=== PATIENT | male | born 1970 | race Caucasian/White ===

== ENCOUNTER 2016-11-30 12:38 | Emergency (ER) | payer OTHER ==
[~2016-11-30] VITALS: Ht 175.3 cm; Wt 69.0 kg
[~2016-11-30 12:38] MED LIST: CLIN1CAP6 PO; HYDR-3580 PO; OMPR20CCR PO
[2016-11-30 12:51] VITALS: BP 124/75; PULSE 65; RESP 16; TEMP 98; O2SAT 97
[2016-11-30] MEDS ORDERED: PRIL20CA9 PO (13:18)
[2016-11-30] MEDS ORDERED: ADDE20 PO (13:18)
--- NOTE | 2016-11-30 13:24 | PD ---
HPI Chief Complaint: Cold / Flu Symptoms Time Seen by Provider: 13:20 Travel History International Travel<30 days: No Contact w/Intl Traveler<30days: No Traveled to known affect area: No History of Present Illness HPI Patient comes in complaining of intermittent substernal chest pain ongoing for approximately a month. Patient describes pain as a pressure-like pain that radiates to his right flank. Patient reports associated tightness across his shoulders. Patient denies anything making it better or worse. Patient states approximately a week ago he had an upper respiratory infection that resolved about 3 days ago. Denies any weight loss, fevers, nausea, vomiting, diarrhea, abdominal pain, shortness of breath, or trauma. PFSH Past Medical History Cardiovascular Problems: No Diabetes: No Diminished Hearing: No GERD: Yes Musculoskeletal: Yes (LT SHOULDER) Past Surgical History Other Surgery: Yes (SHOULDER) Social History Alcohol Use: Yes (SOCIAL) Tobacco Use: Yes (SOCIAL) Substance Use: No Allergies-Medications (Allergen,Severity, Reaction): Coded Allergies: Codeine (Verified Allergy, Severe, HIVES, 11/30/16) Reported Meds & Prescriptions Reported Meds & Active Scripts Active Proair Hfa 8.5 GM Inh (Albuterol Sulfate) 90 Mcg/Act Aer 2 Puff INH Q4-6H PRN 108 mcg/actuation Zithromax Z-Cedrick (Azithromycin) 250 Mg Dspk 250 Mg PO DIRECTED 500 MG (2 tabs) day 1, then 1 tab days 2-5. Reported Adderall (Amphetamine-Dextroamphetamine) 20 Mg Tab 20 Mg PO DAILY Avoid late evening doses. Space doses at least 4 to 6 hours if more than once/day dosing. Prilosec (Omeprazole) 20 Mg Cap 20 Mg PO DAILY Prilosec 20 Mg Cap (Omeprazole) 20 Mg Capcr 20 Mg PO DAILY Review of Systems Except as stated in HPI: all other systems reviewed are Neg Physical Exam Narrative GENERAL: Well-developed, well nourished, in no acute distress, and non-ill appearing. SKIN: Focused skin assessment warm and dry. HEAD: Atraumatic. Normocephalic. EYES: Pupils equal and round. EOMI. No scleral icterus. No injection or drainage. ENT: No nasal bleeding or discharge. Mucous membranes pink and moist. NECK: Trachea midline. Supple. No nuclear rigidity. CARDIOVASCULAR: Regular rate and rhythm. No murmur appreciated. RESPIRATORY: No accessory muscle use. No respiratory distress. Decreased breath sounds right lower lobe. GASTROINTESTINAL: Abdomen soft, non-tender, nondistended. Hepatic and splenic margins not palpable. Normal bowel sounds 4. No pulsatile mass. MUSCULOSKELETAL: No obvious deformities. No clubbing. No cyanosis. No edema. Full range of motion. NEUROLOGICAL: Awake and alert. No obvious cranial nerve deficits. Motor grossly within normal limits. Normal speech. PSYCHIATRIC: Appropriate mood and affect; insight and judgment normal. Data Data Last Documented VS Vital Signs Date Time Temp Pulse Resp B/P Pulse Ox O2 Delivery O2 Flow Rate FiO2 11/30/16 14:13 68 20 129/74 96 Room Air 11/30/16 12:51 98.0 Orders Electrocardiogram (11/30/16 13:17) Ckmb (Isoenzyme) Profile (11/30/16 13:17) Complete Blood Count With Diff (11/30/16 13:17) Comprehensive Metabolic Panel (11/30/16 13:17) Magnesium (Mg) (11/30/16 13:17) Prothrombin Time / Inr (Pt) (11/30/16 13:17) Act Partial Throm Time (Ptt) (11/30/16 13:17) Troponin I (11/30/16 13:17) Lipase (11/30/16 13:17) Chest, Single Ap (11/30/16 13:17) Ecg Monitoring (11/30/16 13:17) Bilateral Bp Monitoring (11/30/16 13:17) Iv Access Insert/Monitor (11/30/16 13:17) Oximetry (11/30/16 13:17) Oxygen Administration (11/30/16 13:17) Aspirin Chew (Aspirin Chew) (11/30/16 13:30) Sodium Chloride 0.9% Flush (Ns Flush) (11/30/16 13:30) CKMB (11/30/16 13:20) CKMB% (11/30/16 13:20) Labs Laboratory Tests Test 11/30/16 13:20 White Blood Count 13.0 TH/MM3 Red Blood Count 4.59 MIL/MM3 Hemoglobin 13.8 GM/DL Hematocrit 41.3 % Mean Corpuscular Volume 90.1 FL Mean Corpuscular Hemoglobin 30.0 PG Mean Corpuscular Hemoglobin 33.3 % Concent Red Cell Distribution Width 12.9 % Platelet Count 386 TH/MM3 Mean Platelet Volume 7.7 FL Neutrophils (%) (Auto) 72.9 % Lymphocytes (%) (Auto) 17.9 % Monocytes (%) (Auto) 6.5 % Eosinophils (%) (Auto) 2.2 % Basophils (%) (Auto) 0.5 % Neutrophils # (Auto) 9.5 TH/MM3 Lymphocytes # (Auto) 2.3 TH/MM3 Monocytes # (Auto) 0.8 TH/MM3 Eosinophils # (Auto) 0.3 TH/MM3 Basophils # (Auto) 0.1 TH/MM3 CBC Comment DIFF FINAL Differential Comment Prothrombin Time 10.3 SEC Prothromb Time International 0.9 RATIO Ratio Activated Partial 29.2 SEC Thromboplast Time Sodium Level 140 MEQ/L Potassium Level 4.2 MEQ/L Chloride Level 106 MEQ/L Carbon Dioxide Level 27.3 MEQ/L Anion Gap 7 MEQ/L Blood Urea Nitrogen 13 MG/DL Creatinine 0.89 MG/DL Estimat Glomerular Filtration 91 ML/MIN Rate Random Glucose 93 MG/DL Calcium Level 8.6 MG/DL Magnesium Level 2.1 MG/DL Total Bilirubin 0.3 MG/DL Aspartate Amino Transf 33 U/L (AST/SGOT) Alanine Aminotransferase 30 U/L (ALT/SGPT) Alkaline Phosphatase 73 U/L Total Creatine Kinase 136 U/L Creatine Kinase MB 0.8 NG/ML Troponin I LESS THAN 0.02 NG/ML Total Protein 6.7 GM/DL Albumin 3.0 GM/DL Lipase 104 U/L MDM Medical Decision Making Medical Screen Exam Complete: Yes Emergency Medical Condition: Yes Interpretation(s) EKG reviewed by Dr. Estrella, shows normal sinus rhythm with ventricular rate of 60. No STEMI. Chest x-ray reviewed with radiologist shows : Suspected moderate right pleural effusion with some accompanying atelectasis or consolidation at the right base. Differential Diagnosis Acute coronary syndrome, angina, pneumonia, pneumothorax, pancreatitis, electrolyte abnormality, other Narrative Course Discussed patient with Dr. Estrella who recommends antibiotics and outpatient follow -up. The patient is non-ill appearing and is in no respiratory distress and comfortable. The patient moves air well and oxygen saturations are normal. Chest x-ray revealed evidence of pneumonia and pleural effusion. The patient looks great and has no significant co morbidities and may be discharged home on outpatient therapy. Plan of care and management were discussed with the patient who agreed with plan. The patient was instructed to follow up with their physician and instructed to return if worsens, progressively worsening shortness of breath or difficulty breathing, persistent fever, chest pains or discomfort, inability to keep medication or fluids down with or without vomiting , or as needed or unable to establish follow up within a timely manner. Patient in no obvious distress upon re-evaluation. All pertinent laboratory/ Radiology result(s) discussed with patient. Patient was asked if they wanted to speak to my attending, which the patient did not wish to do at this time. Any questions/concerns in reference to patient diagnosis/condition discussed and clarified prior to patient's discharge. Reinforced sheer importance of close follow up with patient's primary physician or primary care clinic and/or escrow representative. Instructed patient to return to ED immediately, if symptoms return/worsen. Pt showed understanding of above instructions. Further instructions and recommendations were detailed in discharge paperwork. Pt ambulated without difficulty out of ED at discharge. Diagnosis Primary Impression: Right lower lobe pneumonia Qualified Code: J18.1 - Pneumonia of right lower lobe due to infectious organism Additional Impression: Pleural effusion, right Referrals: Colin Telles MD Patient Instructions: Community Acquired Pneumonia (ED), General Instructions, Pleural Effusion (ED) Additional Instructions: Follow-up with your primary care physician and/or escrow representative in 3-5 days for reevaluation. Take all medication as prescribed. Return to the emergency department if symptoms get worse. Med/Other Pt SpecificInfo: Prescription(s) given Scripts Albuterol 8.5 GM Inh (Proair Hfa 8.5 GM Inh)90 Mcg/Act Aer2 Puff INH Q4-6H PRN ( COUGH) #1 INHALER Ref 0 108 mcg/actuation Prov:Jesse Estrella MD 11/30/16 Azithromycin (Zithromax Z-Cedrick)250 Mg Qdgi415 Mg PO DIRECTED #1 DSPK Ref 0 500 MG (2 tabs) day 1, then 1 tab days 2-5. Prov:Jesse Estrella MD 11/30/16 Disposition: 01 DISCHARGE HOME Condition: Stable Miguel Artis Nov 30, 2016 13:23
[2016-11-30] MEDS ORDERED: SODIUM CHLORIDE 0.9% FLUSH 10 ML FLUSH IVF PRN (13:30)
[2016-11-30] MEDS ORDERED: ASPIRIN 81 MG CHEW TAB PO ONE (13:30)
[2016-11-30 13:31] VITALS: O2SAT 97
[2016-11-30 13:36] LABS: AUTOMATED NEUTROPHIL # 9.5 TH/MM3 (1.8-7.7); BASOPHIL # 0.1 TH/MM3 (0-0.2); BASOPHIL % 0.5 % (0.0-2.0); EOSINOPHIL # 0.3 TH/MM3 (0-0.4); EOSINOPHIL % 2.2 % (0.0-4.0); HEMATOCRIT 41.3 % (39.0-51.0); HEMO FLAGS DIFF FINAL; LYMPH % 17.9 % (9.0-44.0); LYMPHOCYTE # 2.3 TH/MM3 (1.0-4.8); MEAN CELL VOLUME 90.1 FL (80.0-100.0); MEAN CORPUSCULAR HGB CONC 33.3 % (32.0-36.0); MONO % 6.5 % (0.0-8.0); NEUT % 72.9 % (16.0-70.0); PLATELET COUNT 386 TH/MM3 (150-450); RED BLOOD COUNT 4.59 MIL/MM3 (4.50-5.90); RED CELL DISTRIBUTION WIDTH 12.9 % (11.6-17.2)
[2016-11-30 13:43] LABS: CHLORIDE 106 MEQ/L (98-107); POTASSIUM 4.2 MEQ/L (3.5-5.1); SODIUM (NA) 140 MEQ/L (136-145)
[2016-11-30 13:47] LABS: ANION GAP 7 MEQ/L (5-15); BICARBONATE 27.3 MEQ/L (21.0-32.0)
[2016-11-30 13:48] LABS: BLOOD UREA NITROGEN 13 MG/DL (7-18); MAGNESIUM 2.1 MG/DL (1.5-2.5)
[2016-11-30 13:49] LABS: APTT (PATIENT) 29.2 SEC (24.3-30.1); INTERNATIONAL NORMALIZED RATIO 0.9 RATIO; PROTHROMBIN TIME - PATIENT 10.3 SEC (9.8-11.6)
[2016-11-30 13:50] LABS: ALT (GPT) 30 U/L (12-78); AST (GOT) 33 U/L (15-37)
[2016-11-30 13:51] LABS: GLOMERULAR FILTRATION RATE 91 ML/MIN (>89)
[2016-11-30 13:52] LABS: TOTAL BILIRUBIN ADULT 0.3 MG/DL (0.2-1.0)
[2016-11-30 13:53] LABS: ALKALINE PHOSPHATASE 73 U/L (45-117); CREATINE KINASE 136 U/L (39-308)
[2016-11-30 14:05] LABS: CKMB 0.8 NG/ML (0.5-3.6)
[2016-11-30 14:13] VITALS: BP 129/74; PULSE 68; RESP 20; O2SAT 96
--- NOTE | 2016-11-30 14:20 | RADHPO ---
EXAM DATE/TIME: 11/30/2016 13:32 [facility] COMPARISON: No previous studies available for comparison. INDICATIONS : Chest pains MEDICAL HISTORY : None. SURGICAL HISTORY : None. ENCOUNTER: Initial ACUITY: 4 - 6 days PAIN SCORE: 3/10 LOCATION: Bilateral chest FINDINGS: There is increased density seen in the mid and lower right chest. The heart is normal. The left lung is clear CONCLUSION: Suspected moderate right pleural effusion with some accompanying atelectasis or consolidation at the right base. Abe Dillard MD on November 30, 2016 at 14:15 Board Certified Radiologist. This report was verified electronically.
[2016-11-30] MEDS ORDERED: ALBUAER3 INH (14:36)
[2016-11-30] MEDS ORDERED: ZITHTAB PO (14:36)
--- NOTE | 2016-12-01 14:30 | EKG ---
Date Performed: 11/30/2016 Time Performed: 13:24:02 PTAGE: 46 years EKG: Sinus rhythm . Normal ECG PREVIOUS TRACING : 03/28/2009 19.47 Compared to prior tracing no significant change DOCTOR: Emery Bustos Interpretating Date/Time 12/01/2016 14:26:18
== END 2016-11-30 14:45 | disposition home or self-care (01) ==
LOC: PHEFT 12:38
DX: J18.1 Lobar pneumonia, unspecified organism (principal); J90 Pleural effusion, not elsewhere classified; K21.9 Gastro-esophageal reflux disease without esophagitis; Z72.0 Tobacco use
CPT/HCPCS: 71010; 80053; 82550; 82552; 83690; 83735; 84484; 85025; 85610; 85730; 93005

== ENCOUNTER 2016-12-03 22:39 | Inpatient (IN) | payer OTHER ==
[~2016-12-03] VITALS: Ht 175.3 cm; Wt 68.0 kg
[~2016-12-03 22:39] MED LIST changes: +ADDE20 PO; +ALBUAER3 INH; -CLIN1CAP6 PO; -HYDR-3580 PO; +PRIL20CA9 PO; +ZITHTAB PO
[2016-12-03 22:40] VITALS: BP 124/77; PULSE 117; RESP 20; TEMP 99; O2SAT 95
[2016-12-04] VITALS (15 sets, daily range): BP systolic 105–121; BP diastolic 58–73; PULSE 89–115; RESP 14–24; TEMP 98.1–99.5; O2SAT 90–99
[2016-12-04] MEDS ORDERED: SODIUM CHLORIDE 0.9% FLUSH 10 ML FLUSH IVF PRN (00:15)
--- NOTE | 2016-12-04 00:36 | RADRPT ---
EXAM DATE/TIME: 12/04/2016 00:18 [facility] COMPARISON: CHEST SINGLE AP, November 30, 2016, 13:32. INDICATIONS : Shortness of breath. MEDICAL HISTORY : Right lung pneumonia. SURGICAL HISTORY : None. ENCOUNTER: Initial ACUITY: 4 - 6 days PAIN SCORE: 0/10 LOCATION: Bilateral chest FINDINGS: PA and lateral views of the chest demonstrates an increasing area of parenchymal consolidation and ef fusion the right lung. This is mildly increased compared to the prior exam. The left lung remains tisha ar and well-aerated. No new infiltrates are seen the left lung. The heart size is stable. The bony st ructures are stable.. CONCLUSION: Increasing pulmonary infiltrate and effusion in the right lung. Ck Spencer MD on December 04, 2016 at 0:33 Board Certified Radiologist. This report was verified electronically.
[2016-12-04 00:37] LABS: BLOOD GAS BASE EXCESS 1.2 mmol/L (-2-2); BLOOD GAS CARBOXYHEMOGLOBIN 1.2 % (0-4); BLOOD GAS HCO3 25 mmol/L (22-26); BLOOD GAS METHEMOGLOBIN 0.5 % (0-2); BLOOD GAS O2 HGB SATURATION 94 % (90-100); BLOOD GAS OXYGEN CONTENT 19.2 Vol % (12.0-20.0); BLOOD GAS PCO2 38 mmHg (38-42); BLOOD GAS PO2 76 mmHG (61-120); BLOOD GAS TOTAL HGB 14.5 G/DL (12.0-16.0); CRITICAL VALUE NO; DRAW SITE RT RADIAL; NUMBER OF ARTERIAL PUNCTURES 1; TEMP CORR TO 98.6; ULNAR PULSE PRESENT
[2016-12-04 00:38] LABS: STAT YES
[2016-12-04 00:47] LABS: AUTOMATED NEUTROPHIL # 11.9 TH/MM3 (1.8-7.7); BASOPHIL # 0.2 TH/MM3 (0-0.2); BASOPHIL % 1.2 % (0.0-2.0); EOSINOPHIL # 0.3 TH/MM3 (0-0.4); EOSINOPHIL % 1.7 % (0.0-4.0); HEMATOCRIT 42.3 % (39.0-51.0); LYMPH % 13.3 % (9.0-44.0); LYMPHOCYTE # 2.1 TH/MM3 (1.0-4.8); MEAN CELL VOLUME 87.6 FL (80.0-100.0); MEAN CORPUSCULAR HEMOGLOBIN 30.6 PG (27.0-34.0); MONO % 7.3 % (0.0-8.0); NEUT % 76.5 % (16.0-70.0); PLATELET COUNT 382 TH/MM3 (150-450); RED BLOOD COUNT 4.83 MIL/MM3 (4.50-5.90); WHITE BLOOD COUNT 15.6 TH/MM3 (4.0-11.0)
[2016-12-04] MEDS ORDERED: RESP: ALBUTEROL 2.5 MG/IPRATROPIUM 0.5 MG NEB (PRN) NEB (01:00)
[2016-12-04] MEDS ORDERED: NALOXONE HCL 0.4 MG/ML AMP IV PRN (01:00)
[2016-12-04 01:02] LABS: HEMO FLAGS AUTO DIFF
[2016-12-04] MEDS: LEVOFLOXACIN 750 MG PREMIX INJ 150 ML IV SCH (01:12)
[2016-12-04 01:14] LABS: BICARBONATE 30.3 MEQ/L (21.0-32.0); POTASSIUM 4.1 MEQ/L (3.5-5.1)
[2016-12-04 01:37] LABS: BANDS 14 % (0-6); EOSINOPHILS 3 % (0-4); NEUTROPHIL # MANUAL DIFF 11.9 TH/MM3 (1.8-7.7); PLATELET ESTIMATE SMEAR NORMAL (NORMAL); PLATELET MORPHOLOGY NORMAL (NORMAL); POLYS (SEG NEUTROPHILS) 62 % (16-70); SCAN/DIFF FINAL DIFF MANUAL; WBC DIFF SAMPLE 100
--- NOTE | 2016-12-04 02:31 | HHI.HP ---
HPI Service [facility] Primary Care Physician Omar Harry MD Admission Diagnosis pneumonia, failure of adequate outpatient treatment Diagnoses: Travel History International Travel<30 Days: No Contact w/Intl Traveler <30 Da: No Traveled to Known Affected Are: No History of Present Illness This is a 46 year old male patient with a past medical history which includes GERD and ADD. Patient reports trouble breathing x 1 week, associated with cough productive of yellow phlegm and right sided chest pain with radiation to the back pain described as sharp stabbing in nature. Patient was seen at [facility] Thursday[facility]Thursday give abx and has been feeling worse with more difficult in breath and increasing muscle aches. Denies fevers, chills, N/V/D, changes in weight or difficulty in GERD, ADD on Adderall patient also taking probiotic daily and Aleve PM lately Shoulder surgery quit 2 weeks ago prior to that was smoking 3-4 cigarettes per day for the past 5 year social ETOH occasional marijuana use Sister has lupus fibromyalgia Mother has arthritis and, "autoimmune problems" Pna- failed outpatient therapy Pulmonary effusion CXR reviewed by myself and Dr. Houston CT chest ordered and pending- may need IR consult to drain pulmonary effusion both diagnostic and therapeutic if CT abnormal may need Pulmonology consult Duonebs scheduled and as needed supplemental oxygen to maintain saturation above 92% TAcycardiac- ST likely reactive to Pna DVT prophylaxis with Discussed with ER provider, nursing, patient and at bedside Written by Margaret Valle, acting as scribe for Dr. Houston on 12/04/16 at 02: 28. Past Family Social History Allergies: Coded Allergies: Codeine (Verified Allergy, Severe, HIVES, 12/03/16) Physical Exam Vital Signs Vital Signs Date Time Temp Pulse Resp B/P Pulse Ox O2 Delivery O2 Flow Rate FiO2 12/04/16 01:12 102 22 114/73 98 Nasal Cannula 2 12/04/16 00:51 99 24 97 Nasal Cannula 2 12/03/16 22:40 99.0 117 20 124/77 95 Room Air Physical Exam GENERAL: This is a well-nourished, well-developed patient, in no apparent distress. SKIN: No rashes, ecchymoses or lesions. Cool and dry. HEAD: Atraumatic. Normocephalic. No temporal or scalp tenderness. EYES: Pupils equal round and reactive. Extraocular motions intact. No scleral icterus. No injection or drainage. ENT: Nose without bleeding, purulent drainage or septal hematoma. Throat without erythema, tonsillar hypertrophy or exudate. Uvula midline. Airway patent. NECK: Trachea midline. No JVD or lymphadenopathy. Supple, nontender, no meningeal signs. CARDIOVASCULAR: Regular rate and rhythm without murmurs, gallops, or rubs. RESPIRATORY: decrease air movement on R GASTROINTESTINAL: Abdomen soft, non-tender, nondistended. No hepato-splenomegaly , or palpable masses. No guarding. MUSCULOSKELETAL: Extremities without clubbing, cyanosis, or edema. No joint tenderness, effusion, or edema noted. No calf tenderness. Negative Homans sign bilaterally. NEUROLOGICAL: Awake and alert. Cranial nerves II through XII intact. Motor and sensory grossly within normal limits. Five out of 5 muscle strength in all muscle groups. Normal speech. Laboratory Laboratory Tests Test 12/04/16 12/04/16 00:22 00:37 Blood Gas Puncture Site RT RADIAL Blood Gas Patient Temperature 98.6 Blood Gas HCO3 25 Blood Gas Base Excess 1.2 Blood Gas Oxygen Saturation 94 Arterial Blood pH 7.44 Arterial Blood Partial 38 Pressure CO2 Arterial Blood Partial 76 Pressure O2 Arterial Blood Oxygen Content 19.2 Arterial Blood 1.2 Carboxyhemoglobin Arterial Blood Methemoglobin 0.5 Blood Gas Hemoglobin 14.5 Oxygen Delivery Device Blood Gas Liter Flow White Blood Count 15.6 Red Blood Count 4.83 Hemoglobin 14.8 Hematocrit 42.3 Mean Corpuscular Volume 87.6 Mean Corpuscular Hemoglobin 30.6 Mean Corpuscular Hemoglobin 35.0 Concent Red Cell Distribution Width 13.0 Platelet Count 382 Mean Platelet Volume 7.8 Neutrophils (%) (Auto) 76.5 Lymphocytes (%) (Auto) 13.3 Monocytes (%) (Auto) 7.3 Eosinophils (%) (Auto) 1.7 Basophils (%) (Auto) 1.2 Neutrophils # (Auto) 11.9 Lymphocytes # (Auto) 2.1 Monocytes # (Auto) 1.1 Eosinophils # (Auto) 0.3 Basophils # (Auto) 0.2 CBC Comment AUTO DIFF Differential Total Cells 100 Counted Neutrophils % (Manual) 62 Band Neutrophils % 14 Lymphocytes % 15 Monocytes % 6 Eosinophils % 3 Neutrophils # (Manual) 11.9 Differential Comment FINAL DIFF MANUAL Platelet Estimate NORMAL Platelet Morphology Comment NORMAL Sodium Level 139 Potassium Level 4.1 Chloride Level 103 Carbon Dioxide Level 30.3 Anion Gap 6 Blood Urea Nitrogen 17 Creatinine 0.98 Estimat Glomerular Filtration 82 Rate Random Glucose 89 Calcium Level 9.0 B-Type Natriuretic Peptide 38 Date/Time Procedure Status Source Growth 12/04/16 00:37 Aerobic Blood Culture Received Blood Peripheral Pending 12/04/16 00:37 Anaerobic Blood Culture Received Blood Peripheral Pending Result Diagram: 12/04/16 0037 12/04/16 0037 Margaret Valle Dec 04, 2016 02:31
--- NOTE | 2016-12-04 02:56 | RADRPT ---
EXAM DATE/TIME: 12/04/2016 02:41 [facility] COMPARISON: No previous studies available for comparison. INDICATIONS : Evaluate for pneumonia. RADIATION DOSE: 3.48 CTDIvol (mGy) MEDICAL HISTORY : Gastroesophageal reflux disease. SURGICAL HISTORY : None. ENCOUNTER: Initial ACUITY: 3 days PAIN SCALE: 0/10 LOCATION: chest TECHNIQUE: Volumetric scanning of the chest was performed. Using automated exposure control and adjustment of t he mA and/or kV according to patient size, radiation dose was kept as low as reasonably achievable to obtain optimal diagnostic quality images. FINDINGS: LUNGS: There is a large right-sided pleural effusion with compressive atelectasis involving the right middle and right lower lung. There is some partial aeration of the right upper lung. The left lung is well- aerated. There is a mild infiltrate in the left lung base. PLEURAE: Large right pleural effusion. MEDIASTINUM: A few nonspecific lymph nodes are seen. The vascular structures are unremarkable. The heart size is w ithin normal limits. AXILLAE: Within normal limits. No lymphadenopathy. MUSCULOSKELETAL: Within normal limits for patient age. MISCELLANEOUS: The visualized upper abdominal organs demonstrate no acute abnormality. CONCLUSION: 1. Large right pleural effusion with compressive atelectasis involving the right middle and right low er lung. 2. Mild left lower lung infiltrate. Ck Spencer MD on December 04, 2016 at 2:51 Board Certified Radiologist. This report was verified electronically.
--- NOTE | 2016-12-04 03:10 | HHI.HP ---
[facility] Omar Harry MD Admission Diagnosis pneumonia, failure of adequate outpatient treatment Diagnoses: Chief Complaint: worsening SOB Travel History International Travel<30 Days: No Contact w/Intl Traveler <30 Da: No Traveled to Known Affected Are: No History of Present Illness This is a 46 year old male patient with a past medical history which includes GERD and ADD. Patient reports he has had trouble breathing x 1 week. This shortness of breath has been associated with cough productive of yellow phlegm and right sided chest pain. Chest pain is worsen by his shortness of breath. The right-sided chest pain radiates to the back pain and patient describes the chest pain as sharp stabbing in nature. Patient was seen at [facility] given azithromycin by mouth and discharged home. Patient report that since that time he has been feeling worse with increasing shortness of breath and increasing generalized muscle aches. Patient feels warm at time of evaluation. Patient denies fevers, chills, N/V/D, changes in weight. Upon arrival to the emergency department patient's temperature 99.0 heart rate of 117 respiratory rate of 20 blood pressure 124/77 with pulse oximetry 95% on room air. Chest x-ray reviewed by myself as well as Dr. Houston and reveals increasing pulmonary infiltrate and effusion in the right lung. Review of Systems Except as stated in HPI: all other systems reviewed are Neg Past Family Social History Past Medical History GERD, ADD on Adderall Past Surgical History Left ankle tendon repair, left Shoulder surgery Reported Medications Zithromax Z-Cedrick (Azithromycin) 250 Mg Dspk 250 Mg PO DIRECTED 500 MG (2 tabs) day 1, then 1 tab days 2-5. Adderall (Amphetamine-Dextroamphetamine) 20 Mg Tab 20 Mg PO DAILY Avoid late evening doses. Space doses at least 4 to 6 hours if more than once/day dosing. Prilosec (Omeprazole) 20 Mg Cap 20 Mg PO DAILY patient also taking OTC probiotic daily and Aleve PM lately Allergies: Coded Allergies: Codeine (Verified Allergy, Severe, HIVES, 12/03/16) Active Ordered Medications Current Medications Medications (Trade) Dose Ordered Sig/Thiago Route Start Time Stop Time Status Last Admin (NS Flush) 2 ml UNSCH PRN IV FLUSH 12/04/16 01:00 (NS Flush) 2 ml BID IV FLUSH 12/04/16 09:00 Naloxone HCl 0.4 mg 0.4 mg UNSCH PRN IV 12/04/16 01:00 (Levaquin 750 Mg Premix Inj) 150 ml @ 100 mls/hr Q24H IV 12/04/16 01:00 12/04/16 01:12 Family History Sister has lupus fibromyalgia Mother has arthritis and, "autoimmune problems" Social History quit 2 weeks ago prior to that was smoking 3-4 cigarettes per day for the past 5 year social ETOH occasional marijuana use Physical Exam Vital Signs Vital Signs Date Time Temp Pulse Resp B/P Pulse Ox O2 Delivery O2 Flow Rate FiO2 12/04/16 01:12 102 22 114/73 98 Nasal Cannula 2 12/04/16 00:51 99 24 97 Nasal Cannula 2 12/03/16 22:40 99.0 117 20 124/77 95 Room Air Physical Exam GENERAL: This is a well-nourished, well-developed patient, in no apparent distress. SKIN: No rashes, ecchymoses or lesions. Cool and dry. HEAD: Atraumatic. Normocephalic. No temporal or scalp tenderness. EYES: Extraocular motions intact. No scleral icterus. No injection or drainage. CARDIOVASCULAR: Tachycardic without murmurs, gallops, or rubs. RESPIRATORY: Diminished right GASTROINTESTINAL: Abdomen soft, non-tender, nondistended. MUSCULOSKELETAL: Extremities without clubbing, cyanosis, or edema. No joint tenderness, effusion, or edema noted. No calf tenderness. Negative Homans sign bilaterally. NEUROLOGICAL: Awake and alert. Motor and sensory grossly within normal limits. Five out of 5 muscle strength in all muscle groups. Normal speech. Laboratory Laboratory Tests Test 12/04/16 12/04/16 00:22 00:37 Blood Gas Puncture Site RT RADIAL Blood Gas Patient Temperature 98.6 Blood Gas HCO3 25 Blood Gas Base Excess 1.2 Blood Gas Oxygen Saturation 94 Arterial Blood pH 7.44 Arterial Blood Partial 38 Pressure CO2 Arterial Blood Partial 76 Pressure O2 Arterial Blood Oxygen Content 19.2 Arterial Blood 1.2 Carboxyhemoglobin Arterial Blood Methemoglobin 0.5 Blood Gas Hemoglobin 14.5 Oxygen Delivery Device Blood Gas Liter Flow White Blood Count 15.6 Red Blood Count 4.83 Hemoglobin 14.8 Hematocrit 42.3 Mean Corpuscular Volume 87.6 Mean Corpuscular Hemoglobin 30.6 Mean Corpuscular Hemoglobin 35.0 Concent Red Cell Distribution Width 13.0 Platelet Count 382 Mean Platelet Volume 7.8 Neutrophils (%) (Auto) 76.5 Lymphocytes (%) (Auto) 13.3 Monocytes (%) (Auto) 7.3 Eosinophils (%) (Auto) 1.7 Basophils (%) (Auto) 1.2 Neutrophils # (Auto) 11.9 Lymphocytes # (Auto) 2.1 Monocytes # (Auto) 1.1 Eosinophils # (Auto) 0.3 Basophils # (Auto) 0.2 CBC Comment AUTO DIFF Differential Total Cells 100 Counted Neutrophils % (Manual) 62 Band Neutrophils % 14 Lymphocytes % 15 Monocytes % 6 Eosinophils % 3 Neutrophils # (Manual) 11.9 Differential Comment FINAL DIFF MANUAL Platelet Estimate NORMAL Platelet Morphology Comment NORMAL Sodium Level 139 Potassium Level 4.1 Chloride Level 103 Carbon Dioxide Level 30.3 Anion Gap 6 Blood Urea Nitrogen 17 Creatinine 0.98 Estimat Glomerular Filtration 82 Rate Random Glucose 89 Calcium Level 9.0 B-Type Natriuretic Peptide 38 Date/Time Procedure Status Source Growth 12/04/16 00:37 Aerobic Blood Culture Received Blood Peripheral Pending 12/04/16 00:37 Anaerobic Blood Culture Received Blood Peripheral Pending Result Diagram: 12/04/167 12/04/16 0037 Imaging Last Impressions Chest X-Ray 12/04/16 0008 Signed Impressions: Service Date/Time: November 00:18 - CONCLUSION: Increasing pulmonary infiltrate and effusion in the right lung. Ck Spencer MD Assessment and Plan Problem List: (1) Pleural effusion, right ICD Code: J90 Status: Acute (2) Right lower lobe pneumonia ICD Code: J18.1 Status: Acute (3) Failure of outpatient treatment ICD Code: Z78.9 Status: Acute Assessment and Plan This is a 46 year old male patient with a past medical history which includes GERD and ADD. Patient reports he has had trouble breathing x 1 week. This shortness of breath has been associated with cough productive of yellow phlegm and right sided chest pain. Chest pain is worsen by his shortness of breath. The right-sided chest pain radiates to the back pain and patient describes the chest pain as sharp stabbing in nature. Patient was seen at [facility] given azithromycin by mouth and discharged home. Patient report that since that time he has been feeling worse with increasing shortness of breath and increasing generalized muscle aches. Patient feels warm at time of evaluation. Patient denies fevers, chills, N/V/D, changes in weight. Upon arrival to the emergency department patient's temperature 99.0 heart rate of 117 respiratory rate of 20 blood pressure 124/77 with pulse oximetry 95% on room air. Chest x-ray reviewed by myself as well as Dr. Houston and reveals increasing pulmonary infiltrate and effusion in the right lung. Community acquired pneumonia which has failed outpatient therapy Pulmonary effusion Leukocytosis 15.6 CXR reviewed by myself and Dr. Houston and reveals increasing pulmonary infiltrate and effusion in the right lung. CT chest ordered and pending- may need IR consult to drain pulmonary effusion both diagnostic and therapeutic if CT abnormal may need Pulmonology consult Jason scheduled and as needed supplemental oxygen to maintain saturation above 92% Tachycardiac- ST likely reactive to Pna Patient has received 1 L fluid bolus and also also been started on IV Levaquin Continuous cardiac telemetry and continue to monitor HR Other stable medical conditions include ADD and GERD- continue home medications DVT prophylaxis with SCDs Discussed with ER provider, nursing, patient and at bedside Written by Margaret Valle, acting as scribe for Dr. Houston on 12/04/16 at 02: 28. This note was transcribed by scribe [Margaret Valle]. I, Dr. Matt Houston personally performed the history, physical exam, and medical decision making; and confirmed the accuracy of the information in the transcribed note. Authenticated by Dr. Matt Houston on 12/04/16 at 02:28. Physician Certification 2 Midnight Certification Type: Admission for Inpatient Services Order for Inpatient Services The services are ordered in accordance with Medicare regulations or non- Medicare payer requirements, as applicable. In the case of services not specified as inpatient-only, they are appropriately provided as inpatient services in accordance with the 2-midnight benchmark. Estimated LOS (days): 3 days is the estimated time the patient will need to remain in the hospital, assuming treatment plan goals are met and no additional complications. Post-Hospital Plan: Home Problem Qualifiers (1) Right lower lobe pneumonia: Qualified Code: J18.1 - Pneumonia of right lower lobe due to infectious organism Margaret Valle Dec 04, 2016 03:10 Matt Houston MD December 08, 2016 07:15
[2016-12-04 04:49] LABS: PROTHROMBIN TIME - PATIENT 10.9 SEC (9.8-11.6)
[2016-12-04] MEDS: RESP: ALBUTEROL 2.5 MG/IPRATROPIUM 0.5 MG NEB (SCH) NEB ×3 (07:55→20:05)
[2016-12-04] MEDS: DEXTROAMPHETAMINE/AMPHETAMINE 20 MG TAB PO SCH (09:00)
[2016-12-04] MEDS ORDERED: IBUPROFEN 400 MG TAB PO ONE (11:45)
--- NOTE | 2016-12-04 14:18 | RADRPT ---
EXAM DATE/TIME: 12/04/2016 13:37 [facility] COMPARISON: CHEST PA & LAT, December 04, 2016, 0:18. CT THORAX W/O CONTRAST, December 04, 2016, 2:41. CHEST SINGLE AP , November 30, 2016, 13:32. INDICATIONS : Post right thoracentesis. MEDICAL HISTORY : Gastroesophageal reflux disease. SURGICAL HISTORY : None. ENCOUNTER: Subsequent ACUITY: 2 days PAIN SCORE: 0/10 LOCATION: Right chest FINDINGS: Portable upright AP expiratory view of the chest demonstrates no pneumothorax following recent right thoracentesis. There is persistent pleural-parenchymal opacity at the right base but decreased from t he prior study. CONCLUSION: 1. No pneumothorax is visualized following recent right thoracentesis. 2. Right pleural effusion has significantly decreased in size but a small amount of pleural fluid rem ains present. There is residual atelectasis and/or consolidation in the right lung base. Abe Teixeira MD on December 04, 2016 at 14:15 Board Certified Radiologist. This report was verified electronically.
[2016-12-04 14:37] LABS: TOTAL PROTEIN,PLEURAL FLUID 4.5 GM/DL
[2016-12-04] MEDS: SODIUM CHLORIDE 0.9% FLUSH 10 ML FLUSH IV FLUSH SCH ×2 (14:42→21:24)
[2016-12-04] MEDS: PANTOPRAZOLE SOD 20 MG DELAYED RELEASE TAB PO SCH (14:42)
[2016-12-04 14:50] LABS: PLEURAL FLUID LYMPHS 45 %
--- NOTE | 2016-12-04 16:21 | RADRPT ---
EXAM DATE/TIME: 12/04/2016 12:37 [facility] COMPARISON: CT THORAX W/O CONTRAST, December 04, 2016, 2:41. INDICATIONS : Right pleural effusion. MEDICAL HISTORY : Gastroesophageal reflux disease. SURGICAL HISTORY : Left ankle tendon repair. ENCOUNTER: Initial ACUITY: 1 week PAIN SCORE: 0/10 LOCATION: Right chest FLUID: Total volume of 2,100 cc of bloody fluid was removed. Fluid was sent to lab for ordered studies. TECHNIQUE: 1. Ultrasound guidance for thoracentesis. 2. Thoracentesis. The risks, benefits, and alternatives to ultrasound guided thoracentesis were explained to the patien t in lay simple terms, including the risk of bleeding and infection. Written and verbal informed con sent was obtained. Appropriate area for thoracentesis was marked under ultrasound guidance with the patient in the uprig ht position. Overlying skin was prepped and draped in the usual sterile fashion and with local anest hetic, a dermatotomy was made with an 11 blade scalpel. A 6 Tunisian thoracentesis catheter was placed in the pleural space and fluid was removed. Catheter was then removed and a sterile dressing applie d. There were no immediate complications. The patient tolerated the procedure well and the left the ultrasound suite in stable condition. Chest radiograph is to be obtained. CONCLUSION: Uncomplicated ultrasound guided thoracentesis with removal of 2.1 L of bloody fluid. Abe Teixeira MD on December 04, 2016 at 16:19 Board Certified Radiologist. This report was verified electronically.
--- NOTE | 2016-12-04 20:20 | HHI.PR ---
Addendum to Inpatient Note Addendum Reason: Additional Documentation Additional Information Deferred entry, patient seen earlier today at around 2:30 PM. Patient earlier had increasing heart rate, oxygen saturation the 90s which improved after thoracentesis. The patient was coming back from thoracentesis. Patient states shortness of breath is much improved, denies chest pain. Patient is awake alert oriented 3, nonacute distress. Lungs showed diminished air entry in the right lung base, other lung rosario clear to auscultation. Abdomen soft, nontender. Bilateral lower extremities without edema. Patient has sepsis secondary to pneumonia. Patient with leukocytosis of 15 K and tachycardia with heart rate of more than 110. Large left pleural effusion has been evacuated. Continue IV Levaquin. Cytology pending. FU pleural fluid analysis. Amari Mccain MD Dec 04, 2016 20:20
[2016-12-05] VITALS (10 sets, daily range): BP systolic 108–119; BP diastolic 57–72; PULSE 91–117; RESP 16–20; TEMP 97.4–98.6; O2SAT 93–96
[2016-12-05] MEDS: LEVOFLOXACIN 750 MG PREMIX INJ 150 ML IV SCH (01:39)
[2016-12-05] MEDS: IBUPROFEN 400 MG TAB PO PRN ×4 (01:53→23:47)
[2016-12-05 07:10] LABS: AUTOMATED NEUTROPHIL # 9.7 TH/MM3 (1.8-7.7); BASOPHIL # 0.1 TH/MM3 (0-0.2); BASOPHIL % 0.4 % (0.0-2.0); EOSINOPHIL # 0.4 TH/MM3 (0-0.4); EOSINOPHIL % 3.1 % (0.0-4.0); HEMATOCRIT 42.9 % (39.0-51.0); HEMO FLAGS DIFF FINAL; LYMPH % 15.9 % (9.0-44.0); LYMPHOCYTE # 2.2 TH/MM3 (1.0-4.8); MEAN CELL VOLUME 88.8 FL (80.0-100.0); MEAN CORPUSCULAR HEMOGLOBIN 29.6 PG (27.0-34.0); MEAN CORPUSCULAR HGB CONC 33.3 % (32.0-36.0); NEUT % 69.6 % (16.0-70.0); PLATELET COUNT 337 TH/MM3 (150-450); RED BLOOD COUNT 4.83 MIL/MM3 (4.50-5.90); RED CELL DISTRIBUTION WIDTH 12.9 % (11.6-17.2); WHITE BLOOD COUNT 13.9 TH/MM3 (4.0-11.0)
[2016-12-05 07:52] LABS: ALT (GPT) 17 U/L (12-78); ANION GAP 9 MEQ/L (5-15); AST (GOT) 28 U/L (15-37); BICARBONATE 25.8 MEQ/L (21.0-32.0); BLOOD UREA NITROGEN 18 MG/DL (7-18); CHLORIDE 101 MEQ/L (98-107); GLOMERULAR FILTRATION RATE 81 ML/MIN (>89); MAGNESIUM 2.1 MG/DL (1.5-2.5); POTASSIUM 4.4 MEQ/L (3.5-5.1); SODIUM (NA) 136 MEQ/L (136-145)
[2016-12-05 07:53] LABS: ALKALINE PHOSPHATASE 77 U/L (45-117); TOTAL BILIRUBIN ADULT 0.4 MG/DL (0.2-1.0)
[2016-12-05] MEDS: RESP: ALBUTEROL 2.5 MG/IPRATROPIUM 0.5 MG NEB (SCH) NEB ×3 (08:21→22:04)
[2016-12-05] MEDS: SODIUM CHLORIDE 0.9% FLUSH 10 ML FLUSH IV FLUSH SCH ×2 (09:00→21:29)
[2016-12-05] MEDS: PANTOPRAZOLE SOD 20 MG DELAYED RELEASE TAB PO SCH (09:08)
[2016-12-05] MEDS: DEXTROAMPHETAMINE/AMPHETAMINE 20 MG TAB PO SCH (09:08)
[2016-12-05] MEDS ORDERED: INFLUENZA VIRUS VACCINE (QUADRIVALENT) 0.5 ML SYR IM ONE (10:00)
[2016-12-05] MEDS ORDERED: PNEUMOCOCCAL POLYVALENT INJ 25 MCG/0.5 ML SYR IM ONE (10:00)
--- NOTE | 2016-12-05 14:04 | HHI.PR ---
Subjective Remarks Deferred entry - patient seen at 12:50 Patient states breathing is much improved states has been out of bed and ambulating in the room Patient is sating 94 to 96% on room air. Objective Vitals Vital Signs Date Time Temp Pulse Resp B/P Pulse Ox O2 Delivery O2 Flow Rate FiO2 12/05/16 08:58 97.4 96 16 112/66 94 12/05/16 08:21 96 21 12/05/16 08:00 101 12/05/16 04:00 97.4 91 17 109/69 94 12/05/16 02:53 18 12/05/16 00:00 98.6 107 18 110/64 93 12/04/16 20:07 96 Nasal Cannula 21 12/04/16 20:00 99.5 106 20 114/62 94 12/04/16 20:00 89 12/04/16 16:00 98.4 96 16 110/59 95 12/04/16 14:05 89 16 116/72 99 Result Diagram: 12/05/16 0645 12/05/16 0645 Imaging Last Impressions Chest X-Ray 12/04/16 0008 Signed Impressions: Service Date/Time: November 00:18 - CONCLUSION: Increasing pulmonary infiltrate and effusion in the right lung. Ck Spencer MD Thoracentesis Ultrasound 12/04/16 0000 Signed Impressions: Service Date/Time: November 12:37 - CONCLUSION: Uncomplicated ultrasound guided thoracentesis with removal of 2.1 L of bloody fluid. Abe Teixeira MD Chest CT 12/04/16 0000 Signed Impressions: Service Date/Time: November 02:41 - CONCLUSION: 1. Large right pleural effusion with compressive atelectasis involving the right middle and right lower lung. 2. Mild left lower lung infiltrate. Ck Spencer MD Objective Remarks GENERAL: This is a well-nourished, well-developed patient, in no apparent distress. SKIN: No rashes, ecchymoses or lesions. Cool and dry. HEAD: Atraumatic. Normocephalic. No temporal or scalp tenderness. EYES: Extraocular motions intact. No scleral icterus. No injection or drainage. CARDIOVASCULAR: Tachycardic without murmurs, gallops, or rubs. RESPIRATORY: CTA bilateral with slightly diminished breath sounds on right base. No wheezing, ronchi or rales auscultated. GASTROINTESTINAL: Abdomen soft, non-tender, nondistended. MUSCULOSKELETAL: Extremities without clubbing, cyanosis, or edema. No joint tenderness, effusion, or edema noted. No calf tenderness. Negative Homans sign bilaterally. NEUROLOGICAL: Awake and alert. Motor and sensory grossly within normal limits. Five out of 5 muscle strength in all muscle groups. Normal speech. Procedures sp US guided thoracentesis Medications and IVs Current Medications Medications (Trade) Dose Ordered Sig/Thiago Route Start Time Stop Time Status Last Admin (NS Flush) 2 ml UNSCH PRN IV FLUSH 12/04/16 01:00 (NS Flush) 2 ml BID IV FLUSH 12/04/16 09:00 12/04/16 21:24 Naloxone HCl 0.4 mg 0.4 mg UNSCH PRN IV 12/04/16 01:00 (Levaquin 750 Mg Premix Inj) 150 ml @ 100 mls/hr Q24H IV 12/04/16 01:00 12/05/16 01:39 (Adderall) 20 mg DAILY PO 12/04/16 09:00 12/05/16 09:08 (Protonix) 20 mg DAILY PO 12/04/16 09:00 12/05/16 09:08 (Motrin) 400 mg Q8H PRN PO 12/05/16 02:00 12/08/16 01:59 12/05/16 09:06 A/P Problem List: (1) Sepsis ICD Code: A41.9 Status: Acute Plan: Sepsis secondary to pneumonia. Patient with leukocytosis and tachycardia. The pleural effusion and infiltrate on x-ray. Cenestin to be improving. Leukocytosis trending down. Continue IV Levaquin. Blood cultures negative 1. (2) Pleural effusion, right ICD Code: J90 Status: Acute Plan: sp thoracentesis. pleural fluid seems to be exudative fluid cultures pending cytology pending pulmonary consult (3) Right lower lobe pneumonia ICD Code: J18.1 Status: Acute Plan: failed outpatient therapy check urine pneumococcal antigen and urine Legionella antigen if not previously checked. Will order incentive spirometry. (4) Failure of outpatient treatment ICD Code: Z78.9 Status: Acute Plan: as above Assessment and Plan GI prophylaxis: PPI. DVT prophylaxis: SCDs, add Lovenox subcutaneously. Discharge Planning Possible Dc in am. Pending pulmonary consultation Problem Qualifiers (1) Right lower lobe pneumonia: Qualified Code: J18.1 - Pneumonia of right lower lobe due to infectious organism Amari Mccain MD Dec 05, 2016 14:04
--- NOTE | 2016-12-05 23:27 | MB ---
cc: MIRIAM REARDON MD DATE OF CONSULTATION 12/05/[address] Choi. REASON FOR CONSULTATION Evaluate for pleural effusion. HISTORY OF PRESENT ILLNESS Mr. Martinez is a pleasant 46-year-old man with history of gastroesophageal reflux disease and ADD. He came to the hospital with chest discomfort, shortness of breath, cough, small amount of sputum production going on for the last few days. He was seen in the emergency room at [facility] and then discharged on antibiotic thinking that he feels that his symptoms have been coming on for the last 4-5 weeks when he was having feeling fatigued and tired and has some mild discomfort in the chest but he was able to carry on his activity. Because of worsening of his symptoms, he came to the hospital. His chest x-ray shows large pleural effusion. He had a CT scan of the chest done which shows large right pleural effusion, compressive atelectasis of the right middle lobe and lower lobe and mild left lung infiltrate. He had a thoracentesis done; 2100 mL of bloody fluid was removed. He feels his breathing is much better after that. PAST MEDICAL HISTORY 1. History of ADD 2. Gastroesophageal reflux disease MEDICATIONS 1. ibuprofen 400 mg 2. Adderall 20 mg a day. 3. Protonix 20 mg a da 4. Albuterol/Atrovent nebulizer treatment. 5. Levaquin 750 mg a day. ALLERGIES CODEINE SOCIAL HISTORY He is . 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 History of smoking for about twenty some years, half pack to one packet which he has cut down to a few cigarettes a day. No alcohol use. FAMILY HISTORY He is . He has two children. REVIEW OF SYSTEMS Denies any weight loss, no hemoptysis. No DVT or pulmonary embolism. No seizure, stroke or epilepsy. PHYSICAL EXAMINATION GENERAL: Well-built, well-nourished male not in acute distress. VITAL SIGNS: Blood pressure 116/72, heart rate 78, respirations 16, temperature 98 HEENT: Pupils are equal and reactive to light. Oral mucosa and nasal mucosa normal. NECK: Supple. JVP not raised. CHEST: he has slight decreased breath sounds on the right. CARDIOVASCULAR: S1, S2 normal. ABDOMEN: Benign. EXTREMITIES: No edema. IMPRESSION 1. Large right pleural effusion status post thoracentesis. 2. Atelectasis 3. ADD 4. Gastroesophageal reflux disease. PLAN We will check the pleural fluid results to determine the etiology of the fluid. Currently he is stable on room air. Continue his antibiotic. Further treatment will depend on the course in the hospital. Thank you, Dr. Choi, for this consult. MD DANNY Echavarria/ /8:21 PM /11:11 PM MTDMoon
[2016-12-06] VITALS (11 sets, daily range): BP systolic 102–121; BP diastolic 56–64; PULSE 86–134; RESP 15–20; TEMP 97.2–98.7; O2SAT 94–98
[2016-12-06] MEDS: LEVOFLOXACIN 750 MG PREMIX INJ 150 ML IV SCH (00:34)
[2016-12-06] MEDS ORDERED: SODIUM CHLORID 0.9% 500 ML INJ 500 ML IV ONE (01:30)
[2016-12-06] MEDS: MORPHINE SULFATE 4 MG/ML INJ IV PUSH PRN ×2 (02:02→06:08)
--- NOTE | 2016-12-06 02:50 | RADRPT ---
EXAM DATE/TIME: 12/06/2016 01:21 [facility] COMPARISON: CHEST SINGLE AP, December 04, 2016, 13:37. INDICATIONS : Shortness of breath. MEDICAL HISTORY : Gastroesophageal reflux disease. SURGICAL HISTORY : None. ENCOUNTER: Subsequent ACUITY: 4 - 6 days PAIN SCORE: 0/10 LOCATION: Bilateral chest FINDINGS: Increased right pleural effusion, now large and with worsening mid and lower lung consolidation. No m ediastinal shift. Left lung remains clear. There is no pneumothorax. CONCLUSION: Increased effusion and consolidation on the right. Abe Winkler MD on December 06, 2016 at 2:48 Board Certified Radiologist. This report was verified electronically.
[2016-12-06] MEDS: IBUPROFEN 400 MG TAB PO PRN ×2 (05:48→18:40)
[2016-12-06 08:08] LABS: PROTHROMBIN TIME - PATIENT 10.7 SEC (9.8-11.6)
[2016-12-06 08:15] LABS: BICARBONATE 27.1 MEQ/L (21.0-32.0); POTASSIUM 4.3 MEQ/L (3.5-5.1)
[2016-12-06] MEDS: PANTOPRAZOLE SOD 20 MG DELAYED RELEASE TAB PO SCH (08:58)
[2016-12-06] MEDS: SODIUM CHLORIDE 0.9% FLUSH 10 ML FLUSH IV FLUSH SCH ×2 (09:00→20:04)
[2016-12-06] MEDS: DEXTROAMPHETAMINE/AMPHETAMINE 20 MG TAB PO SCH (09:00)
[2016-12-06] MEDS: RESP: ALBUTEROL 2.5 MG/IPRATROPIUM 0.5 MG NEB (SCH) NEB ×3 (09:12→19:13)
[2016-12-06 12:02] LABS: AUTOMATED NEUTROPHIL # 9.9 TH/MM3 (1.8-7.7); BASOPHIL # 0.1 TH/MM3 (0-0.2); BASOPHIL % 0.4 % (0.0-2.0); EOSINOPHIL # 0.8 TH/MM3 (0-0.4); EOSINOPHIL % 5.4 % (0.0-4.0); HEMATOCRIT 41.6 % (39.0-51.0); HEMO FLAGS DIFF FINAL; LYMPH % 15.1 % (9.0-44.0); LYMPHOCYTE # 2.2 TH/MM3 (1.0-4.8); MEAN CELL VOLUME 88.9 FL (80.0-100.0); MEAN CORPUSCULAR HEMOGLOBIN 29.8 PG (27.0-34.0); MEAN CORPUSCULAR HGB CONC 33.5 % (32.0-36.0); MONO % 11.1 % (0.0-8.0); PLATELET COUNT 367 TH/MM3 (150-450); RED BLOOD COUNT 4.68 MIL/MM3 (4.50-5.90); RED CELL DISTRIBUTION WIDTH 12.6 % (11.6-17.2); WHITE BLOOD COUNT 14.6 TH/MM3 (4.0-11.0)
[2016-12-06 12:14] LABS: ANION GAP 9 MEQ/L (5-15); AST (GOT) 24 U/L (15-37); BICARBONATE 25.7 MEQ/L (21.0-32.0); BLOOD UREA NITROGEN 16 MG/DL (7-18); CHLORIDE 100 MEQ/L (98-107); GLOMERULAR FILTRATION RATE 84 ML/MIN (>89); POTASSIUM 4.2 MEQ/L (3.5-5.1); SODIUM (NA) 135 MEQ/L (136-145)
[2016-12-06 12:17] LABS: ALKALINE PHOSPHATASE 69 U/L (45-117); ALT (GPT) 15 U/L (12-78); TOTAL BILIRUBIN ADULT 0.6 MG/DL (0.2-1.0)
[2016-12-06] MEDS ORDERED: MAGNESIUM HYDROXIDE SUSP 30 ML CUP PO PRN (15:00)
[2016-12-06] MEDS ORDERED: cefTRIAXone INJ 1,000 MG in SODIUM CHLORIDE 0.9% INJ 100 ML IV SCH (16:00)
--- NOTE | 2016-12-06 16:46 | HHI.PR ---
Subjective Remarks Patient's is at bedside Patient and patient's very upset because they were told thoracentesis was going to be done today at 4 pm, however nurse was called by radiology department that it was going to be done the next day, he also was made npo overnight by the PA. patient c/o of right sided chest pain denies fevers, had felt chills after injection of Levaquin and requests it to be changed. denies nausea and vomiting Patient states he cannot sleep well at night Objective Vitals Vital Signs Date Time Temp Pulse Resp B/P Pulse Ox O2 Delivery O2 Flow Rate FiO2 12/06/16 12:00 98.0 95 15 113/64 98 12/06/16 09:12 96 21 12/06/16 08:00 97.2 88 20 109/61 96 12/06/16 06:22 18 12/06/16 06:22 18 12/06/16 05:35 91 102/57 98 12/06/16 04:00 97.2 86 16 109/59 94 12/06/16 02:26 95 12/06/16 01:40 98.2 134 20 103/62 95 12/06/16 01:09 123 12/06/16 00:00 98.5 120 20 106/60 94 12/05/16 22:07 96 21 12/05/16 20:13 117 12/05/16 20:00 97.9 117 20 119/69 95 I/O 12/05/16 12/05/16 12/05/16 12/06/16 12/06/16 12/06/16 07:00 15:00 23:00 07:00 15:00 23:00 Intake Total 240 ml 240 ml Balance 240 ml 240 ml Intake Oral 240 ml 240 ml # Voids 1 3 1 1 # Bowel Movements 0 Result Diagram: 12/06/16 1100 12/06/16 1100 Imaging Last Impressions Chest X-Ray 12/06/16 0000 Signed Impressions: Service Date/Time: Tuesday, December 06, 2016 01:21 - CONCLUSION: Increased effusion and consolidation on the right. Abe Winkler MD Thoracentesis Ultrasound 12/04/16 0000 Signed Impressions: Service Date/Time: November 12:37 - CONCLUSION: Uncomplicated ultrasound guided thoracentesis with removal of 2.1 L of bloody fluid. Abe Teixeira MD Chest CT 12/04/16 0000 Signed Impressions: Service Date/Time: November 02:41 - CONCLUSION: 1. Large right pleural effusion with compressive atelectasis involving the right middle and right lower lung. 2. Mild left lower lung infiltrate. Ck Spencer MD Objective Remarks GENERAL: This is a well-nourished, well-developed patient, in no apparent distress. SKIN: No rashes, ecchymoses or lesions. Cool and dry. HEAD: Atraumatic. Normocephalic. No temporal or scalp tenderness. EYES: Extraocular motions intact. No scleral icterus. No injection or drainage. CARDIOVASCULAR: Tachycardic without murmurs, gallops, or rubs. RESPIRATORY: Decreased breath sounds on right hemithorax. Left is clear to auscultation. GASTROINTESTINAL: Abdomen soft, non-tender, nondistended. MUSCULOSKELETAL: Extremities without clubbing, cyanosis, or edema. No joint tenderness, effusion, or edema noted. No calf tenderness. Negative Homans sign bilaterally. NEUROLOGICAL: Awake and alert. Motor and sensory grossly within normal limits. Five out of 5 muscle strength in all muscle groups. Normal speech. Procedures sp US guided thoracentesis Medications and IVs Current Medications Medications (Trade) Dose Ordered Sig/Thiago Route Start Time Stop Time Status Last Admin (NS Flush) 2 ml UNSCH PRN IV FLUSH 12/04/16 01:00 (NS Flush) 2 ml BID IV FLUSH 12/04/16 09:00 12/05/16 21:29 (Narcan Inj) 0.4 mg UNSCH PRN IV 12/04/16 01:00 (Adderall) 20 mg DAILY PO 12/04/16 09:00 12/05/16 09:08 (Protonix) 20 mg DAILY PO 12/04/16 09:00 12/06/16 08:58 (Motrin) 400 mg Q8H PRN PO 12/05/16 02:00 12/08/16 01:59 12/06/16 05:48 (Morphine Inj) 2 mg Q4HR PRN IV PUSH 12/06/16 01:30 12/06/16 06:08 Magnesium Hydroxide 30 ml 30 ml DAILY PRN PO 12/06/16 15:00 Ceftriaxone Sodium 1000 mg/ Sodium Chloride 100 ml @ 200 mls/hr Q24H IV 12/06/16 16:00 (Zithromax Inj/ NS 250 ml Inj) 250 ml @ 250 mls/hr Q24H IV 12/06/16 17:00 Urinary Catheter: No Vascular Central Line Catheter: No A/P Problem List: (1) Sepsis ICD Code: A41.9 Status: Acute Plan: Sepsis secondary to pneumonia. Patient with leukocytosis and tachycardia. The pleural effusion and infiltrate on x-ray. sepsis still present - WBC worsening, will consult infectious disease as per patient's request. Dc levaquin - start Rocephin and Iv Azithromycin. Blood cultures negative 2. (2) Pleural effusion, right ICD Code: J90 Status: Acute Plan: sp thoracentesis. pleural fluid seems to be exudative fluid cultures negative cytology pending pulmonary consulted - appreciate recommendations. repeat cxr shows fluid reaccumulation - IR guided thoracentesis ordered. discussed the case with Dr Morgan who will perform thoracentesis today. (3) Right lower lobe pneumonia ICD Code: J18.1 Status: Acute Plan: Strep pneumonia failed outpatient therapy Strep pneumonia antigen positive check urine pneumococcal antigen Legionella antigen negative Continue incentive spirometry. Will DC Levaquin Iv and start IV Rocephin and IV Azithromycin. (4) Failure of outpatient treatment ICD Code: Z78.9 Status: Acute Plan: as above (5) Insomnia ICD Code: G47.00 Status: Acute Plan: Will Rx Ambien Assessment and Plan GI prophylaxis: PPI. DVT prophylaxis: SCDs, add Lovenox subcutaneously. Discharge Planning Possible Dc in am. Pending pulmonary consultation Problem Qualifiers (1) Right lower lobe pneumonia: Qualified Code: J18.1 - Pneumonia of right lower lobe due to infectious organism Amari Mccain MD Dec 06, 2016 16:46
--- NOTE | 2016-12-06 17:44 | RADRPT ---
EXAM DATE/TIME: 12/06/2016 17:28 [facility] COMPARISON: CHEST SINGLE AP, December 06, 2016, 1:21. INDICATIONS : Post right sided thoracentesis. MEDICAL HISTORY : Gastroesophageal reflux disease. SURGICAL HISTORY : None. ENCOUNTER: Subsequent ACUITY: 4 - 6 days PAIN SCORE: 0/10 LOCATION: Bilateral chest FINDINGS: Right basilar opacity is present may be due to a combination of consolidation and or pleural effusion . No definite pneumothorax is seen for technique. Heart and mediastinum are unremarkable for techniqu e. CONCLUSION: Reduction in size of the right pleural effusion with slight residual effusion and right lung base con solidation remaining without pneumothorax. Kayden Haile MD on December 06, 2016 at 17:41 Board Certified Radiologist. This report was verified electronically.
--- NOTE | 2016-12-06 18:27 | HHI.PR ---
Subjective Remarks 46 YOWM [address] Recurrent [address] eff had TC again today,1.1 lit Collins:gic fluid removed Feels better Urine Legionella Ag positive Objective Vital Signs Vital Signs Date Time Temp Pulse Resp B/P Pulse Ox O2 Delivery O2 Flow Rate FiO2 12/06/16 12:00 98.0 95 15 113/64 98 12/06/16 09:12 96 21 12/06/16 08:00 97.2 88 20 109/61 96 12/06/16 06:22 18 12/06/16 06:22 18 12/06/16 05:35 91 102/57 98 12/06/16 04:00 97.2 86 16 109/59 94 12/06/16 02:26 95 12/06/16 01:40 98.2 134 20 103/62 95 12/06/16 01:09 123 12/06/16 00:00 98.5 120 20 106/60 94 12/05/16 22:07 96 21 12/05/16 20:13 117 12/05/16 20:00 97.9 117 20 119/69 95 I/O 12/05/16 12/05/16 12/05/16 12/06/16 12/06/16 12/06/16 07:00 15:00 23:00 07:00 15:00 23:00 Intake Total 240 ml 240 ml 0 ml Balance 240 ml 240 ml 0 ml Intake Oral 240 ml 240 ml 0 ml # Voids 1 3 1 1 4 # Bowel Movements 0 Result Diagram: 12/06/16 1100 12/06/16 1100 Objective Remarks GENERAL: WBWN Wm,NWAD SKIN: Warm and dry. HEAD: Normocephalic. EYES: No scleral icterus. No injection or drainage. NECK: Supple, trachea midline. No JVD or lymphadenopathy. CARDIOVASCULAR: Regular rate and rhythm without murmurs, gallops, or rubs. RESPIRATORY: Breath sounds equal bilaterally. No accessory muscle use. GASTROINTESTINAL: Abdomen soft, non-tender, nondistended. MUSCULOSKELETAL: No cyanosis, or edema. BACK: Nontender without obvious deformity. No CVA tenderness. A/P Assessment and Plan Recurrent Hagic rapidly filling pl eff R/O malig Eff Pneumonia ADD GERD PLAN: DW Pt and If further effusion, will need chest tube Cont Rocephin and Zithro Check cytology Konrad Jiang MD Dec 06, 2016 18:27
[2016-12-06] MEDS ORDERED: Vancomycin Consult Pharmacy 1 EA OTHER SCH (19:00)
[2016-12-06] MEDS ORDERED: VANCOMYCIN INJ 1,000 MG in SODIUM CHLOR 0.9% 250 ML INJ 250 ML IV SCH (19:00)
--- NOTE | 2016-12-06 19:06 | EKG ---
Date Performed: 12/06/2016 Time Performed: 01:51:54 PTAGE: 46 years EKG: SINUS TACHYCARDIA POSSIBLE LEFT ATRIAL ENLARGEMENT ABNORMAL RHYTHM ECG PREVIOUS TRACING : 11/30/2016 13.24 Compared to the previous tracing rate faster DOCTOR: Scooter Mendez Interpretating Date/Time 12/06/2016 19:05:52
[2016-12-06] MEDS ORDERED: cefTRIAXone INJ 2,000 MG in SODIUM CHLORIDE 0.9% INJ 100 ML IV SCH (20:00)
[2016-12-06] MEDS: AZITHROMYCIN INJ 500 MG in SODIUM CHLOR 0.9% 250 ML INJ 250 ML IV SCH (20:02)
--- NOTE | 2016-12-06 20:04 | PD.ID.CON ---
History of Present Illness Service ID Consult Requested By Dr Choi Reason for Consult Pneumococcal PNA Primary Care Physician Omar Harry MD Diagnoses: History of Present Illness 46 yo male tobacco + untill last few weeks got sick along with other family members 2 wks ago with URI/flu likel smx Did not improve and presented with cough fever, sweats last Thursday to ER was diagnosed with PNA and prescribed azithromycin that he was taking wo clinical improvemnt He came back with productive couhg and pleuritic tight side CP last Thursday He was started on Lecvaquin wo improvement and today was switched to azithro + Rocephine His pleurral fluid clx neg @ 48 hrs Pneumococacal antigene positive Review of Systems Except as stated in HPI: all other systems reviewed are Neg Past Family Social History Allergies: Coded Allergies: Codeine (Verified Allergy, Severe, HIVES, 12/03/16) Past Medical History GERD ADD Past Surgical History shoulder repair R Active Ordered Medications Medications where reviewed in EMR Antibiotics Include: azithro CFTX Family History autoimmune disaese Social History quit tobacco 3 wks ago few sig/day prior no ETOH no drugs Physical Exam Vital Signs Vital Signs Date Time Temp Pulse Resp B/P Pulse Ox O2 Delivery O2 Flow Rate FiO2 12/06/16 19:13 98 21 12/06/16 12:00 98.0 95 15 113/64 98 12/06/16 09:12 96 21 12/06/16 08:00 97.2 88 20 109/61 96 12/06/16 08:00 92 12/06/16 06:22 18 12/06/16 06:22 18 12/06/16 05:35 91 102/57 98 12/06/16 04:00 97.2 86 16 109/59 94 12/06/16 02:26 95 12/06/16 01:40 98.2 134 20 103/62 95 12/06/16 01:09 123 12/06/16 00:00 98.5 120 20 106/60 94 12/05/16 22:07 96 21 12/05/16 20:13 117 12/05/16 20:00 97.9 117 20 119/69 95 Physical Exam CONSTITUTIONAL/GENERAL: This is an adequately nourished patient, in no apparent distress. TUBES/LINES/DRAINS: SKIN: No jaundice, rashes, or lesions. Ecchymoses on upper extremities. No wounds seen anteriorly. Skin temperature appropriate. Not diaphoretic. HEAD: Atraumatic. Normocephalic. EYES: Pupils equal and round and reactive. Extraocular motions intact. No scleral icterus. No injection or drainage. Fundi not examined. ENT: Hearing grossly normal. Nose without bleeding or purulent drainage. Throat without visible erythema, exudates, masses, or lesions. NECK: Trachea midline. Supple, nontender. No palpable thyroid enlargement or nodularity. CARDIOVASCULAR: Regular rate and rhythm without murmurs, gallops, or rubs. No JVD. Peripheral pulses symmetric. RESPIRATORY/CHEST: Symmetric, unlabored respirations. Clear to auscultation. Breath sounds equal bilaterally. No wheezes, rales, or rhonchi. Decerased BS on R base GASTROINTESTINAL: Abdomen soft, non-tender, nondistended. No hepato-splenomegaly , or palpable masses. No guarding. Bowel sounds present. GENITOURINARY: Without palpable bladder distension. MUSCULOSKELETAL: Extremities without cyanosis, or edema. No joint tenderness or effusion noted. No calf tenderness. No mottling + mild to moderate clubbing. LYMPHATICS: No palpable cervical axillae or supraclavicular adenopathy. NEUROLOGICAL: Awake and alert. Motor and sensory grossly within normal limits. Follows commands. Cognitively sharp. Moves all extremities. PSYCHIATRIC: No obvious anxiety/depression. no apparent hallucinations or other psychotic thought process. Laboratory Laboratory Tests Test 12/06/16 12/06/16 06:45 11:00 Prothrombin Time 10.7 Prothromb Time International 1.0 Ratio Sodium Level 134 135 Potassium Level 4.3 4.2 Chloride Level 99 100 Carbon Dioxide Level 27.1 25.7 Anion Gap 8 9 Blood Urea Nitrogen 16 16 Creatinine 1.00 0.96 Estimat Glomerular Filtration 80 84 Rate Random Glucose 104 98 Calcium Level 8.1 8.4 Magnesium Level 2.0 White Blood Count 14.6 Red Blood Count 4.68 Hemoglobin 13.9 Hematocrit 41.6 Mean Corpuscular Volume 88.9 Mean Corpuscular Hemoglobin 29.8 Mean Corpuscular Hemoglobin 33.5 Concent Red Cell Distribution Width 12.6 Platelet Count 367 Mean Platelet Volume 8.1 Neutrophils (%) (Auto) 68.0 Lymphocytes (%) (Auto) 15.1 Monocytes (%) (Auto) 11.1 Eosinophils (%) (Auto) 5.4 Basophils (%) (Auto) 0.4 Neutrophils # (Auto) 9.9 Lymphocytes # (Auto) 2.2 Monocytes # (Auto) 1.6 Eosinophils # (Auto) 0.8 Basophils # (Auto) 0.1 CBC Comment DIFF FINAL Differential Comment Total Bilirubin 0.6 Aspartate Amino Transf 24 (AST/SGOT) Alanine Aminotransferase 15 (ALT/SGPT) Alkaline Phosphatase 69 Total Protein 6.5 Albumin 2.6 Date/Time Procedure Status Source Growth 12/05/16 20:18 Legionella Antigen - Final Complete Urine Random Urine PRESUMPTIVE NEGATIVE FOR LEGIONELLA P... 12/05/16 20:18 Streptococcus pneumoniae Antigen (M - Final Complete Pos S.pneumoniae Antigen 12/04/16 13:35 Gram Stain - Final Resulted Fluid Pleural Fluid 12/04/16 13:35 Body Fluid Culture - Preliminary Resulted Fluid Pleural Fluid NO GROWTH IN 48 HOURS. 12/04/16 00:37 Aerobic Blood Culture - Preliminary Resulted Blood Peripheral NO GROWTH IN 2 DAYS 12/04/16 00:37 Anaerobic Blood Culture - Preliminary Resulted Blood Peripheral NO GROWTH IN 2 DAYS Result Diagram: 12/06/16 1100 12/06/16 1100 Imaging Last Impressions Chest X-Ray 12/06/16 0000 Signed Impressions: Service Date/Time: Tuesday, December 06, 2016 17:28 - CONCLUSION: Reduction in size of the right pleural effusion with slight residual effusion and right lung base consolidation remaining without pneumothorax. Kayden Haile MD Thoracentesis Ultrasound 12/04/16 0000 Signed Impressions: Service Date/Time: November 12:37 - CONCLUSION: Uncomplicated ultrasound guided thoracentesis with removal of 2.1 L of bloody fluid. Abe Teixeira MD Chest CT 12/04/16 0000 Signed Impressions: Service Date/Time: November 02:41 - CONCLUSION: 1. Large right pleural effusion with compressive atelectasis involving the right middle and right lower lung. 2. Mild left lower lung infiltrate. Ck Spencer MD Assessment and Plan Assessment and Plan Pneumococcal PNA with parapneumonic effusion, hemorrhagic Leukocytosis Tobacco + cont azitho cont CFTX 2 gm daily - obtain sputum clx - fu cyto - cont vanco Discussed Condition With pt, @ b/s Jess Jara RN, MD Dec 06, 2016 20:04
[2016-12-06] MEDS: VANCOMYCIN INJ 1,200 MG in SODIUM CHLOR 0.9% 250 ML INJ 250 ML IV SCH (21:59)
[2016-12-06] MEDS: ZOLPIDEM TARTRATE 10 MG TAB PO PRN (22:03)
[2016-12-07] VITALS (10 sets, daily range): BP systolic 97–118; BP diastolic 53–67; PULSE 68–110; RESP 16–18; TEMP 97.4–99.4; O2SAT 93–98
[2016-12-07] MEDS ORDERED: cefTRIAXone INJ 1,000 MG in SODIUM CHLORIDE 0.9% INJ 100 ML IV SCH (06:00)
[2016-12-07] MEDS ORDERED: SODIUM CHLORID 0.9% 500 ML INJ 500 ML IV ONE (06:15)
[2016-12-07] MEDS: cefTRIAXone INJ 2,000 MG in SODIUM CHLORIDE 0.9% INJ 100 ML IV SCH (06:16)
[2016-12-07] MEDS: PANTOPRAZOLE SOD 20 MG DELAYED RELEASE TAB PO SCH (07:57)
[2016-12-07] MEDS: DEXTROAMPHETAMINE/AMPHETAMINE 20 MG TAB PO SCH ×2 (07:57→08:02)
[2016-12-07] MEDS: SODIUM CHLORIDE 0.9% FLUSH 10 ML FLUSH IV FLUSH SCH ×2 (07:59→21:21)
[2016-12-07] MEDS: VANCOMYCIN INJ 1,200 MG in SODIUM CHLOR 0.9% 250 ML INJ 250 ML IV SCH ×2 (08:01→21:21)
[2016-12-07] MEDS: RESP: ALBUTEROL 2.5 MG/IPRATROPIUM 0.5 MG NEB (SCH) NEB ×3 (08:03→19:24)
--- NOTE | 2016-12-07 09:25 | HHI.PR ---
Subjective Remarks Status post thoracentesis yesterday with 1.2 L of sanguinous fluid removal. Patient complains of cough with productive sputum Patient complains of abdominal discomfort and inability to have a bowel movement for several days. denies sob c/o of some right scapular pain Objective Vitals Vital Signs Date Time Temp Pulse Resp B/P Pulse Ox O2 Delivery O2 Flow Rate FiO2 12/07/16 08:06 96 21 12/07/16 07:51 98.0 68 16 110/60 96 12/07/16 04:00 97.6 98 16 97/53 93 12/07/16 00:00 98.0 99 16 97/53 94 12/06/16 20:00 98.7 97 18 121/56 96 12/06/16 20:00 93 12/06/16 20:00 98.7 97 18 121/56 96 12/06/16 19:13 98 21 12/06/16 12:00 98.0 95 15 113/64 98 I/O 12/06/16 12/06/16 12/06/16 12/07/16 12/07/16 12/07/16 07:00 15:00 23:00 07:00 15:00 23:00 Intake Total 240 ml 0 ml 120 ml 480 ml Balance 240 ml 0 ml 120 ml 480 ml Intake Oral 240 ml 0 ml 120 ml 480 ml # Voids 1 4 1 Result Diagram: 12/06/16 1100 12/06/16 1100 Imaging Last Impressions Chest X-Ray 12/06/16 0000 Signed Impressions: Service Date/Time: Tuesday, December 06, 2016 17:28 - CONCLUSION: Reduction in size of the right pleural effusion with slight residual effusion and right lung base consolidation remaining without pneumothorax. Kayden Haile MD Thoracentesis Ultrasound 12/04/16 0000 Signed Impressions: Service Date/Time: November 12:37 - CONCLUSION: Uncomplicated ultrasound guided thoracentesis with removal of 2.1 L of bloody fluid. Abe Teixeira MD Chest CT 12/04/16 0000 Signed Impressions: Service Date/Time: November 02:41 - CONCLUSION: 1. Large right pleural effusion with compressive atelectasis involving the right middle and right lower lung. 2. Mild left lower lung infiltrate. Ck Spencer MD Objective Remarks GENERAL: This is a well-nourished, well-developed patient, in no apparent distress. SKIN: No rashes, ecchymoses or lesions. Cool and dry. HEAD: Atraumatic. Normocephalic. No temporal or scalp tenderness. EYES: Extraocular motions intact. No scleral icterus. No injection or drainage. CARDIOVASCULAR: Tachycardic without murmurs, gallops, or rubs. RESPIRATORY: Decreased breath sounds on right lower lobe along with dullness to percussion. Left is clear to auscultation. No wheezing, rales or rhonchi auscultated. GASTROINTESTINAL: Abdomen soft, non-tender, nondistended. MUSCULOSKELETAL: Extremities without clubbing, cyanosis, or edema. No joint tenderness, effusion, or edema noted. No calf tenderness. Negative Homans sign bilaterally. NEUROLOGICAL: Awake and alert. Motor and sensory grossly within normal limits. Five out of 5 muscle strength in all muscle groups. Normal speech. Procedures sp US guided thoracentesis Medications and IVs Current Medications Medications (Trade) Dose Ordered Sig/Thiago Route Start Time Stop Time Status Last Admin (NS Flush) 2 ml UNSCH PRN IV FLUSH 12/04/16 01:00 (NS Flush) 2 ml BID IV FLUSH 12/04/16 09:00 12/07/16 07:59 (Narcan Inj) 0.4 mg UNSCH PRN IV 12/04/16 01:00 (Adderall) 20 mg DAILY PO 12/04/16 09:00 12/05/16 09:08 (Protonix) 20 mg DAILY PO 12/04/16 09:00 12/07/16 07:57 (Motrin) 400 mg Q8H PRN PO 12/05/16 02:00 12/08/16 01:59 12/06/16 18:40 (Morphine Inj) 2 mg Q4HR PRN IV PUSH 12/06/16 01:30 12/06/16 06:08 Magnesium Hydroxide 30 ml 30 ml DAILY PRN PO 12/06/16 15:00 12/07/16 07:09 (Zithromax Inj/ NS 250 ml Inj) 250 ml @ 250 mls/hr Q24H IV 12/06/16 17:00 12/06/16 20:02 Zolpidem Tartrate 10 mg 10 mg HS PRN PO 12/06/16 17:00 12/06/16 22:03 Pharmacy Profile Note 0 ml @ 0 mls/hr UNSCH OTHER 12/06/16 19:00 Ceftriaxone Sodium 2000 mg/ Sodium Chloride 100 ml @ 200 mls/hr Q24H IV 12/07/16 06:00 12/07/16 06:16 (Vancomycin Inj/ NS 250 ml Inj) 262 ml @ 250 mls/hr Q12H IV 12/06/16 21:00 12/07/16 08:01 Miscellaneous Information SPECIFIC LAB TO BE DRAWN:VANCO TROUGH DATE TO... ONCE ONCE .XX 12/07/16 20:45 12/07/16 20:46 Urinary Catheter: No Vascular Central Line Catheter: No A/P Problem List: (1) Sepsis ICD Code: A41.9 Status: Acute Plan: Sepsis secondary to pneumonia. Patient with leukocytosis and tachycardia. The pleural effusion and infiltrate on x-ray. sepsis still present - WBC worsening, will consult infectious disease as per patient's request. Continue vancomycin, Rocephin and azithromycin IV Blood cultures negative to date (2) Pleural effusion, right ICD Code: J90 Status: Acute Plan: sp thoracentesis. pleural fluid seems to be exudative and numerous red blood cells fluid cultures negative cytology pending pulmonary consulted - appreciate recommendations. Patient with recurrent pleural effusions status post thoracentesis 2 If patient continues to have recurrent pleural effusions then will need chest tube - management as per pulmonary. will repeat a CXR today. (3) Right lower lobe pneumonia ICD Code: J18.1 Status: Acute Plan: Strep pneumonia failed outpatient therapy Strep pneumonia antigen positive Legionella urine antigen negative Continue incentive spirometry. Treated initially with IV Levaquin which was continued since patient feeling a strange reaction to it. Continue IV Rocephin, IV azithromycin, and IV vancomycin. ID consulted - appreciate recommendations. Follow-up sputum cultures. (4) Failure of outpatient treatment ICD Code: Z78.9 Status: Acute Plan: as above (5) Insomnia ICD Code: G47.00 Status: Acute Plan: Continue Ambien as needed. Assessment and Plan GI prophylaxis: PPI. DVT prophylaxis: SCDs, add Lovenox subcutaneously. Discharge Planning Continue to monitor in the medical floor. Discharge pending clinical improvement. Problem Qualifiers (1) Right lower lobe pneumonia: Qualified Code: J18.1 - Pneumonia of right lower lobe due to infectious organism Amari Mccain MD Dec 07, 2016 09:24
[2016-12-07] MEDS: IBUPROFEN 400 MG TAB PO PRN ×2 (11:36→20:45)
[2016-12-07 12:21] LABS: AUTOMATED NEUTROPHIL # 11.6 TH/MM3 (1.8-7.7); BASOPHIL % 0.2 % (0.0-2.0); EOSINOPHIL # 0.4 TH/MM3 (0-0.4); EOSINOPHIL % 2.8 % (0.0-4.0); HEMATOCRIT 40.3 % (39.0-51.0); HEMO FLAGS DIFF FINAL; LYMPH % 9.6 % (9.0-44.0); LYMPHOCYTE # 1.4 TH/MM3 (1.0-4.8); MEAN CELL VOLUME 88.8 FL (80.0-100.0); MEAN CORPUSCULAR HEMOGLOBIN 29.7 PG (27.0-34.0); MEAN CORPUSCULAR HGB CONC 33.4 % (32.0-36.0); MONO % 8.6 % (0.0-8.0); NEUT % 78.8 % (16.0-70.0); PLATELET COUNT 387 TH/MM3 (150-450); RED BLOOD COUNT 4.53 MIL/MM3 (4.50-5.90); RED CELL DISTRIBUTION WIDTH 12.7 % (11.6-17.2); WHITE BLOOD COUNT 14.7 TH/MM3 (4.0-11.0)
[2016-12-07 12:47] LABS: BICARBONATE 26.4 MEQ/L (21.0-32.0); POTASSIUM 4.1 MEQ/L (3.5-5.1)
--- NOTE | 2016-12-07 15:59 | RADRPT ---
EXAM DATE/TIME: 12/07/2016 15:23 [facility] COMPARISON: CHEST EXPIRATION ONLY, December 06, 2016, 17:28. INDICATIONS : Pleural effusion. MEDICAL HISTORY : Venous insufficiency. Gastroesophageal reflux disease. SURGICAL HISTORY : None. ENCOUNTER: Subsequent ACUITY: 4 - 6 days PAIN SCORE: 0/10 LOCATION: Bilateral chest FINDINGS: Right basilar opacity is present may be due to a combination of consolidation and or pleural effusion . The rest of the examination has not significantly changed. CONCLUSION: No appreciable change. Kayden Haile MD on December 07, 2016 at 15:55 Board Certified Radiologist. This report was verified electronically.
[2016-12-07] MEDS: AZITHROMYCIN INJ 500 MG in SODIUM CHLOR 0.9% 250 ML INJ 250 ML IV SCH (16:34)
--- NOTE | 2016-12-07 17:06 | RADRPT ---
EXAM DATE/TIME: 12/06/2016 13:53 [facility] COMPARISON: CHEST SINGLE AP, December 07, 2016, 15:23. US GUIDED THORACENTESIS RIGHT, December 04, 2016, 12:37. INDICATIONS : Right pleural effusion. MEDICAL HISTORY : Gastroesophageal reflux disease. SURGICAL HISTORY : Rotator cuff, left. Left ankle tendon repair. ENCOUNTER: Subsequent ACUITY: 2 days PAIN SCORE: 4/10 LOCATION: Right chest FLUID: Total volume of 1,300 cc of cloudy, red fluid was removed. Fluid was discarded. Thoracentesis was therapeutic only. TECHNIQUE: 1. Ultrasound guidance for thoracentesis. 2. Thoracentesis. The risks, benefits, and alternatives to ultrasound guided thoracentesis were explained to the patien t in lay simple terms, including the risk of bleeding and infection. Written and verbal informed con sent was obtained. Appropriate area for thoracentesis was marked under ultrasound guidance with the patient in the uprig ht position. Overlying skin was prepped and draped in the usual sterile fashion and with local anest hetic, a dermatotomy was made with an 11 blade scalpel. A 6 Maltese thoracentesis catheter was placed in the pleural space and fluid was removed. Catheter was then removed and a sterile dressing applie d. There were no immediate complications. The patient tolerated the procedure well and the left the ultrasound suite in stable condition. Chest radiograph is to be obtained. CONCLUSION: Uncomplicated ultrasound guided thoracentesis. Glen Ahn MD on December 07, 2016 at 17:04 Board Certified Radiologist. This report was verified electronically.
--- NOTE | 2016-12-07 17:17 | HHI.PR ---
Subjective Remarks 46 YOWM with Recurrent [address] eff had TC again today,1.1 lit Collins:gic fluid removed Feels better Urine Legionella Ag positive Ambulates, feels better Rpt cxr unchanged Objective Vital Signs Vital Signs Date Time Temp Pulse Resp B/P Pulse Ox O2 Delivery O2 Flow Rate FiO2 12/07/16 16:38 97.5 107 16 118/67 95 12/07/16 12:00 97.8 104 18 112/64 95 12/07/16 08:06 96 21 12/07/16 07:51 98.0 68 16 110/60 96 12/07/16 04:00 97.6 98 16 97/53 93 12/07/16 00:00 98.0 99 16 97/53 94 12/06/16 20:00 98.7 97 18 121/56 96 12/06/16 20:00 93 12/06/16 20:00 98.7 97 18 121/56 96 12/06/16 19:13 98 21 I/O 12/06/16 12/06/16 12/06/16 12/07/16 12/07/16 12/07/16 07:00 15:00 23:00 07:00 15:00 23:00 Intake Total 240 ml 0 ml 120 ml 480 ml 775 ml Balance 240 ml 0 ml 120 ml 480 ml 775 ml Intake Oral 240 ml 0 ml 120 ml 480 ml IV Total 775 ml # Voids 1 4 1 # Bowel Movements 1 Result Diagram: 12/07/16 1050 12/07/16 1050 Objective Remarks GENERAL: WBWN Wm,NWAD SKIN: Warm and dry. HEAD: Normocephalic. EYES: No scleral icterus. No injection or drainage. NECK: Supple, trachea midline. No JVD or lymphadenopathy. CARDIOVASCULAR: Regular rate and rhythm without murmurs, gallops, or rubs. RESPIRATORY: Breath sounds equal bilaterally. No accessory muscle use. GASTROINTESTINAL: Abdomen soft, non-tender, nondistended. MUSCULOSKELETAL: No cyanosis, or edema. BACK: Nontender without obvious deformity. No CVA tenderness. A/P Assessment and Plan Recurrent Hagic rapidly filling pl eff R/O malig Eff Pneumonia ADD GERD PLAN: DW Pt and If further effusion, will need chest tube Cont Abx Check cytology Konrad Jiang MD Dec 07, 2016 17:17
[2016-12-07] MEDS ORDERED: PHARMACY ORDERED LAB ONE (20:45)
[2016-12-07] MEDS: ZOLPIDEM TARTRATE 10 MG TAB PO PRN (22:51)
[2016-12-08] VITALS (12 sets, daily range): BP systolic 97–121; BP diastolic 55–68; PULSE 85–113; RESP 16–20; TEMP 97.2–98.2; O2SAT 93–96
[2016-12-08] MEDS: cefTRIAXone INJ 2,000 MG in SODIUM CHLORIDE 0.9% INJ 100 ML IV SCH (06:32)
--- NOTE | 2016-12-08 06:41 | RADRPT ---
EXAM DATE/TIME: 12/08/2016 05:40 [facility] COMPARISON: CHEST SINGLE AP, December 07, 2016, 15:23. INDICATIONS : Coughing, evaluate pneumonia, pleural effusion MEDICAL HISTORY : Gastroesophageal reflux disease. SURGICAL HISTORY : None. ENCOUNTER: Subsequent ACUITY: 4 - 6 days PAIN SCORE: 0/10 LOCATION: Bilateral chest FINDINGS: The cardiac silhouette is enlarged in transverse diameter. The left lung is free of acute parenchymal opacity. A large right sided effusion is present. This is slightly increased when compared with the prior study. CONCLUSION: 1. Enlarging right effusion. 1. Glen Ahn MD on December 08, 2016 at 6:39 Board Certified Radiologist. This report was verified electronically.
[2016-12-08] MEDS: IBUPROFEN 400 MG TAB PO PRN ×2 (06:47→17:26)
[2016-12-08] MEDS: VANCOMYCIN INJ 1,300 MG in SODIUM CHLORID 0.9% 500 ML INJ 500 ML IV SCH ×2 (07:44→20:35)
[2016-12-08] MEDS: PANTOPRAZOLE SOD 20 MG DELAYED RELEASE TAB PO SCH (07:44)
[2016-12-08] MEDS: DEXTROAMPHETAMINE/AMPHETAMINE 20 MG TAB PO SCH (07:45)
[2016-12-08] MEDS: SODIUM CHLORIDE 0.9% FLUSH 10 ML FLUSH IV FLUSH SCH ×2 (07:45→20:40)
[2016-12-08 07:59] LABS: HEMATOCRIT 36.5 % (39.0-51.0); MEAN CELL VOLUME 88.9 FL (80.0-100.0); MEAN CORPUSCULAR HEMOGLOBIN 30.5 PG (27.0-34.0); MEAN CORPUSCULAR HGB CONC 34.2 % (32.0-36.0); PLATELET COUNT 375 TH/MM3 (150-450); RED CELL DISTRIBUTION WIDTH 12.7 % (11.6-17.2); REVIEW FLAG FINAL; WHITE BLOOD COUNT 13.6 TH/MM3 (4.0-11.0)
[2016-12-08 08:26] LABS: BICARBONATE 30.3 MEQ/L (21.0-32.0); POTASSIUM 4.2 MEQ/L (3.5-5.1)
[2016-12-08] MEDS ORDERED: LIDOCAINE 1%/EPINEPHrine 1:100,000 SOLN 20 ML VIAL ONE (13:40)
[2016-12-08] MEDS ORDERED: MIDAZOLAM HCL 5 MG/5 ML VIAL ONE (14:31)
[2016-12-08] MEDS ORDERED: fentaNYL CITRATE 250 MCG/5 ML AMP ONE (14:31)
--- NOTE | 2016-12-08 16:21 | RADRPT ---
EXAM DATE/TIME: 12/08/2016 14:46 INDICATIONS : Right pleural effusion. SEDATION TIME: 30 MEDICATION(S): 1.) 2.5 mg midazolam (Versed) IV 2.) 125 mcg fentanyl (Sublimaze) IV DEVICE(S): 1.) 10 Fr Davis 2.) 18 gauge Vences blunt needle MEDICAL HISTORY : None. SURGICAL HISTORY : None. ENCOUNTER: Initial ACUITY: 2 weeks PAIN SCORE: 0/10 LOCATION: Right chest PROCEDURE: PROCEDURE : 1. CT guided chest tube placement. 2. Conscious sedation with continuous EKG and oximetry monitoring. The risks, benefits and alternatives to the procedure were explained and verbal and written consent w as obtained. The site was prepped in sterile fashion. Full sterile technique was used, including ca p, mask, sterile gloves and gown and a large sterile sheet. Hand hygiene and 2% chlorhexidine and/or betadine/alcohol prep was utilized per protocol for cutaneous antisepsis. The skin and subcutaneous tissues were infiltrated with local anesthetic solution. Using automated exposure control and adjus tment of the mA and/or kV according to patient size, radiation dose was kept as low as reasonably ach ievable to obtain optimal diagnostic quality images. With CT guidance the chest was punctured and the prescribed catheter was placed in the lung apex. Wal l suction was applied. Post procedure images demonstrate satisfactory position of the tube. The cat heter was sutured in place and a Percu-Stay was applied. Conscious sedation was performed with the prescribed dosages and duration as above. The patient mario ated the procedure well and there were no complications. EKG and oximetry remained stable throughout the procedure. The patient was sent to post anesthesia recovery in stable condition. CONCLUSION: Uncomplicated chest tube placement as above. Rick Agrawal MD on December 08, 2016 at 16:18 Board Certified Radiologist. This report was verified electronically.
--- NOTE | 2016-12-08 16:38 | RADRPT ---
EXAM DATE/TIME: 12/08/2016 16:16 [facility] COMPARISON: CHEST SINGLE AP, December 08, 2016, 5:40. INDICATIONS : Post right sided chest tube placement. MEDICAL HISTORY : Gastroesophageal reflux disease. SURGICAL HISTORY : None. ENCOUNTER: Subsequent ACUITY: 4 - 6 days PAIN SCORE: 10/10 LOCATION: Bilateral chest FINDINGS: There has been interval insertion of right thoracostomy tube. The pigtail tube is in position at the right lung base. There is been interval evacuation of some pleural fluid. There is persistent consoli dative change in the right lower lobe. Mild basilar parenchymal opacity in the left. Visualized cardi ac contours are grossly stable. CONCLUSION: Right thoracostomy tube in place. Abe Le MD on December 08, 2016 at 16:35 Board Certified Radiologist. This report was verified electronically.
[2016-12-08] MEDS: AZITHROMYCIN INJ 500 MG in SODIUM CHLOR 0.9% 250 ML INJ 250 ML IV SCH (17:27)
--- NOTE | 2016-12-08 17:51 | HHI.PR ---
Subjective Remarks 46 YOWM with Recurrent [address] eff had TC again today,1.1 lit Collins:gic fluid removed Feels better Urine Legionella Ag positive Had right chest tube placed No fever Objective Vital Signs Vital Signs Date Time Temp Pulse Resp B/P Pulse Ox O2 Delivery O2 Flow Rate FiO2 12/08/16 15:40 98.0 94 20 113/61 96 12/08/16 12:00 98.1 108 16 104/56 96 12/08/16 10:57 98 12/08/16 08:55 98.1 113 16 107/59 93 12/08/16 04:00 97.5 97 18 97/58 94 12/07/16 23:54 99.4 97 17 103/53 94 12/07/16 20:00 110 12/07/16 20:00 97.4 107 17 112/63 96 12/07/16 19:24 98 21 I/O 12/07/16 12/07/16 12/07/16 12/08/16 12/08/16 12/08/16 07:00 15:00 23:00 07:00 15:00 23:00 Intake Total 480 ml 1495 ml 480 ml 375 ml Balance 480 ml 1495 ml 480 ml 375 ml Intake Oral 480 ml 720 ml 480 ml IV Total 775 ml 375 ml # Voids 1 5 3 # Bowel Movements 1 Result Diagram: 12/08/1671612/08/16716 Objective Remarks GENERAL: WBWN Wm,NWAD SKIN: Warm and dry. HEAD: Normocephalic. EYES: No scleral icterus. No injection or drainage. NECK: Supple, trachea midline. No JVD or lymphadenopathy. CARDIOVASCULAR: Regular rate and rhythm without murmurs, gallops, or rubs. RESPIRATORY: Breath sounds equal bilaterally. No accessory muscle use. GASTROINTESTINAL: Abdomen soft, non-tender, nondistended. MUSCULOSKELETAL: No cyanosis, or edema. BACK: Nontender without obvious deformity. No CVA tenderness. A/P Assessment and Plan Recurrent Hagic rapidly filling pl eff R/O malig Eff Pneumonia ADD GERD PLAN: DW Cont AbxPt and chest tube to suction Check cytology Morphine for pain Konrad Jiang MD December 08, 2016 17:51
[2016-12-08] MEDS: MORPHINE SULFATE 4 MG/ML INJ IV PUSH PRN ×2 (18:02→22:20)
--- NOTE | 2016-12-08 21:18 | PD ---
HPI Chief Complaint: Respiratory Symptoms Time Seen by Provider: 00:00 Travel History International Travel<30 days: No Contact w/Intl Traveler<30days: No Traveled to known affect area: No History of Present Illness HPI The patient is a 46-year-old male who has complained of shortness of breath, cough productive of a small amount of white sputum going on for 4 weeks. On 30 November he was seen at [facility] and given azithromycin orally and discharged home. The patient comes in on 04 December stating he feels worse with increasing shortness of breath and increasing chest pain and generalized muscle aches. The patient has a past medical history of GERD and ADD. The patient states he definitely has decrease exercise intolerance and a definite increase in pain. PFSH Past Medical History Anxiety: Yes Cardiovascular Problems: No Diabetes: No Diminished Hearing: No GERD: Yes (GERD) Musculoskeletal: Yes (LT SHOULDER) Psychiatric: Yes (Hx ADD) Respiratory: Yes (PNA) Tetanus Vaccination: > 5 Years Influenza Vaccination: No Past Surgical History Other Surgery: Yes (SHOULDER) Social History Alcohol Use: Yes (SOCIAL) Tobacco Use: No (quit 3 weeks ago) Substance Use: No Allergies-Medications (Allergen,Severity, Reaction): Coded Allergies: Codeine (Verified Allergy, Severe, HIVES, 12/03/16) Reported Meds & Prescriptions Reported Meds & Active Scripts Active Proair Hfa 8.5 GM Inh (Albuterol Sulfate) 90 Mcg/Act Aer 2 Puff INH Q4-6H PRN 108 mcg/actuation Zithromax Z-Cedrick (Azithromycin) 250 Mg Dspk 250 Mg PO DIRECTED 500 MG (2 tabs) day 1, then 1 tab days 2-5. Reported Adderall (Amphetamine-Dextroamphetamine) 20 Mg Tab 20 Mg PO DAILY Avoid late evening doses. Space doses at least 4 to 6 hours if more than once/day dosing. Prilosec (Omeprazole) 20 Mg Cap 20 Mg PO DAILY Review of Systems Except as stated in HPI: all other systems reviewed are Neg Physical Exam Narrative GENERAL: The patient is alert, oriented 3 in moderate amount of distress with his pleuritic right sided chest pain. His temperature is 99.0 and heart rate is 117 but the rest of vital signs are normal. The respiratory rate is 20 and oximetry is 95% on room air. Blood pressure 124/77. SKIN: Focused skin assessment warm/dry. HEAD: Atraumatic. Normocephalic. EYES: Pupils equal and round. No scleral icterus. No injection or drainage. ENT: No nasal bleeding or discharge. Mucous membranes pink and moist. NECK: Trachea midline. No JVD. CARDIOVASCULAR: Regular rate and rhythm. No murmur appreciated. RESPIRATORY: No accessory muscle use. Completely decreased breath sounds are heard on the right anteriorly and posteriorly. They are heard superiorly. A few rhonchi are heard on the left.. Breath sounds equal bilaterally. GASTROINTESTINAL: Abdomen soft, non-tender, nondistended. Hepatic and splenic margins not palpable. MUSCULOSKELETAL: No obvious deformities. No clubbing. No cyanosis. No edema. NEUROLOGICAL: Awake and alert. No obvious cranial nerve deficits. Motor grossly within normal limits. Normal speech. PSYCHIATRIC: Appropriate mood and affect; insight and judgment normal. Data Data Orders Basic Metabolic Panel (Bmp) (12/04/16 00:08) Complete Blood Count With Diff (12/04/16 00:08) Blood Culture (12/04/16 00:08) Chest, Pa & Lat (12/04/16 00:08) Arterial Blood Gas (Abg) (12/04/16 00:08) Sodium Chloride 0.9% Flush (Ns Flush) (12/04/16 00:15) Place In Observation (12/04/16 ) Vital Signs (Adult) Q4H (12/04/16 00:54) Activity Oob With Assistance (12/04/16 00:54) Drink Waiter / Telemetry .CONTINUOUS (12/04/16 00:54) Sodium Chloride 0.9% Flush (Ns Flush) (12/04/16 01:00) Sodium Chloride 0.9% Flush (Ns Flush) (12/04/16 09:00) Complete Blood Count With Diff (12/05/16 06:00) Naloxone Inj (Narcan Inj) (12/04/16 01:00) Albuterol-Ipratropium Neb (Duoneb Neb) (12/04/16 01:00) Levofloxacin 750 Mg Premix Inj (Levaquin (12/04/16 01:00) B-Type Natriuretic Peptide (12/04/16 00:55) Admit Order (Ed Use Only) (12/04/16 01:06) Labs Laboratory Tests Test 12/04/16 12/04/16 00:22 00:37 Blood Gas Puncture Site RT RADIAL Blood Gas Patient Temperature 98.6 Blood Gas HCO3 25 mmol/L Blood Gas Base Excess 1.2 mmol/L Blood Gas Oxygen Saturation 94 % Arterial Blood pH 7.44 Arterial Blood Partial 38 mmHg Pressure CO2 Arterial Blood Partial 76 mmHG Pressure O2 Arterial Blood Oxygen Content 19.2 Vol % Arterial Blood 1.2 % Carboxyhemoglobin Arterial Blood Methemoglobin 0.5 % Blood Gas Hemoglobin 14.5 G/DL Oxygen Delivery Device Blood Gas Liter Flow L/M White Blood Count 15.6 TH/MM3 Red Blood Count 4.83 MIL/MM3 Hemoglobin 14.8 GM/DL Hematocrit 42.3 % Mean Corpuscular Volume 87.6 FL Mean Corpuscular Hemoglobin 30.6 PG Mean Corpuscular Hemoglobin 35.0 % Concent Red Cell Distribution Width 13.0 % Platelet Count 382 TH/MM3 Mean Platelet Volume 7.8 FL Neutrophils (%) (Auto) 76.5 % Lymphocytes (%) (Auto) 13.3 % Monocytes (%) (Auto) 7.3 % Eosinophils (%) (Auto) 1.7 % Basophils (%) (Auto) 1.2 % Neutrophils # (Auto) 11.9 TH/MM3 Lymphocytes # (Auto) 2.1 TH/MM3 Monocytes # (Auto) 1.1 TH/MM3 Eosinophils # (Auto) 0.3 TH/MM3 Basophils # (Auto) 0.2 TH/MM3 CBC Comment AUTO DIFF Differential Total Cells 100 Counted Neutrophils % (Manual) 62 % Band Neutrophils % 14 % Lymphocytes % 15 % Monocytes % 6 % Eosinophils % 3 % Neutrophils # (Manual) 11.9 TH/MM3 Differential Comment FINAL DIFF MANUAL Platelet Estimate NORMAL Platelet Morphology Comment NORMAL Sodium Level 139 MEQ/L Potassium Level 4.1 MEQ/L Chloride Level 103 MEQ/L Carbon Dioxide Level 30.3 MEQ/L Anion Gap 6 MEQ/L Blood Urea Nitrogen 17 MG/DL Creatinine 0.98 MG/DL Estimat Glomerular Filtration 82 ML/MIN Rate Random Glucose 89 MG/DL Calcium Level 9.0 MG/DL Lactate Dehydrogenase 573 U/L B-Type Natriuretic Peptide 38 PG/ML MDM Medical Decision Making Medical Screen Exam Complete: Yes Emergency Medical Condition: Yes Medical Record Reviewed: Yes Interpretation(s) The chest x-ray taken on this admission on 04 December shows definite increase the right lower lobe effusion and pneumonia as compared with the chest x-ray taken on 30 November. Differential Diagnosis Right lower lobe pneumoniaworsening, right lower lobe pneumonia with failure of adequate outpatient therapy, lung tumor, atelectasis, increased pleural effusion Narrative Course The patient is getting worse both clinically and radiographically. He likely has a large effusion in the right it is getting worse. At this time we cannot rule out a tumor or worsening pneumonia. The patient is complaining of increasing shortness of breath despite being on adequate outpatient therapy. Physician Communication Physician Communication Discussed the patient with Dr. Houston, the patient will be admitted to her Diagnosis Primary Impression: Right lower lobe pneumonia Qualified Code: J18.1 - Pneumonia of right lower lobe due to infectious organism Additional Impressions: Pleural effusion, right Failure of outpatient treatment Admitting Information Admitting Physician Requests: Admit Erik Sarah MD December 08, 2016 21:18
--- NOTE | 2016-12-08 21:22 | HHI.PR ---
Subjective Remarks Delayed entry. Patient seen around 11 AM. Chest x-ray findings reviewed with the patient and his at bedside. Right sided pleural effusion increasing again. Due to recurrence, agree with Pulmonology recs to order chest tube. Patient reports that his breathing is unchanged compared to yesterday. Not requiring oxygen. He understand that the effusion will potentially get worse and wish to proceed with CT placement. Objective Vitals Vital Signs Date Time Temp Pulse Resp B/P Pulse Ox O2 Delivery O2 Flow Rate FiO2 12/08/16 20:00 98.2 86 17 104/55 95 12/08/16 18:11 97.2 90 16 103/57 93 12/08/16 16:30 90 16 113/63 96 12/08/16 16:00 90 16 121/58 96 12/08/16 15:45 85 16 109/68 96 12/08/16 15:40 98.0 94 20 113/61 96 12/08/16 15:30 98.0 95 16 113/61 96 12/08/16 12:00 98.1 108 16 104/56 96 12/08/16 10:57 98 12/08/16 08:55 98.1 113 16 107/59 93 12/08/16 04:00 97.5 97 18 97/58 94 12/07/16 23:54 99.4 97 17 103/53 94 I/O 12/07/16 12/07/16 12/07/16 12/08/16 12/08/16 12/08/16 07:00 15:00 23:00 07:00 15:00 23:00 Intake Total 480 ml 1495 ml 480 ml 375 ml Balance 480 ml 1495 ml 480 ml 375 ml Intake Oral 480 ml 720 ml 480 ml IV Total 775 ml 375 ml # Voids 1 5 3 # Bowel Movements 1 Result Diagram: 12/08/16 0717 12/08/16 0717 Imaging Last Impressions Chest X-Ray 12/08/16 1630 Signed Impressions: Service Date/Time: Thursday, December 08, 2016 16:16 - CONCLUSION: Right thoracostomy tube in place. Abe Le MD Chest Tube Insertion 12/08/16 0000 Signed Impressions: Service Date/Time: Thursday, December 08, 2016 14:46 - CONCLUSION: Uncomplicated chest tube placement as above. Rick Agrawal MD Thoracentesis Ultrasound 12/06/16 0000 Signed Impressions: Service Date/Time: Tuesday, December 06, 2016 13:53 - CONCLUSION: Uncomplicated ultrasound guided thoracentesis. Glen Ahn MD Chest CT 12/04/16 0000 Signed Impressions: Service Date/Time: November 02:41 - CONCLUSION: 1. Large right pleural effusion with compressive atelectasis involving the right middle and right lower lung. 2. Mild left lower lung infiltrate. Ck Spencer MD Objective Remarks GENERAL: This is a well-nourished, well-developed patient, in no apparent distress. CARDIOVASCULAR: Regular rate and rhythm without murmurs, gallops, or rubs. RESPIRATORY: Right mid to lower lung rosario with no audible breath sounds. Rest of the lung rosario clear to auscultation. GASTROINTESTINAL: Abdomen soft, non-tender, nondistended. Normal active bowel sounds MUSCULOSKELETAL: Extremities without clubbing, cyanosis, or edema. NEURO: Alert & Oriented x4 to person, place, time, situation. Moves all ext x4 Procedures sp US guided thoracentesis A/P Problem List: (1) Sepsis ICD Code: A41.9 Status: Acute Plan: Sepsis secondary to pneumonia. Patient with leukocytosis and tachycardia. The pleural effusion and infiltrate on x-ray. ID following Continue vancomycin, Rocephin and azithromycin IV Blood cultures negative to date Parapneumonic effusion. Hemorrhagic. Cytology pending. (2) Pleural effusion, right ICD Code: J90 Status: Acute Plan: Patient with recurrent pleural effusions status post thoracentesis 2. Quickly reaccumulating. Parapneumonic effusion. Hemorrhagic. Cytology pending. fluid cultures negative so far Appreciate Pulmonology Dr. Jiang following. Worsening and recurring effusion. IR consult for chest tube placement. DW Pulmonology Dr. Jiang. (3) Right lower lobe pneumonia ICD Code: J18.1 Status: Acute Plan: Strep pneumonia failed outpatient therapy Strep pneumonia antigen positive Legionella urine antigen negative Continue incentive spirometry. Treated initially with IV Levaquin which was continued since patient feeling a strange reaction to it. Continue IV Rocephin, IV azithromycin, and IV vancomycin. ID following. Follow-up sputum cultures. (4) Insomnia ICD Code: G47.00 Status: Acute Plan: Continue Ambien as needed. Discharge Planning Pending clinical improvement. Problem Qualifiers (1) Right lower lobe pneumonia: Qualified Code: J18.1 - Pneumonia of right lower lobe due to infectious organism Reg Blevins MD December 08, 2016 21:22
[2016-12-08] MEDS: ZOLPIDEM TARTRATE 10 MG TAB PO PRN (23:04)
[2016-12-09] VITALS (8 sets, daily range): BP systolic 97–115; BP diastolic 54–67; PULSE 81–104; RESP 16–18; TEMP 97.5–99.5; O2SAT 93–96
[2016-12-09] MEDS: MORPHINE SULFATE 4 MG/ML INJ IV PUSH PRN ×2 (03:57→09:00)
[2016-12-09] MEDS: cefTRIAXone INJ 2,000 MG in SODIUM CHLORIDE 0.9% INJ 100 ML IV SCH (06:41)
[2016-12-09] MEDS: IBUPROFEN 400 MG TAB PO PRN ×2 (06:46→16:55)
--- NOTE | 2016-12-09 06:51 | RADRPT ---
EXAM DATE/TIME: 12/09/2016 05:19 [facility] COMPARISON: CHEST EXPIRATION ONLY, December 08, 2016, 16:16. INDICATIONS : Short of breath, cough, evaluate right side pneumothorax and chest tube MEDICAL HISTORY : Gastroesophageal reflux disease. pneumothorax SURGICAL HISTORY : chest tube ENCOUNTER: Subsequent ACUITY: 4 - 6 days PAIN SCORE: 5/10 LOCATION: Right chest FINDINGS: The cardiac silhouette is enlarged in transverse diameter. There is right lower lobe atelectasis vers us pneumonia. There has been no significant change when compared to the prior exam. The left lung is free of acute parenchymal opacity. A right chest tube is in place. There is no evidence of pneumothor ax. CONCLUSION: 1. Diffuse right-sided edema versus pneumonia and right-sided effusion unchanged. There is no eviden ce of pneumothorax. Glen Ahn MD on December 09, 2016 at 6:48 Board Certified Radiologist. This report was verified electronically.
[2016-12-09 08:20] LABS: HEMATOCRIT 33.9 % (39.0-51.0); MEAN CELL VOLUME 88.5 FL (80.0-100.0); MEAN CORPUSCULAR HGB CONC 33.9 % (32.0-36.0); PLATELET COUNT 389 TH/MM3 (150-450); RED BLOOD COUNT 3.83 MIL/MM3 (4.50-5.90); RED CELL DISTRIBUTION WIDTH 12.6 % (11.6-17.2); REVIEW FLAG FINAL; WHITE BLOOD COUNT 14.2 TH/MM3 (4.0-11.0)
[2016-12-09] MEDS: VANCOMYCIN INJ 1,300 MG in SODIUM CHLORID 0.9% 500 ML INJ 500 ML IV SCH ×2 (08:28→20:04)
[2016-12-09] MEDS: SODIUM CHLORIDE 0.9% FLUSH 10 ML FLUSH IV FLUSH SCH ×2 (08:28→20:06)
[2016-12-09] MEDS: PANTOPRAZOLE SOD 20 MG DELAYED RELEASE TAB PO SCH (08:28)
[2016-12-09 08:51] LABS: POTASSIUM 4.1 MEQ/L (3.5-5.1)
--- NOTE | 2016-12-09 12:08 | HHI.PR ---
Subjective Remarks Patient is very frustrated because we are still waiting for the pathology report. Denies increase in shortness of breath. CXR with persistent right sided pleural effusion. Objective Vitals Vital Signs Date Time Temp Pulse Resp B/P Pulse Ox O2 Delivery O2 Flow Rate FiO2 12/09/16 08:00 99.5 84 18 97/54 94 12/09/16 04:06 18 12/09/16 04:00 97.6 88 16 101/55 93 12/09/16 00:00 97.5 85 16 106/62 94 12/08/16 20:06 93 12/08/16 20:00 98.2 86 17 104/55 95 12/08/16 18:11 97.2 90 16 103/57 93 12/08/16 16:30 90 16 113/63 96 12/08/16 16:00 90 16 121/58 96 12/08/16 15:45 85 16 109/68 96 12/08/16 15:40 98.0 94 20 113/61 96 12/08/16 15:30 98.0 95 16 113/61 96 I/O 12/08/16 12/08/16 12/08/16 12/09/16 12/09/16 12/09/16 07:00 15:00 23:00 07:00 15:00 23:00 Intake Total 375 ml 480 ml 480 ml Output Total 200 ml 1360 ml Balance 375 ml 280 ml -880 ml Intake Oral 480 ml 480 ml IV Total 375 ml Output Urine Total 200 ml 900 ml Chest Tube Drainage Total 460 ml Result Diagram: 12/09/16 0725 12/09/16 0725 Objective Remarks GENERAL: This is a well-nourished, well-developed patient, in no apparent distress. CARDIOVASCULAR: Regular rate and rhythm without murmurs, gallops, or rubs. RESPIRATORY: Right mid to lower lung rosario with no audible breath sounds. Rest of the lung rosario clear to auscultation. GASTROINTESTINAL: Abdomen soft, non-tender, nondistended. Normal active bowel sounds MUSCULOSKELETAL: Extremities without clubbing, cyanosis, or edema. NEURO: Alert & Oriented x4 to person, place, time, situation. Moves all ext x4 Procedures sp US guided thoracentesis A/P Problem List: (1) Sepsis ICD Code: A41.9 Status: Acute Plan: Sepsis secondary to pneumococcal pneumonia. Patient with leukocytosis and tachycardia. Persistent pleural effusion and infiltrate on x-ray. ID following Continue vancomycin, Rocephin and azithromycin IV Blood cultures negative to date (2) Pleural effusion, right ICD Code: J90 Status: Acute Plan: Patient with recurrent pleural effusions status post thoracentesis 2. Quickly reaccumulating. Parapneumonic effusion. Hemorrhagic. R/O malignancy. ?Parapneumonic effusion. Hemorrhagic. Cytology negative. Patient s/p chest tube placement yesterday. CXR with persistent effusion. DW Dr. Jiang. Repeat Cytology, chest CT. Consult CT surgery fluid cultures negative so far (3) Right lower lobe pneumonia ICD Code: J18.1 Status: Acute Plan: Strep pneumonia failed outpatient therapy Strep pneumonia antigen positive Legionella urine antigen negative Continue incentive spirometry. Treated initially with IV Levaquin which was continued since patient feeling a strange reaction to it. Continue IV Rocephin, IV azithromycin, and IV vancomycin. ID following. Follow-up sputum cultures. (4) Insomnia ICD Code: G47.00 Status: Acute Plan: Continue Ambien as needed. Discharge Planning Pending clinical improvement. Problem Qualifiers (1) Right lower lobe pneumonia: Qualified Code: J18.1 - Pneumonia of right lower lobe due to infectious organism Reg Blevins MD December 09, 2016 12:08
--- NOTE | 2016-12-09 15:19 | EC ---
Study Study Date:12/09/2016 STUDY CONCLUSIONS SUMMARY LEFT VENTRICLE: The cavity size was normal. Systolic function was normal. The estimated ejection fraction was in the range of 60% to 65%. Although no diagnostic regional wall motion abnormality was identified, this possibility cannot be completely excluded on the basis of this study. If LV function is below 40, please consider prescribing an ACEI or ARB or document rationale for non-use. PROCEDURE DATA STUDY STATUS: Elective. Procedure: Transthoracic echocardiography. Image quality was good. Scanning was performed from the parasternal, apical, and subcostal acoustic windows. Study completion: The patient tolerated the procedure well. Transthoracic echocardiography. M-mode, complete 2D, complete spectral Doppler, and color Doppler. Height: Height: 69in. Weight: Weight: 152.7lb. Body mass index: BMI: 22.6kg/m^2. Body surface area: BSA: 1.84m^2. Patient status: Inpatient. CARDIAC ANATOMY LEFT VENTRICLE: The cavity size was normal. Systolic function was normal. The estimated ejection fraction was in the range of 60% to 65%. Although no diagnostic regional wall motion abnormality was identified, this possibility cannot be completely excluded on the basis of this study. AORTIC VALVE: Trileaflet. Doppler: There was no stenosis. No significant regurgitation. Valve area: 2.79cm^2 (Vmax). Indexed valve area: 1.52cm^2/m^2 (Vmax). MITRAL VALVE: The valve appears to be grossly normal. Doppler: There was no evidence for stenosis. No significant regurgitation. Valve area by pressure half-time: 4.89cm^2. Indexed valve area by pressure half-time: 2.66cm^2/m^2. LEFT ATRIUM: The atrium was normal in size. RIGHT VENTRICLE: The cavity size was normal. PULMONIC VALVE: Poorly visualized. Doppler: There was no evidence for stenosis. No significant regurgitation. TRICUSPID VALVE: The valve appears to be grossly normal. Doppler: There was no evidence for stenosis. Trace regurgitation. Peak gradient: 18mm Hg (D). PERICARDIUM: There was no pericardial effusion. Patient weight: 152.7lb _Ejection fraction:_ 65-75% _Fractional shortening:_ 32% up to 5Kg 5-11.5Kg 11.6-22.9Kg 23-45Kg 45-57Kg Aortic Root 7-13 <17 13-22 17-27 17-27 LA diam 6-13 <23 24-38 33-47 37-40 RVID 10-17 7-15 7-15 7-18 8-17 LVIDd 12-22 <32 24-38 33-47 37-40 LVPW 2-4 3-6 5-7 6-8 7-8 IVS 2-4 3-6 5-7 6-8 7-8 BASIC MEASUREMENTS ADULT NORMAL Left ventricle LV internal dimension, ED, chordal *41.2 mm 43-52 level, PLAX LV internal dimension, ES, chordal 26.4 mm 23-38 level, PLAX Fractional shortening, chordal level, 36 % >29 PLAX LV posterior wall thickness, ED 7.07 mm IVS/LVPW ratio, ED 0.97 <1.3 Volume, ED, MOD, 1-plane 63 ml Volume, ES, MOD, 1-plane 23 ml Ejection fraction, MOD, 1-plane 63 % Stroke volume, MOD, 1-plane 40 ml Volume index, ED, MOD, 1-plane 34 ml/m^2 Volume index, ES, MOD, 1-plane 13 ml/m^2 Stroke index, MOD, 1-plane 21.7 ml/m^2 Ventricular septum Septal thickness, ED 6.89 mm Aortic valve Leaflet separation 22 mm 15-26 Left atrium Anterior-posterior dimension 28 mm Anterior-posterior dimension index 1.52 cm/m^2 <2.2 Right ventricle RV internal dimension, ED, PLAX 21.3 mm 19-38 BASIC MEASUREMENTS ADULT NORMAL Aortic valve Leaflet separation 22 mm 15-26 Aorta Root diameter, ED 28 mm 20-37 DOPPLER MEASUREMENTS ADULT NORMAL Aortic valve Peak velocity, S 134 cm/s Valve area, Vmax 2.79 cm^2 Valve area index, Vmax 1.52 cm^2/m^2 Mitral valve Peak E-wave velocity 62.7 cm/s Peak A-wave velocity 60.7 cm/s Pressure half-time 45 ms Peak E/A ratio 1 Valve area, pressure half-time 4.89 cm^2 Valve area index, pressure half-time 2.66 cm^2/m^2 Tricuspid valve Peak gradient, D 18 mm Hg Maximal inflow velocity 211 cm/s Systemic veins Estimated CVP 10 mm Hg Pulmonic valve Peak velocity, S 133 cm/s LEGEND: Mean values are shown as u=mean value. Asterisk (*) hill values outside specified normal range. Prepared and signed by Shekhar Etienne [id number]
[2016-12-09] MEDS: AZITHROMYCIN INJ 500 MG in SODIUM CHLOR 0.9% 250 ML INJ 250 ML IV SCH (16:55)
--- NOTE | 2016-12-09 17:51 | RADRPT ---
EXAM DATE/TIME: 12/09/2016 16:20 [place] COMPARISON: CT THORAX W/O CONTRAST, December 04, 2016, 2:41. INDICATIONS : Reccurent pleural effusion . RADIATION DOSE: 5.29 CTDIvol (mGy) MEDICAL HISTORY : None SURGICAL HISTORY : None. Chest tube insertion ENCOUNTER: Initial ACUITY: 1 day PAIN SCALE: 3/10 LOCATION: chest TECHNIQUE: Volumetric scanning of the chest was performed. Using automated exposure control and adjustment of t he mA and/or kV according to patient size, radiation dose was kept as low as reasonably achievable to obtain optimal diagnostic quality images. FINDINGS: There is a large dense consolidation involving the right lower lobe. There are associated air broncho grams. A small right pleural effusion. This is smaller than the prior study secondary to placement of a small caliber right thoracostomy tube. This is in good position.. A tiny pneumothorax noted. Mild atelectasis involving the basilar segments of the left lower lobe. The heart is normal in size. CONCLUSION: 1. Reduction in size of a right pleural effusion following right chest tube placement. 2. Large area consolidation involving the right lower lobe. 3. Tiny pneumothorax on the right. Hayes Lu Jr., MD on December 09, 2016 at 17:45 Board Certified Radiologist. This report was verified electronically.
--- NOTE | 2016-12-09 19:20 | HHI.PR ---
Subjective Remarks 46 YOWM with Recurrent [address] eff had TC again today,1.1 lit Collins:gic fluid removed Feels better Urine Legionella Ag positive No fever chest tube drained 1 lit Cytology negative for malig CT residual pl effusion, lung infilt Objective Vital Signs Vital Signs Date Time Temp Pulse Resp B/P Pulse Ox O2 Delivery O2 Flow Rate FiO2 12/09/16 16:00 98.9 102 18 112/59 95 12/09/16 12:00 97.6 81 18 105/59 93 12/09/16 08:00 99.5 84 18 97/54 94 12/09/16 04:06 18 12/09/16 04:00 97.6 88 16 101/55 93 12/09/16 00:00 97.5 85 16 106/62 94 12/08/16 20:06 93 12/08/16 20:00 98.2 86 17 104/55 95 I/O 12/08/16 12/08/16 12/08/16 12/09/16 12/09/16 12/09/16 07:00 15:00 23:00 07:00 15:00 23:00 Intake Total 375 ml 480 ml 480 ml Output Total 200 ml 1360 ml Balance 375 ml 280 ml -880 ml Intake Oral 480 ml 480 ml IV Total 375 ml Output Urine Total 200 ml 900 ml Chest Tube Drainage Total 460 ml # Voids 2 Result Diagram: 12/09/16 0725 12/09/16 0725 Objective Remarks GENERAL: WBWN Wm,NWAD SKIN: Warm and dry. HEAD: Normocephalic. EYES: No scleral icterus. No injection or drainage. NECK: Supple, trachea midline. No JVD or lymphadenopathy. CARDIOVASCULAR: Regular rate and rhythm without murmurs, gallops, or rubs. RESPIRATORY: Breath sounds equal bilaterally. No accessory muscle use. GASTROINTESTINAL: Abdomen soft, non-tender, nondistended. MUSCULOSKELETAL: No cyanosis, or edema. BACK: Nontender without obvious deformity. No CVA tenderness. A/P Assessment and Plan Recurrent Hagic rapidly filling pl eff R/O malig Eff, ? Parapneumonic Pneumonia ADD GERD PLAN: DW Cont AbxPt and chest tube to suction Check rpt cytology Morphine for pain CTS consult Konrad Jiang MD December 09, 2016 19:20
[2016-12-09] MEDS: ZOLPIDEM TARTRATE 10 MG TAB PO PRN (23:16)
[2016-12-10] VITALS (8 sets, daily range): BP systolic 101–117; BP diastolic 54–71; PULSE 89–119; RESP 16–20; TEMP 97.6–100.6; O2SAT 92–95
[2016-12-10] MEDS: IBUPROFEN 400 MG TAB PO PRN ×3 (03:03→20:09)
[2016-12-10] MEDS: cefTRIAXone INJ 2,000 MG in SODIUM CHLORIDE 0.9% INJ 100 ML IV SCH (05:29)
[2016-12-10 06:55] LABS: HEMATOCRIT 32.5 % (39.0-51.0); MEAN CELL VOLUME 88.5 FL (80.0-100.0); MEAN CORPUSCULAR HEMOGLOBIN 30.4 PG (27.0-34.0); MEAN CORPUSCULAR HGB CONC 34.4 % (32.0-36.0); PLATELET COUNT 382 TH/MM3 (150-450); RED BLOOD COUNT 3.68 MIL/MM3 (4.50-5.90); RED CELL DISTRIBUTION WIDTH 12.3 % (11.6-17.2); REVIEW FLAG FINAL; WHITE BLOOD COUNT 13.4 TH/MM3 (4.0-11.0)
[2016-12-10 07:36] LABS: BICARBONATE 28.4 MEQ/L (21.0-32.0); POTASSIUM 4.2 MEQ/L (3.5-5.1)
[2016-12-10] MEDS ORDERED: PHARMACY ORDERED LAB ONE (08:45)
[2016-12-10] MEDS: SODIUM CHLORIDE 0.9% FLUSH 10 ML FLUSH IV FLUSH SCH ×2 (09:00→20:09)
[2016-12-10] MEDS: PANTOPRAZOLE SOD 20 MG DELAYED RELEASE TAB PO SCH (09:59)
[2016-12-10] MEDS: VANCOMYCIN INJ 1,300 MG in SODIUM CHLORID 0.9% 500 ML INJ 500 ML IV SCH (09:59)
[2016-12-10 10:47] LABS: VANCOMYCIN TROUGH 18.3 MCG/ML (5.0-10.0)
--- NOTE | 2016-12-10 11:49 | HHI.PR ---
Subjective Remarks cough improved- minimal whitish sputum T max 100.2 having loose stools- non bloody, brown Objective Vitals Vital Signs Date Time Temp Pulse Resp B/P Pulse Ox O2 Delivery O2 Flow Rate FiO2 12/10/16 08:00 97.6 89 18 101/55 94 12/10/16 05:41 99.1 12/10/16 04:21 100.2 111 16 105/54 94 12/10/16 00:05 99.1 106 16 112/62 95 12/09/16 20:51 98.0 97 16 115/67 96 12/09/16 20:00 104 12/09/16 19:26 88 12/09/16 16:00 98.9 102 18 112/59 95 12/09/16 12:00 97.6 81 18 105/59 93 I/O 12/09/16 12/09/16 12/09/16 12/10/16 12/10/16 12/10/16 07:00 15:00 23:00 07:00 15:00 23:00 Intake Total 480 ml 450 ml 350 ml Output Total 1360 ml 0 ml 20 ml Balance -880 ml 0 ml 450 ml 330 ml Intake Oral 480 ml 450 ml 350 ml Output Urine Total 900 ml Chest Tube Drainage Total 460 ml 0 ml 20 ml # Voids 2 1 1 # Bowel Movements 0 0 Result Diagram: 12/10/16 0623 12/10/16 0623 Imaging Last Impressions Chest X-Ray 12/09/16 0000 Signed Impressions: Service Date/Time: Friday, December 09, 2016 05:19 - CONCLUSION: 1. Diffuse right-sided edema versus pneumonia and right-sided effusion unchanged. There is no evidence of pneumothorax. Glen Ahn MD Chest CT 12/09/16 0000 Signed Impressions: Service Date/Time: Friday, December 09, 2016 16:20 - CONCLUSION: 1. Reduction in size of a right pleural effusion following right chest tube placement. 2. Large area consolidation involving the right lower lobe. 3. Tiny pneumothorax on the right. Hayes Lu Jr., MD Chest Tube Insertion 12/08/16 0000 Signed Impressions: Service Date/Time: Thursday, December 08, 2016 14:46 - CONCLUSION: Uncomplicated chest tube placement as above. Rick Agrawal MD Thoracentesis Ultrasound 12/06/16 0000 Signed Impressions: Service Date/Time: Tuesday, December 06, 2016 13:53 - CONCLUSION: Uncomplicated ultrasound guided thoracentesis. Glen Ahn MD Objective Remarks awake and alert, NAD anicteric lungs- decrease breath sounds and decreased vocal fremiti right base to mid regular rhythm abdomen soft, nontender extremities no edemaneuro exam- non focal Procedures sp US guided thoracentesis CT placement A/P Problem List: (1) Sepsis ICD Code: A41.9 Status: Acute (2) Pleural effusion, right ICD Code: J90 Status: Acute (3) Right lower lobe pneumonia ICD Code: J18.1 Status: Acute (4) Insomnia ICD Code: G47.00 Status: Acute Assessment and Plan (1) Sepsis ICD Code: A41.9 Status: Acute Plan: Sepsis secondary to pneumococcal pneumonia. Patient with leukocytosis and tachycardia. Persistent pleural effusion and infiltrate on x-ray. ID following Continue vancomycin, Rocephin and azithromycin IV Blood cultures negative to date (2) Recurrent Pleural effusion, CT in place ICD Code: J90 Status: Acute Plan: Patient with recurrent pleural effusions status post thoracentesis 2. Quickly reaccumulating. Parapneumonic effusion. Hemorrhagic. R/O malignancy. ?Parapneumonic effusion. Hemorrhagic. Cytology negative. FF drainage CT management per Dr. Jiang Consulted CT surgery fluid cultures negative so far (3) Right lower lobe pneumonia ICD Code: J18.1 Status: Acute Plan: Strep pneumonia failed outpatient therapy Strep pneumonia antigen positive Legionella urine antigen negative Continue incentive spirometry. Treated initially with IV Levaquin which was continued since patient feeling a strange reaction to it. Continue IV Rocephin, IV azithromycin, and IV vancomycin. ID following. Follow-up sputum cultures.- negative so far (4) Insomnia ICD Code: G47.00 Status: Acute Plan: Continue Ambien as needed. Antibiotic associated Diarrhea -Start Lactinex -check C diff Patient up and ambulating around Discharge Planning Pending clinical improvement. Problem Qualifiers (1) Right lower lobe pneumonia: Qualified Code: J18.1 - Pneumonia of right lower lobe due to infectious organism Osmani Duggan MD December 10, 2016 11:49
[2016-12-10] MEDS: LACTOBACILLUS ACIDOPHILUS TAB PO SCH ×2 (13:43→17:36)
--- NOTE | 2016-12-10 15:11 | PD.CONS ---
History of Present Illness Service CT Surgery Consult Requested By Dr. Duggan Reason for Consult Right pleural effusion Primary Care Physician Omar Harry MD Diagnoses: History of Present Illness 46 yo male presented with ~2 week h/o cough, fever, and malaise. He presented to the ED and was prescribed azithromycin. He did not improve and presented again. He was found to have a right lower lobe pneumonia with parapneumonic effusion. This was drained and a catheter was left in place. Subsequently, his CXR was not improving and he remains symptomatic. Review of Systems Constitutional: COMPLAINS OF: Fatigue, Fever, Night Sweats Endocrine: DENIES: Heat/cold intolerance, Polydipsia, Polyuria, Polyphagia Eyes: DENIES: Blurred vision, Diplopia, Eye inflammation, Eye pain, Vision loss , Photosensitivity, Double Vision Ears, nose, mouth, throat: DENIES: Tinnitus, Hearing loss, Vertigo, Nasal discharge, Oral lesions, Throat pain, Hoarseness, Ear Pain, Running Nose, Epistaxis, Sinus Pain, Toothache, Odynophagia Respiratory: COMPLAINS OF: Cough, Shortness of breath Cardiovascular: COMPLAINS OF: Chest pain, DENIES: Palpitations, Syncope, Dyspnea on Exertion, PND, Lower Extremity Edema, Orthopnea, Claudication Gastrointestinal: DENIES: Abdominal pain, Black stools, Bloody stools, Constipation, Diarrhea, Nausea, Vomiting, Difficulty Swallowing, Anorexia Musculoskeletal: COMPLAINS OF: Muscle aches, DENIES: Joint pain, Stiffness, Joint Swelling, Back pain, Neck pain Integumentary: DENIES: Abnormal pigmentation, Nail changes, Pruritus, Rash Hematologic/lymphatic: DENIES: Bruising, Lymphadenopathy Immunologic/allergic: DENIES: Eczema, Urticaria Neurologic: DENIES: Abnormal gait, Headache, Localized weakness, Paresthesias, Seizures, Speech Problems, Tremor, Poor Balance Psychiatric: DENIES: Anxiety, Confusion, Mood changes, Depression, Hallucinations, Agitation, Suicidal Ideation, Homicidal Ideation, Delusions Past Family Social History Allergies: Coded Allergies: Codeine (Verified Allergy, Severe, HIVES, 12/03/16) Past Medical History ADD GERD Past Surgical History Orthopedic procedures Active Ordered Medications Current Medications Medications (Trade) Dose Ordered Sig/Thiago Route Start Time Stop Time Status Last Admin (NS Flush) 2 ml UNSCH PRN IV FLUSH 12/04/16 01:00 (NS Flush) 2 ml BID IV FLUSH 4/27/17 09:00 12/09/16 20:06 (Narcan Inj) 0.4 mg UNSCH PRN IV 12/04/16 01:00 (Adderall) 20 mg DAILY PO 12/04/16 09:00 Hold 12/05/16 09:08 (Protonix) 20 mg DAILY PO 12/04/16 09:00 12/10/16 09:59 (Morphine Inj) 2 mg Q4HR PRN IV PUSH 12/06/16 01:30 12/09/16 09:00 Magnesium Hydroxide 30 ml 30 ml DAILY PRN PO 12/06/16 15:00 12/07/16 07:09 (Zithromax Inj/ NS 250 ml Inj) 250 ml @ 250 mls/hr Q24H IV 12/06/16 17:00 12/09/16 16:55 Zolpidem Tartrate 10 mg 10 mg HS PRN PO 12/06/16 17:00 12/09/16 23:16 Pharmacy Profile Note 0 ml @ 0 mls/hr UNSCH OTHER 12/06/16 19:00 Ceftriaxone Sodium 2000 mg/ Sodium Chloride 100 ml @ 200 mls/hr Q24H IV 12/07/16 06:00 12/10/16 05:29 (Vancomycin Inj/ NS 500 ml Inj) 513 ml @ 250 mls/hr Q12H IV 12/08/16 09:00 12/10/16 09:59 (Lactinex) 1 tab TID PO 12/10/16 13:00 12/10/16 13:43 Family History unremarkable Social History Smokes cigarettes - at least 1ppd for many years until recently Social ETOH Marijuana use Physical Exam Vital Signs Vital Signs Date Time Temp Pulse Resp B/P Pulse Ox O2 Delivery O2 Flow Rate FiO2 12/10/16 12:00 99.5 105 20 112/59 94 12/10/16 08:00 97.6 89 18 101/55 94 12/10/16 05:41 99.1 12/10/16 04:21 100.2 111 16 105/54 94 12/10/16 00:05 99.1 106 16 112/62 95 12/09/16 20:51 98.0 97 16 115/67 96 12/09/16 20:00 104 12/09/16 19:26 88 12/09/16 16:00 98.9 102 18 112/59 95 Physical Exam GENERAL: This is a well-nourished, well-developed patient, in no apparent distress. SKIN: No rashes, ecchymoses or lesions. Cool and dry. HEAD: Atraumatic. Normocephalic. No temporal or scalp tenderness. EYES: Pupils equal round and reactive. Extraocular motions intact. No scleral icterus. No injection or drainage. ENT: Nose without bleeding, purulent drainage or septal hematoma. Throat without erythema, tonsillar hypertrophy or exudate. Uvula midline. Airway patent. NECK: Trachea midline. No JVD or lymphadenopathy. Supple, nontender, no meningeal signs. CARDIOVASCULAR: Regular rate and rhythm without murmurs, gallops, or rubs. RESPIRATORY: Decreased BS on right with crackles GASTROINTESTINAL: Abdomen soft, non-tender, nondistended. No hepato-splenomegaly , or palpable masses. No guarding. MUSCULOSKELETAL: Extremities without clubbing, cyanosis, or edema. No joint tenderness, effusion, or edema noted. No calf tenderness. Negative Homans sign bilaterally. NEUROLOGICAL: Awake and alert. Cranial nerves II through XII intact. Motor and sensory grossly within normal limits. Five out of 5 muscle strength in all muscle groups. Normal speech. Laboratory Laboratory Tests Test 12/10/16 06:23 White Blood Count 13.4 Red Blood Count 3.68 Hemoglobin 11.2 Hematocrit 32.5 Mean Corpuscular Volume 88.5 Mean Corpuscular Hemoglobin 30.4 Mean Corpuscular Hemoglobin 34.4 Concent Red Cell Distribution Width 12.3 Platelet Count 382 Mean Platelet Volume 7.7 Sodium Level 140 Potassium Level 4.2 Chloride Level 105 Carbon Dioxide Level 28.4 Anion Gap 7 Blood Urea Nitrogen 9 Creatinine 0.92 Estimat Glomerular Filtration 88 Rate Random Glucose 96 Calcium Level 7.7 Vancomycin Level Trough 18.3 Date/Time Procedure Status Source Growth 12/07/16 04:16 Gram Stain - Final Complete Sputum Expectorated Sputum 12/07/16 04:16 Sputum Culture - Final Complete Sputum Expectorated Sputum HEAVY GROWTH NORMAL RESPIRATORY DEON 12/05/16 20:18 Legionella Antigen - Final Complete Urine Random Urine PRESUMPTIVE NEGATIVE FOR LEGIONELLA P... 12/05/16 20:18 Streptococcus pneumoniae Antigen (M - Final Complete Pos S.pneumoniae Antigen Result Diagram: 12/10/16 0623 12/10/16 0623 Imaging Last Impressions Chest X-Ray 12/09/16 0000 Signed Impressions: Service Date/Time: Friday, December 09, 2016 05:19 - CONCLUSION: 1. Diffuse right-sided edema versus pneumonia and right-sided effusion unchanged. There is no evidence of pneumothorax. Glen Ahn MD Chest CT 12/09/16 0000 Signed Impressions: Service Date/Time: Friday, December 09, 2016 16:20 - CONCLUSION: 1. Reduction in size of a right pleural effusion following right chest tube placement. 2. Large area consolidation involving the right lower lobe. 3. Tiny pneumothorax on the right. Hayes Lu Jr., MD Chest Tube Insertion 12/08/16 0000 Signed Impressions: Service Date/Time: Thursday, December 08, 2016 14:46 - CONCLUSION: Uncomplicated chest tube placement as above. Rick Agrawal MD Thoracentesis Ultrasound 12/06/16 0000 Signed Impressions: Service Date/Time: Tuesday, December 06, 2016 13:53 - CONCLUSION: Uncomplicated ultrasound guided thoracentesis. Glen Ahn MD Course Stable to slightly improved after right thoracentesis and IV Abx. Assessment and Plan Problem List: (1) Pleural effusion, right Status: Acute (2) Right lower lobe pneumonia Status: Acute Assessment and Plan I reviewed the patients chart and imaging studies. The most recent CT scan shows RLL consolidation and a rather small residual right pleural effusion. He would likely benefit from brochoscopy with efforts to re-expand the right lower lobe. The right pleural effusion is small based on the last CT, so its reasonable to continue with the current drain. If the effusion increases, would consider right VATS exploration. Problem Qualifiers (1) Right lower lobe pneumonia: Qualified Code: J18.1 - Pneumonia of right lower lobe due to infectious organism Lubna Horta MD December 10, 2016 15:11
[2016-12-10] MEDS: AZITHROMYCIN INJ 500 MG in SODIUM CHLOR 0.9% 250 ML INJ 250 ML IV SCH (17:36)
--- NOTE | 2016-12-10 19:33 | HHI.IDPN ---
Subjective Subjective Remarks pt is sp CT placement on Thursday Markedly reduced amount of output documented 70 cc /day pt is having low grade fever Antibiotics azithro CFTX vancomycin Allergies: Coded Allergies: Codeine (Verified Allergy, Severe, HIVES, 12/03/16) Objective . Vital Signs Date Time Temp Pulse Resp B/P Pulse Ox O2 Delivery O2 Flow Rate FiO2 12/10/16 16:00 99.2 110 20 105/55 92 12/10/16 12:00 99.5 105 20 112/59 94 12/10/16 08:00 97.6 89 18 101/55 94 12/10/16 05:41 99.1 12/10/16 04:21 100.2 111 16 105/54 94 12/10/16 00:05 99.1 106 16 112/62 95 12/09/16 20:51 98.0 97 16 115/67 96 12/09/16 20:00 104 12/09/16 19:26 88 12/09/16 12/09/16 12/10/16 15:00 23:00 07:00 Intake Total 450 ml 350 ml Output Total 0 ml 20 ml Balance 0 ml 450 ml 330 ml Intake Oral 450 ml 350 ml Chest Tube Drainage Total 0 ml 20 ml # Voids 2 1 1 # Bowel Movements 0 0 . Laboratory Tests Test 12/09/16 12/10/16 07:25 06:23 White Blood Count 14.2 TH/MM3 13.4 TH/MM3 Red Blood Count 3.83 MIL/MM3 3.68 MIL/MM3 Hemoglobin 11.5 GM/DL 11.2 GM/DL Hematocrit 33.9 % 32.5 % Mean Corpuscular Volume 88.5 FL 88.5 FL Mean Corpuscular Hemoglobin 30.0 PG 30.4 PG Mean Corpuscular Hemoglobin 33.9 % 34.4 % Concent Red Cell Distribution Width 12.6 % 12.3 % Platelet Count 389 TH/MM3 382 TH/MM3 Mean Platelet Volume 7.9 FL 7.7 FL Laboratory Tests Test 12/09/16 12/10/16 07:25 06:23 Sodium Level 139 MEQ/L 140 MEQ/L Potassium Level 4.1 MEQ/L 4.2 MEQ/L Chloride Level 103 MEQ/L 105 MEQ/L Carbon Dioxide Level 29.0 MEQ/L 28.4 MEQ/L Anion Gap 7 MEQ/L 7 MEQ/L Blood Urea Nitrogen 10 MG/DL 9 MG/DL Creatinine 0.86 MG/DL 0.92 MG/DL Estimat Glomerular Filtration 95 ML/MIN 88 ML/MIN Rate Random Glucose 106 MG/DL 96 MG/DL Calcium Level 7.9 MG/DL 7.7 MG/DL Imaging Last Impressions Chest X-Ray 12/09/16 0000 Signed Impressions: Service Date/Time: Friday, December 09, 2016 05:19 - CONCLUSION: 1. Diffuse right-sided edema versus pneumonia and right-sided effusion unchanged. There is no evidence of pneumothorax. Glen Ahn MD Chest CT 12/09/16 0000 Signed Impressions: Service Date/Time: Friday, December 09, 2016 16:20 - CONCLUSION: 1. Reduction in size of a right pleural effusion following right chest tube placement. 2. Large area consolidation involving the right lower lobe. 3. Tiny pneumothorax on the right. Hayes Lu Jr., MD Chest Tube Insertion 12/08/16 0000 Signed Impressions: Service Date/Time: Thursday, December 08, 2016 14:46 - CONCLUSION: Uncomplicated chest tube placement as above. Rick Agrawal MD Thoracentesis Ultrasound 12/06/16 0000 Signed Impressions: Service Date/Time: Tuesday, December 06, 2016 13:53 - CONCLUSION: Uncomplicated ultrasound guided thoracentesis. Glen Ahn MD Physical Exam CONSTITUTIONAL/GENERAL: This is an adequately nourished patient, in no apparent distress. TUBES/LINES/DRAINS: SKIN: No jaundice, rashes, or lesions.Skin temperature appropriate. Not diaphoretic. ENT: Hearing grossly normal. CARDIOVASCULAR: Regular rate and rhythm without murmurs, gallops, or rubs. No JVD. Peripheral pulses symmetric. RESPIRATORY/CHEST: Symmetric, unlabored respirations. Clear to auscultation. Breath sounds equal bilaterally. No wheezes, rales, or rhonchi. Decerased BS on R base CT in place with [facility] GASTROINTESTINAL: Abdomen soft, non-tender, nondistended. No hepato-splenomegaly , or palpable masses. No guarding. Bowel sounds present. MUSCULOSKELETAL: Extremities without cyanosis, or edema. No joint tenderness or effusion noted. No calf tenderness. No mottling + mild to moderate clubbing. LYMPHATICS: No palpable cervical axillae or supraclavicular adenopathy. NEUROLOGICAL: Awake and alert. Motor and sensory grossly within normal limits. Follows commands. Cognitively sharp. Moves all extremities. PSYCHIATRIC: No obvious anxiety/depression. Assessment & Plan Remarks Pneumococcal PNA - Pneumococcal AG + - sputum and fluid clx neg parapneumonic effusion, hemorrhagic - no malignant cells but the hemorrhagic nature of the fluid is concerning especially in Tobacco + settings - CTS ff; plan for bronch/VATS if no no re-expansion - CT showed reduction in size of a right pleural effusion following right chest tube placement and . Large area consolidation involving the right lower lob Leukocytosis - persistent cont azitho cont CFTX 2 gm daily - stop vanco Discussed Condition With pt, @ b/s Jess Sanderson RN, MD December 10, 2016 19:33
--- NOTE | 2016-12-10 19:54 | HHI.PR ---
Subjective Remarks 46 YOWM [address] Recurrent [address] eff had TC again today,1.1 lit Collins:gic fluid removed Feels better Urine Legionella Ag positive No fever chest tube drained 1 lit Cytology negative for malig CT residual pl effusion, lung infilt Evaluated by CTS Objective Vital Signs Vital Signs Date Time Temp Pulse Resp B/P Pulse Ox O2 Delivery O2 Flow Rate FiO2 12/10/16 16:00 99.2 110 20 105/55 92 12/10/16 12:00 99.5 105 20 112/59 94 12/10/16 08:00 97.6 89 18 101/55 94 12/10/16 05:41 99.1 12/10/16 04:21 100.2 111 16 105/54 94 12/10/16 00:05 99.1 106 16 112/62 95 12/09/16 20:51 98.0 97 16 115/67 96 12/09/16 20:00 104 I/O 12/09/16 12/09/16 12/09/16 12/10/16 12/10/16 12/10/16 07:00 15:00 23:00 07:00 15:00 23:00 Intake Total 480 ml 450 ml 350 ml 480 ml 677 ml Output Total 1360 ml 0 ml 20 ml 70 ml Balance -880 ml 0 ml 450 ml 330 ml 480 ml 607 ml Intake Oral 480 ml 450 ml 350 ml 480 ml IV Total 677 ml Output Urine Total 900 ml Chest Tube Drainage Total 460 ml 0 ml 20 ml 70 ml # Voids 2 1 1 4 # Bowel Movements 0 0 1 Result Diagram: 12/10/1623 12/10/1623 Objective Remarks GENERAL: WBWN Wm,NWAD SKIN: Warm and dry. HEAD: Normocephalic. EYES: No scleral icterus. No injection or drainage. NECK: Supple, trachea midline. No JVD or lymphadenopathy. CARDIOVASCULAR: Regular rate and rhythm without murmurs, gallops, or rubs. RESPIRATORY: Breath sounds equal bilaterally. No accessory muscle use. GASTROINTESTINAL: Abdomen soft, non-tender, nondistended. MUSCULOSKELETAL: No cyanosis, or edema. BACK: Nontender without obvious deformity. No CVA tenderness. A/P Assessment and Plan Recurrent Hagic rapidly filling pl eff R/O malig Eff, ? Parapneumonic Pneumonia ADD GERD PLAN: DW Cont Abx Pt and chest tube to suction Check rpt cytology Motrin for pain DW pt and Family Will need bronch Explained procedure and complication They agree to proceed Will gissell for tommorrow. Konrad Jiang MD December 10, 2016 19:53
--- NOTE | 2016-12-10 22:39 | RADRPT ---
EXAM DATE/TIME: 12/10/2016 22:17 [facility] COMPARISON: CHEST EXPIRATION ONLY, December 09, 2016, 5:19. CHEST SINGLE AP, December 08, 2016, 5:40. CT THORAX W/O CONTR AST, December 09, 2016, 16:20. INDICATIONS : Chest tube leakage, hole in tube. MEDICAL HISTORY : Pneumothorax. SURGICAL HISTORY : Chest tube insertion ENCOUNTER: Subsequent ACUITY: 4 - 6 days PAIN SCORE: 5/10 LOCATION: Bilateral chest FINDINGS: A single AP erect expiratory view of the chest was obtained and again demonstrates a small bore right -sided chest tube projected over the lung base. There is no pneumothorax. Consolidation remains in th e right perihilar region right lung base with blunting of the costophrenic angle. There is mild hazy opacity in the left lung. The heart size appears at the upper limits of normal. The bony thorax is in tact. CONCLUSION: 1. Small bore right-sided chest tube with no pneumothorax. 2. Right lung infiltrate and effusion. Ryan Parry MD on December 10, 2016 at 22:36 Board Certified Radiologist. This report was verified electronically.
[2016-12-10] MEDS: ZOLPIDEM TARTRATE 10 MG TAB PO PRN (22:58)
[2016-12-11] VITALS (7 sets, daily range): BP systolic 98–110; BP diastolic 52–63; PULSE 88–119; RESP 16–18; TEMP 97.2–100.4; O2SAT 92–94
[2016-12-11] MEDS: IBUPROFEN 400 MG TAB PO PRN ×3 (04:32→20:31)
[2016-12-11] MEDS: cefTRIAXone INJ 2,000 MG in SODIUM CHLORIDE 0.9% INJ 100 ML IV SCH (04:32)
[2016-12-11] MEDS: LACTOBACILLUS ACIDOPHILUS TAB PO SCH ×3 (08:31→17:58)
[2016-12-11] MEDS ORDERED: PROPOFOL 200 MG/20 ML AMP IV ONE (12:00)
[2016-12-11] MEDS ORDERED: ONDANSETRON HCL 4 MG/2 ML VIAL IV PUSH ONE (12:00)
[2016-12-11 12:28] LABS: C. DIFF EPI 027 PRESUMPTIVE NEGATIVE (NEGATIVE); C. DIFF TOXIN PCR NEGATIVE (NEGATIVE)
[2016-12-11] MEDS ORDERED: LIDOCAINE HCL 2% 50 ML VIAL ONE (13:27)
[2016-12-11] MEDS ORDERED: SODIUM CHLORIDE 0.9% 20 ML VIAL ONE (13:27)
[2016-12-11] MEDS ORDERED: EPINEPHrine HCL (1:1000) 1 MG/ML VIAL ONE (13:28)
--- NOTE | 2016-12-11 13:47 | HHI.PR ---
Subjective Remarks low grade fever minimal cough ambulating to the bathroom no further episodes of diarrhea Objective Vitals Vital Signs Date Time Temp Pulse Resp B/P Pulse Ox O2 Delivery O2 Flow Rate FiO2 12/11/16 12:00 99.9 103 16 103/52 92 12/11/16 08:00 98.1 114 16 109/63 94 12/11/16 04:46 100.4 103 16 104/57 94 12/11/16 00:05 98.6 108 16 101/57 93 12/10/16 20:37 100.6 119 16 117/71 93 12/10/16 20:00 116 12/10/16 16:00 99.2 110 20 105/55 92 I/O 12/10/16 12/10/16 12/10/16 12/11/16 12/11/16 12/11/16 07:00 15:00 23:00 07:00 15:00 23:00 Intake Total 350 ml 480 ml 1127 ml 260 ml Output Total 20 ml 70 ml Balance 330 ml 480 ml 1057 ml 260 ml Intake Oral 350 ml 480 ml 450 ml 260 ml IV Total 677 ml Chest Tube Drainage Total 20 ml 70 ml # Voids 1 4 2 2 # Bowel Movements 0 1 0 0 Result Diagram: 12/10/16 0623 12/10/16 0623 Imaging Last Impressions Chest X-Ray 12/10/16 0000 Signed Impressions: Service Date/Time: Saturday, December 10, 2016 22:17 - CONCLUSION: 1. Small bore right-sided chest tube with no pneumothorax. 2. Right lung infiltrate and effusion. Ryan Parry MD Chest CT 12/09/16 0000 Signed Impressions: Service Date/Time: Friday, December 09, 2016 16:20 - CONCLUSION: 1. Reduction in size of a right pleural effusion following right chest tube placement. 2. Large area consolidation involving the right lower lobe. 3. Tiny pneumothorax on the right. Hayes Lu Jr., MD Chest Tube Insertion 12/08/16 0000 Signed Impressions: Service Date/Time: Thursday, December 08, 2016 14:46 - CONCLUSION: Uncomplicated chest tube placement as above. Rick Agrawal MD Thoracentesis Ultrasound 12/06/16 0000 Signed Impressions: Service Date/Time: Tuesday, December 06, 2016 13:53 - CONCLUSION: Uncomplicated ultrasound guided thoracentesis. Glen Ahn MD Objective Remarks awake and alert, NAD anicteric lungs- decrease breath sounds and decreased vocal fremitus right base to mid regular rhythm abdomen soft, nontender extremities no edema up and ambulating Procedures sp US guided thoracentesis CT placement A/P Problem List: (1) Sepsis ICD Code: A41.9 Status: Acute (2) Pleural effusion, right ICD Code: J90 Status: Acute (3) Right lower lobe pneumonia ICD Code: J18.1 Status: Acute (4) Insomnia ICD Code: G47.00 Status: Acute Assessment and Plan (1) Sepsis ICD Code: A41.9 Status: Acute Plan: Sepsis secondary to pneumococcal pneumonia with effusion. Patient with leukocytosis and tachycardia. Persistent pleural effusion and infiltrate on x- ray. ID following Continue vancomycin, Rocephin and azithromycin IV Blood cultures negative to date (2) Recurrent Pleural effusion, CT in place ICD Code: J90 Status: Acute Plan: Patient with recurrent pleural effusions status post thoracentesis 2. Quickly reaccumulating. Parapneumonic effusion. Hemorrhagic. Hemorrhagic. Cytology negative. FF drainage CT management per Dr. Jiang CT surgery ff Pulmonary consulted- for Bronchoscopy today fluid cultures negative so far (3) Right lower lobe pneumonia ICD Code: J18.1 Status: Acute Plan: Strep pneumonia failed outpatient therapy Strep pneumonia antigen positive Legionella urine antigen negative Continue incentive spirometry. Treated initially with IV Levaquin which was continued since patient feeling a strange reaction to it. Continue IV Rocephin, IV azithromycin, and IV vancomycin. ID following. Follow-up sputum cultures.- negative so far (4) Insomnia ICD Code: G47.00 Status: Acute Plan: Continue Ambien as needed. Antibiotic associated Diarrhea -Started Lactinex 5/3 -check C diff Patient up and ambulating around Discharge Planning Pending clinical improvement. Problem Qualifiers (1) Right lower lobe pneumonia: Qualified Code: J18.1 - Pneumonia of right lower lobe due to infectious organism Osmani Duggan MD December 11, 2016 13:47
[2016-12-11] MEDS ORDERED: MIDAZOLAM HCL 2 MG/2 ML VIAL ONE (13:50)
[2016-12-11] MEDS ORDERED: DO NOT ADM ANY ANTICOAGULANT DRUGS PRN (15:45)
--- NOTE | 2016-12-11 16:03 | RADRPT ---
EXAM DATE/TIME: 12/11/2016 15:28 [facility] COMPARISON: CHEST SINGLE AP, December 10, 2016, 22:17. INDICATIONS : Pneumothorax, post procedure. MEDICAL HISTORY : None. SURGICAL HISTORY : None. ENCOUNTER: Subsequent ACUITY: 4 - 6 days PAIN SCORE: Non-responsive. LOCATION: Right chest. FINDINGS: Increased pleural fluid on the right, now large and with associated consolidation of most of the righ t lung, basically just sparing the midlung.. Small pneumothorax component possible but I don't see a large pneumothorax. There is a small caliber chest tube again seen at the right lung base. Improved aeration on the left. No significant left infiltrate, effusion or pneumothorax demonstrated. Cardiomediastinal silhouette is stable, within normal limits. CONCLUSION: Worsening effusion and consolidation on the right. Please see above. Abe Winkler MD on December 11, 2016 at 15:59 Board Certified Radiologist. This report was verified electronically.
--- NOTE | 2016-12-11 16:30 | HHI.PR ---
Subjective Remarks 46 YOWM with Recurrent pl eff had TC again today,1.1 lit Collins:gic fluid removed Feels better Urine Pneumococcal Ag positive No fever Cytology negative for malig Had bronch, mild erythema RLL DW , Objective Vital Signs Vital Signs Date Time Temp Pulse Resp B/P Pulse Ox O2 Delivery O2 Flow Rate FiO2 12/11/16 15:45 105 23 101/57 97 Nasal Cannula 2 12/11/16 15:30 109 20 106/60 98 Nasal Cannula 2 12/11/16 15:15 108 25 105/59 97 Nasal Cannula 2 12/11/16 15:13 98.0 111 30 103/57 95 Nasal Cannula 2 12/11/16 12:00 99.9 103 16 103/52 92 12/11/16 08:00 98.1 114 16 109/63 94 12/11/16 04:46 100.4 103 16 104/57 94 12/11/16 00:05 98.6 108 16 101/57 93 12/10/16 20:37 100.6 119 16 117/71 93 12/10/16 20:00 116 I/O 12/10/16 12/10/16 12/10/16 12/11/16 12/11/16 12/11/16 06:59 14:59 22:59 06:59 14:59 22:59 Intake Total 350 ml 480 ml 1127 ml 260 ml 400 ml Output Total 20 ml 70 ml 0 ml 0 ml Balance 330 ml 480 ml 1057 ml 260 ml 0 ml 400 ml Intake Oral 350 ml 480 ml 450 ml 260 ml IV Total 677 ml Other 400 ml Output Urine Total 0 ml Chest Tube Drainage Total 20 ml 70 ml 0 ml # Voids 1 4 2 2 # Bowel Movements 0 1 0 0 Result Diagram: 12/10/1662212/10/16622 Objective Remarks GENERAL: WBWN Wm,NWAD SKIN: Warm and dry. HEAD: Normocephalic. EYES: No scleral icterus. No injection or drainage. NECK: Supple, trachea midline. No JVD or lymphadenopathy. CARDIOVASCULAR: Regular rate and rhythm without murmurs, gallops, or rubs. RESPIRATORY: Breath sounds equal bilaterally. No accessory muscle use. GASTROINTESTINAL: Abdomen soft, non-tender, nondistended. MUSCULOSKELETAL: No cyanosis, or edema. BACK: Nontender without obvious deformity. No CVA tenderness. A/P Assessment and Plan Recurrent Hagic rapidly filling pl eff R/O malig Eff, ? Parapneumonic Pneumonia ADD GERD PLAN: DW Cont Abx Pt and chest tube to suction Check rpt cytology Motrin for pain DW pt and Family evaluated pt and discussed with family If not better, plans for VATS on Thursday Konrad Jiang MD December 11, 2016 16:29
--- NOTE | 2016-12-11 16:31 | PD.CAR.PN ---
CVT Progress Note Subjective/Hospital Course: Pt still in recovery room following bronchoscopy Had lengthy discussion with . Related the CT and clinical findings. In the setting of minimal drainage from the CT, will hold off with proceeding to the OR for now. Will re-evaluate in 24-48 hours. If drainage increases or turns purulent, may need VATS/Thoracotomy with drainage /Decortication/Pleurodesis. May need repeat chest CT to evaluate residual/loculated effusion Will continue to follow Objective: Vital Signs Date Time Temp Pulse Resp B/P Pulse Ox O2 Delivery O2 Flow Rate FiO2 12/11/16 15:45 105 23 101/57 97 Nasal Cannula 2 12/11/16 15:30 109 20 106/60 98 Nasal Cannula 2 12/11/16 15:15 108 25 105/59 97 Nasal Cannula 2 12/11/16 15:13 98.0 111 30 103/57 95 Nasal Cannula 2 12/11/16 12:00 99.9 103 16 103/52 92 12/11/16 08:00 98.1 114 16 109/63 94 12/11/16 04:46 100.4 103 16 104/57 94 12/11/16 00:05 98.6 108 16 101/57 93 12/10/16 20:37 100.6 119 16 117/71 93 12/10/16 20:00 116 Labs: Laboratory Tests Test 12/11/16 08:45 Stool C. difficile Toxin (PCR) NEGATIVE (NEGATIVE) Stl C. difficile Toxin PRESUMPTIVE Epiderm 027 NEGATIVE (NEGATIVE) Result Diagram: 12/10/16 0623 12/10/16 0623 Edmundo Weinberg MD December 11, 2016 16:31
--- NOTE | 2016-12-11 16:54 | MR ---
cc: MIRIAM REARDON DATE: 12/11/2016 PROCEDURE Bronchoscopy PREOPERATIVE DIAGNOSIS Right lung pneumonia. POSTOPERATIVE DIAGNOSIS Erythema of the right lower lobe. No obstructing lesion was seen. PROCEDURE Informed consent was obtained, the patients procedure and complications including, complication including pneumothorax requiring chest tube, bleeding complication due to blood vessels, lungs, nerves, arrhythmia, explained he consented for the procedure. Next the patient was brought to the operating room under general anesthesia an LMA tube was placed by anesthesiologist. Bronchoscopy was done through LMA tube. Vocal cords are normal. Trachea is normal, main jeny was a sharp. Bronchoscope was left lung, a small amount of mucous was suctioned from the left upper lingula, lower lobe were visualized. No endobronchial mucosal lesion was seen. Then bronchoscope pulled back advanced to the right lung, the right upper, middle and lower lobe visualized. There was erythema of the right lower lobe. All sub segments were patent. No obstructing lesion or mass was seen. Right lower lobe washings were done. Washings sent for routine culture, AFB fungal culture and cytology. He tolerated the procedure well. Postprocedure chest x-ray ordered. MD DANNY Echavarria/foster /2:56 PM /3:31 PM MTDD
[2016-12-11] MEDS: AZITHROMYCIN INJ 500 MG in SODIUM CHLOR 0.9% 250 ML INJ 250 ML IV SCH (17:58)
[2016-12-11] MEDS: PANTOPRAZOLE SOD 20 MG DELAYED RELEASE TAB PO SCH (17:58)
[2016-12-11] MEDS: SODIUM CHLORIDE 0.9% FLUSH 10 ML FLUSH IV FLUSH SCH ×2 (17:59→21:00)
[2016-12-12] VITALS (9 sets, daily range): BP systolic 105–134; BP diastolic 55–81; PULSE 70–112; RESP 16–20; TEMP 96.3–98.7; O2SAT 91–98
[2016-12-12] MEDS: ZOLPIDEM TARTRATE 10 MG TAB PO PRN
[2016-12-12] MEDS: IBUPROFEN 400 MG TAB PO PRN ×2 (06:18→16:20)
[2016-12-12] MEDS: cefTRIAXone INJ 2,000 MG in SODIUM CHLORIDE 0.9% INJ 100 ML IV SCH (06:18)
[2016-12-12] MEDS: LACTOBACILLUS ACIDOPHILUS TAB PO SCH ×3 (08:37→17:19)
[2016-12-12] MEDS: PANTOPRAZOLE SOD 20 MG DELAYED RELEASE TAB PO SCH (08:37)
[2016-12-12] MEDS: SODIUM CHLORIDE 0.9% FLUSH 10 ML FLUSH IV FLUSH SCH ×2 (08:37→21:41)
--- NOTE | 2016-12-12 11:57 | HHI.PR ---
Subjective Remarks T down loose stools persistent leaking around the chest tube area- dressing had to be changed 3x overnight, dressings/ sheet was soaked and saturated d/w patient - he insists that Vancomycin was the one that cured his daughter- told him I cannot comment on his daughter's clinical condition Objective Vitals Vital Signs Date Time Temp Pulse Resp B/P Pulse Ox O2 Delivery O2 Flow Rate FiO2 12/12/16 08:44 Nasal Cannula 2.00 12/12/16 07:30 96.3 87 20 124/57 97 12/12/16 07:22 16 12/12/16 05:47 96.8 81 16 105/55 96 12/12/16 01:59 Nasal Cannula 2.00 12/12/16 01:00 70 12/12/16 00:16 98.7 98 16 115/62 98 12/11/16 22:44 119 12/11/16 20:48 98.4 109 16 110/63 94 12/11/16 17:00 Nasal Cannula 2.00 12/11/16 16:30 97.2 88 18 98/56 94 12/11/16 16:30 98.3 95 21 104/55 95 Nasal Cannula 2 12/11/16 16:15 98 27 96/51 98 Nasal Cannula 2 12/11/16 16:00 92 24 106/57 99 Nasal Cannula 2 12/11/16 15:45 105 23 101/57 97 Nasal Cannula 2 12/11/16 15:30 109 20 106/60 98 Nasal Cannula 2 12/11/16 15:15 108 25 105/59 97 Nasal Cannula 2 12/11/16 15:13 98.0 111 30 103/57 95 Nasal Cannula 2 12/11/16 12:00 99.9 103 16 103/52 92 I/O 12/11/16 12/11/16 12/11/16 12/12/16 12/12/16 12/12/16 07:00 15:00 23:00 07:00 15:00 23:00 Intake Total 260 ml 700 ml 500 ml Output Total 0 ml 500 ml Balance 260 ml 0 ml 200 ml 500 ml Intake Oral 260 ml 300 ml 500 ml IV Total 0 ml Other 400 ml Output Urine Total 500 ml Chest Tube Drainage Total 0 ml # Voids 2 0 2 # Bowel Movements 0 0 0 Result Diagram: 12/10/1662212/10/16622 Imaging Last Impressions Chest X-Ray 12/11/16 0000 Signed Impressions: Service Date/Time: December 15:28 - CONCLUSION: Worsening effusion and consolidation on the right. Please see above. Abe Winkler MD Chest CT 12/09/16 0000 Signed Impressions: Service Date/Time: Friday, December 09, 2016 16:20 - CONCLUSION: 1. Reduction in size of a right pleural effusion following right chest tube placement. 2. Large area consolidation involving the right lower lobe. 3. Tiny pneumothorax on the right. Hayes Lu Jr., MD Chest Tube Insertion 12/08/16 Signed Impressions: Service Date/Time: Thursday, December 08, 2016 14:46 - CONCLUSION: Uncomplicated chest tube placement as above. Rick Agrawal MD Thoracentesis Ultrasound 12/06/16 0000 Signed Impressions: Service Date/Time: Tuesday, December 06, 2016 13:53 - CONCLUSION: Uncomplicated ultrasound guided thoracentesis. Glen Ahn MD Objective Remarks awake and alert, NAD anicteric lungs- decrease breath sounds and decreased vocal fremitus right base to mid, chest tube in place regular rhythm abdomen soft, nontender extremities no edema up and ambulating Procedures sp US guided thoracentesis CT placement A/P Problem List: (1) Sepsis ICD Code: A41.9 Status: Acute (2) Pleural effusion, right ICD Code: J90 Status: Acute (3) Right lower lobe pneumonia ICD Code: J18.1 Status: Acute (4) Insomnia ICD Code: G47.00 Status: Acute Assessment and Plan (1) Sepsis secondary to Pneumococcal pneumonia ICD Code: A41.9 Status: Acute Plan: Sepsis secondary to pneumococcal pneumonia with effusion. Patient with leukocytosis and tachycardia. - T down. HR improved Persistent pleural effusion and infiltrate on x-ray. ID following. Rocephin and azithromycin IV Blood cultures negative to date (2) Recurrent Pleural effusion, CT in place- 12/09 ICD Code: J90 Status: Acute Plan: Patient with recurrent pleural effusions status post thoracentesis 2. Quickly reaccumulating. Parapneumonic effusion. Hemorrhagic. Hemorrhagic. Cytology negative. FF drainage- not accurate output - dressing soaked- serous - and had to be changed at least twice overnight CT management per Dr. Jiang fluid cultures negative so far CTS consulted - if drainage increase or becomes purulent -will observe for next 24-48 hours- may need surgery - may need repeat chest CT- will d/w Dr. Apolinar Garcia spoke with CT /radiology nurse - regarding chest tube- will check for repeat CXR today (3) Right lower lobe pneumonia S/P Bronchoscopy 12/11 ICD Code: J18.1 Status: Acute Plan: Strep pneumonia failed outpatient therapy Strep pneumonia antigen positive Legionella urine antigen negative Continue incentive spirometry. On IV Rocephin, IV azithromycin. ID following. Follow-up sputum cultures.- negative so far (4) Insomnia ICD Code: G47.00 Status: Acute Plan: Continue Ambien as needed. Antibiotic associated Diarrhea -Started Lactinex 12/10 -C diff negative Patient up and ambulating around Problem Qualifiers (1) Right lower lobe pneumonia: Qualified Code: J18.1 - Pneumonia of right lower lobe due to infectious organism Osmani Duggan MD December 12, 2016 11:57 Osmani Duggan MD December 12, 2016 11:57
--- NOTE | 2016-12-12 13:08 | RADRPT ---
EXAM DATE/TIME: 12/12/2016 12:31 [facility] COMPARISON: CHEST SINGLE AP, December 11, 2016, 15:28. INDICATIONS : Evaluate lung status. MEDICAL HISTORY : None. SURGICAL HISTORY : None. ENCOUNTER: Initial ACUITY: 1 day PAIN SCORE: 0/10 LOCATION: Bilateral chest FINDINGS: Portable upright AP view of the chest demonstrates a normal-sized cardiac silhouette. There is a larg e right-sided pleural-parenchymal opacity. Pigtail catheter overlies the inferior right hemithorax. N o pneumothorax is visualized. CONCLUSION: Interval decrease in size of the right pleural effusion but moderate pleural effusion remains present with associated to atelectasis and/or consolidation. Abe Teixeira MD on December 12, 2016 at 13:04 Board Certified Radiologist. This report was verified electronically.
--- NOTE | 2016-12-12 14:50 | PD.CAR.PN ---
CVT Progress Note Subjective/Hospital Course: Pt still in recovery room following bronchoscopy Had lengthy discussion with . Related the CT and clinical findings. In the setting of minimal drainage from the CT, will hold off with proceeding to the OR for now. Will re-evaluate in 24-48 hours. If drainage increases or turns purulent, may need VATS/Thoracotomy with drainage /Decortication/Pleurodesis. May need repeat chest CT to evaluate residual/loculated effusion Will continue to follow 12/12 Lengthy d/w patient and [id number] Will repeat chest Ct tomorrow. Possible R VATS with Pleurodesis and Pleur-X catheter placement on Thursday. Objective: Vital Signs Date Time Temp Pulse Resp B/P Pulse Ox O2 Delivery O2 Flow Rate FiO2 12/12/16 12:00 96.5 112 20 132/68 97 12/12/16 08:44 Nasal Cannula 2.00 12/12/16 07:30 96.3 87 20 124/57 97 12/12/16 07:22 16 12/12/16 05:47 96.8 81 16 105/55 96 12/12/16 01:59 Nasal Cannula 2.00 12/12/16 01:00 70 12/12/16 00:16 98.7 98 16 115/62 98 12/11/16 22:44 119 12/11/16 20:48 98.4 109 16 110/63 94 12/11/16 17:00 Nasal Cannula 2.00 12/11/16 16:30 97.2 88 18 98/56 94 12/11/16 16:30 98.3 95 21 104/55 95 Nasal Cannula 2 12/11/16 16:15 98 27 96/51 98 Nasal Cannula 2 12/11/16 16:00 92 24 106/57 99 Nasal Cannula 2 12/11/16 15:45 105 23 101/57 97 Nasal Cannula 2 12/11/16 15:30 109 20 106/60 98 Nasal Cannula 2 12/11/16 15:15 108 25 105/59 97 Nasal Cannula 2 12/11/16 15:13 98.0 111 30 103/57 95 Nasal Cannula 2 Result Diagram: 12/10/16 0623 12/10/16 0623 (1) Pleural effusion, right Edmundo Weinberg MD December 12, 2016 14:50
--- NOTE | 2016-12-12 15:12 | HHI.IDPN ---
Subjective Subjective Remarks I was asked by Dr Duggan to see the pt again to discuss further abx tx chaet reviewed dw RN, Dr Duggan afebrile x 2 days ambulates, talks wo NC O2 co drainage aorund CT 6 4x4s saturated + liquid stool, negative C.diff Antibiotics azithro CFTX Allergies: Coded Allergies: Codeine (Verified Allergy, Severe, HIVES, 12/03/16) Objective . Vital Signs Date Time Temp Pulse Resp B/P Pulse Ox O2 Delivery O2 Flow Rate FiO2 12/12/16 12:00 96.5 112 20 132/68 97 12/12/16 08:44 Nasal Cannula 2.00 12/12/16 07:30 96.3 87 20 124/57 97 12/12/16 07:22 16 12/12/16 05:47 96.8 81 16 105/55 96 12/12/16 01:59 Nasal Cannula 2.00 12/12/16 01:00 70 12/12/16 00:16 98.7 98 16 115/62 98 12/11/16 22:44 119 12/11/16 20:48 98.4 109 16 110/63 94 12/11/16 17:00 Nasal Cannula 2.00 12/11/16 16:30 97.2 88 18 98/56 94 12/11/16 16:30 98.3 95 21 104/55 95 Nasal Cannula 2 12/11/16 16:15 98 27 96/51 98 Nasal Cannula 2 12/11/16 16:00 92 24 106/57 99 Nasal Cannula 2 12/11/16 15:45 105 23 101/57 97 Nasal Cannula 2 12/11/16 15:30 109 20 106/60 98 Nasal Cannula 2 12/11/16 15:15 108 25 105/59 97 Nasal Cannula 2 12/11/16 15:13 98.0 111 30 103/57 95 Nasal Cannula 2 12/11/16 12/11/16 12/12/16 15:00 23:00 07:00 Intake Total 700 ml Output Total 0 ml 500 ml Balance 0 ml 200 ml Intake Oral 300 ml IV Total 0 ml Other 400 ml Output Urine Total 500 ml Chest Tube Drainage Total 0 ml # Voids 0 # Bowel Movements 0 . Microbiology Date/Time Procedure Status Source Growth 12/11/16 14:50 Gram Stain - Final Resulted Bronchial Washings Right Lower Lobe 12/11/16 14:50 Bronchial Culture - Preliminary Resulted Bronchial Washings Right Lower Lobe RESULTS PENDING 12/11/16 14:50 Acid Fast Stain - Final Resulted Bronchial Washings Right Lower Lobe NO ACID FAST BACILLI SEEN 12/11/16 14:50 Mycobacterial Culture Resulted Bronchial Washings Right Lower Lobe Pending 12/11/16 14:50 Fungal Smear - Final Resulted Bronchial Washings Right Lower Lobe NO FUNGAL ELEMENTS SEEN. 12/11/16 14:50 Fungal Culture Resulted Bronchial Washings Right Lower Lobe Pending Imaging Last Impressions Chest X-Ray 12/12/16 0000 Signed Impressions: Service Date/Time: Monday, December 12, 2016 12:31 - CONCLUSION: Interval decrease in size of the right pleural effusion but moderate pleural effusion remains present with associated to atelectasis and/or consolidation. Abe Teixeira MD Chest CT 12/09/16 0000 Signed Impressions: Service Date/Time: Friday, December 09, 2016 16:20 - CONCLUSION: 1. Reduction in size of a right pleural effusion following right chest tube placement. 2. Large area consolidation involving the right lower lobe. 3. Tiny pneumothorax on the right. Hayes Lu Jr., MD Chest Tube Insertion 12/08/16 0000 Signed Impressions: Service Date/Time: Thursday, December 08, 2016 14:46 - CONCLUSION: Uncomplicated chest tube placement as above. Rick Agrawal MD Thoracentesis Ultrasound 12/06/16 0000 Signed Impressions: Service Date/Time: Tuesday, December 06, 2016 13:53 - CONCLUSION: Uncomplicated ultrasound guided thoracentesis. Glen Ahn MD Physical Exam CONSTITUTIONAL/GENERAL: This is an adequately nourished patient, in no apparent distress. TUBES/LINES/DRAINS: SKIN: No jaundice, rashes, or lesions. ENT: Hearing grossly normal. CARDIOVASCULAR: Regular rate and rhythm without murmurs, gallops, or rubs. No JVD. Peripheral pulses symmetric. RESPIRATORY/CHEST: Symmetric, unlabored respirations. Clear to auscultation. Breath sounds equal bilaterally. No wheezes, rales, or rhonchi. Markedly decerased BS on R base CT in place with srrosang dc; draining around tube noticed GASTROINTESTINAL: Abdomen soft, non-tender, nondistended. MUSCULOSKELETAL: Extremities without cyanosis, or edema. + mild to moderate clubbing. NEUROLOGICAL: Awake and alert. Motor and sensory grossly within normal limits. Follows commands. Cognitively sharp. Moves all extremities. PSYCHIATRIC: No obvious anxiety/depression. Assessment & Plan Remarks Pneumococcal PNA - Pneumococcal AG + - sputum and fluid clx neg parapneumonic effusion, hemorrhagic - no malignant cells but the hemorrhagic nature of the fluid is concerning especially in Tobacco + settings - CTS ff; plan for bronch/VATS if no no re-expansion - CT showed reduction in size of a right pleural effusion following right chest tube placement and . Large area consolidation involving the right lower lob Leukocytosis - persistent sp bronch - no lesion noted - Gstain no wbc, no orgs cont azitho cont CFTX 2 gm daily - will dc abx if BAL clx remain negative Discussed Condition With Dr Duggan RN pt Jess Bustos MD December 12, 2016 15:12
[2016-12-12] MEDS: AZITHROMYCIN INJ 500 MG in SODIUM CHLOR 0.9% 250 ML INJ 250 ML IV SCH (17:19)
--- NOTE | 2016-12-12 17:41 | HHI.PR ---
Subjective Remarks 46 YOWM with Recurrent [address] eff Feels better Urine Pneumococcal Ag positive No fever Appreciate dr. Weinberg Being planned for VATs thursday Pt feels much better after bronch Objective Vital Signs Vital Signs Date Time Temp Pulse Resp B/P Pulse Ox O2 Delivery O2 Flow Rate FiO2 12/12/16 17:01 96.9 102 20 134/81 96 12/12/16 12:00 96.5 112 20 132/68 97 12/12/16 08:44 Nasal Cannula 2.00 12/12/16 08:06 87 12/12/16 07:30 96.3 87 20 124/57 97 12/12/16 07:22 16 12/12/16 05:47 96.8 81 16 105/55 96 12/12/16 01:59 Nasal Cannula 2.00 12/12/16 01:00 70 12/12/16 00:16 98.7 98 16 115/62 98 12/11/16 22:44 119 12/11/16 20:48 98.4 109 16 110/63 94 I/O 12/11/16 12/11/16 12/11/16 12/12/16 12/12/16 12/12/16 07:00 15:00 23:00 07:00 15:00 23:00 Intake Total 260 ml 700 ml 980 ml Output Total 0 ml 500 ml Balance 260 ml 0 ml 200 ml 980 ml Intake Oral 260 ml 300 ml 980 ml IV Total 0 ml Other 400 ml Output Urine Total 500 ml Chest Tube Drainage Total 0 ml # Voids 2 0 4 # Bowel Movements 0 0 0 Result Diagram: 12/10/1662212/10/16622 Objective Remarks GENERAL: WBWN Wm,NWAD SKIN: Warm and dry. HEAD: Normocephalic. EYES: No scleral icterus. No injection or drainage. NECK: Supple, trachea midline. No JVD or lymphadenopathy. CARDIOVASCULAR: Regular rate and rhythm without murmurs, gallops, or rubs. RESPIRATORY: Breath sounds equal bilaterally. No accessory muscle use. GASTROINTESTINAL: Abdomen soft, non-tender, nondistended. MUSCULOSKELETAL: No cyanosis, or edema. BACK: Nontender without obvious deformity. No CVA tenderness. A/P Assessment and Plan Recurrent Hagic rapidly filling pl eff R/O malig Eff, ? Parapneumonic Pneumonia ADD GERD PLAN: DW Cont Abx Pt and chest tube to suction Motrin for pain evaluated pt and discussed with family If not better, plans for VATS on Thursday Dr James covering over weekend. Konrad Jiang MD December 12, 2016 17:41
[2016-12-13] VITALS (11 sets, daily range): BP systolic 64–141; BP diastolic 37–84; PULSE 82–109; RESP 16–22; TEMP 97.7–99.8; O2SAT 92–98
[2016-12-13] MEDS ORDERED: ALUMINUM/MAGNESIUM/SIMETH 30 ML CUP PO ONE (00:45)
[2016-12-13 01:51] LABS: AUTOMATED NEUTROPHIL # 9.4 TH/MM3 (1.8-7.7); BASOPHIL # 0.1 TH/MM3 (0-0.2); BASOPHIL % 0.4 % (0.0-2.0); EOSINOPHIL # 0.3 TH/MM3 (0-0.4); EOSINOPHIL % 2.4 % (0.0-4.0); HEMATOCRIT 32.5 % (39.0-51.0); HEMO FLAGS DIFF FINAL; LYMPH % 15.8 % (9.0-44.0); LYMPHOCYTE # 2.2 TH/MM3 (1.0-4.8); MEAN CORPUSCULAR HEMOGLOBIN 29.7 PG (27.0-34.0); MEAN CORPUSCULAR HGB CONC 33.7 % (32.0-36.0); NEUT % 68.4 % (16.0-70.0); PLATELET COUNT 531 TH/MM3 (150-450); RED CELL DISTRIBUTION WIDTH 12.3 % (11.6-17.2); WHITE BLOOD COUNT 13.8 TH/MM3 (4.0-11.0)
[2016-12-13 02:14] LABS: ANION GAP 8 MEQ/L (5-15); BICARBONATE 29.6 MEQ/L (21.0-32.0); BLOOD UREA NITROGEN 11 MG/DL (7-18); CHLORIDE 105 MEQ/L (98-107); GLOMERULAR FILTRATION RATE 103 ML/MIN (>89); POTASSIUM 3.6 MEQ/L (3.5-5.1); SODIUM (NA) 143 MEQ/L (136-145)
[2016-12-13] MEDS: IBUPROFEN 400 MG TAB PO PRN (03:21)
[2016-12-13] MEDS: SODIUM CHLORIDE 0.9% FLUSH 10 ML FLUSH IV FLUSH PRN (06:06)
[2016-12-13] MEDS: cefTRIAXone INJ 2,000 MG in SODIUM CHLORIDE 0.9% INJ 100 ML IV SCH (06:06)
[2016-12-13] MEDS ORDERED: IOHEXOL 350 MG/ML 10 ML VIAL (for RAD DIAG) IV ONE (08:17)
--- NOTE | 2016-12-13 08:37 | RADRPT ---
EXAM DATE/TIME: 12/13/2016 08:14 [facility] COMPARISON: CT THORAX W/O CONTRAST, December 09, 2016, 16:20. CHEST SINGLE AP, December 12, 2016, 12:31. INDICATIONS : Chest pain and right pleural effusion. Recent right pneumothorax. IV CONTRAST: 60 cc Omnipaque 350 (iohexol) IV RADIATION DOSE: 3.48 CTDIvol (mGy) MEDICAL HISTORY : Gastroesophageal reflux disease. SURGICAL HISTORY : None. ENCOUNTER: Subsequent ACUITY: 4 - 6 days PAIN SCALE: 4/10 LOCATION: Right upper chest TECHNIQUE: Volumetric scanning of the chest was performed. Using automated exposure control and adjustment of t he mA and/or kV according to patient size, radiation dose was kept as low as reasonably achievable to obtain optimal diagnostic quality images. FINDINGS: LUNGS: There is no pneumothorax. There is a large ill-defined tumor mass in the right infrahilar region yesenia uring up to least 7 cm in diameter. Dense consolidation remains right lower lobe and perihilar region . No concerning pulmonary nodule is visualized. PLEURA: There is a moderate size right pleural effusion with apparent loculated components. This has increase d mildly since the prior study. MEDIASTINUM: There is subcarinal adenopathy measuring up to approximately 4.6 x 3.1 cm in diameter. There is a rig ht hilar mass with hilar adenopathy. There is pretracheal and periaortic adenopathy as well. AXILLAE: Within normal limits. No lymphadenopathy. SKELETAL: Within normal limits for patient age. MISCELLANEOUS: The visualized upper abdominal organs demonstrate no acute abnormality. CONCLUSION: 1. Ill-defined tumor mass in the right infrahilar region measuring up to least 7 cm. 2. Extensive mediastinal adenopathy and right hilar adenopathy. 3. Dense consolidation remains in the right lung base. 4. Mild interval increase in right pleural effusion with loculated components. Ryan Parry MD on December 13, 2016 at 8:27 Board Certified Radiologist. This report was verified electronically.
[2016-12-13] MEDS: SODIUM CHLORIDE 0.9% FLUSH 10 ML FLUSH IV FLUSH SCH ×2 (09:00→20:14)
[2016-12-13] MEDS: PANTOPRAZOLE SOD 20 MG DELAYED RELEASE TAB PO SCH (09:16)
[2016-12-13] MEDS: LACTOBACILLUS ACIDOPHILUS TAB PO SCH ×3 (09:16→18:18)
--- NOTE | 2016-12-13 09:50 | EKG ---
Date Performed: 12/13/2016 Time Performed: 01:39:29 PTAGE: 46 years EKG: SINUS TACHYCARDIA POSSIBLE LEFT ATRIAL ENLARGEMENT ABNORMAL RHYTHM ECG INTERPRETATION BASED ON A DEFAULT AGE OF 40 YEARS PREVIOUS TRACING : 12/06/2016 01.51 DOCTOR: Jc Dougherty Interpretating Date/Time 12/13/2016 09:49:53
--- NOTE | 2016-12-13 09:56 | PD.CAR.PN ---
CVT Progress Note Subjective/Hospital Course: Pt still in recovery room following bronchoscopy Had lengthy discussion with . Related the CT and clinical findings. In the setting of minimal drainage from the CT, will hold off with proceeding to the OR for now. Will re-evaluate in 24-48 hours. If drainage increases or turns purulent, may need VATS/Thoracotomy with drainage /Decortication/Pleurodesis. May need repeat chest CT to evaluate residual/loculated effusion Will continue to follow 12/12 Lengthy d/w patient and [id number] Will repeat chest Ct tomorrow. Possible R VATS with Pleurodesis and Pleur-X catheter placement on Thursday. 12/13 OR Thursday Objective: Vital Signs Date Time Temp Pulse Resp B/P Pulse Ox O2 Delivery O2 Flow Rate FiO2 12/13/16 07:50 97.9 90 20 109/57 98 12/13/16 04:34 99.8 109 16 141/84 96 12/13/16 00:07 97.7 100 16 132/80 98 12/12/16 20:28 98.0 104 16 132/67 95 12/12/16 19:00 96 Nasal Cannula 2.00 12/12/16 17:01 96.9 102 20 134/81 96 12/12/16 12:00 96.5 112 20 132/68 97 Labs: Laboratory Tests Test 12/13/16 01:42 White Blood Count 13.8 TH/MM3 (4.0-11.0) Red Blood Count 3.70 MIL/MM3 (4.50-5.90) Hemoglobin 11.0 GM/DL (13.0-17.0) Hematocrit 32.5 % (39.0-51.0) Mean Corpuscular Volume 88.0 FL (80.0-100.0) Mean Corpuscular Hemoglobin 29.7 PG (27.0-34.0) Mean Corpuscular Hemoglobin 33.7 % Concent (32.0-36.0) Red Cell Distribution Width 12.3 % (11.6-17.2) Platelet Count 531 TH/MM3 (150-450) Mean Platelet Volume 7.4 FL (7.0-11.0) Neutrophils (%) (Auto) 68.4 % (16.0-70.0) Lymphocytes (%) (Auto) 15.8 % (9.0-44.0) Monocytes (%) (Auto) 13.0 % (0.0-8.0) Eosinophils (%) (Auto) 2.4 % (0.0-4.0) Basophils (%) (Auto) 0.4 % (0.0-2.0) Neutrophils # (Auto) 9.4 TH/MM3 (1.8-7.7) Lymphocytes # (Auto) 2.2 TH/MM3 (1.0-4.8) Monocytes # (Auto) 1.8 TH/MM3 (0-0.9) Eosinophils # (Auto) 0.3 TH/MM3 (0-0.4) Basophils # (Auto) 0.1 TH/MM3 (0-0.2) CBC Comment DIFF FINAL Differential Comment Sodium Level 143 MEQ/L (136-145) Potassium Level 3.6 MEQ/L (3.5-5.1) Chloride Level 105 MEQ/L (98-107) Carbon Dioxide Level 29.6 MEQ/L (21.0-32.0) Anion Gap 8 MEQ/L (5-15) Blood Urea Nitrogen 11 MG/DL (7-18) Creatinine 0.80 MG/DL (0.60-1.30) Estimat Glomerular Filtration 103 ML/MIN Rate (>89) Random Glucose 104 MG/DL (74-106) Calcium Level 8.0 MG/DL (8.5-10.1) Troponin I LESS THAN 0.02 NG/ML (0.02-0.05) Result Diagram: 12/13/16 0142 12/13/16 014 (1) Pleural effusion, right Edmundo Weinberg MD December 13, 2016 09:56
[2016-12-13] MEDS ORDERED: CEFAZOLIN INJ 500 MG in SODIUM CHLORIDE 0.9% IRR BTL 500 ML IRRIGATION SCH (10:00)
[2016-12-13] MEDS ORDERED: ceFAZolin 2 GM PREMIX 50 ML IV SCH (10:00)
[2016-12-13] MEDS ORDERED: CHLORHEXIDINE GLUCONATE 4% SOLN 120 ML BTL TOPICAL SCH (10:00)
--- NOTE | 2016-12-13 10:08 | HHI.PR ---
Subjective Remarks frustration about the persistent leaking of the chest tube site states that whenever he eats and feels fluid draining increases and dressing more soaked feels reflux, troponin done negative Objective Vitals Vital Signs Date Time Temp Pulse Resp B/P Pulse Ox O2 Delivery O2 Flow Rate FiO2 12/13/16 07:50 97.9 90 20 109/57 98 12/13/16 04:34 99.8 109 16 141/84 96 12/13/16 00:07 97.7 100 16 132/80 98 12/12/16 20:28 98.0 104 16 132/67 95 12/12/16 19:00 96 Nasal Cannula 2.00 12/12/16 17:01 96.9 102 20 134/81 96 12/12/16 12:00 96.5 112 20 132/68 97 I/O 12/12/16 12/12/16 12/12/16 12/13/16 12/13/16 12/13/16 07:00 15:00 23:00 07:00 15:00 23:00 Intake Total 980 ml 360 ml 300 ml Output Total 80 ml Balance 900 ml 360 ml 300 ml Intake Oral 980 ml 360 ml 300 ml Chest Tube Drainage Total 80 ml # Voids 4 1 3 # Bowel Movements 0 0 1 Result Diagram: 12/13/16 0142 12/13/16 0142 Imaging Last Impressions Chest CT 12/13/16 0600 Signed Impressions: Service Date/Time: Tuesday, December 13, 2016 08:14 - CONCLUSION: 1. Ill-defined tumor mass in the right infrahilar region measuring up to least 7 cm. 2. Extensive mediastinal adenopathy and right hilar adenopathy. 3. Dense consolidation remains in the right lung base. 4. Mild interval increase in right pleural effusion with loculated components. Ryan Parry MD Chest X-Ray 12/12/16 0000 Signed Impressions: Service Date/Time: Monday, December 12, 2016 12:31 - CONCLUSION: Interval decrease in size of the right pleural effusion but moderate pleural effusion remains present with associated to atelectasis and/or consolidation. Abe Teixeira MD Chest Tube Insertion 12/08/16 0000 Signed Impressions: Service Date/Time: Thursday, December 08, 2016 14:46 - CONCLUSION: Uncomplicated chest tube placement as above. Rick Agrawal MD Thoracentesis Ultrasound 12/06/16 0000 Signed Impressions: Service Date/Time: Tuesday, December 06, 2016 13:53 - CONCLUSION: Uncomplicated ultrasound guided thoracentesis. Glen Ahn MD Objective Remarks awake and alert, NAD anicteric, some sores in gingiva lungs- decrease breath sounds and decreased vocal fremitus right base to mid, chest tube in place-dressing leaking- clear fluid regular rhythm abdomen soft, nontender, + bowel sounds extremities no edema Procedures sp US guided thoracentesis CT placement A/P Problem List: (1) Sepsis ICD Code: A41.9 Status: Acute (2) Pleural effusion, right ICD Code: J90 Status: Acute (3) Right lower lobe pneumonia ICD Code: J18.1 Status: Acute (4) Insomnia ICD Code: G47.00 Status: Acute Assessment and Plan (1) Sepsis secondary to Pneumococcal pneumonia S/P Bronchoscopy 12/11 ICD Code: A41.9 Status: Acute Plan: Sepsis secondary to pneumococcal pneumonia with effusion. Patient with leukocytosis and tachycardia. - T down. HR improved Persistent pleural effusion and infiltrate on x-ray. failed outpatient therapy Strep pneumonia antigen positive Legionella urine antigen negative Continue incentive spirometry.ID following. Rocephin and azithromycin IV Blood cultures negative to date (2) Recurrent Pleural effusion, CT in place- 12/09- persistently leaking Right lung mass now seen in chest CT with contrast - 12/12 ICD Code: J90 Status: Acute Plan: Patient with recurrent pleural effusions status post thoracentesis 2. Quickly reaccumulating. Parapneumonic effusion. Hemorrhagic. Hemorrhagic. Cytology negative. FF drainage- not accurate output - dressing soaked- serous - and had to be changed at least twice overnight CT management per Dr. Jiang fluid cultures negative so far Dr. Weinberg ff- plan for VATs next week- Thursday will get a CT guided biopsy of this lung Mass- IR consult- d/w Dr. Lundberg and Dr. Weinberg- IR consulted and will upgrade the chest tube to a bigger one- s/w Dr. Renteria (3) Insomnia ICD Code: G47.00 Status: Acute Plan: Continue Ambien as needed. (4) Antibiotic associated Diarrhea with epigastric fullness history of GERD -Started Lactinex tid -C diff negative - GI consult- continue on PPI- change to IV PPI Patient up and ambulating around Problem Qualifiers (1) Right lower lobe pneumonia: Qualified Code: J18.1 - Pneumonia of right lower lobe due to infectious organism Osmani Duggan MD December 13, 2016 10:08 Problem Qualifiers (1) Right lower lobe pneumonia: Qualified Code: J18.1 - Pneumonia of right lower lobe due to infectious organism Osmani Duggan MD December 13, 2016 10:08
--- NOTE | 2016-12-13 10:25 | PD.CAR.PN ---
CVT Progress Note Subjective/Hospital Course: Pt still in recovery room following bronchoscopy Had lengthy discussion with . Related the CT and clinical findings. In the setting of minimal drainage from the CT, will hold off with proceeding to the OR for now. Will re-evaluate in 24-48 hours. If drainage increases or turns purulent, may need VATS/Thoracotomy with drainage /Decortication/Pleurodesis. May need repeat chest CT to evaluate residual/loculated effusion Will continue to follow 12/12 Lengthy d/w patient and [id number] Will repeat chest Ct tomorrow. Possible R VATS with Pleurodesis and Pleur-X catheter placement on Thursday. 12/13 Patient and are very upset and frustrated at his care. He also states that he has dysphagia and odynophagia every time he eats and that his chest fluid drainage increases with PO intake New findings of a mediastinal/hilar mass with associated mediastinal lymphadenopathy. This appears amenable to CT guided biopsy They are demanding that the biopsy be done emergently today and will not wait until Thursday Will consult IR and GI for evaluation Cancel OR for Thursday for pleurodesis. Objective: Vital Signs Date Time Temp Pulse Resp B/P Pulse Ox O2 Delivery O2 Flow Rate FiO2 12/13/16 07:50 97.9 90 20 109/57 98 12/13/16 04:34 99.8 109 16 141/84 96 12/13/16 00:07 97.7 100 16 132/80 98 12/12/16 20:28 98.0 104 16 132/67 95 12/12/16 19:00 96 Nasal Cannula 2.00 12/12/16 17:01 96.9 102 20 134/81 96 12/12/16 12:00 96.5 112 20 132/68 97 Labs: Laboratory Tests Test 12/13/16 01:42 White Blood Count 13.8 TH/MM3 (4.0-11.0) Red Blood Count 3.70 MIL/MM3 (4.50-5.90) Hemoglobin 11.0 GM/DL (13.0-17.0) Hematocrit 32.5 % (39.0-51.0) Mean Corpuscular Volume 88.0 FL (80.0-100.0) Mean Corpuscular Hemoglobin 29.7 PG (27.0-34.0) Mean Corpuscular Hemoglobin 33.7 % Concent (32.0-36.0) Red Cell Distribution Width 12.3 % (11.6-17.2) Platelet Count 531 TH/MM3 (150-450) Mean Platelet Volume 7.4 FL (7.0-11.0) Neutrophils (%) (Auto) 68.4 % (16.0-70.0) Lymphocytes (%) (Auto) 15.8 % (9.0-44.0) Monocytes (%) (Auto) 13.0 % (0.0-8.0) Eosinophils (%) (Auto) 2.4 % (0.0-4.0) Basophils (%) (Auto) 0.4 % (0.0-2.0) Neutrophils # (Auto) 9.4 TH/MM3 (1.8-7.7) Lymphocytes # (Auto) 2.2 TH/MM3 (1.0-4.8) Monocytes # (Auto) 1.8 TH/MM3 (0-0.9) Eosinophils # (Auto) 0.3 TH/MM3 (0-0.4) Basophils # (Auto) 0.1 TH/MM3 (0-0.2) CBC Comment DIFF FINAL Differential Comment Sodium Level 143 MEQ/L (136-145) Potassium Level 3.6 MEQ/L (3.5-5.1) Chloride Level 105 MEQ/L (98-107) Carbon Dioxide Level 29.6 MEQ/L (21.0-32.0) Anion Gap 8 MEQ/L (5-15) Blood Urea Nitrogen 11 MG/DL (7-18) Creatinine 0.80 MG/DL (0.60-1.30) Estimat Glomerular Filtration 103 ML/MIN Rate (>89) Random Glucose 104 MG/DL (74-106) Calcium Level 8.0 MG/DL (8.5-10.1) Troponin I LESS THAN 0.02 NG/ML (0.02-0.05) Result Diagram: 12/13/1614112/13/16141 (1) Pleural effusion, right Edmundo Weinberg MD December 13, 2016 10:25
[2016-12-13] MEDS: PANTOPRAZOLE SODIUM 40 MG VIAL IV PUSH SCH (11:11)
--- NOTE | 2016-12-13 11:39 | HHI.PR ---
Subjective Remarks 12/13 Patient is lying in bed in NAD on room air oxygen. Afebrile. Right CT still draining. CT chest this morning showed Ill-defined tumor mass in the right infrahilar region measuring up to least 7 cm. Extensive mediastinal adenopathy and right hilar adenopathy Objective Vital Signs Vital Signs Date Time Temp Pulse Resp B/P Pulse Ox O2 Delivery O2 Flow Rate FiO2 12/13/16 11:03 Nasal Cannula 2.00 21 12/13/16 07:50 97.9 90 20 109/57 98 12/13/16 04:34 99.8 109 16 141/84 96 12/13/16 00:07 97.7 100 16 132/80 98 12/12/16 20:28 98.0 104 16 132/67 95 12/12/16 19:00 96 Nasal Cannula 2.00 12/12/16 17:01 96.9 102 20 134/81 96 12/12/16 12:00 96.5 112 20 132/68 97 I/O 12/12/16 12/12/16 12/12/16 12/13/16 12/13/16 12/13/16 07:00 15:00 23:00 07:00 15:00 23:00 Intake Total 980 ml 360 ml 300 ml Output Total 80 ml Balance 900 ml 360 ml 300 ml Intake Oral 980 ml 360 ml 300 ml Chest Tube Drainage Total 80 ml # Voids 4 1 3 # Bowel Movements 0 0 1 Result Diagram: 12/13/16 0142 12/13/16 0142 Other Results Last Impressions Chest CT 12/13/16 0600 Signed Impressions: Service Date/Time: Tuesday, December 13, 2016 08:14 - CONCLUSION: 1. Ill-defined tumor mass in the right infrahilar region measuring up to least 7 cm. 2. Extensive mediastinal adenopathy and right hilar adenopathy. 3. Dense consolidation remains in the right lung base. 4. Mild interval increase in right pleural effusion with loculated components. Ryan Parry MD Chest X-Ray 12/12/16 0000 Signed Impressions: Service Date/Time: Monday, December 12, 2016 12:31 - CONCLUSION: Interval decrease in size of the right pleural effusion but moderate pleural effusion remains present with associated to atelectasis and/or consolidation. Abe Teixeira MD Chest Tube Insertion 12/08/16 0000 Signed Impressions: Service Date/Time: Thursday, December 08, 2016 14:46 - CONCLUSION: Uncomplicated chest tube placement as above. Rick Agrawal MD Thoracentesis Ultrasound 12/06/16 0000 Signed Impressions: Service Date/Time: Tuesday, December 06, 2016 13:53 - CONCLUSION: Uncomplicated ultrasound guided thoracentesis. Glen Ahn MD Laboratory Tests Test 12/13/16 01:42 White Blood Count 13.8 TH/MM3 Red Blood Count 3.70 MIL/MM3 Hemoglobin 11.0 GM/DL Hematocrit 32.5 % Mean Corpuscular Volume 88.0 FL Mean Corpuscular Hemoglobin 29.7 PG Mean Corpuscular Hemoglobin 33.7 % Concent Red Cell Distribution Width 12.3 % Platelet Count 531 TH/MM3 Mean Platelet Volume 7.4 FL Neutrophils (%) (Auto) 68.4 % Lymphocytes (%) (Auto) 15.8 % Monocytes (%) (Auto) 13.0 % Eosinophils (%) (Auto) 2.4 % Basophils (%) (Auto) 0.4 % Neutrophils # (Auto) 9.4 TH/MM3 Lymphocytes # (Auto) 2.2 TH/MM3 Monocytes # (Auto) 1.8 TH/MM3 Eosinophils # (Auto) 0.3 TH/MM3 Basophils # (Auto) 0.1 TH/MM3 CBC Comment DIFF FINAL Differential Comment Sodium Level 143 MEQ/L Potassium Level 3.6 MEQ/L Chloride Level 105 MEQ/L Carbon Dioxide Level 29.6 MEQ/L Anion Gap 8 MEQ/L Blood Urea Nitrogen 11 MG/DL Creatinine 0.80 MG/DL Estimat Glomerular Filtration 103 ML/MIN Rate Random Glucose 104 MG/DL Calcium Level 8.0 MG/DL Troponin I LESS THAN 0.02 NG/ML Objective Remarks GENERAL: Patient is 46 yo lying in bed in NAD SKIN: Warm and dry. HEAD: Normocephalic. EYES: No scleral icterus. No injection or drainage. NECK: Supple, trachea midline. No JVD or lymphadenopathy. CARDIOVASCULAR: Regular rate and rhythm without murmurs, gallops, or rubs. RESPIRATORY: Breath sounds equal bilaterally. No accessory muscle use. Right CT in place GASTROINTESTINAL: Abdomen soft, non-tender, nondistended. MUSCULOSKELETAL: No cyanosis, or edema. BACK: Nontender without obvious deformity. No CVA tenderness. Neuro: Awake and alert A/P Assessment and Plan 1) Right pleural effusion- Exudative effusion 2)Positive strep pneumonia Ag 3)Tumor mass in the right infrahilar region measuring up to least 7 cm. 4)GERD 5)Leukocytosis 6)Anemia PLAN: Oxygen PRN keep sat >92% CT chest reviewed and showed Ill-defined tumor mass in the right infrahilar region measuring up to least 7 cm. Extensive mediastinal adenopathy and right hilar adenopathy. consolidation remains in the right lung base. Mild interval increase in right pleural effusion with loculated components. Agree with CT guided biopsy of right lung mass r/o bronchogenic ca Monitor CT drainage- Cytology from december 04 showed no malignant cells. Discussed with patient might need VATS/Pleurodesis will wait till after biopsy results. Onc eval once malignancy is confirmed. Continue with abx ( Rocephin, Zithromax) monitor for signs of infections ( Fever , WBC) GI/DVT prophylaxis per primary team Discussed with Dr. Duggan. Estelle Chery MD December 13, 2016 11:39
[2016-12-13] MEDS ORDERED: fentaNYL CITRATE 250 MCG/5 ML AMP ONE (12:01)
[2016-12-13] MEDS ORDERED: LORazepam 2 MG/ML VIAL ONE (12:01)
[2016-12-13] MEDS ORDERED: SODIUM BICARBONATE 8.4% INJ 50 ML ONE (12:40)
--- NOTE | 2016-12-13 12:58 | PD.RAD ---
Post Procedure Progress Note Pre Procedure Diagnosis: (1) Pleural effusion, right (2) Sepsis (3) Right lower lobe pneumonia Post Procedure Diagnosis: (1) Pleural effusion, right (2) Sepsis (3) Right lower lobe pneumonia Procedure Date: December 13, 2016 Supervising Radiologist: Blake Renteria Anesthesia: Local Plan of Activity Patient to Unit: Nursing Unit Patient Condition: Fair Additional Comments: Right chest tube upsized to 12 F and repositioned. 1 Liter of fluid removed and sent for cytology. full dictated report to follow See PACS Report for procedural detail/treatment Blake Renteria MD December 13, 2016 12:58
--- NOTE | 2016-12-13 14:18 | RADRPT ---
EXAM DATE/TIME: 12/13/2016 13:20 [facility] COMPARISON: CHEST SINGLE AP, December 12, 2016, 12:31. INDICATIONS : Chest tube placement. MEDICAL HISTORY : None. SURGICAL HISTORY : None. ENCOUNTER: Initial ACUITY: 1 day PAIN SCORE: 0/10 LOCATION: Bilateral chest FINDINGS: There is a new small bore chest tube in place on the right. There is significant reduction in the sourav unt of pleural effusion on the right. The tube is in excellent position. There is prominence of the right guillermo and mediastinum which is now evident following removal of the f luid. There is consolidation of the right lower lobe. The left lung is clear. CONCLUSION: 1. New chest tube in good position with significant interval reduction in the amount of pleural fluid . 2. Right hilar adenopathy with consolidation of the right lower lobe. Blake Renteria MD on December 13, 2016 at 14:15 Board Certified Radiologist. This report was verified electronically.
--- NOTE | 2016-12-13 14:20 | RADRPT ---
EXAM DATE/TIME: 12/13/2016 12:06 [facility] COMPARISON: No previous studies available for comparison. INDICATIONS : Patient with leaking chest tube previously placed. Radiologist is upsizing. MEDICAL HISTORY : 1. GERD 2. ADD 3. SOB 4. smoker 5. Right plureal effusion. SURGICAL HISTORY : 1. Right chest tube 2. Right thoracentisis 3. left ankle repair 4. lt shoulder repair ENCOUNTER: Initial ACUITY: 1 week PAIN SCORE: 2/10 LOCATION: Left shoulder FLUORO TIME: 2.8 minutes IMAGE SERIES: 0 MEDICATION(S): 1.) 100 mcg fentanyl (Sublimaze) IV 2.) 2 mg lorazepam (Ativan) IV DEVICE(S): 1.) 12 Greenlandic non-locking catheter PROCEDURE : 1. Fluoroscopically guided chest tube exchange. 2. Conscious sedation with continuous EKG and oximetry monitoring. The risks, benefits and alternatives to the procedure were explained and verbal and written consent w as obtained. The site was prepped in sterile fashion. Full sterile technique was used, including ca p, mask, sterile gloves and gown and a large sterile sheet. Hand hygiene and 2% chlorhexidine and/or betadine/alcohol prep was utilized per protocol for cutaneous antisepsis. The skin and subcutaneous tissues were infiltrated with local anesthetic solution. With fluoroscopic guidance the previously placed chest tube was exchanged for the prescribed catheter . Post procedure imaging demonstrates satisfactory position of the tube. The catheter was sutured i n place and a Percu-Stay was applied. There was immediate return of approximately 1 L of fluid. Samples were sent for cytology. Conscious sedation was performed with the prescribed dosages and duration as above in the presence of an independent trained radiology nurse to assist in the monitoring of the patient. EKG and oximetry remained stable throughout the procedure. The patient tolerated the procedure well and there were no complications. The patient was sent to post anesthesia recovery in stable condition. CONCLUSION: Uncomplicated chest tube exchange as above. Blake Renteria MD on December 13, 2016 at 14:17 Board Certified Radiologist. This report was verified electronically.
--- NOTE | 2016-12-13 14:25 | PD.CONS ---
HPI History of Present Illness This is a 46 year old with PMH of GERD, ADD who presents to the [facility] at PO for shortness of breath, was found to have pneumonia and was sent home with abx. Patient continue to feel poorly, winded, extreme short of breath, so he came to main campus. Work up revealed right pleural effusion, s/p thoracentesis , chest tube, pneumonia and lung consolidation. CT today showed tumor mass in the right infrahilar region measuring up to least 7 cm with Extensive mediastinal adenopathy and right hilar adenopathy. There is a plan for bx on Thursday. Gi consulted for diarrhea and GERD. The diarrhea started a week ago, this is once a day, it varies between watery and soft stools. No melena or hematochezia. He reports nausea, but no vomiting. He has mild cramps, but not severe. He has chronic GERD under control with Omeprazole. He had EGD years ago , he was suppose to have HIGH study but failed. States he started having heart burn sensation few months ago that radiates to right chest area, then shoots up to right shoulder and neck, this is worse with eating and now is worse when lungs filled up, he also states he always felt pressure in the right side of face, but this is better now after receiving abx. He used to be heavy smoker, but now light smoker. He drinks on occasions. He never had colonoscopy before. Stools negative for C-diff. (Donald Hernandez) PFSH Past Medical History GERD, ADD on Adderall Past Surgical History Left ankle tendon repair, left Shoulder surgery (Donald Hernandez) Coded Allergies: Codeine (Verified Allergy, Severe, HIVES, 12/03/16) Medications Current Medications Medications (Trade) Dose Ordered Sig/Thiago Route Start Time Stop Time Status Last Admin (NS Flush) 2 ml UNSCH PRN IV FLUSH 12/04/16 01:00 12/13/16 06:06 (NS Flush) 2 ml BID IV FLUSH 12/04/16 09:00 12/13/16 09:00 (Narcan Inj) 0.4 mg UNSCH PRN IV 12/04/16 01:00 (Adderall) 20 mg DAILY PO 12/04/16 09:00 Hold 12/05/16 09:08 (Morphine Inj) 2 mg Q4HR PRN IV PUSH 12/06/16 01:30 12/09/16 09:00 Magnesium Hydroxide 30 ml 30 ml DAILY PRN PO 12/06/16 15:00 12/07/16 07:09 (Zithromax Inj/ NS 250 ml Inj) 250 ml @ 250 mls/hr Q24H IV 12/06/16 17:00 12/12/16 17:19 Zolpidem Tartrate 10 mg 10 mg HS PRN PO 12/06/16 17:00 12/12/16 00:00 (Rocephin Inj/NS Inj) 100 ml @ 200 mls/hr Q24H IV 12/07/16 06:00 12/13/16 06:06 (Lactinex) 1 tab TID PO 12/10/16 13:00 12/13/16 09:16 (Motrin) 400 mg Q8H PRN PO 12/10/16 20:00 12/13/16 03:21 (Protonix Inj) 40 mg Q24H IV PUSH 12/13/16 12:00 (Mycostatin Liq) 5 ml QID SWISH-SWAL 12/13/16 13:00 Family History Sister has lupus fibromyalgia Mother has arthritis and, "autoimmune problems" Social History used to be heavy smoker, but now light smoker social ETOH occasional marijuana use (Donald Hernandez) Review of Systems Constitutional: COMPLAINS OF: Fatigue Endocrine: DENIES: Polyuria Eyes: DENIES: Double Vision Ears, nose, mouth, throat: DENIES: Hoarseness Respiratory: COMPLAINS OF: Shortness of breath Cardiovascular: DENIES: Lower Extremity Edema Gastrointestinal: COMPLAINS OF: Abdominal pain, Diarrhea, Nausea, Heartburn, DENIES: Black stools, Bloody stools, Constipation, Vomiting, Difficulty Swallowing, Anorexia, Odynophagia, Swelling of Abdomen, Hematemesis Genitourinary: DENIES: Hematuria Musculoskeletal: COMPLAINS OF: Back pain Integumentary: DENIES: Jaundice Hematologic/lymphatic: DENIES: Bruising Immunologic/allergic: DENIES: Eczema Neurologic: DENIES: Abnormal gait Psychiatric: DENIES: Anxiety (Donald Hernandez) GI Exam Vitals I&O Vital Signs Date Time Temp Pulse Resp B/P Pulse Ox O2 Delivery O2 Flow Rate FiO2 12/13/16 12:00 98.0 82 18 110/65 95 12/13/16 11:03 Nasal Cannula 2.00 21 12/13/16 07:50 97.9 90 20 109/57 98 12/13/16 04:34 99.8 109 16 141/84 96 12/13/16 00:07 97.7 100 16 132/80 98 12/12/16 20:28 98.0 104 16 132/67 95 12/12/16 19:00 96 Nasal Cannula 2.00 12/12/16 17:01 96.9 102 20 134/81 96 I/O 12/12/16 12/12/16 12/12/16 12/13/16 12/13/16 12/13/16 07:00 15:00 23:00 07:00 15:00 23:00 Intake Total 980 ml 360 ml 300 ml Output Total 80 ml Balance 900 ml 360 ml 300 ml Intake Oral 980 ml 360 ml 300 ml Chest Tube Drainage Total 80 ml # Voids 4 1 3 # Bowel Movements 0 0 1 Imaging Last Impressions Chest CT 12/13/16 0600 Signed Impressions: Service Date/Time: Tuesday, December 13, 2016 08:14 - CONCLUSION: 1. Ill-defined tumor mass in the right infrahilar region measuring up to least 7 cm. 2. Extensive mediastinal adenopathy and right hilar adenopathy. 3. Dense consolidation remains in the right lung base. 4. Mild interval increase in right pleural effusion with loculated components. Ryan Parry MD Chest X-Ray 12/12/16 0000 Signed Impressions: Service Date/Time: Monday, December 12, 2016 12:31 - CONCLUSION: Interval decrease in size of the right pleural effusion but moderate pleural effusion remains present with associated to atelectasis and/or consolidation. Abe Teixeira MD Chest Tube Insertion 12/08/16 0000 Signed Impressions: Service Date/Time: Thursday, December 08, 2016 14:46 - CONCLUSION: Uncomplicated chest tube placement as above. Rick Agrawal MD Thoracentesis Ultrasound 12/06/16 0000 Signed Impressions: Service Date/Time: Tuesday, December 06, 2016 13:53 - CONCLUSION: Uncomplicated ultrasound guided thoracentesis. Glen Ahn MD Laboratory Test 12/13/16 01:42 White Blood Count 13.8 TH/MM3 Red Blood Count 3.70 MIL/MM3 Hemoglobin 11.0 GM/DL Hematocrit 32.5 % Mean Corpuscular Volume 88.0 FL Mean Corpuscular Hemoglobin 29.7 PG Mean Corpuscular Hemoglobin 33.7 % Concent Red Cell Distribution Width 12.3 % Platelet Count 531 TH/MM3 Mean Platelet Volume 7.4 FL Neutrophils (%) (Auto) 68.4 % Lymphocytes (%) (Auto) 15.8 % Monocytes (%) (Auto) 13.0 % Eosinophils (%) (Auto) 2.4 % Basophils (%) (Auto) 0.4 % Neutrophils # (Auto) 9.4 TH/MM3 Lymphocytes # (Auto) 2.2 TH/MM3 Monocytes # (Auto) 1.8 TH/MM3 Eosinophils # (Auto) 0.3 TH/MM3 Basophils # (Auto) 0.1 TH/MM3 CBC Comment DIFF FINAL Differential Comment Sodium Level 143 MEQ/L Potassium Level 3.6 MEQ/L Chloride Level 105 MEQ/L Carbon Dioxide Level 29.6 MEQ/L Anion Gap 8 MEQ/L Blood Urea Nitrogen 11 MG/DL Creatinine 0.80 MG/DL Estimat Glomerular Filtration 103 ML/MIN Rate Random Glucose 104 MG/DL Calcium Level 8.0 MG/DL Troponin I LESS THAN 0.02 NG/ML Date/Time Procedure Status Source Growth 12/11/16 14:50 Gram Stain - Final Complete Bronchial Washings Right Lower Lobe 12/11/16 14:50 Bronchial Culture - Final Complete Bronchial Washings Right Lower Lobe RARE GROWTH NORMAL RESPIRATORY DEON 12/11/16 14:50 Fungal Smear - Final Resulted Bronchial Washings Right Lower Lobe NO FUNGAL ELEMENTS SEEN. 12/11/16 14:50 Fungal Culture Resulted Bronchial Washings Right Lower Lobe Pending 12/11/16 14:50 Acid Fast Stain - Final Resulted Bronchial Washings Right Lower Lobe NO ACID FAST BACILLI SEEN 12/11/16 14:50 Mycobacterial Culture Resulted Bronchial Washings Right Lower Lobe Pending Physical Examination HEENT: normocephalic; atraumatic; no jaundice. NECK: Neck is supple, no JVD, no lymphadenopathy. CHEST: breath sound equal bilaterally, right CT in place CARDIAC: Regular rate and rhythm with no murmur gallop or rubs. ABDOMEN: Soft, nondistended, nontender; no hepatosplenomegaly; bowel sounds are present in all four quadrants. EXTREMITIES: No clubbing, cyanosis, or edema. SKIN: Normal; no rash; no jaundice. C[employer]OM WO[employer] BU[employer]DER: No focal deficits; alert and oriented times three. (Donald Hernandez) Assessment and Plan Plan - Diarrhea- Stools negative for C-diff. He never had colonoscopy before. the diarrhea started a week ago, this is once a day, it varies between watery and soft stools. No melena or hematochezia. He reports nausea, but no vomiting. He has mild cramps, but not severe - chronic GERD under control with Omeprazole. He had EGD years ago, he was suppose to have HIGH study but failed. States he started having heart burn sensation few months ago that radiates to right chest area, then shoots up to right shoulder and neck. This is worse with eating and it symptoms are worse when lungs fills up with fluid He used to be heavy smoker, but now light smoker. He drinks on occasions. - Plural effusion - s/p thoracentesis, chest tube - Pneumonia- abx - Anemia- hgb 11.0, no bleeding reported - Leukocytosis- WBX 13.8 on abx - lung mass new findings- CT today showed tumor mass in the right infrahilar region measuring up to least 7 cm with Extensive mediastinal adenopathy and right hilar adenopathy. There - ADD per attending Plan: - Diet per attending - EGD/colonoscopy sometimes next week once medically cleared, - Await lung mass bx - Symptoms most likely related to lung mass - Monitor labs - Supportive care - Patient seen and examined by dr Mckee and myself and this note is written on his behalf. (Donald Hernandez) Physician Comments Seen and examined with LIFE SCIENCE TECHNICIAN< egd/colonoscopy planned for thursday if stable. Discussed with the pt. Reinaldo marcus (Derek Mckee MD) Donald Hernandez December 13, 2016 14:24 Derek Mckee MD December 13, 2016 15:32
[2016-12-13 14:45] LABS: APTT (PATIENT) 31.4 SEC (24.3-30.1); PROTHROMBIN TIME - PATIENT 10.7 SEC (9.8-11.6)
[2016-12-13] MEDS: NYSTATIN SUSP 500,000 U/5 ML CUP SWISH-SWAL SCH ×3 (15:05→20:13)
[2016-12-13] MEDS: AZITHROMYCIN INJ 500 MG in SODIUM CHLOR 0.9% 250 ML INJ 250 ML IV SCH (18:17)
[2016-12-13] MEDS: MORPHINE SULFATE 4 MG/ML INJ IV PUSH PRN ×2 (18:50→22:26)
--- NOTE | 2016-12-13 21:54 | HHI.PR ---
Addendum to Inpatient Note Addendum Reason: Additional Documentation Additional Information [facility] was called tonight in response to patient's blood pressure of 64/37. Mr. Martinez was drinking a smoothie tonight and shortly thereafter developed left sided chest pain described as a sharp pain that radiated around his left lower ribcage and was accompanied by diaphoresis, dizziness, lightheadedness, and nausea - denied any shortness of breath, palpitations, or vomiting. After that, his blood pressure dropped to 64/37 and he was rapidly transported to [facility] by the [facility] team. Upon arrival in [facility], his blood pressure had stabilized spontaneously to 112/72, heart rate 95, respiratory rate 22, and oxygen saturation 95% on 2 L nasal cannula. STAT blood glucose was 103. The patient states the chest pain had initially started as a level 3 or 4 and increased to a 7 and was currently a 1 out of 10. He felt like some gastric "bubbles" may have been released and relieved the pressure. The patient feels like there is something wrong with his esophagus and states that every time he eats or drinks , he has an episode of feeling poorly. He is also complaining of severe pain in the right shoulder blade area radiating to his right neck. This pain has been occurring intermittently throughout this hospitalization. Gastroenterology consultation was done today and EGD/colonoscopy is planned for sometime next week once the patient is medically cleared - GI MD suspects the lung mass as a likely cause of patient's symptoms. He underwent a chest tube reinsertion today and 1000 L of pleural liquid was drained at the time of chest tube insertion. Of note, CT of chest with IV contrast this morning showed ill-defined tumor in the right infrahilar region measuring up to at least 7 cm with extensive mediastinal adenopathy and right hilar adenopathy. Suspect vasovagal response versus ACS - We will check stat cardiac enzymes, EKG, CBC, CMP, magnesium, chest x-ray, and change diet to nothing by mouth for the time being. I will follow results of testing. CXR shows small caliber right chest tube with stable right effusion and right- sided airspace disease since exam from earlier today. Mild left basilar airspace disease with no significant left effusion. No pneumothorax. EKG reviewed and compared with previous dated 12/13/16 with no significant changes noted. Labs reviewed - no cardiac enzyme elevation and no significant changes noted in labs other than H&H is slowly downward trending - Hgb 10.6 today and albumin is low at 1.8. Will recheck H&H in 6 hours along with cardiac enzymes to trend and have a sheep sticker assist in his evaluation - again, GI is already onboard. . Ivis Farrar December 13, 2016 21:54
--- NOTE | 2016-12-13 22:21 | RADRPT ---
EXAM DATE/TIME: 12/13/2016 22:05 [facility] COMPARISON: CHEST EXPIRATION ONLY, December 13, 2016, 13:20. INDICATIONS : Patient complains of right sided chest pain and shortness of breath. MEDICAL HISTORY : None. SURGICAL HISTORY : None. ENCOUNTER: Subsequent ACUITY: 2 weeks PAIN SCORE: 4/10 LOCATION: chest FINDINGS: Small caliber right chest tube present. Right effusion and airspace disease similar to exam from to y. Mild left basilar airspace disease present. No significant left effusion. No pneumothorax. CONCLUSION: 1. Small caliber right chest tube with stable right effusion and right-sided airspace disease since e xam from earlier today. No pneumothorax. Jim Figueroa MD on December 13, 2016 at 22:17 Board Certified Radiologist. This report was verified electronically.
[2016-12-13 23:17] LABS: AUTOMATED NEUTROPHIL # 9.3 TH/MM3 (1.8-7.7); BASOPHIL # 0.1 TH/MM3 (0-0.2); BASOPHIL % 0.8 % (0.0-2.0); EOSINOPHIL # 0.3 TH/MM3 (0-0.4); HEMATOCRIT 32.1 % (39.0-51.0); HEMO FLAGS DIFF FINAL; LYMPH % 10.2 % (9.0-44.0); LYMPHOCYTE # 1.3 TH/MM3 (1.0-4.8); MEAN CORPUSCULAR HEMOGLOBIN 29.3 PG (27.0-34.0); MEAN CORPUSCULAR HGB CONC 32.9 % (32.0-36.0); MONO % 13.9 % (0.0-8.0); NEUT % 73.1 % (16.0-70.0); PLATELET COUNT 500 TH/MM3 (150-450); RED BLOOD COUNT 3.61 MIL/MM3 (4.50-5.90); RED CELL DISTRIBUTION WIDTH 12.6 % (11.6-17.2); WHITE BLOOD COUNT 12.7 TH/MM3 (4.0-11.0)
[2016-12-13 23:30] LABS: ANION GAP 7 MEQ/L (5-15); AST (GOT) 21 U/L (15-37); BICARBONATE 30.6 MEQ/L (21.0-32.0); BLOOD UREA NITROGEN 7 MG/DL (7-18); CHLORIDE 101 MEQ/L (98-107); GLOMERULAR FILTRATION RATE 96 ML/MIN (>89); SODIUM (NA) 139 MEQ/L (136-145)
[2016-12-13 23:34] LABS: ALKALINE PHOSPHATASE 61 U/L (45-117); ALT (GPT) 18 U/L (12-78); TOTAL BILIRUBIN ADULT 0.3 MG/DL (0.2-1.0)
[2016-12-13 23:35] LABS: CREATINE KINASE 64 U/L (39-308)
[2016-12-14] VITALS (14 sets, daily range): BP systolic 93–115; BP diastolic 50–60; PULSE 97–110; RESP 20–25; TEMP 98.3–100; O2SAT 93–98
[2016-12-14] MEDS: MORPHINE SULFATE 4 MG/ML INJ IV PUSH PRN ×2 (02:15→08:41)
[2016-12-14] MEDS: ZOLPIDEM TARTRATE 10 MG TAB PO PRN ×2 (02:43→22:48)
[2016-12-14 05:08] LABS: HEMATOCRIT 30.4 % (39.0-51.0); REVIEW FLAG FINAL
--- NOTE | 2016-12-14 05:53 | RADRPT ---
EXAM DATE/TIME: 12/14/2016 03:37 [facility] COMPARISON: No previous studies available for comparison. INDICATIONS : Shortness of breath, possible pulmonary disease. MEDICAL HISTORY : Gastroesophageal reflux disease. SURGICAL HISTORY : None. ENCOUNTER: Subsequent ACUITY: 2 weeks PAIN SCORE: 0/10 LOCATION: Bilateral chest FINDINGS: A single frontal expiratory view of the chest was performed. Small caliber chest tube again seen in t he right lower hemithorax. Increasing pleural-parenchymal density throughout the right lung. There is tracheal shift to the left. Heart enlarged. No pneumothorax. CONCLUSION: 1. Increasing pleural-parenchymal density throughout the right chest with slight shift of the trachea to the left. 2. No pneumothorax. Rick Agrawal MD on December 14, 2016 at 5:50 Board Certified Radiologist. This report was verified electronically.
[2016-12-14 05:59] LABS: CREATINE KINASE 54 U/L (39-308)
[2016-12-14] MEDS: cefTRIAXone INJ 2,000 MG in SODIUM CHLORIDE 0.9% INJ 100 ML IV SCH (06:02)
[2016-12-14] MEDS: SODIUM CHLORIDE 0.9% FLUSH 10 ML FLUSH IV FLUSH SCH ×2 (08:41→20:19)
[2016-12-14] MEDS: LACTOBACILLUS ACIDOPHILUS TAB PO SCH ×3 (08:42→20:19)
[2016-12-14] MEDS: NYSTATIN SUSP 500,000 U/5 ML CUP SWISH-SWAL SCH ×4 (08:42→20:19)
--- NOTE | 2016-12-14 10:40 | EKG ---
Date Performed: 12/13/2016 Time Performed: 21:30:30 PTAGE: 46 years EKG: Sinus rhythm Possible left atrial abnormality Borderline ECG NO PREVIOUS TRACING DOCTOR: Jc Dougherty Interpretating Date/Time 12/14/2016 10:38:39
--- NOTE | 2016-12-14 11:10 | HHI.PR ---
Subjective Remarks Stacey was called last night for hypotension and left sided chest pain BP stabilized upon arrival [place] [facility]. Right sided CT was exchanged to 12 F and repositioned with immediate draining of 1L upon insertion. T:100.0 at 4am. On 1.5L oxygen with good sats. Objective Vital Signs Vital Signs Date Time Temp Pulse Resp B/P Pulse Ox O2 Delivery O2 Flow Rate FiO2 12/14/16 09:52 96 Nasal Cannula 1.50 12/14/16 08:46 18 12/14/16 06:00 100 12/14/16 04:00 100 12/14/16 04:00 100.0 100 20 94/50 93 12/14/16 02:00 100 12/14/16 00:00 99.1 106 22 110/54 93 12/14/16 00:00 106 12/13/16 22:00 99 12/13/16 21:07 95 22 112/72 95 12/13/16 21:07 95 Nasal Cannula 2.00 12/13/16 20:55 98 20 64/37 96 12/13/16 20:54 95 76/41 12/13/16 20:50 96 28 12/13/16 20:00 Nasal Cannula 2.00 12/13/16 20:00 85 12/13/16 16:00 98.1 99 20 107/62 92 12/13/16 12:00 98.0 82 18 110/65 95 12/13/16 11:03 Nasal Cannula 2.00 21 I/O 12/13/16 12/13/16 12/13/16 12/14/16 12/14/16 12/14/16 07:00 15:00 23:00 07:00 15:00 23:00 Intake Total 780 ml 0 ml 160 ml Output Total 16 ml 524 ml Balance 780 ml -16 ml -364 ml Intake Oral 780 ml 0 ml 60 ml IV Total 100 ml Output Urine Total 0 ml 500 ml Chest Tube Drainage Total 16 ml 24 ml # Voids 6 # Bowel Movements 1 0 0 Result Diagram: 12/14/16 0422 12/13/16 6135 Other Results Last Impressions Chest X-Ray 12/14/16 0000 Signed Impressions: Service Date/Time: Wednesday, December 14, 2016 03:37 - CONCLUSION: 1. Increasing pleural-parenchymal density throughout the right chest with slight shift of the trachea to the left. 2. No pneumothorax. Rick Agrawal MD Chest Tube Change 12/13/16 1302 Signed Impressions: Service Date/Time: Tuesday, December 13, 2016 12:06 - CONCLUSION: Uncomplicated chest tube exchange as above. Blake Renteria MD Chest CT 12/13/16 0600 Signed Impressions: Service Date/Time: Tuesday, December 13, 2016 08:14 - CONCLUSION: 1. Ill-defined tumor mass in the right infrahilar region measuring up to least 7 cm. 2. Extensive mediastinal adenopathy and right hilar adenopathy. 3. Dense consolidation remains in the right lung base. 4. Mild interval increase in right pleural effusion with loculated components. Ryan Parry MD Chest Tube Insertion 12/08/16 0000 Signed Impressions: Service Date/Time: Thursday, December 08, 2016 14:46 - CONCLUSION: Uncomplicated chest tube placement as above. Rick Agrawal MD Thoracentesis Ultrasound 12/06/16 0000 Signed Impressions: Service Date/Time: Tuesday, December 06, 2016 13:53 - CONCLUSION: Uncomplicated ultrasound guided thoracentesis. Glen Ahn MD Laboratory Tests Test 12/13/16 12/13/16 12/13/16 12/14/16 14:27 21:30 23:05 04:22 Prothrombin Time 10.7 SEC Prothromb Time International 1.0 RATIO Ratio Activated Partial 31.4 SEC Thromboplast Time Nasal Screen MRSA (PCR) MRSA NOT DETECTED White Blood Count 12.7 TH/MM3 Red Blood Count 3.61 MIL/MM3 Hemoglobin 10.6 GM/DL 10.3 GM/DL Hematocrit 32.1 % 30.4 % Mean Corpuscular Volume 89.0 FL Mean Corpuscular Hemoglobin 29.3 PG Mean Corpuscular Hemoglobin 32.9 % Concent Red Cell Distribution Width 12.6 % Platelet Count 500 TH/MM3 Mean Platelet Volume 7.1 FL Neutrophils (%) (Auto) 73.1 % Lymphocytes (%) (Auto) 10.2 % Monocytes (%) (Auto) 13.9 % Eosinophils (%) (Auto) 2.0 % Basophils (%) (Auto) 0.8 % Neutrophils # (Auto) 9.3 TH/MM3 Lymphocytes # (Auto) 1.3 TH/MM3 Monocytes # (Auto) 1.8 TH/MM3 Eosinophils # (Auto) 0.3 TH/MM3 Basophils # (Auto) 0.1 TH/MM3 CBC Comment DIFF FINAL Differential Comment Sodium Level 139 MEQ/L Potassium Level 4.0 MEQ/L Chloride Level 101 MEQ/L Carbon Dioxide Level 30.6 MEQ/L Anion Gap 7 MEQ/L Blood Urea Nitrogen 7 MG/DL Creatinine 0.85 MG/DL Estimat Glomerular Filtration 96 ML/MIN Rate Random Glucose 110 MG/DL Calcium Level 7.9 MG/DL Magnesium Level 2.0 MG/DL Total Bilirubin 0.3 MG/DL Aspartate Amino Transf 21 U/L (AST/SGOT) Alanine Aminotransferase 18 U/L (ALT/SGPT) Alkaline Phosphatase 61 U/L Total Creatine Kinase 64 U/L 54 U/L Troponin I LESS THAN 0.02 LESS THAN 0.02 NG/ML NG/ML Total Protein 5.5 GM/DL Albumin 1.8 GM/DL Objective Remarks GENERAL: Patient is 46 yo lying in bed in NAD SKIN: Warm and dry. HEAD: Normocephalic. EYES: No scleral icterus. No injection or drainage. NECK: Supple, trachea midline. No JVD or lymphadenopathy. CARDIOVASCULAR: Regular rate and rhythm without murmurs, gallops, or rubs. RESPIRATORY: Breath sounds equal bilaterally. Diminished BS on right. Right CT in place GASTROINTESTINAL: Abdomen soft, non-tender, nondistended. MUSCULOSKELETAL: No cyanosis, or edema. BACK: Nontender without obvious deformity. No CVA tenderness. 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 CT chest showed Ill-defined tumor mass in the right infrahilar region measuring up to least 7 cm. Extensive mediastinal adenopathy and right hilar adenopathy. consolidation remains in the right lung base. For CT guided biopsy of right lung mass tomorrow r/o bronchogenic ca Monitor CT drainage- Cytology from December 04 showed no malignant cells, cytology from 12/12 pending. Patient might need VATS/Pleurodesis will wait till after biopsy results per CTS. Onc eval once malignancy is confirmed. Continue with abx ( Rocephin, Zithromax) monitor for signs of infections ( Fever , WBC) s/p Bronch on 12/11- cultures negative Diurese with Bumex 1mg x1 GI/DVT prophylaxis per primary team Estelle Chery MD December 14, 2016 11:10
[2016-12-14] MEDS: RESP: ALBUTEROL 2.5 MG/IPRATROPIUM 0.5 MG NEB (SCH) NEB ×3 (11:53→20:23)
[2016-12-14] MEDS ORDERED: BUMETANIDE INJ 1 MG/4 ML VIAL IV PUSH ONE (12:00)
[2016-12-14] MEDS: HYDROmorphone HCL PF 1 MG/ML VIAL IV PUSH PRN ×3 (12:26→20:19)
[2016-12-14] MEDS: PANTOPRAZOLE SODIUM 40 MG VIAL IV PUSH SCH (12:26)
[2016-12-14 12:56] LABS: BICARBONATE 32.4 MEQ/L (21.0-32.0); POTASSIUM 3.9 MEQ/L (3.5-5.1)
--- NOTE | 2016-12-14 14:19 | HHI.PR ---
Subjective Remarks patient feeling better- chest tube placed yesterday with immediate 1 L out Objective Vitals Vital Signs Date Time Temp Pulse Resp B/P Pulse Ox O2 Delivery O2 Flow Rate FiO2 12/14/16 09:52 96 Nasal Cannula 1.50 12/14/16 08:46 18 12/14/16 06:00 100 12/14/16 04:00 100 12/14/16 04:00 100.0 100 20 94/50 93 12/14/16 02:00 100 12/14/16 00:00 99.1 106 22 110/54 93 12/14/16 00:00 106 12/13/16 22:00 99 12/13/16 21:07 95 22 112/72 95 12/13/16 21:07 95 Nasal Cannula 2.00 12/13/16 20:55 98 20 64/37 96 12/13/16 20:54 95 76/41 12/13/16 20:50 96 28 12/13/16 20:00 Nasal Cannula 2.00 12/13/16 20:00 85 12/13/16 16:00 98.1 99 20 107/62 92 I/O 12/13/16 12/13/16 12/13/16 12/14/16 12/14/16 12/14/16 07:00 15:00 23:00 07:00 15:00 23:00 Intake Total 780 ml 0 ml 160 ml Output Total 16 ml 524 ml Balance 780 ml -16 ml -364 ml Intake Oral 780 ml 0 ml 60 ml IV Total 100 ml Output Urine Total 0 ml 500 ml Chest Tube Drainage Total 16 ml 24 ml # Voids 6 # Bowel Movements 1 0 0 Result Diagram: 12/14/16 0422 12/14/16 1202 Imaging Last Impressions Chest X-Ray 12/14/16 0000 Signed Impressions: Service Date/Time: Wednesday, December 14, 2016 03:37 - CONCLUSION: 1. Increasing pleural-parenchymal density throughout the right chest with slight shift of the trachea to the left. 2. No pneumothorax. Rick Agrawal MD Chest Tube Change 12/13/16 1302 Signed Impressions: Service Date/Time: Tuesday, December 13, 2016 12:06 - CONCLUSION: Uncomplicated chest tube exchange as above. Blake Renteria MD Chest CT 12/13/16 0600 Signed Impressions: Service Date/Time: Tuesday, December 13, 2016 08:14 - CONCLUSION: 1. Ill-defined tumor mass in the right infrahilar region measuring up to least 7 cm. 2. Extensive mediastinal adenopathy and right hilar adenopathy. 3. Dense consolidation remains in the right lung base. 4. Mild interval increase in right pleural effusion with loculated components. Ryan Parry MD Chest Tube Insertion 12/08/16 0000 Signed Impressions: Service Date/Time: Thursday, December 08, 2016 14:46 - CONCLUSION: Uncomplicated chest tube placement as above. Rick Agrawal MD Thoracentesis Ultrasound 12/06/16 0000 Signed Impressions: Service Date/Time: Tuesday, December 06, 2016 13:53 - CONCLUSION: Uncomplicated ultrasound guided thoracentesis. Glen Ahn MD Objective Remarks awake and alert, NAD anicteric, some sores in gingiva lungs- decrease breath sounds and decreased vocal fremitus right base to mid, chest tube in place- no leaking- dry dressing regular rhythm abdomen soft, nontender, + bowel sounds extremities no edema Procedures sp US guided thoracentesis CT placement 12/13 A/P Problem List: (1) Sepsis ICD Code: A41.9 Status: Acute (2) Pleural effusion, right ICD Code: J90 Status: Acute (3) Right lower lobe pneumonia ICD Code: J18.1 Status: Acute (4) Insomnia ICD Code: G47.00 Status: Acute Assessment and Plan (1) Sepsis secondary to Pneumococcal pneumonia S/P Bronchoscopy 12/11 ICD Code: A41.9 Status: Acute Plan: Sepsis secondary to pneumococcal pneumonia with effusion. Patient with leukocytosis and tachycardia. - T down. HR improved failed outpatient therapy. Strep pneumonia antigen positive Legionella urine antigen negative Continue incentive spirometry. On IV Rocephin, IV azithromycin. ID following. Persistent pleural effusion and infiltrate on x-ray. ID following. Rocephin and azithromycin IV Blood cultures negative to date (2) Recurrent Pleural effusion, CT upgraded size by IR- 12/13- no leaking Right lung mass now seen in chest CT with contrast - 12/12 ICD Code: J90 Status: Acute Plan: Patient with recurrent pleural effusions status post thoracentesis 2. Quickly reaccumulating. Parapneumonic effusion. Hemorrhagic. Hemorrhagic. Cytology negative. FF drainage- not accurate output - dressing soaked- serous - and had to be changed at least twice overnight CT management per Dr. Jiang fluid cultures negative so far Dr. Weinberg ff- plan for VATs next week- Thursday will get a CT guided biopsy of this lung Mass- IR consult-Thursday (3) Insomnia ICD Code: G47.00 Status: Acute Plan: Continue Ambien as needed. (4) Antibiotic associated Diarrhea with epigastric fullness history of GERD - Lactinex tid -C diff negative - GI consult- continue on PPI- change to IV PPI Patient up and ambulating around Problem Qualifiers (1) Right lower lobe pneumonia: Qualified Code: J18.1 - Pneumonia of right lower lobe due to infectious organism Osmani Duggan MD December 14, 2016 14:19 Osmani Duggan MD December 14, 2016 14:19 (1) Right lower lobe pneumonia: Qualified Code: J18.1 - Pneumonia of right lower lobe due to infectious organism Osmani Duggan MD December 14, 2016 14:19
[2016-12-14] MEDS: AZITHROMYCIN INJ 500 MG in SODIUM CHLOR 0.9% 250 ML INJ 250 ML IV SCH (16:28)
[2016-12-15] VITALS (11 sets, daily range): BP systolic 104–111; BP diastolic 55–59; PULSE 96–109; RESP 20–25; TEMP 98.6–99.4; O2SAT 93–99
[2016-12-15] MEDS: HYDROmorphone HCL PF 1 MG/ML VIAL IV PUSH PRN ×5 (00:11→22:19)
[2016-12-15] MEDS: RESP: ALBUTEROL 2.5 MG/IPRATROPIUM 0.5 MG NEB (SCH) NEB ×4 (03:26→22:43)
[2016-12-15] MEDS: cefTRIAXone INJ 2,000 MG in SODIUM CHLORIDE 0.9% INJ 100 ML IV SCH (05:20)
[2016-12-15] MEDS: SODIUM CHLORIDE 0.9% FLUSH 10 ML FLUSH IV FLUSH SCH ×2 (08:13→20:22)
[2016-12-15] MEDS: LACTOBACILLUS ACIDOPHILUS TAB PO SCH ×3 (08:14→17:42)
[2016-12-15] MEDS: NYSTATIN SUSP 500,000 U/5 ML CUP SWISH-SWAL SCH ×4 (08:14→20:18)
[2016-12-15] MEDS ORDERED: LIDOCAINE 1%/EPINEPHrine 1:100,000 SOLN 20 ML VIAL ONE (09:11)
--- NOTE | 2016-12-15 10:22 | HHI.GIFU ---
Subjective Remarks Resting in bed. States that he had diarrhea when he was on 3 antibiotics, but is no longer having this. He does have significant heartburn/odynophagia and feels that his GI symptoms are more upper at this time. He is not interested in having a colonoscopy at this time, but would like to pursue upper endoscopy. He is getting lung biopsy later today and would like to have the EGD tomorrow if possible. Objective Vitals I&O Vital Signs Date Time Temp Pulse Resp B/P Pulse Ox O2 Delivery O2 Flow Rate FiO2 12/15/16 09:50 95 Nasal Cannula 1.50 12/15/16 06:00 103 12/15/16 04:47 20 12/15/16 04:00 99.4 108 20 111/57 93 12/15/16 04:00 108 12/15/16 02:00 96 12/15/16 00:00 99.3 103 22 109/55 99 12/15/16 00:00 103 12/14/16 22:00 101 12/14/16 20:26 97 Nasal Cannula 1.50 12/14/16 20:00 99.4 97 20 115/58 95 12/14/16 20:00 97 12/14/16 19:00 96 Nasal Cannula 2.00 12/14/16 18:00 110 12/14/16 16:00 98.3 110 25 111/60 98 12/14/16 16:00 110 12/14/16 14:00 106 12/14/16 12:00 100 12/14/16 12:00 98.8 97 20 103/59 98 I/O 12/14/16 12/14/16 12/14/16 12/15/16 12/15/16 12/15/16 06:59 14:59 22:59 06:59 14:59 22:59 Intake Total 160 ml 300 ml 521 ml 0 ml Output Total 540 ml 600 ml 0 ml Balance -380 ml -300 ml 521 ml 0 ml Intake Oral 60 ml 300 ml 240 ml 0 ml IV Total 100 ml 281 ml 0 ml Output Urine Total 500 ml 600 ml Chest Tube Drainage Total 40 ml 0 ml # Voids 2 2 # Bowel Movements 0 1 0 0 Laboratory Laboratory Tests Test 12/14/16 12:02 Sodium Level 136 Potassium Level 3.9 Chloride Level 98 Carbon Dioxide Level 32.4 Anion Gap 6 Blood Urea Nitrogen 10 Creatinine 0.90 Estimat Glomerular Filtration 90 Rate Random Glucose 113 Calcium Level 7.8 Date/Time Procedure Status Source Growth 12/11/16 14:50 Gram Stain - Final Complete Bronchial Washings Right Lower Lobe 12/11/16 14:50 Bronchial Culture - Final Complete Bronchial Washings Right Lower Lobe RARE GROWTH NORMAL RESPIRATORY DEON 12/11/16 14:50 Fungal Smear - Final Resulted Bronchial Washings Right Lower Lobe NO FUNGAL ELEMENTS SEEN. 12/11/16 14:50 Fungal Culture Resulted Bronchial Washings Right Lower Lobe Pending 12/11/16 14:50 Acid Fast Stain - Final Resulted Bronchial Washings Right Lower Lobe NO ACID FAST BACILLI SEEN 12/11/16 14:50 Mycobacterial Culture Resulted Bronchial Washings Right Lower Lobe Pending Imaging Last Impressions Chest X-Ray 12/14/16 0000 Signed Impressions: Service Date/Time: Wednesday, December 14, 2016 03:37 - CONCLUSION: 1. Increasing pleural-parenchymal density throughout the right chest with slight shift of the trachea to the left. 2. No pneumothorax. Rick Agrawal MD Chest Tube Change 12/13/16 1302 Signed Impressions: Service Date/Time: Tuesday, December 13, 2016 12:06 - CONCLUSION: Uncomplicated chest tube exchange as above. Blake Renteria MD Chest CT 12/13/16 0600 Signed Impressions: Service Date/Time: Tuesday, December 13, 2016 08:14 - CONCLUSION: 1. Ill-defined tumor mass in the right infrahilar region measuring up to least 7 cm. 2. Extensive mediastinal adenopathy and right hilar adenopathy. 3. Dense consolidation remains in the right lung base. 4. Mild interval increase in right pleural effusion with loculated components. Ryan Parry MD Chest Tube Insertion 12/08/16 0000 Signed Impressions: Service Date/Time: Thursday, December 08, 2016 14:46 - CONCLUSION: Uncomplicated chest tube placement as above. Rick Agrawal MD Thoracentesis Ultrasound 12/06/16 0000 Signed Impressions: Service Date/Time: Tuesday, December 06, 2016 13:53 - CONCLUSION: Uncomplicated ultrasound guided thoracentesis. Glen Ahn MD Physical Exam HEENT: Normocephalic; atraumatic; no jaundice. CHEST: CTA, Diminished. Right CT to wall suction. CARDIAC: RRR ABDOMEN: Soft, nondistended, nontender; no hepatosplenomegaly; bowel sounds are present in all four quadrants. EXTREMITIES: No clubbing, cyanosis, or edema. SKIN: Normal; no rash; no jaundice. DISTRIBUTING CLERK: No focal deficits; alert and oriented times three. Assessment and Plan Plan ASSESSMENT: - Severe GERD, odynophagia. States he has significant heartburn, that seems to be more sharp. He does not feel that food is going down the wrong pipe, but does feel that when he eats, "food ends up in his chest. " Would like to pursue the EGD, not the colonoscopy at this point. - Diarrhea. Improved. Stools negative for C-diff. He never had colonoscopy before. He reports that he had this when he was on 3 abx, but that it has resolved and he is now having one softly formed bowel movement per day. He would like to hold off on colonoscopy. - Anemia. 10.3/30.4, no active bleeding. - Pleural effusion. S/P thoracentesis (12/04/16) with removal 2,100cc-n umerous reactive mesothelial cells, lymphocytes and macrophages, negative for malignant cells. Rpt. thoracentesis (12/06/16) with 1,300cc. S/ P CT (12/08/16) with exchange on (12/13/16). Possible VATS/Pleurodesis per CVT. - Pneumonia with positive strep pneumoniae ag. Ceftriaxone, Azithromycin. - Lung mass new findings- CT today showed tumor mass in the right infrahilar region measuring up to least 7 cm with extensive mediastinal adenopathy and right hilar adenopathy. Going for biopsy today. - Leukocytosis- WBX 12.7. Abx. - ADD per attending Plan: - NPO for liver biopsy - Possible EGD in am depending on clinical status - Will make NPO after MN for possible EGD in am - Pt does not wish to pursue the colonoscopy at this time - Increase PPI to BID dosing - Monitor labs - Supportive care - Patient seen and examined by Dr. Shrestha and myself and this note is written on his behalf. Josefa Davila December 15, 2016 10:22
[2016-12-15] MEDS ORDERED: MIDAZOLAM HCL 5 MG/5 ML VIAL ONE (11:09)
[2016-12-15] MEDS ORDERED: fentaNYL CITRATE 250 MCG/5 ML AMP ONE (11:09)
--- NOTE | 2016-12-15 14:11 | HHI.PR ---
Subjective Remarks Follow-up for lung mass Patient denies any shortness of breath, pain is controlled, no nausea or vomiting. Chest tube leak resolved. Afebrile. Objective Vitals Vital Signs Date Time Temp Pulse Resp B/P Pulse Ox O2 Delivery O2 Flow Rate FiO2 12/15/16 09:50 95 Nasal Cannula 1.50 12/15/16 06:00 103 12/15/16 04:47 20 12/15/16 04:00 99.4 108 20 111/57 93 12/15/16 04:00 108 12/15/16 02:00 96 12/15/16 00:00 99.3 103 22 109/55 99 12/15/16 00:00 103 12/14/16 22:00 101 12/14/16 20:26 97 Nasal Cannula 1.50 12/14/16 20:00 99.4 97 20 115/58 95 12/14/16 20:00 97 12/14/16 19:00 96 Nasal Cannula 2.00 12/14/16 18:00 110 12/14/16 16:00 98.3 110 25 111/60 98 12/14/16 16:00 110 I/O 12/14/16 12/14/16 12/14/16 12/15/16 12/15/16 12/15/16 07:00 15:00 23:00 07:00 15:00 23:00 Intake Total 160 ml 300 ml 521 ml 0 ml Output Total 524 ml 600 ml 0 ml Balance -364 ml -300 ml 521 ml 0 ml Intake Oral 60 ml 300 ml 240 ml 0 ml IV Total 100 ml 281 ml 0 ml Output Urine Total 500 ml 600 ml Chest Tube Drainage Total 24 ml 0 ml # Voids 2 2 # Bowel Movements 0 1 0 0 Result Diagram: 12/14/16 0422 12/14/16 1202 Objective Remarks awake and alert, NAD anicteric, some sores in gingiva Decreased breath sounds on the right, otherwise clear, chest tube in place, no leak. Dressings in place Regular rate and rhythm Abdomen soft, nontender No edema Alert awake and oriented 3, no focal deficits. Procedures sp US guided thoracentesis CT placement 12/13 A/P Problem List: (1) Sepsis ICD Code: A41.9 Status: Acute (2) Pleural effusion, right ICD Code: J90 Status: Acute (3) Right lower lobe pneumonia ICD Code: J18.1 Status: Acute (4) Insomnia ICD Code: G47.00 Status: Acute Assessment and Plan (1) Sepsis secondary to Pneumococcal pneumonia S/P Bronchoscopy 12/11 - Strep pneumonia antigen positive Legionella urine antigen negative Continue incentive spirometry. On IV Rocephin, IV azithromycin. Infectious disease following, chest x-ray shows persistent pleural effusion. Could also be secondary to mass. (2) Recurrent Pleural effusion, CT upgraded size by IR- 12/13- no leaking Right lung mass now seen in chest CT with contrast - 12/12 Patient with recurrent pleural effusions status post thoracentesis 2. Quickly reaccumulating. Parapneumonic effusion. Hemorrhagic. Hemorrhagic. Cytology negative. Repeat cytology pending. CT management per Dr. Jiang fluid cultures negative so far Dr. Weinberg ff- plan for VATs one cytology is back, for CT-guided biopsy today. (3) Insomnia ICD Code: G47.00 Status: Acute Plan: Continue Ambien as needed. (4) Antibiotic associated Diarrhea with epigastric fullness history of GERD with dysphagia - Lactinex tid -C diff negative - GI consulted, for possible EGD after biopsy in the next few days. Patient up and ambulating around Start DVT prophylaxis tomorrow. Problem Qualifiers (1) Right lower lobe pneumonia: Qualified Code: J18.1 - Pneumonia of right lower lobe due to infectious organism Nico Packer MD December 15, 2016 14:11
--- NOTE | 2016-12-15 14:51 | HHI.IDPN ---
Subjective Subjective Remarks New findings noted on contrasted CT intermitte low grade fever improved BAL result with rare nl resp adelfo Antibiotics azithro CFTX Allergies: Coded Allergies: Codeine (Verified Allergy, Severe, HIVES, 12/03/16) Objective . Vital Signs Date Time Temp Pulse Resp B/P Pulse Ox O2 Delivery O2 Flow Rate FiO2 12/15/16 09:50 95 Nasal Cannula 1.50 12/15/16 06:00 103 12/15/16 04:47 20 12/15/16 04:00 99.4 108 20 111/57 93 12/15/16 04:00 108 12/15/16 02:00 96 12/15/16 00:00 99.3 103 22 109/55 99 12/15/16 00:00 103 12/14/16 22:00 101 12/14/16 20:26 97 Nasal Cannula 1.50 12/14/16 20:00 99.4 97 20 115/58 95 12/14/16 20:00 97 12/14/16 19:00 96 Nasal Cannula 2.00 12/14/16 18:00 110 12/14/16 16:00 98.3 110 25 111/60 98 12/14/16 16:00 110 12/14/16 12/14/16 12/15/16 15:00 23:00 07:00 Intake Total 300 ml 521 ml 0 ml Output Total 600 ml 0 ml Balance -300 ml 521 ml 0 ml Intake Oral 300 ml 240 ml 0 ml IV Total 281 ml 0 ml Output Urine Total 600 ml Chest Tube Drainage Total 0 ml # Voids 2 2 # Bowel Movements 1 0 0 . Laboratory Tests Test 12/13/16 12/14/16 23:05 04:22 White Blood Count 12.7 TH/MM3 Red Blood Count 3.61 MIL/MM3 Hemoglobin 10.6 GM/DL 10.3 GM/DL Hematocrit 32.1 % 30.4 % Mean Corpuscular Volume 89.0 FL Mean Corpuscular Hemoglobin 29.3 PG Mean Corpuscular Hemoglobin 32.9 % Concent Red Cell Distribution Width 12.6 % Platelet Count 500 TH/MM3 Mean Platelet Volume 7.1 FL Neutrophils (%) (Auto) 73.1 % Lymphocytes (%) (Auto) 10.2 % Monocytes (%) (Auto) 13.9 % Eosinophils (%) (Auto) 2.0 % Basophils (%) (Auto) 0.8 % Neutrophils # (Auto) 9.3 TH/MM3 Lymphocytes # (Auto) 1.3 TH/MM3 Monocytes # (Auto) 1.8 TH/MM3 Eosinophils # (Auto) 0.3 TH/MM3 Basophils # (Auto) 0.1 TH/MM3 CBC Comment DIFF FINAL Differential Comment Laboratory Tests Test 12/13/16 12/14/16 12/14/16 23:05 04:22 12:02 Sodium Level 139 MEQ/L 136 MEQ/L Potassium Level 4.0 MEQ/L 3.9 MEQ/L Chloride Level 101 MEQ/L 98 MEQ/L Carbon Dioxide Level 30.6 MEQ/L 32.4 MEQ/L Anion Gap 7 MEQ/L 6 MEQ/L Blood Urea Nitrogen 7 MG/DL 10 MG/DL Creatinine 0.85 MG/DL 0.90 MG/DL Estimat Glomerular Filtration 96 ML/MIN 90 ML/MIN Rate Random Glucose 110 MG/DL 113 MG/DL Calcium Level 7.9 MG/DL 7.8 MG/DL Magnesium Level 2.0 MG/DL Total Bilirubin 0.3 MG/DL Aspartate Amino Transf 21 U/L (AST/SGOT) Alanine Aminotransferase 18 U/L (ALT/SGPT) Alkaline Phosphatase 61 U/L Total Creatine Kinase 64 U/L 54 U/L Troponin I LESS THAN 0.02 LESS THAN 0.02 NG/ML NG/ML Total Protein 5.5 GM/DL Albumin 1.8 GM/DL Imaging Last Impressions Chest X-Ray 12/14/16 0000 Signed Impressions: Service Date/Time: Wednesday, December 14, 2016 03:37 - CONCLUSION: 1. Increasing pleural-parenchymal density throughout the right chest with slight shift of the trachea to the left. 2. No pneumothorax. Rick Agrawal MD Chest Tube Change 12/13/16 1302 Signed Impressions: Service Date/Time: Tuesday, December 13, 2016 12:06 - CONCLUSION: Uncomplicated chest tube exchange as above. Blake Renteria MD Chest CT 12/13/16 0600 Signed Impressions: Service Date/Time: Tuesday, December 13, 2016 08:14 - CONCLUSION: 1. Ill-defined tumor mass in the right infrahilar region measuring up to least 7 cm. 2. Extensive mediastinal adenopathy and right hilar adenopathy. 3. Dense consolidation remains in the right lung base. 4. Mild interval increase in right pleural effusion with loculated components. Ryan Parry MD Chest Tube Insertion 12/08/16 0000 Signed Impressions: Service Date/Time: Thursday, December 08, 2016 14:46 - CONCLUSION: Uncomplicated chest tube placement as above. Rick Agrawal MD Thoracentesis Ultrasound 12/06/16 0000 Signed Impressions: Service Date/Time: Tuesday, December 06, 2016 13:53 - CONCLUSION: Uncomplicated ultrasound guided thoracentesis. Glen Ahn MD Physical Exam CONSTITUTIONAL/GENERAL: This is an adequately nourished patient, in no apparent distress. resting comfortably TUBES/LINES/DRAINS: CT in place SKIN: No jaundice, rashes, or lesions. CARDIOVASCULAR: Regular rate and rhythm without murmurs, gallops, or rubs. No JVD. Peripheral pulses symmetric. RESPIRATORY/CHEST: Symmetric, unlabored respirations. Markedly decerased BS on R base CT in place with serosang dc; draining around tube noticed GASTROINTESTINAL: Abdomen soft, non-tender, nondistended. MUSCULOSKELETAL: Extremities without cyanosis, or edema. + mild to moderate clubbing. NEUROLOGICAL: asleep Assessment & Plan Remarks Ill-defined tumor mass in the right infrahilar region measuring up to least 7 cm with extensive mediastinal adenopathy and right hilar adenopathy. - sp bx today Dense consolidation right lung base. - Pneumococcal AG + - sputum and fluid clx neg right pleural effusion with loculated components. Persisten low grade fever - resolved dc azitho dc CFTX 2 gm daily fu off abx Discussed Condition With family @ b/s Jess Bustos MD December 15, 2016 14:51
[2016-12-15] MEDS: PANTOPRAZOLE SODIUM 40 MG VIAL IV PUSH SCH ×2 (15:42→22:18)
[2016-12-15] MEDS: oxyCODONE/ACETAMINOPHEN 5 MG/325 MG TAB PO PRN (15:43)
--- NOTE | 2016-12-15 16:40 | RADRPT ---
EXAM DATE/TIME: 12/15/2016 11:59 [facility] COMPARISON: No previous studies available for comparison. INDICATIONS : Right lung mass. SEDATION TIME: 30 minutes BIOPSY SITE: Right lung MEDICATION(S): 1.) 2 mg midazolam (Versed) IV 2.) 100 mcg fentanyl (Sublimaze) IV DEVICE(S): 1.) 18 gauge Vences blunt needle 2.) 20 gauge Temno core biopsy needle MEDICAL HISTORY : Reaccuring pleural effusion. SURGICAL HISTORY : None. ENCOUNTER: Initial ACUITY: 1 day PAIN SCORE: 0/10 LOCATION: Right chest A total of 4 core specimen(s) were obtained and sent to the laboratory for pathologic evaluation. PROCEDURE: 1. CT guided lungleft biopsy. 2. Conscious sedation with continuous EKG and oximetry monitoring. 3. EKG and oximetry remained stable throughout the procedure. Prior to the procedure informed consent was obtained. Any appropriate prior imaging studies were rev iewed. Using automated exposure control and adjustment of the mA and/or kV according to patient size, radiation dose was kept as low as reasonably achievable to obtain optimal diagnostic quality images. The site was prepped in a sterile fashion. Full sterile technique was used, including cap, mask, demario rile gloves and gown and a large sterile sheet. Hand hygiene and 2% chlorhexidine and/or betadine/al cohol prep was utilized per protocol for cutaneous antisepsis. The skin and subcutaneous tissues wer e infiltrated with local anesthetic solution. With CT guidance the previously identified target was localized. Biopsy was performed using the presc ribed needle as above. Adequate hemostasis was obtained with compression at the puncture site. Follow-up CT scan reveals no pneumothorax. Conscious sedation was performed with the prescribed dosages and duration as above in the presence of an independent trained radiology nurse to assist in the monitoring of the patient. EKG and oximetry remained stable throughout the procedure. The patient tolerated the procedure well and there were no complications. The patient was sent to Radiology Outpatient Unit in stable condition. CONCLUSION: Uncomplicated CT guided biopsy of right lung mass. Rick Agrawal MD on December 15, 2016 at 16:38 Board Certified Radiologist. This report was verified electronically.
--- NOTE | 2016-12-15 19:42 | HHI.PR ---
Subjective Remarks Had CT guided rt lung bx Chest tube draining small amount of bloody fluid mild GI upset plans for EGD in AM at BS Objective Vital Signs Vital Signs Date Time Temp Pulse Resp B/P Pulse Ox O2 Delivery O2 Flow Rate FiO2 12/15/16 09:50 95 Nasal Cannula 1.50 12/15/16 07:00 93 Nasal Cannula 2.00 12/15/16 06:00 103 12/15/16 04:47 20 12/15/16 04:00 99.4 108 20 111/57 93 12/15/16 04:00 108 12/15/16 02:00 96 12/15/16 00:00 99.3 103 22 109/55 99 12/15/16 00:00 103 12/14/16 22:00 101 12/14/16 20:26 97 Nasal Cannula 1.50 12/14/16 20:00 99.4 97 20 115/58 95 12/14/16 20:00 97 I/O 12/14/16 12/14/16 12/14/16 12/15/16 12/15/16 12/15/16 07:00 15:00 23:00 07:00 15:00 23:00 Intake Total 160 ml 300 ml 521 ml 0 ml Output Total 524 ml 630 ml 0 ml Balance -364 ml -330 ml 521 ml 0 ml Intake Oral 60 ml 300 ml 240 ml 0 ml IV Total 100 ml 281 ml 0 ml Output Urine Total 500 ml 600 ml Chest Tube Drainage Total 24 ml 30 ml 0 ml # Voids 2 2 # Bowel Movements 0 1 0 0 Result Diagram: 12/14/16 0422 12/14/16 1202 Objective Remarks GENERAL: Patient is 46 yo lying in bed in NAD SKIN: Warm and dry. HEAD: Normocephalic. EYES: No scleral icterus. No injection or drainage. NECK: Supple, trachea midline. No JVD or lymphadenopathy. CARDIOVASCULAR: Regular rate and rhythm without murmurs, gallops, or rubs. RESPIRATORY: Breath sounds equal bilaterally. Diminished BS on right. Right CT in place GASTROINTESTINAL: Abdomen soft, non-tender, nondistended. MUSCULOSKELETAL: No cyanosis, or edema. BACK: Nontender without obvious deformity. No CVA tenderness. 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 Monitor CT drainage- Cytology from December 04 showed no malignant cells, cytology from 12/12 pending.. Continue with abx ( Rocephin, Zithromax) monitor for signs of infections ( Fever , WBC) Diurese with Bumex 1mg x1 GI/DVT prophylaxis per primary team Check BX result Long discussion with pt and and answered all their questions Konrad Jiang MD December 15, 2016 19:42
[2016-12-15] MEDS: ZOLPIDEM TARTRATE 10 MG TAB PO PRN (22:19)
[2016-12-16] VITALS (16 sets, daily range): BP systolic 92–115; BP diastolic 51–65; PULSE 96–129; RESP 13–67; TEMP 96.6–99.4; O2SAT 90–98
[2016-12-16] MEDS: oxyCODONE/ACETAMINOPHEN 5 MG/325 MG TAB PO PRN ×4 (02:04→22:21)
[2016-12-16] MEDS: SODIUM CHLORIDE 0.9% FLUSH 10 ML FLUSH IV FLUSH PRN (03:19)
[2016-12-16] MEDS: HYDROmorphone HCL PF 1 MG/ML VIAL IV PUSH PRN ×2 (03:19→08:03)
[2016-12-16] MEDS: RESP: ALBUTEROL 2.5 MG/IPRATROPIUM 0.5 MG NEB (SCH) NEB ×4 (04:00→22:26)
[2016-12-16] MEDS: SODIUM CHLORIDE 0.9% FLUSH 10 ML FLUSH IV FLUSH SCH ×2 (08:03→20:29)
[2016-12-16] MEDS: NYSTATIN SUSP 500,000 U/5 ML CUP SWISH-SWAL SCH ×6 (08:03→20:28)
[2016-12-16] MEDS: LACTOBACILLUS ACIDOPHILUS TAB PO SCH ×3 (08:03→17:16)
[2016-12-16] MEDS ORDERED: SODIUM CHLORIDE 0.9% FLUSH 10 ML FLUSH PRN (10:15)
[2016-12-16] MEDS ORDERED: PILL SPLITTER OTHER PRN (10:30)
[2016-12-16] MEDS: CYCLOBENZAPRINE HCL 10 MG TAB PO PRN ×2 (11:06→17:16)
[2016-12-16] MEDS: PANTOPRAZOLE SODIUM 40 MG VIAL IV PUSH SCH ×2 (11:06→20:29)
[2016-12-16] MEDS ORDERED: PROPOFOL 200 MG/20 ML AMP IV ONE (15:38)
--- NOTE | 2016-12-16 15:54 | GIPROC ---
[facility] [address] [facility]. [facility], [address] EGD WITH DILATION PROCEDURE REPORT EXAM DATE: 12/16/2016 PATIENT NAME: Dannie Martinez MR#: [id number] BIRTHDATE: 1970 ATTENDING: Cassidy Shrestha MD ORDER #: [id number] PHYSICAL THERAPY INSTRUCTOR: Cabrera Michelle and Arslan Zuniga STATUS: inpatient INDICATIONS: The patient is a 46 yr old male here for an EGD with dilation due to REFLUX PROCEDURE PERFORMED: EGD w/ biopsy EGD w/ dilation of esophagus via guidewire MEDICATIONS: Per Anesthesia and None. TOPICAL ANESTHETIC: none CONSENT: The patient understands the risks and benefits of the procedure and understands that these risks include, but are not limited to: sedation, allergic reaction, infection, perforation and/or bleeding. Alternative means of evaluation and treatment include, among others: physical exam, x-rays, and/or surgical intervention. The patient elects to proceed with this endoscopic procedure. medical equipment was checked for proper function. Hand hygiene and appropriate measures for infection prevention was taken. After the risks, benefits and alternatives of the procedure were thoroughly explained, Informed consent was verified, confirmed and timeout was successfully executed by the treatment team. The patient was anesthetized with topical anesthesia and the Pentax EG-[id number] and [id number] endoscope was introduced through the mouth and advanced to the second portion of the duodenum. The instrument was slowly withdrawn as the mucosa was fully examined. Gastritis antrum-biopsy esophagitis-irregulr z line - spasm in distal esophagus-biopsy, dilatation using Savary dilator 15. Dilation was performed at gastroesophageal junction. DILATOR: SIZE(S): RESISTANCE: HEME: APPEARANCE: Dilator: Savary over guidewire COMMENT: Retroflexed views revealed a hiatal hernia ADVERSE EVENTS: There were no complications. IMPRESSIONS: 1. Gastritis antrum-biopsy esophagitis-irregulr z line - spasm in distal esophagus-biopsy, dilatation using Savary dilator 15 2. Retroflexed views revealed a hiatal hernia RECOMMENDATIONS: 1. Await biopsy results. Biopsy results will not be ready for 7-10 days. If you don't hear from us in two weeks, call our office for biopsy results. 2. Anti-reflux regimen 3. Continue PPI 4. Resume diet Nystatin swish and swallow REPEAT EXAM: EGD pending biopsy results Cassidy Shrestha MD eSigned: Cassidy Shrestha MD 12/16/2016 3:54 PM cc: PATIENT NAME: Dannie Martinez MR#: [id number]
[2016-12-16] MEDS ORDERED: DO NOT ADM ANY ANTICOAGULANT DRUGS PRN (15:59)
--- NOTE | 2016-12-16 16:36 | HHI.PR ---
Subjective Remarks f/u for shortness of breath, shoulder pain Complaining of right shoulder pain, described as spasms, moderate. No nausea or vomiting. Shortness of breath is stable. Afebrile. Objective Vitals Vital Signs Date Time Temp Pulse Resp B/P Pulse Ox O2 Delivery O2 Flow Rate FiO2 12/16/16 16:15 101 21 106/61 95 Nasal Cannula 2 12/16/16 16:00 99.3 106 21 108/67 99 Nasal Cannula 2 12/16/16 13:03 96.6 104 18 106/65 95 12/16/16 12:00 100 24 106/63 90 12/16/16 11:00 96 15 107/58 95 12/16/16 10:11 16 12/16/16 10:00 98 27 112/63 98 12/16/16 10:00 98 27 112/63 98 12/16/16 10:00 98 12/16/16 09:55 98 21 12/16/16 09:00 102 18 110/53 93 12/16/16 08:33 16 12/16/16 08:00 98.0 107 25 111/62 92 12/16/16 08:00 107 12/16/16 07:05 96 Nasal Cannula 2.00 12/16/16 06:00 115 12/16/16 05:00 96 14 100/58 95 12/16/16 04:00 98 12/16/16 04:00 98.5 98 13 102/55 96 12/16/16 03:05 118 67 115/58 92 12/16/16 02:00 129 24 97/60 91 12/16/16 02:00 129 12/16/16 01:00 103 19 92/57 95 12/16/16 00:00 110 12/16/16 00:00 99.4 110 20 102/51 94 12/15/16 23:00 100 20 104/55 95 12/15/16 22:43 94 Nasal Cannula 2.00 12/15/16 22:00 103 12/15/16 22:00 103 20 110/59 97 12/15/16 21:00 101 25 111/59 96 12/15/16 20:00 98.6 107 21 111/58 95 12/15/16 20:00 108 12/15/16 19:00 93 Nasal Cannula 2.00 12/15/16 19:00 109 24 111/58 95 I/O 12/15/16 12/15/16 12/15/16 12/16/16 12/16/16 12/16/16 07:00 15:00 23:00 07:00 15:00 23:00 Intake Total 0 ml 420 ml 0 ml 300 ml Output Total 0 ml 370 ml 300 ml Balance 0 ml 50 ml -300 ml 300 ml Intake Oral 0 ml 420 ml 0 ml IV Total 0 ml 0 ml 0 ml Other 300 ml Output Urine Total 350 ml 250 ml Chest Tube Drainage Total 0 ml 20 ml 50 ml # Voids 2 # Bowel Movements 0 1 0 Result Diagram: 12/14/16 0422 12/14/16 1202 Objective Remarks awake and alert, NAD anicteric, some sores in gingiva Decreased breath sounds on the right, otherwise clear, chest tube in place, no leak. Dressings in place, breath sounds are better. Regular rate and rhythm Abdomen soft, nontender No edema Alert awake and oriented 3, no focal deficits. Procedures sp US guided thoracentesis CT placement 12/13 A/P Problem List: (1) Sepsis ICD Code: A41.9 Status: Acute (2) Pleural effusion, right ICD Code: J90 Status: Acute (3) Right lower lobe pneumonia ICD Code: J18.1 Status: Acute (4) Insomnia ICD Code: G47.00 Status: Acute Assessment and Plan (1) Sepsis secondary to Pneumococcal pneumonia S/P Bronchoscopy 12/11 - Strep pneumonia antigen positive Legionella urine antigen negative Continue incentive spirometry. Previously on ceftriaxone and azithromycin, infectious disease following, antibiotics stopped. Infectious disease following , chest x-ray shows persistent pleural effusion. Could also be secondary to mass. Status post lung biopsy 12/15/16. (2) Recurrent Pleural effusion, CT upgraded size by IR- 12/13- no leaking Right lung mass now seen in chest CT with contrast - 12/12 Patient with recurrent pleural effusions status post thoracentesis 2. Quickly reaccumulating. Parapneumonic effusion. Hemorrhagic. Hemorrhagic. Cytology negative. Repeat cytology pending. CT management per Dr. Jiang, Dr. Weinberg ff- plan for VATs one cytology is back, status post CT- guided biopsy 12/15/16 (3) Insomnia ICD Code: G47.00 Status: Acute Plan: Continue Ambien as needed. (4) Antibiotic associated Diarrhea with epigastric fullness history of GERD with dysphagia - Lactinex tid -C diff negative - GI consulted, for endoscopy today. 5. Shoulder pain-check x-ray of the right shoulder to rule out metastatic disease, start Flexeril. Stable, transfer to [facility]. Patient up and ambulating around Start DVT prophylaxis tomorrow. Problem Qualifiers (1) Right lower lobe pneumonia: Qualified Code: J18.1 - Pneumonia of right lower lobe due to infectious organism Nico Packer MD December 16, 2016 16:36
--- NOTE | 2016-12-16 17:09 | RADRPT ---
EXAM DATE/TIME: 12/16/2016 16:37 [place] COMPARISON: CHEST EXPIRATION ONLY, December 14, 2016, 3:37. INDICATIONS : Right shoulder pain with no known injury. MEDICAL HISTORY : None. SURGICAL HISTORY : None. ENCOUNTER: Initial ACUITY: 3 days PAIN SCORE: 5/10 LOCATION: Right shoulder. FINDINGS: 4 views right shoulder. High riding humeral head indicating possible rotator cuff insufficiency. Bone alignment otherwise within normal limits. No evidence of fracture. Opacification of the right hemit horax again seen. Mild hypertrophic change of the acromioclavicular joint. Glenohumeral joint within normal limits. CONCLUSION: 1. High riding humeral head indicating possible rotator cuff insufficiency. 2. Mild acromioclavicular joint arthrosis. Jett Sherwood MD on December 16, 2016 at 17:06 Board Certified Radiologist. This report was verified electronically.
--- NOTE | 2016-12-16 19:28 | HHI.PR ---
Subjective Remarks Had CT guided rt lung bx Chest tube draining small amount of bloody fluid mild GI upset Had EGD Feels better at BS Objective Vital Signs Vital Signs Date Time Temp Pulse Resp B/P Pulse Ox O2 Delivery O2 Flow Rate FiO2 12/16/16 16:30 99.3 108 18 116/66 95 Nasal Cannula 2 12/16/16 16:15 101 21 106/61 95 Nasal Cannula 2 12/16/16 16:00 99.3 106 21 108/67 99 Nasal Cannula 2 12/16/16 13:03 96.6 104 18 106/65 95 12/16/16 12:00 100 24 106/63 90 12/16/16 11:00 96 15 107/58 95 12/16/16 10:11 16 12/16/16 10:00 98 27 112/63 98 12/16/16 10:00 98 27 112/63 98 12/16/16 10:00 98 12/16/16 09:55 98 21 12/16/16 09:00 102 18 110/53 93 12/16/16 08:33 16 12/16/16 08:00 98.0 107 25 111/62 92 12/16/16 08:00 107 12/16/16 07:05 96 Nasal Cannula 2.00 12/16/16 06:00 115 12/16/16 05:00 96 14 100/58 95 12/16/16 04:00 98 12/16/16 04:00 98.5 98 13 102/55 96 12/16/16 03:05 118 67 115/58 92 12/16/16 02:00 129 24 97/60 91 12/16/16 02:00 129 12/16/16 01:00 103 19 92/57 95 12/16/16 00:00 110 12/16/16 00:00 99.4 110 20 102/51 94 12/15/16 23:00 100 20 104/55 95 12/15/16 22:43 94 Nasal Cannula 2.00 12/15/16 22:00 103 12/15/16 22:00 103 20 110/59 97 12/15/16 21:00 101 25 111/59 96 12/15/16 20:00 98.6 107 21 111/58 95 12/15/16 20:00 108 I/O 5/8/17 512/15/16 12/16/16 12/16/16 12/16/16 07:00 15:00 23:00 07:00 15:00 23:00 Intake Total 0 ml 420 ml 0 ml 300 ml Output Total 0 ml 370 ml 300 ml Balance 0 ml 50 ml -300 ml 300 ml Intake Oral 0 ml 420 ml 0 ml IV Total 0 ml 0 ml 0 ml Other 300 ml Output Urine Total 350 ml 250 ml Chest Tube Drainage Total 0 ml 20 ml 50 ml # Voids 2 # Bowel Movements 0 1 0 Result Diagram: 12/14/16 0422 12/14/16 1202 Objective Remarks GENERAL: Patient is 46 yo lying in bed in NAD SKIN: Warm and dry. HEAD: Normocephalic. EYES: No scleral icterus. No injection or drainage. NECK: Supple, trachea midline. No JVD or lymphadenopathy. CARDIOVASCULAR: Regular rate and rhythm without murmurs, gallops, or rubs. RESPIRATORY: Breath sounds equal bilaterally. Diminished BS on right. Right CT in place GASTROINTESTINAL: Abdomen soft, non-tender, nondistended. MUSCULOSKELETAL: No cyanosis, or edema. BACK: Nontender without obvious deformity. No CVA tenderness. 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 Monitor CT drainage- Cytology from December 04 showed no malignant cells, cytology from 12/12 pending.. Continue with abx ( Rocephin, Zithromax) monitor for signs of infections ( Fever , WBCGI/DVT prophylaxis per primary team Check BX result-stii pending Long discussion with pt and and answered all their questions Konrad Jiang MD December 16, 2016 19:28
[2016-12-16] MEDS: HYDROmorphone HCL 2 MG TAB PO PRN (19:41)
[2016-12-16] MEDS: ZOLPIDEM TARTRATE 10 MG TAB PO PRN (22:21)
[2016-12-17] VITALS (8 sets, daily range): BP systolic 103–151; BP diastolic 58–84; PULSE 76–118; RESP 18–20; TEMP 97.1–101.1; O2SAT 94–97
[2016-12-17] MEDS: oxyCODONE/ACETAMINOPHEN 5 MG/325 MG TAB PO PRN ×6 (02:52→22:31)
[2016-12-17] MEDS: RESP: ALBUTEROL 2.5 MG/IPRATROPIUM 0.5 MG NEB (SCH) NEB ×4 (03:59→22:10)
[2016-12-17] MEDS: NYSTATIN SUSP 500,000 U/5 ML CUP SWISH-SWAL SCH ×8 (08:01→20:54)
[2016-12-17] MEDS: LACTOBACILLUS ACIDOPHILUS TAB PO SCH ×3 (09:33→18:33)
[2016-12-17] MEDS: PANTOPRAZOLE SODIUM 40 MG VIAL IV PUSH SCH (09:34)
[2016-12-17] MEDS: SODIUM CHLORIDE 0.9% FLUSH 10 ML FLUSH IV FLUSH SCH ×2 (09:39→20:53)
[2016-12-17] MEDS: CYCLOBENZAPRINE HCL 10 MG TAB PO PRN ×2 (09:41→18:33)
--- NOTE | 2016-12-17 11:46 | HHI.GIFU ---
Subjective Remarks Resting in bed. Still having some odynophagia/reflux, but improved. Tolerating diet. Overall, feeling much better. (Josefa Davila) Objective Vitals I&O Vital Signs Date Time Temp Pulse Resp B/P Pulse Ox O2 Delivery O2 Flow Rate FiO2 12/17/16 09:47 94 Room Air 12/17/16 08:56 98.6 114 19 110/61 94 12/17/16 08:40 95 Nasal Cannula 2.00 12/17/16 06:08 98.3 105 18 111/59 94 12/17/16 03:50 18 12/17/16 00:00 98.3 76 20 151/84 96 12/16/16 23:08 95 Nasal Cannula 2.00 12/16/16 22:29 94 Nasal Cannula 2.00 12/16/16 20:30 18 12/16/16 20:00 99.2 121 18 108/58 92 12/16/16 16:30 99.3 108 18 116/66 95 Nasal Cannula 2 12/16/16 16:15 101 21 106/61 95 Nasal Cannula 2 12/16/16 16:00 99.3 106 21 108/67 99 Nasal Cannula 2 12/16/16 13:03 96.6 104 18 106/65 95 12/16/16 12:00 100 24 106/63 90 I/O 12/16/16 12/16/16 12/16/16 12/17/16 12/17/16 12/17/16 07:00 15:00 23:00 07:00 15:00 23:00 Intake Total 0 ml 300 ml 240 ml Output Total 300 ml 100 ml Balance -300 ml 300 ml 140 ml Intake Oral 0 ml 240 ml IV Total 0 ml Other 300 ml Output Urine Total 250 ml Chest Tube Drainage Total 50 ml 100 ml # Voids 2 1 # Bowel Movements 0 2 2 Imaging Last Impressions Shoulder X-Ray 12/16/16 0000 Signed Impressions: Service Date/Time: Friday, December 16, 2016 16:37 - CONCLUSION: 1. High riding humeral head indicating possible rotator cuff insufficiency. 2. Mild acromioclavicular joint arthrosis. Jett Sherwood MD Lung Biopsy CT 12/15/16 0000 Signed Impressions: Service Date/Time: Thursday, December 15, 2016 11:59 - CONCLUSION: Uncomplicated CT guided biopsy of right lung mass. Rick Agrawal MD Chest X-Ray 12/14/16 0000 Signed Impressions: Service Date/Time: Wednesday, December 14, 2016 03:37 - CONCLUSION: 1. Increasing pleural-parenchymal density throughout the right chest with slight shift of the trachea to the left. 2. No pneumothorax. Rick Agrawal MD Chest Tube Change 12/13/16 1302 Signed Impressions: Service Date/Time: Tuesday, December 13, 2016 12:06 - CONCLUSION: Uncomplicated chest tube exchange as above. Blake Renteria MD Chest CT 12/13/16 0600 Signed Impressions: Service Date/Time: Tuesday, December 13, 2016 08:14 - CONCLUSION: 1. Ill-defined tumor mass in the right infrahilar region measuring up to least 7 cm. 2. Extensive mediastinal adenopathy and right hilar adenopathy. 3. Dense consolidation remains in the right lung base. 4. Mild interval increase in right pleural effusion with loculated components. Ryan Parry MD Chest Tube Insertion 12/08/16 0000 Signed Impressions: Service Date/Time: Thursday, December 08, 2016 14:46 - CONCLUSION: Uncomplicated chest tube placement as above. Rick Agrawal MD Thoracentesis Ultrasound 12/06/16 0000 Signed Impressions: Service Date/Time: Tuesday, December 06, 2016 13:53 - CONCLUSION: Uncomplicated ultrasound guided thoracentesis. Glen Ahn MD Physical Exam HEENT: Normocephalic; atraumatic; no jaundice. CHEST: CTA, Diminished. Right CT to wall suction. CARDIAC: RRR ABDOMEN: Soft, nondistended, nontender; no hepatosplenomegaly; bowel sounds are present in all four quadrants. EXTREMITIES: No clubbing, cyanosis, or edema. SKIN: Normal; no rash; no jaundice. 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 (Josefa Davila) Assessment and Plan Plan ASSESSMENT: - Severe GERD, odynophagia. S/P EGD (12/16/16)-----> 1. Gastritis antrum-biopsy , esophagitis-irregulr z line - spasm in distal esophagus-biopsy, dilatation using Savary dilator 15 2. Retroflexed views revealed a hiatal hernia Pathology pending. PPI. Nystatin. Still with burning sensation esophagus with meals. Will add carafate. - Diarrhea. Stools negative for C-diff. He never had colonoscopy before. Improved, does not wish to pursue colonoscopy at this time. - Anemia. 10.3/30.4, no active bleeding. - Pleural effusion. S/P thoracentesis (12/04/16) with removal 2,100cc-n umerous reactive mesothelial cells, lymphocytes and macrophages, negative for malignant cells. Rpt. thoracentesis (12/06/16) with 1,300cc. S/ P CT (12/08/16) with exchange on (12/13/16). Possible VATS/Pleurodesis per CVT. - Pneumonia with positive strep pneumoniae ag. S/P Abx. - Lung mass new findings- CT today showed tumor mass in the right infrahilar region measuring up to least 7 cm with extensive mediastinal adenopathy and right hilar adenopathy. S/P Lung biopsy, pathology pending. - Leukocytosis- WBX 12.7. Abx. - ADD per attending Plan: - HECTOR - Await pathology - Cont. PPI - Cont. Nystatin - Add Carafate - Monitor labs - Supportive care - Pt does not wish to pursue the colonoscopy at this time - Further recommendations to follow based on results of above - Patient seen and examined by Dr. Shrestha and myself and this note is written on his behalf. (Josefa Davila) Josefa Davila December 17, 2016 11:46 Cassidy Shrestha MD December 17, 2016 18:10
[2016-12-17] MEDS: IBUPROFEN 400 MG TAB PO PRN ×2 (13:06→23:23)
--- NOTE | 2016-12-17 13:11 | HHI.PR ---
Addendum to Inpatient Note Additional Information Fever of 101 noted + 4 BMs will chk BC, sputum, C.diff Jess Bustos MD December 17, 2016 13:11
--- NOTE | 2016-12-17 14:37 | PD.CAR.PN ---
CVT Progress Note Subjective/Hospital Course: Pt still in recovery room following bronchoscopy Had lengthy discussion with . Related the CT and clinical findings. In the setting of minimal drainage from the CT, will hold off with proceeding to the OR for now. Will re-evaluate in 24-48 hours. If drainage increases or turns purulent, may need VATS/Thoracotomy with drainage /Decortication/Pleurodesis. May need repeat chest CT to evaluate residual/loculated effusion Will continue to follow 12/12 Lengthy d/w patient and [id number] Will repeat chest Ct tomorrow. Possible R VATS with Pleurodesis and Pleur-X catheter placement on Thursday. 12/13 Patient and are very upset and frustrated at his care. He also states that he has dysphagia and odynophagia every time he eats and that his chest fluid drainage increases with PO intake New findings of a mediastinal/hilar mass with associated mediastinal lymphadenopathy. This appears amenable to CT guided biopsy They are demanding that the biopsy be done emergently today and will not wait until Thursday Will consult IR and GI for evaluation Cancel OR for Thursday for pleurodesis. 12/17 Doing better S/P CT guided biopsy and EGD Will plan R VATS with Pleurodesis on Thursday Objective: Vital Signs Date Time Temp Pulse Resp B/P Pulse Ox O2 Delivery O2 Flow Rate FiO2 12/17/16 12:31 101.1 118 18 123/67 97 12/17/16 09:47 94 Room Air 12/17/16 08:56 98.6 114 19 110/61 94 12/17/16 08:40 95 Nasal Cannula 2.00 12/17/16 06:08 98.3 105 18 111/59 94 12/17/16 03:50 18 12/17/16 00:00 98.3 76 20 151/84 96 12/16/16 23:08 95 Nasal Cannula 2.00 12/16/16 22:29 94 Nasal Cannula 2.00 12/16/16 20:30 18 12/16/16 20:00 99.2 121 18 108/58 92 12/16/16 16:30 99.3 108 18 116/66 95 Nasal Cannula 2 12/16/16 16:15 101 21 106/61 95 Nasal Cannula 2 12/16/16 16:00 99.3 106 21 108/67 99 Nasal Cannula 2 Result Diagram: 12/14/16 0422 12/14/16 1202 (1) Pleural effusion, right Edmundo Weinberg MD December 17, 2016 14:37
[2016-12-17] MEDS: SUCRALFATE 1 GM/10 ML CUP PO SCH ×2 (15:16→20:52)
--- NOTE | 2016-12-17 15:33 | HHI.PR ---
Subjective Remarks Follow up shortness of breath and shoulder pain. Patient seen and examined today by myself and Dr. Packer. Patient lying in bed comfortably with no acute new complaints. Patient states that pain is well controlled except for continued right shoulder pain. Patient did state he remembers having a rotator cuff tear in the past and this may be related. Tolerating PO intake, denies any nausea or vomiting. 101.1 fever noted at 1230. Objective Vitals Vital Signs Date Time Temp Pulse Resp B/P Pulse Ox O2 Delivery O2 Flow Rate FiO2 12/17/16 12:31 101.1 118 18 123/67 97 12/17/16 09:47 94 Room Air 12/17/16 08:56 98.6 114 19 110/61 94 12/17/16 08:40 95 Nasal Cannula 2.00 12/17/16 06:08 98.3 105 18 111/59 94 12/17/16 03:50 18 12/17/16 00:00 98.3 76 20 151/84 96 12/16/16 23:08 95 Nasal Cannula 2.00 12/16/16 22:29 94 Nasal Cannula 2.00 12/16/16 20:30 18 12/16/16 20:00 99.2 121 18 108/58 92 12/16/16 16:30 99.3 108 18 116/66 95 Nasal Cannula 2 12/16/16 16:15 101 21 106/61 95 Nasal Cannula 2 12/16/16 16:00 99.3 106 21 108/67 99 Nasal Cannula 2 I/O 12/16/16 12/16/16 12/16/16 12/17/16 12/17/16 12/17/16 07:00 15:00 23:00 07:00 15:00 23:00 Intake Total 0 ml 300 ml 240 ml Output Total 300 ml 100 ml Balance -300 ml 300 ml 140 ml Intake Oral 0 ml 240 ml IV Total 0 ml Other 300 ml Output Urine Total 250 ml Chest Tube Drainage Total 50 ml 100 ml # Voids 2 1 # Bowel Movements 0 2 2 Result Diagram: 12/14/16 0422 12/14/16 1202 Imaging Last Impressions Shoulder X-Ray 12/16/16 0000 Signed Impressions: Service Date/Time: Friday, December 16, 2016 16:37 - CONCLUSION: 1. High riding humeral head indicating possible rotator cuff insufficiency. 2. Mild acromioclavicular joint arthrosis. Jett Sherwood MD Lung Biopsy CT 12/15/16 0000 Signed Impressions: Service Date/Time: Thursday, December 15, 2016 11:59 - CONCLUSION: Uncomplicated CT guided biopsy of right lung mass. Rick Agrawal MD Chest X-Ray 12/14/16 0000 Signed Impressions: Service Date/Time: Wednesday, December 14, 2016 03:37 - CONCLUSION: 1. Increasing pleural-parenchymal density throughout the right chest with slight shift of the trachea to the left. 2. No pneumothorax. Rick Agrawal MD Chest Tube Change 12/13/16 1302 Signed Impressions: Service Date/Time: Tuesday, December 13, 2016 12:06 - CONCLUSION: Uncomplicated chest tube exchange as above. Blake Renteria MD Chest CT 12/13/16 0600 Signed Impressions: Service Date/Time: Tuesday, December 13, 2016 08:14 - CONCLUSION: 1. Ill-defined tumor mass in the right infrahilar region measuring up to least 7 cm. 2. Extensive mediastinal adenopathy and right hilar adenopathy. 3. Dense consolidation remains in the right lung base. 4. Mild interval increase in right pleural effusion with loculated components. Ryan Parry MD Chest Tube Insertion 12/08/16 0000 Signed Impressions: Service Date/Time: Thursday, December 08, 2016 14:46 - CONCLUSION: Uncomplicated chest tube placement as above. Rick Agrawal MD Thoracentesis Ultrasound 12/06/16 0000 Signed Impressions: Service Date/Time: Tuesday, December 06, 2016 13:53 - CONCLUSION: Uncomplicated ultrasound guided thoracentesis. Glen Ahn MD Objective Remarks GENERAL: Well-nourished, well-developed patient in NAD. SKIN: Warm and dry. No rash. HEAD: Normocephalic. Atraumatic.Pupils equal and round. No scleral icterus. No injection or drainage. No nasal bleeding or discharge. Mucous membranes pink and moist. NECK: Supple. Trachea midline. CARDIOVASCULAR: Regular rate and rhythm. S1, S2 noted. No murmur appreciated. RESPIRATORY: No accessory muscle use. Diminished lung sounds in right base. Right lateral chest tube noted, sero-sanguinous drainage in pleurvac. GASTROINTESTINAL: Abdomen soft, non-tender, nondistended. Normoactive bowel sounds x4. MUSCULOSKELETAL: No obvious deformities. Extremities without clubbing, cyanosis , or edema. NEUROLOGICAL: Awake and alert. No obvious cranial nerve deficits. Motor grossly within normal limits. 5/ muscle strength in bilateral upper and lower extremities. Normal speech. PSYCHIATRIC: Appropriate mood and affect; insight and judgment normal. Procedures sp US guided thoracentesis CT placement 12/13 Urinary Catheter: No Vascular Central Line Catheter: No A/P Problem List: (1) Sepsis ICD Code: A41.9 Status: Acute (2) Pleural effusion, right ICD Code: J90 Status: Acute (3) Right lower lobe pneumonia ICD Code: J18.1 Status: Acute (4) Insomnia ICD Code: G47.00 Status: Acute Assessment and Plan Sepsis secondary to Pneumococcal pneumonia S/P Bronchoscopy 12/11 Strep pneumonia antigen positive Legionella urine antigen negative Continue incentive spirometry. Previously on ceftriaxone and azithromycin, infectious disease following, antibiotics stopped. Infectious disease following, chest x-ray shows persistent pleural effusion. Could also be secondary to mass. Status post lung biopsy 12/15/16. Awaiting results. Recurrent Pleural effusion, CT upgraded size by IR- 12/13- no leaking Right lung mass now seen in chest CT with contrast - 12/12 Patient with recurrent pleural effusions status post thoracentesis 2. Quickly reaccumulating. Parapneumonic effusion. Hemorrhagic. Cytology negative on 12/04.. Repeat cytology on 12/[address] management per Dr. Jiang, Dr. Weinberg ff: plan for VATs one cytology is back, status post CT- guided biopsy 12/15/16. Right chest tube in place: sero-sanguinous fluid noted, 100 ml documented for last 24 hours. Spoke with IR , Dr. Arzola, and have decided to wait to pull CT until biopsy results are back. Control pain: Percocet PO per pain scale. Insomnia, improved. Antibiotic associated Diarrhea with epigastric fullness history of GERD with dysphagia Leukocytosis WBC elevated but trending down: 15.6 -- 13.9 -- 14.6 -- 14.7 -- 13.6 -- 13.8 -- 12.7. CBC in am. Temp spike today, 101.1. ID following, blood cultures and sputum ordered and pending. Continue Lactinex. C. diff negative GI following, status post EGD yesterday. Gastritis and esophagitis, biopsy pending. Shoulder pain Chest x-ray reviewed by me, high riding humeral head indicating possible rotator cuff insufficiency. Unlikely metastatic disease. Continue Flexiril. GI Prophylaxis: Protonix 40 mg Q12h. Change IV to PO. DVT prophylaxis: SCDs. Written by Gabriella Maravilla, acting as scribe for Dr. Packer on 12/17/16 at 1000. This note was transcribed by scribe Gabriella Maravilla. I, Dr. Nico Packer personally performed the history, physical exam, and medical decision making; and confirmed the accuracy of the information in the transcribed note. Authenticated by Dr. Nico Packer on 12/17/16 at 1000. Problem Qualifiers (1) Right lower lobe pneumonia: Qualified Code: J18.1 - Pneumonia of right lower lobe due to infectious organism Gabriella Maravilla December 17, 2016 15:32 Nico Packer MD December 23, 2016 10:07
[2016-12-17] MEDS ORDERED: ENOXAPARIN SODIUM 40 MG/0.4 ML SYRINGE SQ SCH (18:00)
--- NOTE | 2016-12-17 19:10 | HHI.PR ---
Subjective Remarks Had CT guided rt lung bx Chest tube draining small amount of bloody fluid mild GI upset Feels better at BS Dr Weinberg evaluated pt, Planning VATS Thursday Objective Vital Signs Vital Signs Date Time Temp Pulse Resp B/P Pulse Ox O2 Delivery O2 Flow Rate FiO2 12/17/16 17:02 97.2 115 20 103/58 95 12/17/16 12:31 101.1 118 18 123/67 97 12/17/16 09:47 94 Room Air 12/17/16 08:56 98.6 114 19 110/61 94 12/17/16 08:40 95 Nasal Cannula 2.00 12/17/16 06:08 98.3 105 18 111/59 94 12/17/16 03:50 18 12/17/16 00:00 98.3 76 20 151/84 96 12/16/16 23:08 95 Nasal Cannula 2.00 12/16/16 22:29 94 Nasal Cannula 2.00 12/16/16 20:30 18 12/16/16 20:00 99.2 121 18 108/58 92 I/O 12/16/16 12/16/16 12/16/16 12/17/16 12/17/16 12/17/16 06:59 14:59 22:59 06:59 14:59 22:59 Intake Total 0 ml 300 ml 240 ml Output Total 300 ml 100 ml 0 ml Balance -300 ml 300 ml 140 ml 0 ml Intake Oral 0 ml 240 ml IV Total 0 ml Other 300 ml Output Urine Total 250 ml Chest Tube Drainage Total 50 ml 100 ml 0 ml # Voids 2 1 # Bowel Movements 0 2 2 Result Diagram: 12/14/16 0422 12/14/16 1202 Objective Remarks GENERAL: Patient is 46 yo lying in bed in NAD SKIN: Warm and dry. HEAD: Normocephalic. EYES: No scleral icterus. No injection or drainage. NECK: Supple, trachea midline. No JVD or lymphadenopathy. CARDIOVASCULAR: Regular rate and rhythm without murmurs, gallops, or rubs. RESPIRATORY: Breath sounds equal bilaterally. Diminished BS on right. Right CT in place GASTROINTESTINAL: Abdomen soft, non-tender, nondistended. MUSCULOSKELETAL: No cyanosis, or edema. BACK: Nontender without obvious deformity. No CVA tenderness. 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 Monitor CT drainage- Cytology from December 04 showed no malignant cells, cytology from 12/12 pending.. Continue with abx ( Rocephin, Zithromax) monitor for signs of infections ( Fever , WBCGI/DVT prophylaxis per primary team Check BX result-stii pending Long discussion with pt and and answered all their questions VATS planned for Thursday. Konrad Jiang MD December 17, 2016 19:10
[2016-12-17] MEDS: PANTOPRAZOLE SOD 40 MG DELAYED RELEASE TAB PO SCH (20:52)
[2016-12-17] MEDS: ZOLPIDEM TARTRATE 10 MG TAB PO PRN (23:24)
[2016-12-18] VITALS (7 sets, daily range): BP systolic 108–114; BP diastolic 56–70; PULSE 103–124; RESP 16–20; TEMP 97.7–100.4; O2SAT 91–95
[2016-12-18 00:47] LABS: C. DIFF EPI 027 PRESUMPTIVE NEGATIVE (NEGATIVE); C. DIFF TOXIN PCR NEGATIVE (NEGATIVE)
[2016-12-18] MEDS: RESP: ALBUTEROL 2.5 MG/IPRATROPIUM 0.5 MG NEB (SCH) NEB ×2 (04:58→07:58)
[2016-12-18] MEDS: SUCRALFATE 1 GM/10 ML CUP PO SCH ×4 (05:17→20:27)
[2016-12-18] MEDS: oxyCODONE/ACETAMINOPHEN 5 MG/325 MG TAB PO PRN ×5 (05:18→22:30)
[2016-12-18] MEDS: CYCLOBENZAPRINE HCL 10 MG TAB PO PRN ×3 (05:19→22:30)
[2016-12-18 07:30] LABS: AUTOMATED NEUTROPHIL # 8.8 TH/MM3 (1.8-7.7); BASOPHIL # 0.1 TH/MM3 (0-0.2); BASOPHIL % 0.4 % (0.0-2.0); EOSINOPHIL # 0.3 TH/MM3 (0-0.4); EOSINOPHIL % 2.6 % (0.0-4.0); HEMATOCRIT 29.1 % (39.0-51.0); HEMO FLAGS DIFF FINAL; LYMPH % 12.6 % (9.0-44.0); LYMPHOCYTE # 1.6 TH/MM3 (1.0-4.8); MEAN CELL VOLUME 87.6 FL (80.0-100.0); MEAN CORPUSCULAR HEMOGLOBIN 28.9 PG (27.0-34.0); MONO % 12.8 % (0.0-8.0); NEUT % 71.6 % (16.0-70.0); PLATELET COUNT 514 TH/MM3 (150-450); RED BLOOD COUNT 3.32 MIL/MM3 (4.50-5.90); RED CELL DISTRIBUTION WIDTH 12.4 % (11.6-17.2); WHITE BLOOD COUNT 12.4 TH/MM3 (4.0-11.0)
[2016-12-18 07:49] LABS: BICARBONATE 30.6 MEQ/L (21.0-32.0); POTASSIUM 3.3 MEQ/L (3.5-5.1)
[2016-12-18] MEDS: NYSTATIN SUSP 500,000 U/5 ML CUP SWISH-SWAL SCH ×8 (09:00→20:29)
[2016-12-18] MEDS: SODIUM CHLORIDE 0.9% FLUSH 10 ML FLUSH IV FLUSH SCH ×2 (09:28→20:28)
[2016-12-18] MEDS: LACTOBACILLUS ACIDOPHILUS TAB PO SCH ×3 (09:28→18:18)
[2016-12-18] MEDS: PANTOPRAZOLE SOD 40 MG DELAYED RELEASE TAB PO SCH ×2 (09:28→20:27)
[2016-12-18] MEDS ORDERED: ceFAZolin 2 GM PREMIX 50 ML IV SCH (10:30)
[2016-12-18] MEDS ORDERED: CHLORHEXIDINE GLUCONATE 4% SOLN 120 ML BTL TOPICAL SCH (10:30)
--- NOTE | 2016-12-18 11:42 | PD.CAR.PN ---
CVT Progress Note Subjective/Hospital Course: Pt still in recovery room following bronchoscopy Had lengthy discussion with . Related the CT and clinical findings. In the setting of minimal drainage from the CT, will hold off with proceeding to the OR for now. Will re-evaluate in 24-48 hours. If drainage increases or turns purulent, may need VATS/Thoracotomy with drainage /Decortication/Pleurodesis. May need repeat chest CT to evaluate residual/loculated effusion Will continue to follow 12/12 Lengthy d/w patient and [id number] Will repeat chest Ct tomorrow. Possible R VATS with Pleurodesis and Pleur-X catheter placement on Thursday. 12/13 Patient and are very upset and frustrated at his care. He also states that he has dysphagia and odynophagia every time he eats and that his chest fluid drainage increases with PO intake New findings of a mediastinal/hilar mass with associated mediastinal lymphadenopathy. This appears amenable to CT guided biopsy They are demanding that the biopsy be done emergently today and will not wait until Thursday Will consult IR and GI for evaluation Cancel OR for Thursday for pleurodesis. 12/17 Doing better S/P CT guided biopsy and EGD Will plan R VATS with Pleurodesis on Monday 12/18 Biopsy results still pending Plan OR in am Objective: Vital Signs Date Time Temp Pulse Resp B/P Pulse Ox O2 Delivery O2 Flow Rate FiO2 12/18/16 07:58 92 21 12/18/16 07:30 92 Room Air 12/18/16 07:25 97.7 108 17 110/56 92 12/18/16 06:34 97.8 103 20 110/67 95 12/18/16 06:15 17 12/18/16 00:00 100.4 124 20 108/61 93 12/17/16 22:12 95 21 12/17/16 20:04 Room Air 12/17/16 20:00 97.1 110 20 120/69 94 12/17/16 17:02 97.2 115 20 103/58 95 12/17/16 12:31 101.1 118 18 123/67 97 Labs: Laboratory Tests Test 12/18/16 06:17 White Blood Count 12.4 TH/MM3 (4.0-11.0) Red Blood Count 3.32 MIL/MM3 (4.50-5.90) Hemoglobin 9.6 GM/DL (13.0-17.0) Hematocrit 29.1 % (39.0-51.0) Mean Corpuscular Volume 87.6 FL (80.0-100.0) Mean Corpuscular Hemoglobin 28.9 PG (27.0-34.0) Mean Corpuscular Hemoglobin 33.0 % Concent (32.0-36.0) Red Cell Distribution Width 12.4 % (11.6-17.2) Platelet Count 514 TH/MM3 (150-450) Mean Platelet Volume 7.4 FL (7.0-11.0) Neutrophils (%) (Auto) 71.6 % (16.0-70.0) Lymphocytes (%) (Auto) 12.6 % (9.0-44.0) Monocytes (%) (Auto) 12.8 % (0.0-8.0) Eosinophils (%) (Auto) 2.6 % (0.0-4.0) Basophils (%) (Auto) 0.4 % (0.0-2.0) Neutrophils # (Auto) 8.8 TH/MM3 (1.8-7.7) Lymphocytes # (Auto) 1.6 TH/MM3 (1.0-4.8) Monocytes # (Auto) 1.6 TH/MM3 (0-0.9) Eosinophils # (Auto) 0.3 TH/MM3 (0-0.4) Basophils # (Auto) 0.1 TH/MM3 (0-0.2) CBC Comment DIFF FINAL Differential Comment Sodium Level 132 MEQ/L (136-145) Potassium Level 3.3 MEQ/L (3.5-5.1) Chloride Level 91 MEQ/L (98-107) Carbon Dioxide Level 30.6 MEQ/L (21.0-32.0) Anion Gap 10 MEQ/L (5-15) Blood Urea Nitrogen 11 MG/DL (7-18) Creatinine 0.94 MG/DL (0.60-1.30) Estimat Glomerular Filtration 86 ML/MIN (>89) Rate Random Glucose 117 MG/DL (74-106) Calcium Level 7.8 MG/DL (8.5-10.1) Result Diagram: 12/18/1661612/18/16616 (1) Pleural effusion, right Edmundo Weinberg MD December 18, 2016 11:42
[2016-12-18] MEDS: IBUPROFEN 400 MG TAB PO PRN (12:05)
--- NOTE | 2016-12-18 14:29 | HHI.PR ---
Subjective Remarks Follow up shortness of breath and shoulder pain. Patient seen and examined today. Patient sitting up in chair comfortably, in NAD. Patient denies any new acute complaints. States taht pain is well controlled. Tolerating PO intake, denies any nausea or vomiting. Does complain of continued diarrhea. Denies any recent fever, chills, cough, shortness of breath. and family at bedside, all questions answered. Plan for OR tomorrow with Dr. Weinberg. Objective Vitals Vital Signs Date Time Temp Pulse Resp B/P Pulse Ox O2 Delivery O2 Flow Rate FiO2 12/18/16 11:59 99.9 116 16 112/65 92 12/18/16 07:58 92 21 12/18/16 07:30 92 Room Air 12/18/16 07:25 97.7 108 17 110/56 92 12/18/16 06:34 97.8 103 20 110/67 95 12/18/16 06:15 17 12/18/16 00:00 100.4 124 20 108/61 93 12/17/16 22:12 95 21 12/17/16 20:04 Room Air 12/17/16 20:00 97.1 110 20 120/69 94 12/17/16 17:02 97.2 115 20 103/58 95 I/O 12/17/16 12/17/16 12/17/16 12/18/16 12/18/16 12/18/16 07:00 15:00 23:00 07:00 15:00 23:00 Intake Total 240 ml 480 ml 240 ml Output Total 100 ml 0 ml 20 ml Balance 140 ml 480 ml 220 ml Intake Oral 240 ml 480 ml 240 ml Chest Tube Drainage Total 100 ml 0 ml 20 ml # Voids 1 2 2 # Bowel Movements 2 1 0 Result Diagram: 12/18/16 0617 12/18/16 0617 Imaging Last Impressions Shoulder X-Ray 12/16/16 0000 Signed Impressions: Service Date/Time: Friday, December 16, 2016 16:37 - CONCLUSION: 1. High riding humeral head indicating possible rotator cuff insufficiency. 2. Mild acromioclavicular joint arthrosis. Jett Sherwood MD Lung Biopsy CT 12/15/16 0000 Signed Impressions: Service Date/Time: Thursday, December 15, 2016 11:59 - CONCLUSION: Uncomplicated CT guided biopsy of right lung mass. Rick Agrawal MD Chest X-Ray 12/14/16 0000 Signed Impressions: Service Date/Time: Wednesday, December 14, 2016 03:37 - CONCLUSION: 1. Increasing pleural-parenchymal density throughout the right chest with slight shift of the trachea to the left. 2. No pneumothorax. Rick Agrawal MD Chest Tube Change 12/13/16 1302 Signed Impressions: Service Date/Time: Tuesday, December 13, 2016 12:06 - CONCLUSION: Uncomplicated chest tube exchange as above. Blake Renteria MD Chest CT 12/13/16 0600 Signed Impressions: Service Date/Time: Tuesday, December 13, 2016 08:14 - CONCLUSION: 1. Ill-defined tumor mass in the right infrahilar region measuring up to least 7 cm. 2. Extensive mediastinal adenopathy and right hilar adenopathy. 3. Dense consolidation remains in the right lung base. 4. Mild interval increase in right pleural effusion with loculated components. Ryan Parry MD Chest Tube Insertion 12/08/16 0000 Signed Impressions: Service Date/Time: Thursday, December 08, 2016 14:46 - CONCLUSION: Uncomplicated chest tube placement as above. Rick Agrawal MD Thoracentesis Ultrasound 12/06/16 0000 Signed Impressions: Service Date/Time: Tuesday, December 06, 2016 13:53 - CONCLUSION: Uncomplicated ultrasound guided thoracentesis. Glen Ahn MD Objective Remarks GENERAL: Well-nourished, well-developed patient in NAD. SKIN: Warm and dry. No rash. HEAD: Normocephalic. Atraumatic.Pupils equal and round. No scleral icterus. No injection or drainage. No nasal bleeding or discharge. Mucous membranes pink and moist. NECK: Supple. Trachea midline. CARDIOVASCULAR: Regular rate and rhythm. S1, S2 noted. No murmur appreciated. RESPIRATORY: No accessory muscle use. Diminished lung sounds in right base. Right lateral chest tube noted, sero-sanguinous drainage in pleurvac. No air leak noted. GASTROINTESTINAL: Abdomen soft, non-tender, nondistended. Normoactive bowel sounds x4. MUSCULOSKELETAL: No obvious deformities. Extremities without clubbing, cyanosis , or edema. NEUROLOGICAL: Awake and alert. No obvious cranial nerve deficits. Motor grossly within normal limits. 5/5 muscle strength in bilateral upper and lower extremities. Normal speech. PSYCHIATRIC: Appropriate mood and affect; insight and judgment normal. Procedures sp US guided thoracentesis CT placement 12/13 Urinary Catheter: No Vascular Central Line Catheter: No A/P Problem List: (1) Sepsis ICD Code: A41.9 Status: Acute (2) Pleural effusion, right ICD Code: J90 Status: Acute (3) Right lower lobe pneumonia ICD Code: J18.1 Status: Acute (4) Insomnia ICD Code: G47.00 Status: Acute Assessment and Plan Sepsis secondary to Pneumococcal pneumonia S/P Bronchoscopy 12/11 Strep pneumonia antigen positive Legionella urine antigen negative Continue incentive spirometry. Previously on ceftriaxone and azithromycin, infectious disease following, antibiotics stopped. Infectious disease following, chest x-ray shows persistent pleural effusion. Could also be secondary to mass. Status post lung biopsy 12/15/16. Awaiting results. Recurrent Pleural effusion, CT upgraded size by IR- 12/13- no leaking Right lung mass now seen in chest CT with contrast - 12/12 Patient with recurrent pleural effusions status post thoracentesis 2. CT in place, minimal output. Cytology negative on 12/04.. Repeat cytology on 12/12 negative. Cytology on 12/[address] management per Dr. Jiang, Dr. Weinberg ff: plan for VATs tomorrow in am 12/19. status post CT-guided biopsy 12/15/16. Right chest tube in place: sero-sanguinous fluid noted, 100 ml documented for last 24 hours. Spoke with IR MD, Dr. Arzola, and have decided to wait to pull CT until biopsy results are back. Control pain: Percocet PO per pain scale. Insomnia, improved. Antibiotic associated Diarrhea with epigastric fullness history of GERD with dysphagia Leukocytosis WBC elevated but trending down: 15.6 -- 13.9 -- 14.6 -- 14.7 -- 13.6 -- 13.8 -- 12.7 -- 12.4. CBC in am. Temp spike t -max 101.1. ID following, blood cultures and sputum NGTD. Continue Lactinex. C. diff negative. GI following, status post EGD yesterday. Gastritis and esophagitis, biopsy pending. Shoulder pain Chest x-ray reviewed by me, high riding humeral head indicating possible rotator cuff insufficiency. Unlikely metastatic disease. Continue Flexiril. Hypokalemia: 3.3 today 12/18. KCL 25 meq x 1 PO. BMP in am. GI Prophylaxis: Protonix 40 mg Q12h PO. DVT prophylaxis: SCDs. Problem Qualifiers (1) Right lower lobe pneumonia: Qualified Code: J18.1 - Pneumonia of right lower lobe due to infectious organism Gabriella Maravilla December 18, 2016 14:29
[2016-12-18] MEDS ORDERED: POTASSIUM CHLORIDE 25 MEQ EFFERVESCENT TAB PO ONE (15:00)
--- NOTE | 2016-12-18 16:52 | HHI.IDPN ---
Subjective Subjective Remarks fever noted Pt co diarrea, stool for c.diff repeated yday - negative Pt is on RA denies cough, no SOB no expectoration Antibiotics none Allergies: Coded Allergies: Codeine (Verified Allergy, Severe, HIVES, 12/03/16) Objective . Vital Signs Date Time Temp Pulse Resp B/P Pulse Ox O2 Delivery O2 Flow Rate FiO2 12/18/16 15:10 98.6 116 16 114/70 91 12/18/16 11:59 99.9 116 16 112/65 92 12/18/16 07:58 92 21 12/18/16 07:30 92 Room Air 12/18/16 07:25 97.7 108 17 110/56 92 12/18/16 06:34 97.8 103 20 110/67 95 12/18/16 06:15 17 12/18/16 00:00 100.4 124 20 108/61 93 12/17/16 22:12 95 21 12/17/16 20:04 Room Air 12/17/16 20:00 97.1 110 20 120/69 94 12/17/16 17:02 97.2 115 20 103/58 95 12/17/16 12/17/16 12/18/16 15:00 23:00 07:00 Intake Total 480 ml 240 ml Output Total 0 ml 20 ml Balance 480 ml 220 ml Intake Oral 480 ml 240 ml Chest Tube Drainage Total 0 ml 20 ml # Voids 2 2 # Bowel Movements 1 0 . Laboratory Tests Test 12/18/16 06:17 White Blood Count 12.4 TH/MM3 Red Blood Count 3.32 MIL/MM3 Hemoglobin 9.6 GM/DL Hematocrit 29.1 % Mean Corpuscular Volume 87.6 FL Mean Corpuscular Hemoglobin 28.9 PG Mean Corpuscular Hemoglobin 33.0 % Concent Red Cell Distribution Width 12.4 % Platelet Count 514 TH/MM3 Mean Platelet Volume 7.4 FL Neutrophils (%) (Auto) 71.6 % Lymphocytes (%) (Auto) 12.6 % Monocytes (%) (Auto) 12.8 % Eosinophils (%) (Auto) 2.6 % Basophils (%) (Auto) 0.4 % Neutrophils # (Auto) 8.8 TH/MM3 Lymphocytes # (Auto) 1.6 TH/MM3 Monocytes # (Auto) 1.6 TH/MM3 Eosinophils # (Auto) 0.3 TH/MM3 Basophils # (Auto) 0.1 TH/MM3 CBC Comment DIFF FINAL Differential Comment Laboratory Tests Test 12/18/16 06:17 Sodium Level 132 MEQ/L Potassium Level 3.3 MEQ/L Chloride Level 91 MEQ/L Carbon Dioxide Level 30.6 MEQ/L Anion Gap 10 MEQ/L Blood Urea Nitrogen 11 MG/DL Creatinine 0.94 MG/DL Estimat Glomerular Filtration 86 ML/MIN Rate Random Glucose 117 MG/DL Calcium Level 7.8 MG/DL Microbiology Date/Time Procedure Status Source Growth 12/17/16 14:00 Aerobic Blood Culture - Preliminary Resulted Blood Peripheral NO GROWTH IN 1 DAY 12/17/16 14:00 Anaerobic Blood Culture - Preliminary Resulted Blood Peripheral NO GROWTH IN 1 DAY 12/17/16 14:10 Aerobic Blood Culture - Preliminary Resulted Blood Peripheral NO GROWTH IN 1 DAY 12/17/16 14:10 Anaerobic Blood Culture - Preliminary Resulted Blood Peripheral NO GROWTH IN 1 DAY Imaging Last Impressions Shoulder X-Ray 12/16/16 0000 Signed Impressions: Service Date/Time: Friday, December 16, 2016 16:37 - CONCLUSION: 1. High riding humeral head indicating possible rotator cuff insufficiency. 2. Mild acromioclavicular joint arthrosis. Jett Sherwood MD Lung Biopsy CT 12/15/16 0000 Signed Impressions: Service Date/Time: Thursday, December 15, 2016 11:59 - CONCLUSION: Uncomplicated CT guided biopsy of right lung mass. Rick Agrawal MD Chest X-Ray 12/14/16 0000 Signed Impressions: Service Date/Time: Wednesday, December 14, 2016 03:37 - CONCLUSION: 1. Increasing pleural-parenchymal density throughout the right chest with slight shift of the trachea to the left. 2. No pneumothorax. Rick Agrawal MD Chest Tube Change 12/13/16 1302 Signed Impressions: Service Date/Time: Tuesday, December 13, 2016 12:06 - CONCLUSION: Uncomplicated chest tube exchange as above. Blake Renteria MD Chest CT 12/13/16 0600 Signed Impressions: Service Date/Time: Tuesday, December 13, 2016 08:14 - CONCLUSION: 1. Ill-defined tumor mass in the right infrahilar region measuring up to least 7 cm. 2. Extensive mediastinal adenopathy and right hilar adenopathy. 3. Dense consolidation remains in the right lung base. 4. Mild interval increase in right pleural effusion with loculated components. Ryan Parry MD Chest Tube Insertion 12/08/16 0000 Signed Impressions: Service Date/Time: Thursday, December 08, 2016 14:46 - CONCLUSION: Uncomplicated chest tube placement as above. Rick Agrawal MD Thoracentesis Ultrasound 12/06/16 0000 Signed Impressions: Service Date/Time: Tuesday, December 06, 2016 13:53 - CONCLUSION: Uncomplicated ultrasound guided thoracentesis. Glen Ahn MD Physical Exam CONSTITUTIONAL/GENERAL: This is an adequately nourished patient, in no apparent distress. resting comfortably TUBES/LINES/DRAINS: CT in place SKIN: No jaundice, rashes, or lesions. CARDIOVASCULAR: Regular rate and rhythm without murmurs, gallops, or rubs. No JVD. Peripheral pulses symmetric. RESPIRATORY/CHEST: Symmetric, unlabored respirations. Breath sounds practically abscent onthe R CT in place with serosang dc; draining around tube noticed GASTROINTESTINAL: Abdomen soft, non-tender, nondistended. MUSCULOSKELETAL: Extremities without cyanosis, or edema. + mild to moderate clubbing. NEUROLOGICAL: awake alert, non focal Assessment & Plan Remarks Ill-defined tumor mass in the right infrahilar region measuring up to least 7 cm with extensive mediastinal adenopathy and right hilar adenopathy. - sp bx today Dense consolidation right lung base. - Pneumococcal AG + - sputum and fluid clx neg right pleural effusion with loculated components. Persisten low grade fever - recurrent ? tumor fever Leukocytosis , m,ild but persistent ? from tumor as well Diarrhea, abx associatedp; c.diff neg cont to fu off abx - for CT sx tomorrow Discussed Condition With family @ b/s dw Jess Denis MD December 18, 2016 16:52
--- NOTE | 2016-12-18 20:14 | HHI.PR ---
Subjective Remarks Had CT guided rt lung bx Chest tube draining small amount of bloody fluid mild GI upset Feels better at BS Called path, bx pending due to special stains Objective Vital Signs Vital Signs Date Time Temp Pulse Resp B/P Pulse Ox O2 Delivery O2 Flow Rate FiO2 12/18/16 19:46 Room Air 12/18/16 15:10 98.6 116 16 114/70 91 12/18/16 11:59 99.9 116 16 112/65 92 12/18/16 07:58 92 21 12/18/16 07:30 92 Room Air 12/18/16 07:25 97.7 108 17 110/56 92 12/18/16 06:34 97.8 103 20 110/67 95 12/18/16 06:15 17 12/18/16 00:00 100.4 124 20 108/61 93 12/17/16 22:12 95 21 I/O 12/17/16 12/17/16 12/17/16 12/18/16 12/18/16 12/18/16 06:59 14:59 22:59 06:59 14:59 22:59 Intake Total 240 ml 480 ml 240 ml 360 ml Output Total 100 ml 0 ml 20 ml 70 ml Balance 140 ml 480 ml 220 ml 360 ml -70 ml Intake Oral 240 ml 480 ml 240 ml 360 ml Chest Tube Drainage Total 100 ml 0 ml 20 ml 70 ml # Voids 1 2 2 5 # Bowel Movements 2 1 0 3 Result Diagram: 12/18/1661612/18/1617 Objective Remarks GENERAL: Patient is 46 yo lying in bed in NAD SKIN: Warm and dry. HEAD: Normocephalic. EYES: No scleral icterus. No injection or drainage. NECK: Supple, trachea midline. No JVD or lymphadenopathy. CARDIOVASCULAR: Regular rate and rhythm without murmurs, gallops, or rubs. RESPIRATORY: Breath sounds equal bilaterally. Diminished BS on right. Right CT in place GASTROINTESTINAL: Abdomen soft, non-tender, nondistended. MUSCULOSKELETAL: No cyanosis, or edema. BACK: Nontender without obvious deformity. No CVA tenderness. 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 Monitor CT drainage- Cytology from December 04 showed no malignant cells, cytology from 12/12 pending.. Continue with abx ( Rocephin, Zithromax) monitor for signs of infections ( Fever , WBCGI/DVT prophylaxis per primary team Check BX result-stii pending Long discussion with pt and and answered all their questions DW family DW Dr.Khanna DÍAZ postponed , pending bx results. Konrad Jiang MD December 18, 2016 20:14
[2016-12-19] VITALS (9 sets, daily range): BP systolic 103–116; BP diastolic 59–66; PULSE 90–118; RESP 16–20; TEMP 97.1–100.8; O2SAT 90–96
[2016-12-19] MEDS: IBUPROFEN 400 MG TAB PO PRN ×2 (00:26→18:22)
[2016-12-19] MEDS: oxyCODONE/ACETAMINOPHEN 5 MG/325 MG TAB PO PRN ×4 (06:11→22:41)
[2016-12-19] MEDS: SUCRALFATE 1 GM/10 ML CUP PO SCH ×4 (06:11→22:34)
[2016-12-19 07:55] LABS: AUTOMATED NEUTROPHIL # 9.7 TH/MM3 (1.8-7.7); BASOPHIL % 0.3 % (0.0-2.0); EOSINOPHIL # 0.4 TH/MM3 (0-0.4); EOSINOPHIL % 3.1 % (0.0-4.0); HEMATOCRIT 25.7 % (39.0-51.0); HEMO FLAGS DIFF FINAL; LYMPH % 11.9 % (9.0-44.0); LYMPHOCYTE # 1.6 TH/MM3 (1.0-4.8); MEAN CELL VOLUME 87.5 FL (80.0-100.0); MEAN CORPUSCULAR HEMOGLOBIN 29.1 PG (27.0-34.0); MEAN CORPUSCULAR HGB CONC 33.3 % (32.0-36.0); MONO % 10.9 % (0.0-8.0); NEUT % 73.8 % (16.0-70.0); PLATELET COUNT 536 TH/MM3 (150-450); RED BLOOD COUNT 2.94 MIL/MM3 (4.50-5.90); RED CELL DISTRIBUTION WIDTH 12.9 % (11.6-17.2); WHITE BLOOD COUNT 13.1 TH/MM3 (4.0-11.0)
[2016-12-19 08:25] LABS: BICARBONATE 30.6 MEQ/L (21.0-32.0); POTASSIUM 3.7 MEQ/L (3.5-5.1)
[2016-12-19] MEDS: NYSTATIN SUSP 500,000 U/5 ML CUP SWISH-SWAL SCH ×8 (09:00→22:34)
[2016-12-19] MEDS: PANTOPRAZOLE SOD 40 MG DELAYED RELEASE TAB PO SCH ×2 (09:59→22:35)
[2016-12-19] MEDS: LACTOBACILLUS ACIDOPHILUS TAB PO SCH ×3 (09:59→18:12)
[2016-12-19] MEDS: SODIUM CHLORIDE 0.9% FLUSH 10 ML FLUSH IV FLUSH SCH ×2 (09:59→22:35)
--- NOTE | 2016-12-19 10:06 | PD.CAR.PN ---
CVT Progress Note Subjective/Hospital Course: Pt still in recovery room following bronchoscopy Had lengthy discussion with . Related the CT and clinical findings. In the setting of minimal drainage from the CT, will hold off with proceeding to the OR for now. Will re-evaluate in 24-48 hours. If drainage increases or turns purulent, may need VATS/Thoracotomy with drainage /Decortication/Pleurodesis. May need repeat chest CT to evaluate residual/loculated effusion Will continue to follow 12/12 Lengthy d/w patient and [id number] Will repeat chest Ct tomorrow. Possible R VATS with Pleurodesis and Pleur-X catheter placement on Thursday. 12/13 Patient and are very upset and frustrated at his care. He also states that he has dysphagia and odynophagia every time he eats and that his chest fluid drainage increases with PO intake New findings of a mediastinal/hilar mass with associated mediastinal lymphadenopathy. This appears amenable to CT guided biopsy They are demanding that the biopsy be done emergently today and will not wait until Thursday Will consult IR and GI for evaluation Cancel OR for Thursday for pleurodesis. 12/17 Doing better S/P CT guided biopsy and EGD Will plan R VATS with Pleurodesis on Monday 12/18 Biopsy results still pending Plan OR in am 12/19 Lung biopsy pathology still pending Will hold off on Pleurodesis procedure until Thursday D/w Pt and Objective: Vital Signs Date Time Temp Pulse Resp B/P Pulse Ox O2 Delivery O2 Flow Rate FiO2 12/19/16 07:15 97.1 90 16 103/61 94 12/19/16 05:37 98.5 92 20 112/63 96 12/19/16 01:25 18 12/19/16 00:34 100.8 118 18 116/60 90 12/18/16 21:04 97.7 107 18 113/63 92 12/18/16 19:46 Room Air 12/18/16 19:40 21 12/18/16 19:18 18 12/18/16 15:10 98.6 116 16 114/70 91 12/18/16 11:59 99.9 116 16 112/65 92 Labs: Laboratory Tests Test 12/19/16 06:32 White Blood Count 13.1 TH/MM3 (4.0-11.0) Red Blood Count 2.94 MIL/MM3 (4.50-5.90) Hemoglobin 8.6 GM/DL (13.0-17.0) Hematocrit 25.7 % (39.0-51.0) Mean Corpuscular Volume 87.5 FL (80.0-100.0) Mean Corpuscular Hemoglobin 29.1 PG (27.0-34.0) Mean Corpuscular Hemoglobin 33.3 % Concent (32.0-36.0) Red Cell Distribution Width 12.9 % (11.6-17.2) Platelet Count 536 TH/MM3 (150-450) Mean Platelet Volume 7.3 FL (7.0-11.0) Neutrophils (%) (Auto) 73.8 % (16.0-70.0) Lymphocytes (%) (Auto) 11.9 % (9.0-44.0) Monocytes (%) (Auto) 10.9 % (0.0-8.0) Eosinophils (%) (Auto) 3.1 % (0.0-4.0) Basophils (%) (Auto) 0.3 % (0.0-2.0) Neutrophils # (Auto) 9.7 TH/MM3 (1.8-7.7) Lymphocytes # (Auto) 1.6 TH/MM3 (1.0-4.8) Monocytes # (Auto) 1.4 TH/MM3 (0-0.9) Eosinophils # (Auto) 0.4 TH/MM3 (0-0.4) Basophils # (Auto) 0.0 TH/MM3 (0-0.2) CBC Comment DIFF FINAL Differential Comment Sodium Level 135 MEQ/L (136-145) Potassium Level 3.7 MEQ/L (3.5-5.1) Chloride Level 97 MEQ/L (98-107) Carbon Dioxide Level 30.6 MEQ/L (21.0-32.0) Anion Gap 7 MEQ/L (5-15) Blood Urea Nitrogen 11 MG/DL (7-18) Creatinine 0.74 MG/DL (0.60-1.30) Estimat Glomerular Filtration 113 ML/MIN Rate (>89) Random Glucose 101 MG/DL (74-106) Calcium Level 8.2 MG/DL (8.5-10.1) Result Diagram: 12/19/16 0632 12/19/16 0632 (1) Pleural effusion, right Edmundo Weinberg MD December 19, 2016 10:06
[2016-12-19] MEDS: CYCLOBENZAPRINE HCL 10 MG TAB PO PRN ×2 (10:08→18:11)
--- NOTE | 2016-12-19 16:07 | HHI.GIFU ---
Subjective Remarks Pt resting in bed comfortably. he says he just found out his father was diagnosed with celiac, in addition to a sister, and wants to get tested. he had diarrhea yesterday but it is better today. He has been having some bloating. No n/v, no blood in stool. (Tawana Salazar) Objective Vitals I&O Vital Signs Date Time Temp Pulse Resp B/P Pulse Ox O2 Delivery O2 Flow Rate FiO2 12/19/16 11:38 98.8 104 16 113/63 94 12/19/16 11:04 95 21 12/19/16 10:00 94 Room Air 12/19/16 07:15 97.1 90 16 103/61 94 12/19/16 05:37 98.5 92 20 112/63 96 12/19/16 01:25 18 12/19/16 00:34 100.8 118 18 116/60 90 12/18/16 21:04 97.7 107 18 113/63 92 12/18/16 19:46 Room Air 12/18/16 19:40 21 12/18/16 19:18 18 I/O 12/18/16 12/18/16 12/18/16 12/19/16 12/19/16 12/19/16 07:00 15:00 23:00 07:00 15:00 23:00 Intake Total 240 ml 360 ml 480 ml 240 ml 240 ml Output Total 20 ml 70 ml 15 ml Balance 220 ml 360 ml 410 ml 225 ml 240 ml Intake Oral 240 ml 360 ml 480 ml 240 ml 240 ml Chest Tube Drainage Total 20 ml 70 ml 15 ml # Voids 2 5 2 3 3 # Bowel Movements 0 3 0 1 Laboratory Laboratory Tests Test 12/19/16 06:32 White Blood Count 13.1 Red Blood Count 2.94 Hemoglobin 8.6 Hematocrit 25.7 Mean Corpuscular Volume 87.5 Mean Corpuscular Hemoglobin 29.1 Mean Corpuscular Hemoglobin 33.3 Concent Red Cell Distribution Width 12.9 Platelet Count 536 Mean Platelet Volume 7.3 Neutrophils (%) (Auto) 73.8 Lymphocytes (%) (Auto) 11.9 Monocytes (%) (Auto) 10.9 Eosinophils (%) (Auto) 3.1 Basophils (%) (Auto) 0.3 Neutrophils # (Auto) 9.7 Lymphocytes # (Auto) 1.6 Monocytes # (Auto) 1.4 Eosinophils # (Auto) 0.4 Basophils # (Auto) 0.0 CBC Comment DIFF FINAL Differential Comment Sodium Level 135 Potassium Level 3.7 Chloride Level 97 Carbon Dioxide Level 30.6 Anion Gap 7 Blood Urea Nitrogen 11 Creatinine 0.74 Estimat Glomerular Filtration 113 Rate Random Glucose 101 Calcium Level 8.2 Date/Time Procedure Status Source Growth 12/17/16 14:10 Aerobic Blood Culture - Preliminary Resulted Blood Peripheral NO GROWTH IN 2 DAYS 12/17/16 14:10 Anaerobic Blood Culture - Preliminary Resulted Blood Peripheral NO GROWTH IN 2 DAYS Imaging Last Impressions Shoulder X-Ray 12/16/16 0000 Signed Impressions: Service Date/Time: Friday, December 16, 2016 16:37 - CONCLUSION: 1. High riding humeral head indicating possible rotator cuff insufficiency. 2. Mild acromioclavicular joint arthrosis. Jett Sherwood MD Lung Biopsy CT 12/15/16 0000 Signed Impressions: Service Date/Time: Thursday, December 15, 2016 11:59 - CONCLUSION: Uncomplicated CT guided biopsy of right lung mass. Rick Agrawal MD Chest X-Ray 12/14/16 0000 Signed Impressions: Service Date/Time: Wednesday, December 14, 2016 03:37 - CONCLUSION: 1. Increasing pleural-parenchymal density throughout the right chest with slight shift of the trachea to the left. 2. No pneumothorax. Rick Agrawal MD Chest Tube Change 12/13/16 1302 Signed Impressions: Service Date/Time: Tuesday, December 13, 2016 12:06 - CONCLUSION: Uncomplicated chest tube exchange as above. Blake Renteria MD Chest CT 12/13/16 0600 Signed Impressions: Service Date/Time: Tuesday, December 13, 2016 08:14 - CONCLUSION: 1. Ill-defined tumor mass in the right infrahilar region measuring up to least 7 cm. 2. Extensive mediastinal adenopathy and right hilar adenopathy. 3. Dense consolidation remains in the right lung base. 4. Mild interval increase in right pleural effusion with loculated components. Ryan Parry MD Chest Tube Insertion 12/08/16 0000 Signed Impressions: Service Date/Time: Thursday, December 08, 2016 14:46 - CONCLUSION: Uncomplicated chest tube placement as above. Rick Agrawal MD Thoracentesis Ultrasound 12/06/16 0000 Signed Impressions: Service Date/Time: Tuesday, December 06, 2016 13:53 - CONCLUSION: Uncomplicated ultrasound guided thoracentesis. Glen Ahn MD Physical Exam HEENT: Normocephalic; atraumatic; no jaundice. NC CHEST: CTA, Diminished. Right CT to wall suction. CARDIAC: RRR ABDOMEN: Soft, nondistended, nontender; no hepatosplenomegaly; bowel sounds are present in all four quadrants. EXTREMITIES: No clubbing, cyanosis, or edema. SKIN: Normal; no rash; no jaundice. 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 (Tawana Salazar [facility]) Assessment and Plan Plan ASSESSMENT: - Severe GERD, odynophagia. improved. S/P EGD (12/16/16)-----> 1. Gastritis antrum-biopsy, esophagitis-irregulr z line - spasm in distal esophagus-biopsy, dilatation using Savary dilator 15 2. Retroflexed views revealed a hiatal hernia Pathology : minimal chronic gastritis, GE junction mucosa with mdoerate chronic inflammation. PPI. Nystatin. - Diarrhea. improved today but he was having some yesterday and has been having bloating and gas. Stools negative for C-diff. Just found out his father and sister both have celiac, wants to be tested. He never had colonoscopy before. Improved, does not wish to pursue colonoscopy at this time. - Anemia. 10.3/30.4, no active bleeding. - Pleural effusion. S/P thoracentesis (12/04/16) with removal 2,100cc-n umerous reactive mesothelial cells, lymphocytes and macrophages, negative for malignant cells. Rpt. thoracentesis (12/06/16) with 1,300cc. S/ P CT (12/08/16) with exchange on (12/13/16). Possible VATS/Pleurodesis per CVT. - Pneumonia with positive strep pneumoniae ag. S/P Abx. - Lung mass new findings- CT today showed tumor mass in the right infrahilar region measuring up to least 7 cm with extensive mediastinal adenopathy and right hilar adenopathy. S/P Lung biopsy, pathology pending. - Leukocytosis- WBX 12.7. Abx. - ADD per attending Plan: - HECTOR - celiac panel - Cont. PPI - Cont. Nystatin - cont. Carafate - Monitor labs - Supportive care - Pt does not wish to pursue the colonoscopy at this time - Further recommendations to follow based on results of above - Patient seen and examined by Dr. Shrestha and myself and this note is written on his behalf. (Tawana Salazar) Tawana Salazar December 19, 2016 16:07 Cassidy Shrestha MD December 19, 2016 18:01
[2016-12-19] MEDS: HYDROmorphone HCL 2 MG TAB PO PRN (18:18)
--- NOTE | 2016-12-19 18:42 | HHI.PR ---
Subjective Remarks Had CT guided rt lung bx Chest tube draining small amount of bloody fluid mild GI upset Feels better Low grade fever Called path, bx pending due to special stains Objective Vital Signs Vital Signs Date Time Temp Pulse Resp B/P Pulse Ox O2 Delivery O2 Flow Rate FiO2 12/19/16 18:26 100.5 12/19/16 17:53 92 21 12/19/16 15:40 98.8 100 16 106/59 92 12/19/16 11:38 98.8 104 16 113/63 94 12/19/16 11:04 95 21 12/19/16 10:00 94 Room Air 12/19/16 07:15 97.1 90 16 103/61 94 12/19/16 05:37 98.5 92 20 112/63 96 12/19/16 01:25 18 12/19/16 00:34 100.8 118 18 116/60 90 12/18/16 21:04 97.7 107 18 113/63 92 12/18/16 19:46 Room Air 12/18/16 19:40 21 12/18/16 19:18 18 I/O 12/18/16 12/18/16 12/18/16 12/19/16 12/19/16 12/19/16 06:59 14:59 22:59 06:59 14:59 22:59 Intake Total 240 ml 360 ml 480 ml 240 ml 240 ml Output Total 20 ml 70 ml 15 ml 25 ml Balance 220 ml 360 ml 410 ml 225 ml 215 ml Intake Oral 240 ml 360 ml 480 ml 240 ml 240 ml IV Total 0 ml Chest Tube Drainage Total 20 ml 70 ml 15 ml 25 ml # Voids 2 5 2 3 3 # Bowel Movements 0 3 0 1 Result Diagram: 12/19/16 0632 12/19/16 0632 Objective Remarks GENERAL: Patient is 46 yo lying in bed in NAD SKIN: Warm and dry. HEAD: Normocephalic. EYES: No scleral icterus. No injection or drainage. NECK: Supple, trachea midline. No JVD or lymphadenopathy. CARDIOVASCULAR: Regular rate and rhythm without murmurs, gallops, or rubs. RESPIRATORY: Breath sounds equal bilaterally. Diminished BS on right. Right CT in place GASTROINTESTINAL: Abdomen soft, non-tender, nondistended. MUSCULOSKELETAL: No cyanosis, or edema. BACK: Nontender without obvious deformity. No CVA tenderness. 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 Monitor CT drainage- Cytology from December 04 showed no malignant cells, cytology from 12/12 pending.. Continue with abx ( Rocephin, Zithromax) monitor for signs of infections ( Fever , WBCGI/DVT prophylaxis per primary team Check BX result-stii pending Long discussion with pt and and answered all their questions DW family DW Dr.Khanna DÍAZ postponed , pending bx results. CXr in Konrad Jiang MD December 19, 2016 18:42
--- NOTE | 2016-12-19 22:41 | MB ---
cc: EMMA NICE DATE OF CONSULTATION 12/19/16 REASON FOR CONSULTATION Probable lung cancer. PATIENT PROFILE The patient is a 46-year-old white male. He is . He has two children, a son age 12 and A daughter age six. He was born in [place], [place]. He has lived in [place] since 1993. 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 Currently, the patient smokes three to four cigarettes per day. In the past, he had smoked three-quarters of a pack of cigarettes daily for a total of 30 years. There is no history of exposure to asbestos, alcohol intake is rare. He enjoys working with model airplanes and car tenriism. HISTORY OF PRESENT ILLNESS The patient is a 46-year-old male who was well until October of 2016. His family developed an upper respiratory tract infection. He had similar symptoms. The members of his family improved, but he was worse. He noted increasing cough and shortness of breath and may have had an insidious weight loss. He went to the emergency room on 11/30/2016 and had a chest x-ray showing a right pleural effusion. He was felt to have a right lower lobe pneumonia and was treated with antibiotics. He did not improve and was admitted to [facility] on 12/04 due to worsening shortness of breath. He had a thoracentesis on 12/04/2016 and the cytology was negative for malignant cells. On December 12, he had a bronchoscopy and right lower lobe washings were negative for malignant cells. He had a second what I believe was thoracentesis on 12/13/2016 which reads right pleural fluid negative for malignant cells. He was having problems swallowing and on 12/16/2016 an upper endoscopy which showed minimal chronic gastritis. The GE junction showed moderate chronic inflammation. He has a previous history of GI reflux. A CT scan of the chest on 12/13/2016 showed a large ill-defined tumor mass in the right infrahilar region measuring up to at least 7 cm. There was dense consolidation involving the right lower lobe and perihilar area. There was a moderate sized right pleural effusion with apparent loculated components. There was subcarinal adenopathy measuring up to 4.6 x 3.1 cm in diameter. There was a right hilar mass with hilar adenopathy. There was pretracheal and peritracheal adenopathy. This was obviously felt to be highly suggestive of a lung cancer. On 12/15/2016, the patient had a CT-guided core biopsy of the lung mass. Pathology is pending. PAST SURGICAL HISTORY Repair of torn muscle left shoulder. PAST MEDICAL HISTORY 1. Gastroesophageal reflux 2. Patient had upper endoscopy and colonoscopy in the past and was found to have GE reflux and diverticular disease. 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 Richard. 3. Attention deficit disorder. MEDICATIONS Prior to admission 1. Prilosec 2. Adderall. ALLERGIES CODEINE. FAMILY HISTORY Father is living. He is estranged from his father. Mother of complications of overdose on pills and alcohol. He has one sister who has lupus and celiac disease. REVIEW OF SYSTEMS Vision normal. Hearing normal. Occasional difficulty swallowing. No chest pain, palpitations other than some vague fullness in the right chest. He has shortness of breath, cough, no melena, hematochezia or hematemesis. He has lost unspecified amount of weight, tells me he has a good appetite. No dysuria, frequency. No bone pain. No headaches, focal weakness. No skin problems. PHYSICAL EXAM gaunt male with right chest tube BP 110/60, Temp 99.1, RR 18, pulse 110, O2 sat 92% HEENT: normal Heart: regular rhythm, 1/6 dhara Lungs: decreased sounds right base. right chest tube in place Abdomen: soft, no enlargement of liver or spleen Msk: no bone tenderness. mild muscle wasting Extrem : no edema Skin: intact Neurologic: no focal weakness Psychiatric: anxious over situation ASSESSMENT The patient is a 46-year-old male with a previous history of tobacco who has a radiographic picture consistent with a locally advanced lung cancer with a 7 cm right infrahilar mass, a right pleural effusion, mediastinal adenopathy, pretracheal and paraaortic adenopathy. RECOMMENDATIONS I reviewed his situation with him and the likelihood that we have lung cancer. I need a path report before proceeding. 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 If this is a non-small cell lung cancer, then options would be chemotherapy, targeted therapy if he has the appropriate mutation, and immune therapy. He unfortunately appears to have bulky disease and it does not appear that this is likely to be curable. MD JONNY Carvajal/ /9:55 PM /10:26 PM SHAHID
--- NOTE | 2016-12-19 23:31 | HHI.PR ---
Subjective Remarks patient seen this morning around 10 AM. Says he is feeling all right. Denies any shortness of breath. He does report mild chest pain at chest tube insertion site which is controlled. No nausea or vomiting. Discussed later with Dr. Bustos infectious disease. Possible malignancy. We' ll consult oncology. Objective Vital Signs Date Time Temp Pulse Resp B/P Pulse Ox O2 Delivery O2 Flow Rate FiO2 12/19/16 20:00 99.1 116 18 111/66 93 12/19/16 18:26 100.5 12/19/16 17:53 92 21 12/19/16 15:40 98.8 100 16 106/59 92 12/19/16 11:38 98.8 104 16 113/63 94 12/19/16 11:04 95 21 12/19/16 10:00 94 Room Air 12/19/16 07:15 97.1 90 16 103/61 94 12/19/16 05:37 98.5 92 20 112/63 96 12/19/16 01:25 18 12/19/16 00:34 100.8 118 18 116/60 90 I/O 12/18/16 12/18/16 12/18/16 12/19/16 12/19/16 12/19/16 07:00 15:00 23:00 07:00 15:00 23:00 Intake Total 240 ml 360 ml 480 ml 240 ml 240 ml Output Total 20 ml 70 ml 15 ml 25 ml Balance 220 ml 360 ml 410 ml 225 ml 215 ml Intake Oral 240 ml 360 ml 480 ml 240 ml 240 ml IV Total 0 ml Chest Tube Drainage Total 20 ml 70 ml 15 ml 25 ml # Voids 2 5 2 3 3 # Bowel Movements 0 3 0 1 Result Diagram: 12/19/16 0632 12/19/16 0632 Objective Remarks GENERAL: patient sitting up in bed. Appears comfortable. Alert and oriented 3. SKIN: Warm and dry. HEAD: Normocephalic. EYES: No scleral icterus. No injection or drainage. NECK: Supple, trachea midline. No JVD. CARDIOVASCULAR: Regular rate and rhythm without murmurs, gallops, or rubs. RESPIRATORY: No accessory muscle use.decreased breath sounds right lung..just to right lung with serosanguineous fluid to suction. GASTROINTESTINAL: Abdomen soft, non-tender, nondistended. MUSCULOSKELETAL: No cyanosis, or edema. BACK: Nontender without obvious deformity. No CVA tenderness. A/P Assessment and Plan Sepsis secondary to Pneumococcal pneumonia S/P Bronchoscopy 12/11 Strep pneumonia antigen positive Legionella urine antigen negative Continue incentive spirometry. Previously on ceftriaxone and azithromycin, infectious disease following, antibiotics stopped. Infectious disease following, chest x-ray shows persistent pleural effusion. Could also be secondary to mass. Status post lung biopsy 12/15/16. Awaiting results. Recurrent Pleural effusion, CT upgraded size by IR- 12/13- no leaking Right lung mass now seen in chest CT with contrast - 12/12 Patient with recurrent pleural effusions status post thoracentesis 2. CT in place, minimal output. Cytology negative on 12/04.. Repeat cytology on 12/12 negative. Cytology on 12/[address] management per Dr. Jiang, Dr. Weinberg ff: plan for VATs tomorrow in am 12/19. status post CT-guided biopsy 12/15/16. Right chest tube in place: sero-sanguinous fluid noted. --12/19. Dr. Bustos has discussed with pathology. Possible malignancy. We' ll consult oncology. Insomnia, improved. Antibiotic associated Diarrhea with epigastric fullness history of GERD with dysphagia Leukocytosis WBC elevated but trending down: 15.6 -- 13.9 -- 14.6 -- 14.7 -- 13.6 -- 13.8 -- 12.7 -- 12.4. CBC in am. Temp spike t -max 101.1. ID following, blood cultures and sputum NGTD. Continue Lactinex. C. diff negative. GI following, status post EGD. Gastritis and esophagitis, biopsy still pending. Shoulder pain Chest x-ray reviewed by me, high riding humeral head indicating possible rotator cuff insufficiency. Unlikely metastatic disease. Continue Flexeril. Hypokalemia: -potassium reviewed and resolved after replacement. Continue to follow. GI Prophylaxis: Protonix 40 mg Q12h PO. DVT prophylaxis: SCDs. Discharge Planning continue workup of right lung pleural effusion. Dao Miller MD December 19, 2016 23:31
[2016-12-20] VITALS (7 sets, daily range): BP systolic 109–113; BP diastolic 61–73; PULSE 88–108; RESP 16–24; TEMP 98.1–99.6; O2SAT 93–98
[2016-12-20] MEDS: ZOLPIDEM TARTRATE 10 MG TAB PO PRN (00:30)
[2016-12-20] MEDS: HYDROmorphone HCL 2 MG TAB PO PRN ×4 (00:30→18:08)
[2016-12-20] MEDS: CYCLOBENZAPRINE HCL 10 MG TAB PO PRN ×3 (04:19→21:38)
[2016-12-20] MEDS: oxyCODONE/ACETAMINOPHEN 5 MG/325 MG TAB PO PRN ×4 (04:19→21:39)
[2016-12-20] MEDS: IBUPROFEN 400 MG TAB PO PRN (04:19)
--- NOTE | 2016-12-20 05:54 | RADRPT ---
EXAM DATE/TIME: 12/20/2016 05:12 [place] COMPARISON: CT THORAX W CONTRAST, December 13, 2016, 8:14. CHEST EXPIRATION ONLY, December 14, 2016, 3:37. CHEST SINGLE A P, December 13, 2016, 22:05. INDICATIONS : Shortness of breath. MEDICAL HISTORY : Gastroesophageal reflux disease. SURGICAL HISTORY : None. ENCOUNTER: Subsequent ACUITY: 2 weeks PAIN SCORE: Non-responsive. LOCATION: Bilateral chest FINDINGS: A right chest tube remains in place. No evidence of pneumothorax. There continues to be moderate diff use opacification of the right hemithorax. The left lung is grossly clear. The heart size is stable. No significant changes compared to the prior examination. CONCLUSION: No significant change. Ck Spencer MD on December 20, 2016 at 5:52 Board Certified Radiologist. This report was verified electronically.
[2016-12-20] MEDS: SUCRALFATE 1 GM/10 ML CUP PO SCH ×4 (06:35→21:37)
[2016-12-20] MEDS ORDERED: LEVOTHYROXINE SODIUM 125 MCG TAB PO SCH (07:00)
[2016-12-20 08:56] LABS: AUTOMATED NEUTROPHIL # 11.8 TH/MM3 (1.8-7.7); BASOPHIL # 0.1 TH/MM3 (0-0.2); BASOPHIL % 0.4 % (0.0-2.0); EOSINOPHIL # 0.3 TH/MM3 (0-0.4); EOSINOPHIL % 2.1 % (0.0-4.0); HEMATOCRIT 26.3 % (39.0-51.0); HEMO FLAGS DIFF FINAL; LYMPH % 8.1 % (9.0-44.0); LYMPHOCYTE # 1.2 TH/MM3 (1.0-4.8); MEAN CELL VOLUME 86.7 FL (80.0-100.0); MEAN CORPUSCULAR HEMOGLOBIN 29.4 PG (27.0-34.0); MEAN CORPUSCULAR HGB CONC 33.9 % (32.0-36.0); MONO % 9.3 % (0.0-8.0); NEUT % 80.1 % (16.0-70.0); PLATELET COUNT 558 TH/MM3 (150-450); RED BLOOD COUNT 3.03 MIL/MM3 (4.50-5.90); WHITE BLOOD COUNT 14.7 TH/MM3 (4.0-11.0)
[2016-12-20] MEDS: NYSTATIN SUSP 500,000 U/5 ML CUP SWISH-SWAL SCH ×8 (09:00→21:00)
[2016-12-20] MEDS: LACTOBACILLUS ACIDOPHILUS TAB PO SCH ×3 (09:17→18:08)
[2016-12-20] MEDS: PANTOPRAZOLE SOD 40 MG DELAYED RELEASE TAB PO SCH ×2 (09:17→21:38)
[2016-12-20] MEDS: SODIUM CHLORIDE 0.9% FLUSH 10 ML FLUSH IV FLUSH SCH ×2 (09:18→21:40)
[2016-12-20 09:21] LABS: MAGNESIUM 2.2 MG/DL (1.5-2.5); POTASSIUM 3.9 MEQ/L (3.5-5.1)
--- NOTE | 2016-12-20 18:04 | HHI.GIFU ---
Subjective Remarks Up in chair. Feeling better. Not having bloating. Still with a few loose stools. No abdominal pain. States both his sister and father have celiac disease (LolaJosefa Demetriadena PRIETO) Objective Vitals I&O Vital Signs Date Time Temp Pulse Resp B/P Pulse Ox O2 Delivery O2 Flow Rate FiO2 12/20/16 16:55 99.0 103 18 112/61 97 12/20/16 12:44 98.7 108 18 109/66 94 12/20/16 09:39 95 Room Air 12/20/16 08:18 98.1 88 18 109/62 95 12/20/16 04:00 98.9 108 24 113/73 93 12/20/16 00:00 98.7 98 24 113/67 98 12/19/16 20:15 Room Air 12/19/16 20:00 99.1 116 18 111/66 93 12/19/16 18:26 100.5 I/O 12/19/16 12/19/16 12/19/16 12/20/16 12/20/16 12/20/16 06:59 14:59 22:59 06:59 14:59 22:59 Intake Total 240 ml 240 ml Output Total 15 ml 25 ml 20 ml Balance 225 ml 215 ml -20 ml Intake Oral 240 ml 240 ml IV Total 0 ml Chest Tube Drainage Total 15 ml 25 ml 20 ml # Voids 3 3 2 # Bowel Movements 0 1 1 Laboratory Laboratory Tests Test 12/20/16 07:12 White Blood Count 14.7 Red Blood Count 3.03 Hemoglobin 8.9 Hematocrit 26.3 Mean Corpuscular Volume 86.7 Mean Corpuscular Hemoglobin 29.4 Mean Corpuscular Hemoglobin 33.9 Concent Red Cell Distribution Width 13.0 Platelet Count 558 Mean Platelet Volume 7.4 Neutrophils (%) (Auto) 80.1 Lymphocytes (%) (Auto) 8.1 Monocytes (%) (Auto) 9.3 Eosinophils (%) (Auto) 2.1 Basophils (%) (Auto) 0.4 Neutrophils # (Auto) 11.8 Lymphocytes # (Auto) 1.2 Monocytes # (Auto) 1.4 Eosinophils # (Auto) 0.3 Basophils # (Auto) 0.1 CBC Comment DIFF FINAL Differential Comment Sodium Level 133 Potassium Level 3.9 Chloride Level 95 Carbon Dioxide Level 31.0 Anion Gap 7 Blood Urea Nitrogen 9 Creatinine 0.88 Estimat Glomerular Filtration 92 Rate Random Glucose 90 Calcium Level 8.0 Phosphorus Level 2.8 Magnesium Level 2.2 Albumin 1.7 Carcinoembryonic Antigen 1.1 Date/Time Procedure Status Source Growth 12/17/16 14:10 Aerobic Blood Culture - Preliminary Resulted Blood Peripheral NO GROWTH IN 3 DAYS 12/17/16 14:10 Anaerobic Blood Culture - Preliminary Resulted Blood Peripheral NO GROWTH IN 3 DAYS Imaging Last Impressions Chest X-Ray 12/20/16 0600 Signed Impressions: Service Date/Time: Tuesday, December 20, 2016 05:12 - CONCLUSION: No significant change. Ck Spencer MD Shoulder X-Ray 12/16/16 0000 Signed Impressions: Service Date/Time: Friday, December 16, 2016 16:37 - CONCLUSION: 1. High riding humeral head indicating possible rotator cuff insufficiency. 2. Mild acromioclavicular joint arthrosis. Jett Sherwood MD Lung Biopsy CT 12/15/16 0000 Signed Impressions: Service Date/Time: Thursday, December 15, 2016 11:59 - CONCLUSION: Uncomplicated CT guided biopsy of right lung mass. Rick Agrawal MD Chest Tube Change 12/13/16 1302 Signed Impressions: Service Date/Time: Tuesday, December 13, 2016 12:06 - CONCLUSION: Uncomplicated chest tube exchange as above. Blake Renteria MD Chest CT 12/13/16 0600 Signed Impressions: Service Date/Time: Tuesday, December 13, 2016 08:14 - CONCLUSION: 1. Ill-defined tumor mass in the right infrahilar region measuring up to least 7 cm. 2. Extensive mediastinal adenopathy and right hilar adenopathy. 3. Dense consolidation remains in the right lung base. 4. Mild interval increase in right pleural effusion with loculated components. Ryan Parry MD Chest Tube Insertion 12/08/16 0000 Signed Impressions: Service Date/Time: Thursday, December 08, 2016 14:46 - CONCLUSION: Uncomplicated chest tube placement as above. Rick Agrawal MD Thoracentesis Ultrasound 12/06/16 0000 Signed Impressions: Service Date/Time: Tuesday, December 06, 2016 13:53 - CONCLUSION: Uncomplicated ultrasound guided thoracentesis. Glen Ahn MD Physical Exam HEENT: Normocephalic; atraumatic; no jaundice. NC CHEST: CTA, Diminished. Right CT CARDIAC: RRR ABDOMEN: Soft, nondistended, nontender; no hepatosplenomegaly; bowel sounds are present in all four quadrants. EXTREMITIES: No clubbing, cyanosis, or edema. SKIN: Normal; no rash; no jaundice. 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 (Josefa Davila) Assessment and Plan Plan ASSESSMENT: - Severe GERD, odynophagia. improved. S/P EGD (12/16/16)-----> 1. Gastritis antrum-biopsy, esophagitis-irregulr z line - spasm in distal esophagus-biopsy, dilatation using Savary dilator 15 2. Retroflexed views revealed a hiatal hernia Pathology : minimal chronic gastritis, GE junction mucosa with mdoerate chronic inflammation. PPI. Nystatin. carafate. Much improved. - Diarrhea. improved today but he was having some yesterday and has been having bloating and gas. Stools negative for C-diff. Just found out his father and sister both have celiac, wants to be tested. He never had colonoscopy before. Improved, does not wish to pursue colonoscopy at this time. Improved. Celiac testing pending. - Bloating. Improved. Celiac testing pending. - Anemia. 8.9/26.3. - Pleural effusion. S/P thoracentesis (12/04/16) with removal 2,100cc-n umerous reactive mesothelial cells, lymphocytes and macrophages, negative for malignant cells. Rpt. thoracentesis (12/06/16) with 1,300cc. S/ P CT (12/08/16) with exchange on (12/13/16). Possible VATS/Pleurodesis per CVT. - Pneumonia with positive strep pneumoniae ag. S/P Abx. - Lung mass new findings- CT today showed tumor mass in the right infrahilar region measuring up to least 7 cm with extensive mediastinal adenopathy and right hilar adenopathy. S/P Lung biopsy, pathology pending. - Leukocytosis- WBX 14.7. Abx. - ADD per attending Plan: - HECTOR - Await celiac panel - Cont. PPI - Cont. Nystatin - Cont. Carafate - Cont. Probiotics - Monitor labs - Supportive care - Pt does not wish to pursue the colonoscopy at this time - Further recommendations to follow based on results of above - Patient seen and examined by Dr. Shrestha and myself and this note is written on his behalf. (Josefa Davila) Josefa Davila December 20, 2016 18:04 Cassidy Shrestha MD December 27, 2016 09:44
[2016-12-20] MEDS: ACETAMINOPHEN 500 MG CPLT PO PRN (18:08)
--- NOTE | 2016-12-20 18:45 | PD.ONC.PN ---
Subjective Subjective Remarks feels well Objective Data Date Time Temp Pulse Resp B/P Pulse Ox O2 Delivery O2 Flow Rate FiO2 12/20/16 18:05 99.6 12/20/16 16:55 99.0 103 18 112/61 97 12/20/16 12:44 98.7 108 18 109/66 94 12/20/16 09:39 95 Room Air 12/20/16 08:18 98.1 88 18 109/62 95 12/20/16 04:00 98.9 108 24 113/73 93 12/20/16 00:00 98.7 98 24 113/67 98 12/19/16 20:15 Room Air 12/19/16 20:00 99.1 116 18 111/66 93 12/20/16 12/20/16 12/20/16 07:00 15:00 23:00 Output Total 20 ml 25 ml Balance -20 ml -25 ml Result Diagram: 12/20/16 0712 12/20/16 0712 Laboratory Results Laboratory Tests Test 12/20/16 07:12 White Blood Count 14.7 TH/MM3 Red Blood Count 3.03 MIL/MM3 Hemoglobin 8.9 GM/DL Hematocrit 26.3 % Mean Corpuscular Volume 86.7 FL Mean Corpuscular Hemoglobin 29.4 PG Mean Corpuscular Hemoglobin 33.9 % Concent Red Cell Distribution Width 13.0 % Platelet Count 558 TH/MM3 Mean Platelet Volume 7.4 FL Neutrophils (%) (Auto) 80.1 % Lymphocytes (%) (Auto) 8.1 % Monocytes (%) (Auto) 9.3 % Eosinophils (%) (Auto) 2.1 % Basophils (%) (Auto) 0.4 % Neutrophils # (Auto) 11.8 TH/MM3 Lymphocytes # (Auto) 1.2 TH/MM3 Monocytes # (Auto) 1.4 TH/MM3 Eosinophils # (Auto) 0.3 TH/MM3 Basophils # (Auto) 0.1 TH/MM3 CBC Comment DIFF FINAL Differential Comment Sodium Level 133 MEQ/L Potassium Level 3.9 MEQ/L Chloride Level 95 MEQ/L Carbon Dioxide Level 31.0 MEQ/L Anion Gap 7 MEQ/L Blood Urea Nitrogen 9 MG/DL Creatinine 0.88 MG/DL Estimat Glomerular Filtration 92 ML/MIN Rate Random Glucose 90 MG/DL Calcium Level 8.0 MG/DL Phosphorus Level 2.8 MG/DL Magnesium Level 2.2 MG/DL Albumin 1.7 GM/DL Carcinoembryonic Antigen 1.1 NG/ML Imaging Studies Last 24 hours Impressions Chest X-Ray 12/20/16 0600 Signed Impressions: Service Date/Time: Tuesday, December 20, 2016 05:12 - CONCLUSION: No significant change. Ck Spencer MD Administered Medications Medications (Trade) Dose Ordered Sig/Thiago Route PRN Reason Start Time Stop Time Status Last Admin Dose Admin Sodium Chloride (NS Flush) 2 ml UNSCH PRN IV FLUSH FLUSH AFTER USING IV ACCESS 12/04/16 01:00 12/16/16 03:19 Sodium Chloride (NS Flush) 2 ml BID IV FLUSH 12/04/16 09:00 12/20/16 09:18 Amphetamine/ Dextroamphetamine (Adderall) 20 mg DAILY PO 12/04/16 09:00 Hold 12/05/16 09:08 Magnesium Hydroxide (Milk Of Magnesia Liq) 30 ml DAILY PRN PO CONSTIPATION 12/06/16 15:00 12/07/16 07:09 Zolpidem Tartrate (Ambien) 10 mg HS PRN PO INSOMNIA 12/06/16 17:00 12/20/16 00:30 Lactobacillus Acidophilus (Lactinex) 1 tab TID PO 12/10/16 13:00 12/20/16 18:08 Nystatin (Mycostatin Liq) 5 ml QID SWISH-SWAL 12/13/16 13:00 12/20/16 12:30 Oxycodone/ Acetaminophen (Percocet 5-325 Mg) 1 tab Q4H PRN PO PAIN SCALE 3-10 12/15/16 15:30 12/20/16 15:39 Hydromorphone HCl (Dilaudid) 1 mg Q6H PRN PO pain 6-10 12/16/16 10:30 12/20/16 18:08 Nystatin (Mycostatin Liq) 5 ml QID SWISH-SWAL 12/16/16 18:00 12/20/16 18:08 Sucralfate (Carafate Liq) 1 gm ACHS PO 12/17/16 16:00 12/20/16 15:39 Pantoprazole Sodium (Protonix) 40 mg Q12HR PO 12/17/16 21:00 12/20/16 09:17 Enoxaparin Sodium (Lovenox Inj) 40 mg Q24H SQ 12/17/16 18:00 Hold 12/17/16 18:34 Acetaminophen (Tylenol) 500 mg Q6HR PRN PO FEVER 12/20/16 17:45 12/20/16 18:08 Objective Remarks GENERAL: slender SKIN: Warm and dry. HEAD: Normocephalic. EYES: No scleral icterus. No injection or drainage. NECK: Supple, trachea midline. No JVD or lymphadenopathy. LYMPHATIC: No adenopathy. CARDIOVASCULAR: Regular rate and rhythm without murmurs. RESPIRATORY: decreased sounds right lung GASTROINTESTINAL: Abdomen soft, non-tender, nondistended. EXTREMITIES: No cyanosis, or edema. MUSCULOSKELETAL: Adequate muscle tone. NEUROLOGICAL: No obvious focal deficit. Awake, alert, and oriented x3. PSYCHIATRIC: Appropriate mood and affect; insight and judgment normal. Assessment/Plan Assessment 1: cea 1.1. await results of bx. A lymphoma could have a similar presentation and would certainly be more desirable. Discussed situation with him and uncertain diagnosis at present. LDH in am. Manuel Gallegos MD December 20, 2016 18:45
--- NOTE | 2016-12-20 23:57 | HHI.PR ---
Subjective Remarks patient seen today around 3 PM. Says he is feeling all right. He denies any shortness of breath. Reports low-grade fevers/chills. Semi-formed bowel movements. Objective Vital Signs Date Time Temp Pulse Resp B/P Pulse Ox O2 Delivery O2 Flow Rate FiO2 12/20/16 20:00 99.2 99 16 113/62 94 12/20/16 18:05 99.6 12/20/16 16:55 99.0 103 18 112/61 97 12/20/16 12:44 98.7 108 18 109/66 94 12/20/16 09:39 95 Room Air 12/20/16 08:18 98.1 88 18 109/62 95 12/20/16 04:00 98.9 108 24 113/73 93 12/20/16 00:00 98.7 98 24 113/67 98 I/O 12/19/16 12/19/16 12/19/16 12/20/16 12/20/16 12/20/16 07:00 15:00 23:00 07:00 15:00 23:00 Intake Total 240 ml 240 ml Output Total 15 ml 25 ml 20 ml 25 ml Balance 225 ml 215 ml -20 ml -25 ml Intake Oral 240 ml 240 ml IV Total 0 ml Chest Tube Drainage Total 15 ml 25 ml 20 ml 25 ml # Voids 3 3 2 # Bowel Movements 0 1 1 Result Diagram: 12/20/1612 12/20/16 0712 Objective Remarks GENERAL: patient sitting up in bed. Appears comfortable. Alert and oriented 3. SKIN: Warm and dry. HEAD: Normocephalic. EYES: No scleral icterus. No injection or drainage. NECK: Supple, trachea midline. No JVD. CARDIOVASCULAR: Regular rate and rhythm without murmurs, gallops, or rubs. RESPIRATORY: No accessory muscle use.decreased breath sounds right lung..chest tube in right lung with serosanguineous fluid to suction. GASTROINTESTINAL: Abdomen soft, non-tender, nondistended. MUSCULOSKELETAL: No cyanosis, or edema. BACK: Nontender without obvious deformity. No CVA tenderness. A/P Assessment and Plan //Sepsis secondary to Pneumococcal pneumonia S/P Bronchoscopy 12/11 Strep pneumonia antigen positive Legionella urine antigen negative Continue incentive spirometry. Previously on ceftriaxone and azithromycin, infectious disease following, antibiotics stopped. Infectious disease following, chest x-ray shows persistent pleural effusion. Could also be secondary to mass. Status post lung biopsy 12/15/16. -Continues with leukocytosis and low-grade fevers. Could be secondary to malignancy. Continue antibiotics as per infectious disease.- //Recurrent Pleural effusion, CT upgraded size by IR- 12/13- no leaking //Right lung mass now seen in chest CT with contrast - 12/12 Patient with recurrent pleural effusions status post thoracentesis 2. CT in place, minimal output. Cytology negative on 12/04.. Repeat cytology on 12/12 negative. Cytology on 12/[address] management per Dr. Jiang, Dr. Weinberg ff: plan for VATs tomorrow in am 12/19. status post CT-guided biopsy 12/15/16. Right chest tube in place: sero-sanguinous fluid noted. --12/19. Dr. Bustos has discussed with pathology. Possible malignancy. We' ll consult oncology. -Oncology following. Appreciate assistance. Follow-up pathology, pending. //Insomnia, improved. //Antibiotic associated Diarrhea with epigastric fullness //history of GERD with dysphagia Temp spike t -max 101.1. ID following, blood cultures and sputum NGTD. Continue Lactinex. C. diff negative. GI following, status post EGD. Gastritis and esophagitis, biopsy negative for Flanagan's esophagus. -Continue PPI. //Shoulder pain Chest x-ray reviewed by me, high riding humeral head indicating possible rotator cuff insufficiency. Unlikely metastatic disease. Continue Flexeril. //Hypokalemia: -potassium reviewed and resolved after replacement. Continue to follow. //GI Prophylaxis: Protonix 40 mg Q12h PO. //DVT prophylaxis: SCDs. Discharge Planning continue workup of right lung pleural effusion. Dao Miller MD December 20, 2016 23:57
[2016-12-21] VITALS (7 sets, daily range): BP systolic 101–121; BP diastolic 59–74; PULSE 18–116; RESP 14–24; TEMP 96.3–100.1; O2SAT 93–100
[2016-12-21] MEDS: ZOLPIDEM TARTRATE 10 MG TAB PO PRN ×2 (00:06→23:51)
[2016-12-21] MEDS: HYDROmorphone HCL 2 MG TAB PO PRN ×4 (00:06→18:44)
[2016-12-21] MEDS: oxyCODONE/ACETAMINOPHEN 5 MG/325 MG TAB PO PRN ×5 (03:08→23:51)
[2016-12-21] MEDS: ACETAMINOPHEN 500 MG CPLT PO PRN (04:41)
[2016-12-21] MEDS: CYCLOBENZAPRINE HCL 10 MG TAB PO PRN ×3 (06:19→21:54)
[2016-12-21] MEDS: SUCRALFATE 1 GM/10 ML CUP PO SCH ×4 (06:20→21:54)
[2016-12-21 07:09] LABS: AUTOMATED NEUTROPHIL # 14.8 TH/MM3 (1.8-7.7); BASOPHIL # 0.1 TH/MM3 (0-0.2); BASOPHIL % 0.6 % (0.0-2.0); EOSINOPHIL # 0.2 TH/MM3 (0-0.4); HEMATOCRIT 30.1 % (39.0-51.0); HEMO FLAGS DIFF FINAL; LYMPH % 6.9 % (9.0-44.0); LYMPHOCYTE # 1.2 TH/MM3 (1.0-4.8); MEAN CORPUSCULAR HEMOGLOBIN 28.3 PG (27.0-34.0); MEAN CORPUSCULAR HGB CONC 32.2 % (32.0-36.0); MONO % 9.2 % (0.0-8.0); NEUT % 82.3 % (16.0-70.0); PLATELET COUNT 657 TH/MM3 (150-450); RED BLOOD COUNT 3.42 MIL/MM3 (4.50-5.90); RED CELL DISTRIBUTION WIDTH 13.1 % (11.6-17.2); WHITE BLOOD COUNT 17.9 TH/MM3 (4.0-11.0)
[2016-12-21 07:27] LABS: BICARBONATE 29.9 MEQ/L (21.0-32.0); POTASSIUM 3.8 MEQ/L (3.5-5.1)
[2016-12-21] MEDS: NYSTATIN SUSP 500,000 U/5 ML CUP SWISH-SWAL SCH ×8 (09:00→21:00)
[2016-12-21] MEDS: LACTOBACILLUS ACIDOPHILUS TAB PO SCH ×3 (09:26→18:44)
[2016-12-21] MEDS: PANTOPRAZOLE SOD 40 MG DELAYED RELEASE TAB PO SCH ×2 (09:26→21:54)
[2016-12-21] MEDS: SODIUM CHLORIDE 0.9% FLUSH 10 ML FLUSH IV FLUSH SCH ×2 (09:27→21:54)
--- NOTE | 2016-12-21 16:00 | HHI.PR ---
Subjective Remarks Patient seen this morning. Says he is feeling all right. He denies any shortness of breath. He reports continued right shoulder pain with movement. Objective Vital Signs Date Time Temp Pulse Resp B/P Pulse Ox O2 Delivery O2 Flow Rate FiO2 12/21/16 12:45 97.1 69 19 116/74 95 12/21/16 10:25 97 21 12/21/16 08:51 97.9 18 18 106/68 94 12/21/16 04:00 100.1 106 24 121/68 93 12/21/16 00:00 98.9 98 24 120/70 100 12/20/16 20:00 99.2 99 16 113/62 94 12/20/16 19:00 94 Nasal Cannula 12/20/16 18:05 99.6 12/20/16 16:55 99.0 103 18 112/61 97 I/O 12/20/16 12/20/16 12/20/16 12/21/16 12/21/16 12/21/16 07:00 15:00 23:00 07:00 15:00 23:00 Output Total 20 ml 25 ml Balance -20 ml -25 ml Chest Tube Drainage Total 20 ml 25 ml # Voids 2 2 2 Result Diagram: 12/21/16 0536 12/21/16 0536 Objective Remarks GENERAL: patient lying down in bed. Appears comfortable. Alert and oriented 3. SKIN: Warm and dry. HEAD: Normocephalic. EYES: No scleral icterus. No injection or drainage. NECK: Supple, trachea midline. No JVD. CARDIOVASCULAR: Regular rate and rhythm without murmurs, gallops, or rubs. RESPIRATORY: No accessory muscle use.worsening of decreased breath sounds right lung..chest tube in right lung with serosanguineous fluid to suction. Minimal output. GASTROINTESTINAL: Abdomen soft, non-tender, nondistended. MUSCULOSKELETAL: No cyanosis, or edema. BACK: Nontender without obvious deformity. No CVA tenderness. A/P Assessment and Plan //Sepsis secondary to Pneumococcal pneumonia S/P Bronchoscopy 12/11 Strep pneumonia antigen positive Legionella urine antigen negative Continue incentive spirometry. Previously on ceftriaxone and azithromycin, infectious disease following, antibiotics stopped. Infectious disease following, chest x-ray shows persistent pleural effusion. Could also be secondary to mass. Status post lung biopsy 12/15/16. =Continues with leukocytosis and low-grade fevers. Could be secondary to malignancy. Continue antibiotics as per infectious disease. -12/21. Leukocytosis slightly worse. Continue antibiotics as per infectious disease. Follow-up pathology //Recurrent Pleural effusion, CT upgraded size by IR- 12/13- no leaking //Right lung mass now seen in chest CT with contrast - 12/12 Patient with recurrent pleural effusions status post thoracentesis 2. CT in place, minimal output. Cytology negative on 12/04.. Repeat cytology on 12/12 negative. Cytology on 12/[address] management per Dr. Jiang, Dr. Weinberg ff: plan for VATs tomorrow in am 12/19. status post CT-guided biopsy 12/15/16. Right chest tube in place: sero-sanguinous fluid noted. --12/19. Dr. Bustos has discussed with pathology. Possible malignancy. We' ll consult oncology. -Oncology following. Appreciate assistance. Follow-up pathology, pending. -12/21-Discussed with nursing. Minimal output from right chest tube, however decreased breath sounds in right lung. Repeat chest x-ray to evaluate for pleural effusion. //Insomnia, improved. //Antibiotic associated Diarrhea with epigastric fullness //history of GERD with dysphagia Temp spike t -max 101.1. ID following, blood cultures and sputum NGTD. Continue Lactinex. C. diff negative. GI following, status post EGD. Gastritis and esophagitis, biopsy negative for Flanagan's esophagus. -Continue PPI. //Shoulder pain Chest x-ray reviewed by me, high riding humeral head indicating possible rotator cuff insufficiency. Unlikely metastatic disease. Continue Flexeril. //Hypokalemia: -potassium reviewed and resolved after replacement. Continue to follow. //GI Prophylaxis: Protonix 40 mg Q12h PO. //DVT prophylaxis: SCDs. Discharge Planning continue workup of right lung pleural effusion. Dao Miller MD December 21, 2016 16:00
--- NOTE | 2016-12-21 16:32 | RADRPT ---
EXAM DATE/TIME: 12/21/2016 16:00 [facility] COMPARISON: CT THORAX W CONTRAST, December 13, 2016, 8:14. CT NEEDLE BIOPSY LUNG, RIGHT, December 15, 2016, 11:59. CHEST SINGLE AP, December 20, 2016, 5:12. INDICATIONS : Pleural effusion. MEDICAL HISTORY : Gastroesophageal reflux disease. SURGICAL HISTORY : None. ENCOUNTER: Subsequent ACUITY: 3 weeks PAIN SCORE: 0/10 LOCATION: Bilateral chest FINDINGS: Chest tube remains in place on the right without significant improvement. The the left lung is clear . Repeat CT scan with contrast is suggested. CONCLUSION: Right chest tube remains in good position no interval change in the appearance of the opacified right hemithorax. Rogelio Renteria MD FACR on December 21, 2016 at 16:27 Board Certified Radiologist. This report was verified electronically.
[2016-12-21] MEDS ORDERED: KETOROLAC TROMETHAMINE 60 MG/2 ML (IM) VIAL IM ONE (19:30)
[2016-12-22] VITALS: BP 118/61; PULSE 101; RESP 18; TEMP 98.4; O2SAT 95
[2016-12-22 04:00] VITALS: BP 112/61; PULSE 92; RESP 24; TEMP 97.6; O2SAT 92
[2016-12-22] MEDS: oxyCODONE/ACETAMINOPHEN 5 MG/325 MG TAB PO PRN ×3 (06:45→17:58)
[2016-12-22] MEDS: SUCRALFATE 1 GM/10 ML CUP PO SCH ×4 (06:45→21:39)
[2016-12-22] MEDS: CYCLOBENZAPRINE HCL 10 MG TAB PO PRN ×2 (06:45→17:58)
[2016-12-22 07:01] LABS: AUTOMATED NEUTROPHIL # 12.2 TH/MM3 (1.8-7.7); BASOPHIL # 0.1 TH/MM3 (0-0.2); BASOPHIL % 0.4 % (0.0-2.0); EOSINOPHIL # 0.3 TH/MM3 (0-0.4); EOSINOPHIL % 1.8 % (0.0-4.0); HEMATOCRIT 25.1 % (39.0-51.0); HEMO FLAGS DIFF FINAL; LYMPH % 12.1 % (9.0-44.0); MEAN CELL VOLUME 87.1 FL (80.0-100.0); MEAN CORPUSCULAR HEMOGLOBIN 29.3 PG (27.0-34.0); MEAN CORPUSCULAR HGB CONC 33.6 % (32.0-36.0); MONO % 10.6 % (0.0-8.0); NEUT % 75.1 % (16.0-70.0); PLATELET COUNT 586 TH/MM3 (150-450); RED BLOOD COUNT 2.89 MIL/MM3 (4.50-5.90); RED CELL DISTRIBUTION WIDTH 13.1 % (11.6-17.2); WHITE BLOOD COUNT 16.2 TH/MM3 (4.0-11.0)
[2016-12-22 07:23] LABS: BICARBONATE 32.4 MEQ/L (21.0-32.0); MAGNESIUM 2.2 MG/DL (1.5-2.5)
[2016-12-22 08:26] VITALS: BP 107/62; PULSE 97; RESP 18; TEMP 99; O2SAT 93
[2016-12-22] MEDS: NYSTATIN SUSP 500,000 U/5 ML CUP SWISH-SWAL SCH ×6 (08:59→21:00)
[2016-12-22] MEDS: LACTOBACILLUS ACIDOPHILUS TAB PO SCH ×3 (09:00→17:44)
[2016-12-22] MEDS: SODIUM CHLORIDE 0.9% FLUSH 10 ML FLUSH IV FLUSH SCH ×2 (09:00→21:39)
[2016-12-22] MEDS: PANTOPRAZOLE SOD 40 MG DELAYED RELEASE TAB PO SCH ×2 (09:00→21:35)
--- NOTE | 2016-12-22 10:48 | PD.ONC.PN ---
Subjective Subjective Remarks wants to go home . Objective Data Date Time Temp Pulse Resp B/P Pulse Ox O2 Delivery O2 Flow Rate FiO2 12/22/16 08:26 99.0 97 18 107/62 93 12/22/16 04:00 97.6 92 24 112/61 92 12/22/16 00:00 98.4 101 18 118/61 95 12/21/16 20:00 99.5 108 14 112/59 94 12/21/16 20:00 96.3 116 20 101/66 93 12/21/16 19:00 95 Room Air 12/21/16 16:20 98.6 114 17 110/60 95 12/21/16 12:45 97.1 69 19 116/74 95 Result Diagram: 12/22/16 0542 12/22/16 0542 Laboratory Results Laboratory Tests Test 12/22/16 05:42 White Blood Count 16.2 TH/MM3 Red Blood Count 2.89 MIL/MM3 Hemoglobin 8.4 GM/DL Hematocrit 25.1 % Mean Corpuscular Volume 87.1 FL Mean Corpuscular Hemoglobin 29.3 PG Mean Corpuscular Hemoglobin 33.6 % Concent Red Cell Distribution Width 13.1 % Platelet Count 586 TH/MM3 Mean Platelet Volume 7.3 FL Neutrophils (%) (Auto) 75.1 % Lymphocytes (%) (Auto) 12.1 % Monocytes (%) (Auto) 10.6 % Eosinophils (%) (Auto) 1.8 % Basophils (%) (Auto) 0.4 % Neutrophils # (Auto) 12.2 TH/MM3 Lymphocytes # (Auto) 2.0 TH/MM3 Monocytes # (Auto) 1.7 TH/MM3 Eosinophils # (Auto) 0.3 TH/MM3 Basophils # (Auto) 0.1 TH/MM3 CBC Comment DIFF FINAL Differential Comment Sodium Level 136 MEQ/L Potassium Level 4.0 MEQ/L Chloride Level 98 MEQ/L Carbon Dioxide Level 32.4 MEQ/L Anion Gap 6 MEQ/L Blood Urea Nitrogen 7 MG/DL Creatinine 0.89 MG/DL Estimat Glomerular Filtration 91 ML/MIN Rate Random Glucose 88 MG/DL Calcium Level 8.1 MG/DL Phosphorus Level 3.5 MG/DL Magnesium Level 2.2 MG/DL Albumin 1.6 GM/DL Administered Medications Medications (Trade) Dose Ordered Sig/Thiago Route PRN Reason Start Time Stop Time Status Last Admin Dose Admin Sodium Chloride (NS Flush) 2 ml UNSCH PRN IV FLUSH FLUSH AFTER USING IV ACCESS 12/04/16 01:00 12/16/16 03:19 Sodium Chloride (NS Flush) 2 ml BID IV FLUSH 12/04/16 09:00 12/22/16 09:00 Amphetamine/ Dextroamphetamine (Adderall) 20 mg DAILY PO 12/04/16 09:00 Hold 12/05/16 09:08 Magnesium Hydroxide (Milk Of Magnesia Liq) 30 ml DAILY PRN PO CONSTIPATION 12/06/16 15:00 12/07/16 07:09 Zolpidem Tartrate (Ambien) 10 mg HS PRN PO INSOMNIA 12/06/16 17:00 12/21/16 23:51 Lactobacillus Acidophilus (Lactinex) 1 tab TID PO 12/10/16 13:00 12/22/16 09:00 Nystatin (Mycostatin Liq) 5 ml QID SWISH-SWAL 12/13/16 13:00 12/20/16 12:30 Oxycodone/ Acetaminophen (Percocet 5-325 Mg) 1 tab Q4H PRN PO PAIN SCALE 3-10 12/15/16 15:30 12/22/16 06:45 Hydromorphone HCl (Dilaudid) 1 mg Q6H PRN PO pain 6-10 12/16/16 10:30 12/21/16 18:44 Nystatin (Mycostatin Liq) 5 ml QID SWISH-SWAL 12/16/16 18:00 12/20/16 18:08 Sucralfate (Carafate Liq) 1 gm ACHS PO 12/17/16 16:00 12/22/16 06:45 Pantoprazole Sodium (Protonix) 40 mg Q12HR PO 12/17/16 21:00 12/22/16 09:00 Enoxaparin Sodium (Lovenox Inj) 40 mg Q24H SQ 12/17/16 18:00 Hold 12/17/16 18:34 Cyclobenzaprine HCl (Flexeril) 10 mg Q8H PRN PO RIGHT shoulder spasm 12/20/16 18:30 12/22/16 06:45 Acetaminophen (Tylenol) 500 mg Q6HR PRN PO FEVER 12/20/16 17:45 12/21/16 04:41 Objective Remarks GENERAL: slender SKIN: Warm and dry. HEAD: Normocephalic. EYES: No scleral icterus. No injection or drainage. NECK: Supple, trachea midline. No JVD or lymphadenopathy. LYMPHATIC: No adenopathy. CARDIOVASCULAR: Regular rate and rhythm without murmurs. RESPIRATORY: decreased sounds right lung GASTROINTESTINAL: Abdomen soft, non-tender, nondistended. EXTREMITIES: No cyanosis, or edema. MUSCULOSKELETAL: Adequate muscle tone. NEUROLOGICAL: No obvious focal deficit. Awake, alert, and oriented x3. PSYCHIATRIC: devastated Assessment/Plan Assessment 1: I spoke with Dr. Lai, path dept and final report will be out in hours. This is cancer. 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 will request evaluation for mutation in ALK and EGFR and do PDL1 staining. He is not a candidate for surgery and have spoken with Dr. Weinberg. 2: will proceed with port placement and ct abd and pelvis and MRI of brain. He wants to go home and will treat as outpatient. 3: I offered and patient opportunity of second opinion if they desire. Manuel Gallegos MD December 22, 2016 10:48
[2016-12-22] MEDS ORDERED: DIATRIZOATE MEGLUM/DIATRIZOATE SOD 9 ML CUP PO ONE (11:00)
[2016-12-22 11:54] VITALS: BP 106/67; PULSE 105; RESP 18; TEMP 98.7; O2SAT 100
[2016-12-22] MEDS ORDERED: ceFAZolin 2 GM PREMIX 50 ML IV SCH (12:30)
[2016-12-22] MEDS ORDERED: SODIUM CHLORIDE 0.9% INJ 100 ML IV SCH (12:30)
[2016-12-22] MEDS ORDERED: VANCOMYCIN INJ 1,000 MG in SODIUM CHLOR 0.9% 250 ML INJ 250 ML IV SCH (12:30)
[2016-12-22] MEDS ORDERED: HYDROmorphone HCL PF 1 MG/ML VIAL IV PUSH ONE (12:30)
--- NOTE | 2016-12-22 12:40 | HHI.PR ---
Subjective Remarks pt reports right shoulder pain uncontrolled, wants it gone. at bedside. reports right sided chest pain is controlled.like to go would like to go home tomorrow. we discussed side effect, risks of respiratory suppression from opioids. pt and convey understanding. Objective Vital Signs Date Time Temp Pulse Resp B/P Pulse Ox O2 Delivery O2 Flow Rate FiO2 12/22/16 11:54 98.7 105 18 106/67 100 12/22/16 08:26 99.0 97 18 107/62 93 12/22/16 04:00 97.6 92 24 112/61 92 12/22/16 00:00 98.4 101 18 118/61 95 12/21/16 20:00 99.5 108 14 112/59 94 12/21/16 20:00 96.3 116 20 101/66 93 12/21/16 19:00 95 Room Air 12/21/16 16:20 98.6 114 17 110/60 95 12/21/16 12:45 97.1 69 19 116/74 95 I/O 12/21/16 12/21/16 12/21/16 12/22/16 12/22/16 12/22/16 07:00 15:00 23:00 07:00 15:00 23:00 Intake Total 240 ml Output Total 0 ml Balance 240 ml 0 ml Intake Oral 240 ml Chest Tube Drainage Total 0 ml # Voids 2 2 Result Diagram: 12/22/16 0542 12/22/16 0542 Objective Remarks GENERAL: patient lying down in bed. Appears comfortable. Alert and oriented 3. SKIN: Warm and dry. HEAD: Normocephalic. EYES: No scleral icterus. No injection or drainage. NECK: Supple, trachea midline. No JVD. CARDIOVASCULAR: Regular rate and rhythm without murmurs, gallops, or rubs. RESPIRATORY: No accessory muscle use.worsening of decreased breath sounds right lung..chest tube in right lung with serosanguineous fluid to suction. still Minimal output. GASTROINTESTINAL: Abdomen soft, non-tender, nondistended. MUSCULOSKELETAL: No cyanosis, or edema. right arm can raise above head. pain with biceps flexion, tenderness of biceps insertion. BACK: Nontender without obvious deformity. No CVA tenderness. A/P Assessment and Plan //Sepsis secondary to Pneumococcal pneumonia S/P Bronchoscopy 5/4 Strep pneumonia antigen positive Legionella urine antigen negative Continue incentive spirometry. Previously on ceftriaxone and azithromycin, infectious disease following, antibiotics stopped. Infectious disease following, chest x-ray shows persistent pleural effusion. Could also be secondary to mass. Status post lung biopsy 12/15/16. =Continues with leukocytosis and low-grade fevers. Could be secondary to malignancy. Continue antibiotics as per infectious disease. -12/22 likely secondary to malignancy. Appreciate infectious disease assistance //Recurrent Pleural effusion, CT upgraded size by IR- 12/13- no leaking //Right lung mass now seen in chest CT with contrast - 12/12 //Poorly differentiated lung adenocarcinoma Patient with recurrent pleural effusions status post thoracentesis 2. CT in place, minimal output. Cytology negative on 12/04.. Repeat cytology on 12/12 negative. Cytology on 12/[address] management per Dr. Jiang, Dr. Weinberg ff: plan for VATs tomorrow in am 12/19. status post CT-guided biopsy 12/15/16. Right chest tube in place: sero-sanguinous fluid noted. --12/19. Dr. Bustos has discussed with pathology. Possible malignancy. We' ll consult oncology. -Oncology following. Appreciate assistance. Follow-up pathology, pending. -12/21-Discussed with nursing. Minimal output from right chest tube, however decreased breath sounds in right lung. Repeat chest x-ray to evaluate for pleural effusion. -12/22. Discussed with Dr. Gallegos in oncology. Poorly differentiated adenocarcinoma.. Poor prognosis. Staging CT chest, brain to be done. Chest tube to be removed. [id number] to be placed. //Insomnia, improved. //Antibiotic associated Diarrhea with epigastric fullness //history of GERD with dysphagia Temp spike t -max 101.1. ID following, blood cultures and sputum NGTD. Continue Lactinex. C. diff negative. GI following, status post EGD. Gastritis and esophagitis, biopsy negative for Flanagan's esophagus. -Continue PPI. //Shoulder pain Chest x-ray reviewed by me, high riding humeral head indicating possible rotator cuff insufficiency. Unlikely metastatic disease. Continue Flexeril. -12/22. Patient requests increase in pain medication for this pain. Will add OxyContin 20 twice daily, add IV Dilaudid for breakthrough pain. Right-sided chest pain appears to be controlled however. //Hypokalemia: -potassium reviewed and resolved after replacement. Continue to follow. //GI Prophylaxis: Protonix 40 mg Q12h PO. //DVT prophylaxis: SCDs. Discharge Planning [id number] to be placed, chest food. He removed, and can likely be discharged tomorrow with close follow-up oncology as outpatient. Dao Miller MD December 22, 2016 12:39
[2016-12-22] MEDS ORDERED: oxyCODONE HCL 10 MG CONTROLLED RELEASE TAB PO ONE (13:00)
[2016-12-22] MEDS ORDERED: GADODIAMIDE PF 287 MG/ML 5 ML VIAL (for RAD MRI) IV ONE (14:08)
--- NOTE | 2016-12-22 14:50 | RADRPT ---
EXAM DATE/TIME: 12/22/2016 13:56 [facility] COMPARISON: CHEST SINGLE AP, December 21, 2016, 16:00. CHEST EXPIRATION ONLY, December 14, 2016, 3:37. CT NEEDLE BIOPSY L CECE, RIGHT, December 15, 2016, 11:59. INDICATIONS : Metastatic disease. CONTRAST: 15 cc Omniscan (gadodiamide) IV MEDICAL HISTORY : None. SURGICAL HISTORY : Rotator cuff, left. Knee. ENCOUNTER: Subsequent ACUITY: 1 day PAIN SCORE: 3/10 LOCATION: cranial TECHNIQUE: Multiplanar, multisequence MRI of the brain was performed both prior to and following the administrat ion of paramagnetic contrast. FINDINGS: CEREBRUM: The ventricles are normal for age. No evidence of midline shift, mass lesion, hemorrhage or acute in farction. No extraaxial fluid collections are seen. The pituitary gland and suprasellar cistern are normal in configuration. WHITE MATTER: No significant signal abnormalities are seen in the white matter. POSTERIOR FOSSA: The cerebellum and brainstem are intact. The 4th ventricle is midline. The cerebellopontine angle is unremarkable. The cerebellar tonsils are normal in position. DIFFUSION IMAGING: No focal areas of restricted diffusion are seen. No evidence of acute infarction. EXTRACRANIAL: The visualized portions of the orbits and paranasal sinuses are unremarkable. POST-CONTRAST: No abnormal areas of parenchymal or dural enhancement. No evidence of blood-brain barrier breakdown. CONCLUSION: Normal examination for a patient of this age. No evidence of brain metastatic disease. Ck Spencer MD on December 22, 2016 at 14:46 Board Certified Radiologist. This report was verified electronically.
--- NOTE | 2016-12-22 15:12 | RADRPT ---
EXAM DATE/TIME: 12/22/2016 14:54 [facility] COMPARISON: CHEST SINGLE AP, December 21, 2016, 16:00. CHEST EXPIRATION ONLY, December 14, 2016, 3:37. INDICATIONS : Evaluate for pneumothorax MEDICAL HISTORY : Gastroesophageal reflux disease. SURGICAL HISTORY : None. ENCOUNTER: Subsequent ACUITY: 3 weeks PAIN SCORE: 0/10 LOCATION: Bilateral chest FINDINGS: There continues to be opacification of the right hemithorax. This has not significantly changed kai red to the prior study. Left lung is clear and well-aerated. There is a small right-sided chest tube in place. No definite pneumothorax is demonstrated. There's been no significant changes compared to t he prior studies. CONCLUSION: No significant change compared to the prior exams. No evidence of pneumothorax. Ck Spencer MD on December 22, 2016 at 15:09 Board Certified Radiologist. This report was verified electronically.
[2016-12-22] MEDS: HYDROmorphone HCL 2 MG TAB PO PRN ×2 (15:41→21:38)
[2016-12-22] MEDS: METHOCARBAMOL 500 MG TAB PO PRN ×2 (15:41→21:35)
--- NOTE | 2016-12-22 15:54 | PD.CAR.PN ---
CVT Progress Note Subjective/Hospital Course: Pt still in recovery room following bronchoscopy Had lengthy discussion with . Related the CT and clinical findings. In the setting of minimal drainage from the CT, will hold off with proceeding to the OR for now. Will re-evaluate in 24-48 hours. If drainage increases or turns purulent, may need VATS/Thoracotomy with drainage /Decortication/Pleurodesis. May need repeat chest CT to evaluate residual/loculated effusion Will continue to follow 12/12 Lengthy d/w patient and [id number] Will repeat chest Ct tomorrow. Possible R VATS with Pleurodesis and Pleur-X catheter placement on Thursday. 12/13 Patient and are very upset and frustrated at his care. He also states that he has dysphagia and odynophagia every time he eats and that his chest fluid drainage increases with PO intake New findings of a mediastinal/hilar mass with associated mediastinal lymphadenopathy. This appears amenable to CT guided biopsy They are demanding that the biopsy be done emergently today and will not wait until Thursday Will consult IR and GI for evaluation Cancel OR for Thursday for pleurodesis. 12/17 Doing better S/P CT guided biopsy and EGD Will plan R VATS with Pleurodesis on Monday 12/18 Biopsy results still pending Plan OR in am 12/19 Lung biopsy pathology still pending Will hold off on Pleurodesis procedure until Thursday D/w Pt and 12/22 ct guided path report available high grade malignant neoplasm favor non-small cell ca Dr Gallegos and Dr Weinberg spoke with pt no surgery at this time, will need full complete workup for port placement today CT abd / pelvis and MRI brain pending IR to remove pig tail cath today and can then be dc from CVS standpoint Objective: GENERAL: SKIN: Warm and dry.thin male HEAD: Normocephalic. EYES: No scleral icterus. No injection or drainage. NECK: Supple, trachea midline. No JVD or lymphadenopathy. CARDIOVASCULAR: Regular rate and rhythm without murmurs, gallops, or rubs. RESPIRATORY: Breath sounds equal bilaterally. No accessory muscle use. GASTROINTESTINAL: Abdomen soft, non-tender, nondistended. MUSCULOSKELETAL: No cyanosis, or edema. BACK: Nontender without obvious deformity. No CVA tenderness. Vital Signs Date Time Temp Pulse Resp B/P Pulse Ox O2 Delivery O2 Flow Rate FiO2 12/22/16 11:54 98.7 105 18 106/67 100 12/22/16 08:26 99.0 97 18 107/62 93 12/22/16 04:00 97.6 92 24 112/61 92 12/22/16 00:00 98.4 101 18 118/61 95 12/21/16 20:00 99.5 108 14 112/59 94 12/21/16 20:00 96.3 116 20 101/66 93 12/21/16 19:00 95 Room Air 12/21/16 16:20 98.6 114 17 110/60 95 Labs: Laboratory Tests Test 12/22/16 05:42 White Blood Count 16.2 TH/MM3 (4.0-11.0) Red Blood Count 2.89 MIL/MM3 (4.50-5.90) Hemoglobin 8.4 GM/DL (13.0-17.0) Hematocrit 25.1 % (39.0-51.0) Mean Corpuscular Volume 87.1 FL (80.0-100.0) Mean Corpuscular Hemoglobin 29.3 PG (27.0-34.0) Mean Corpuscular Hemoglobin 33.6 % Concent (32.0-36.0) Red Cell Distribution Width 13.1 % (11.6-17.2) Platelet Count 586 TH/MM3 (150-450) Mean Platelet Volume 7.3 FL (7.0-11.0) Neutrophils (%) (Auto) 75.1 % (16.0-70.0) Lymphocytes (%) (Auto) 12.1 % (9.0-44.0) Monocytes (%) (Auto) 10.6 % (0.0-8.0) Eosinophils (%) (Auto) 1.8 % (0.0-4.0) Basophils (%) (Auto) 0.4 % (0.0-2.0) Neutrophils # (Auto) 12.2 TH/MM3 (1.8-7.7) Lymphocytes # (Auto) 2.0 TH/MM3 (1.0-4.8) Monocytes # (Auto) 1.7 TH/MM3 (0-0.9) Eosinophils # (Auto) 0.3 TH/MM3 (0-0.4) Basophils # (Auto) 0.1 TH/MM3 (0-0.2) CBC Comment DIFF FINAL Differential Comment Sodium Level 136 MEQ/L (136-145) Potassium Level 4.0 MEQ/L (3.5-5.1) Chloride Level 98 MEQ/L (98-107) Carbon Dioxide Level 32.4 MEQ/L (21.0-32.0) Anion Gap 6 MEQ/L (5-15) Blood Urea Nitrogen 7 MG/DL (7-18) Creatinine 0.89 MG/DL (0.60-1.30) Estimat Glomerular Filtration 91 ML/MIN (>89) Rate Random Glucose 88 MG/DL (74-106) Calcium Level 8.1 MG/DL (8.5-10.1) Phosphorus Level 3.5 MG/DL (2.5-4.9) Magnesium Level 2.2 MG/DL (1.5-2.5) Albumin 1.6 GM/DL (3.4-5.0) Result Diagram: 12/22/16 0542 12/22/16 0542 (1) Pleural effusion, right (2) Right lower lobe pneumonia (3) Lung cancer Plan: for port placement , then IR to dc chest tube, then ok to dc home Problem Qualifiers (1) Right lower lobe pneumonia: Qualified Code: J18.1 - Pneumonia of right lower lobe due to infectious organism Lulú Lagunas December 22, 2016 15:54
[2016-12-22 16:09] VITALS: BP 110/66; PULSE 101; RESP 18; TEMP 98.3; O2SAT 95
--- NOTE | 2016-12-22 17:08 | HHI.GIFU ---
Subjective Remarks Ambulating in carmen. Denies pain at this time. No further bloating. 2 loose stools. Hoping to be able to go home tomorrow. Objective Vitals I&O Vital Signs Date Time Temp Pulse Resp B/P Pulse Ox O2 Delivery O2 Flow Rate FiO2 12/22/16 16:09 98.3 101 18 110/66 95 12/22/16 11:54 98.7 105 18 106/67 100 12/22/16 08:26 99.0 97 18 107/62 93 12/22/16 04:00 97.6 92 24 112/61 92 12/22/16 00:00 98.4 101 18 118/61 95 12/21/16 20:00 99.5 108 14 112/59 94 12/21/16 20:00 96.3 116 20 101/66 93 12/21/16 19:00 95 Room Air I/O 12/21/16 12/21/16 12/21/16 12/22/16 12/22/16 12/22/16 07:00 15:00 23:00 07:00 15:00 23:00 Intake Total 240 ml Output Total 0 ml Balance 240 ml 0 ml Intake Oral 240 ml Chest Tube Drainage Total 0 ml # Voids 2 2 Laboratory Laboratory Tests Test 12/22/16 05:42 White Blood Count 16.2 Red Blood Count 2.89 Hemoglobin 8.4 Hematocrit 25.1 Mean Corpuscular Volume 87.1 Mean Corpuscular Hemoglobin 29.3 Mean Corpuscular Hemoglobin 33.6 Concent Red Cell Distribution Width 13.1 Platelet Count 586 Mean Platelet Volume 7.3 Neutrophils (%) (Auto) 75.1 Lymphocytes (%) (Auto) 12.1 Monocytes (%) (Auto) 10.6 Eosinophils (%) (Auto) 1.8 Basophils (%) (Auto) 0.4 Neutrophils # (Auto) 12.2 Lymphocytes # (Auto) 2.0 Monocytes # (Auto) 1.7 Eosinophils # (Auto) 0.3 Basophils # (Auto) 0.1 CBC Comment DIFF FINAL Differential Comment Sodium Level 136 Potassium Level 4.0 Chloride Level 98 Carbon Dioxide Level 32.4 Anion Gap 6 Blood Urea Nitrogen 7 Creatinine 0.89 Estimat Glomerular Filtration 91 Rate Random Glucose 88 Calcium Level 8.1 Phosphorus Level 3.5 Magnesium Level 2.2 Albumin 1.6 Imaging Last Impressions Chest X-Ray 5/15/17 1500 Signed Impressions: Service Date/Time: Thursday, December 22, 2016 14:54 - CONCLUSION: No significant change compared to the prior exams. No evidence of pneumothorax. Ck Spencer MD Brain MRI 12/22/16 0000 Signed Impressions: Service Date/Time: Thursday, December 22, 2016 13:56 - CONCLUSION: Normal examination for a patient of this age. No evidence of brain metastatic disease. Ck Spencer MD Shoulder X-Ray 12/16/16 0000 Signed Impressions: Service Date/Time: Friday, December 16, 2016 16:37 - CONCLUSION: 1. High riding humeral head indicating possible rotator cuff insufficiency. 2. Mild acromioclavicular joint arthrosis. Jett Sherwood MD Lung Biopsy CT 12/15/16 0000 Signed Impressions: Service Date/Time: Thursday, December 15, 2016 11:59 - CONCLUSION: Uncomplicated CT guided biopsy of right lung mass. Rick Agrawal MD Chest Tube Change 12/13/16 1302 Signed Impressions: Service Date/Time: Tuesday, December 13, 2016 12:06 - CONCLUSION: Uncomplicated chest tube exchange as above. Blake Renteria MD Chest CT 12/13/16 0600 Signed Impressions: Service Date/Time: Tuesday, December 13, 2016 08:14 - CONCLUSION: 1. Ill-defined tumor mass in the right infrahilar region measuring up to least 7 cm. 2. Extensive mediastinal adenopathy and right hilar adenopathy. 3. Dense consolidation remains in the right lung base. 4. Mild interval increase in right pleural effusion with loculated components. Ryan Parry MD Chest Tube Insertion 12/08/16 0000 Signed Impressions: Service Date/Time: Thursday, December 08, 2016 14:46 - CONCLUSION: Uncomplicated chest tube placement as above. Rick Agrawal MD Thoracentesis Ultrasound 12/06/16 0000 Signed Impressions: Service Date/Time: Tuesday, December 06, 2016 13:53 - CONCLUSION: Uncomplicated ultrasound guided thoracentesis. Glen Ahn MD Physical Exam HEENT: Normocephalic; atraumatic; no jaundice. NC CHEST: CTA, Diminished. CARDIAC: RRR ABDOMEN: Soft, nondistended, nontender; no hepatosplenomegaly; bowel sounds are present in all four quadrants. EXTREMITIES: No clubbing, cyanosis, or edema. SKIN: Normal; no rash; no jaundice. 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 Assessment and Plan Plan ASSESSMENT: - Severe GERD, odynophagia. improved. S/P EGD (12/16/16)-----> 1. Gastritis antrum-biopsy, esophagitis-irregulr z line - spasm in distal esophagus-biopsy, dilatation using Savary dilator 15 2. Retroflexed views revealed a hiatal hernia Pathology : minimal chronic gastritis, GE junction mucosa with mdoerate chronic inflammation. PPI. Nystatin. carafate. Much improved. - Diarrhea. improved today but he was having some yesterday and has been having bloating and gas. Stools negative for C-diff. Just found out his father and sister both have celiac, wants to be tested. He never had colonoscopy before. Improved, does not wish to pursue colonoscopy at this time. Improved. Celiac testing pending. - Bloating. Improved. Celiac testing pending. - Anemia. 8.4.1. - Pleural effusion. S/P thoracentesis (12/04/16) with removal 2,100cc-n umerous reactive mesothelial cells, lymphocytes and macrophages, negative for malignant cells. Rpt. thoracentesis (12/06/16) with 1,300cc. S/ P CT (12/08/16) with exchange on (12/13/16). Possible VATS/Pleurodesis per CVT. - Pneumonia with positive strep pneumoniae ag. S/P Abx. - Lung mass new findings- CT today showed tumor mass in the right infrahilar region measuring up to least 7 cm with extensive mediastinal adenopathy and right hilar adenopathy. S/P Lung biopsy, pathology high grade malignant neoplasm, favor non-small - Leukocytosis- WBX 16.2. Abx. - ADD per attending Plan: - HECTOR - Await celiac panel - Cont. PPI - Cont. Nystatin - Cont. Carafate - Cont. Probiotics - GI will sign off, please reconsult as needed - Patient seen and examined by Dr. Gordon and myself and this note is written on his behalf. Josefa Davila December 22, 2016 17:08
--- NOTE | 2016-12-22 17:13 | RADRPT ---
EXAM DATE/TIME: 12/22/2016 16:41 [facility] COMPARISON: CHEST SINGLE AP, December 21, 2016, 16:00. INDICATIONS : Post chest tube removal MEDICAL HISTORY : Gastroesophageal reflux disease. pneumothorax SURGICAL HISTORY : chest tube ENCOUNTER: Subsequent ACUITY: 3 weeks PAIN SCORE: 0/10 LOCATION: Right chest FINDINGS: The small right chest tube has been removed. There is no pneumothorax. There continues to be diffuse consolidation throughout most of the right hemithorax. This is unchanged compared to the prior study. The left lung remains grossly clear. The bony structures are stable. CONCLUSION: Right chest tube removed. No pneumothorax. Ck Spencer MD on December 22, 2016 at 17:10 Board Certified Radiologist. This report was verified electronically.
[2016-12-22] MEDS ORDERED: IOHEXOL 350 MG/ML 10 ML VIAL (for RAD DIAG) IV ONE (19:03)
--- NOTE | 2016-12-22 19:26 | RADRPT ---
EXAM DATE/TIME: 12/22/2016 18:51 [facility] COMPARISON: No previous studies available for comparison. INDICATIONS : Lung cancer staging. IV CONTRAST: 71 cc Omnipaque 350 (iohexol) IV ORAL CONTRAST: Prescribed oral contrast ingested. RADIATION DOSE: 11.96 CTDIvol (mGy) MEDICAL HISTORY : Gastroesophageal reflux disease. Carcinoma, lung. SURGICAL HISTORY : None. ENCOUNTER: Initial ACUITY: 1 day PAIN SCALE: 0/10 LOCATION: Bilateral abdomen TECHNIQUE: Volumetric scanning of the abdomen and pelvis was performed. Using automated exposure control and ad justment of the mA and/or kV according to patient size, radiation dose was kept as low as reasonably achievable to obtain optimal diagnostic quality images. FINDINGS: LOWER LUNGS: Large right lower lobe mass and pleural effusion. Masses are also seen along the right pleura. LIVER: Homogeneous density without lesion. There is no dilation of the biliary tree. No calcified gallston es. SPLEEN: Normal size without lesion. PANCREAS: Within normal limits. KIDNEYS: Normal in size and shape. There is no mass, stone or hydronephrosis. ADRENAL GLANDS: Within normal limits. VASCULAR: There is no aortic aneurysm. BOWEL/MESENTERY: The stomach, small bowel, and colon demonstrate no acute abnormality. There is no free intraperitone al air or fluid. Prominent adenopathy in the gastrohepatic ligament measures 2.9 cm. ABDOMINAL WALL: Within normal limits. RETROPERITONEUM: There is no lymphadenopathy. BLADDER: No wall thickening or mass. REPRODUCTIVE: Within normal limits. INGUINAL: There is no lymphadenopathy or hernia. MUSCULOSKELETAL: Within normal limits for patient age. CONCLUSION: 1. Large right lower lobe mass with pleural nodularity. 2. 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 Rick Agrawal MD on December 22, 2016 at 19:19 Board Certified Radiologist. This report was verified electronically.
[2016-12-22 20:00] VITALS: BP 121/56; PULSE 125; RESP 18; TEMP 99.6; O2SAT 94
[2016-12-22] MEDS ORDERED: HYDROmorphone HCL PF 1 MG/ML VIAL IV PUSH PRN (20:15)
[2016-12-22] MEDS ORDERED: oxyCODONE HCL 10 MG CONTROLLED RELEASE TAB PO SCH (21:00)
--- NOTE | 2016-12-22 21:19 | HHI.PR ---
Subjective Remarks Had CT guided rt lung bx Chest tube removed path NSCLC Seen by Objective Vital Signs Vital Signs Date Time Temp Pulse Resp B/P Pulse Ox O2 Delivery O2 Flow Rate FiO2 12/22/16 20:00 99.6 125 18 121/56 94 12/22/16 16:09 98.3 101 18 110/66 95 12/22/16 11:54 98.7 105 18 106/67 100 12/22/16 08:26 99.0 97 18 107/62 93 12/22/16 04:00 97.6 92 24 112/61 92 12/22/16 00:00 98.4 101 18 118/61 95 I/O 12/21/16 12/21/16 12/21/16 12/22/16 12/22/16 12/22/16 07:00 15:00 23:00 07:00 15:00 23:00 Intake Total 240 ml Output Total 0 ml 0 ml Balance 240 ml 0 ml 0 ml Intake Oral 240 ml Chest Tube Drainage Total 0 ml Drainage Total 0 ml # Voids 2 2 Result Diagram: 12/22/16 0542 12/22/16 0542 Objective Remarks GENERAL: Patient is 46 yo lying in bed in NAD SKIN: Warm and dry. HEAD: Normocephalic. EYES: No scleral icterus. No injection or drainage. NECK: Supple, trachea midline. No JVD or lymphadenopathy. CARDIOVASCULAR: Regular rate and rhythm without murmurs, gallops, or rubs. RESPIRATORY: Breath sounds equal bilaterally. Diminished BS on right. GASTROINTESTINAL: Abdomen soft, non-tender, nondistended. MUSCULOSKELETAL: No cyanosis, or edema. BACK: Nontender without obvious deformity. No CVA tenderness. Neuro: Awake and alert A/P Assessment and Plan 1)REsp Insuff 2)Right pleural effusion- Exudative effusion 3))Positive strep pneumonia Ag 4)Tumor mass in the right infrahilar region measuring up to least 7 cm r/p malignancy 5)GERD 6)Leukocytosis 7)Anemia 8. NSCLC PLAN: Continue with oxygen keep sat >92% Bronchodilators( DuoNeb) CXR today-Increasing pleural-parenchymal density throughout the right chest with slight shift of the trachea to the left. Monitor CT drainage- Cytology from December 04 showed no malignant cells, cytology from 12/12 pending.. DW Pt Port placement in Konrad Bray MD December 22, 2016 21:19
[2016-12-22] MEDS: oxyCODONE HCL 20 MG CONTROLLED RELEASE TAB PO SCH (21:38)
[2016-12-22] MEDS: RESP: ALBUTEROL 2.5 MG/IPRATROPIUM 0.5 MG NEB (PRN) NEB (23:54)
[2016-12-23] VITALS (13 sets, daily range): BP systolic 109–154; BP diastolic 56–89; PULSE 87–129; RESP 18–20; TEMP 97.1–101.8; O2SAT 90–98
[2016-12-23] MEDS: ZOLPIDEM TARTRATE 10 MG TAB PO PRN (00:35)
[2016-12-23] MEDS: oxyCODONE/ACETAMINOPHEN 5 MG/325 MG TAB PO PRN ×3 (00:35→20:42)
[2016-12-23] MEDS: ACETAMINOPHEN 500 MG CPLT PO PRN (03:24)
[2016-12-23] MEDS: HYDROmorphone HCL 2 MG TAB PO PRN ×3 (03:24→18:49)
[2016-12-23] MEDS: CYCLOBENZAPRINE HCL 10 MG TAB PO PRN ×2 (03:24→18:49)
[2016-12-23] MEDS: SUCRALFATE 1 GM/10 ML CUP PO SCH ×4 (06:38→21:16)
[2016-12-23] MEDS: METHOCARBAMOL 500 MG TAB PO PRN (06:39)
[2016-12-23 07:03] LABS: AUTOMATED NEUTROPHIL # 14.6 TH/MM3 (1.8-7.7); BASOPHIL # 0.1 TH/MM3 (0-0.2); BASOPHIL % 0.3 % (0.0-2.0); EOSINOPHIL # 0.1 TH/MM3 (0-0.4); EOSINOPHIL % 0.7 % (0.0-4.0); LYMPH % 11.4 % (9.0-44.0); LYMPHOCYTE # 2.2 TH/MM3 (1.0-4.8); MEAN CELL VOLUME 86.8 FL (80.0-100.0); MEAN CORPUSCULAR HGB CONC 32.3 % (32.0-36.0); MONO % 12.1 % (0.0-8.0); NEUT % 75.5 % (16.0-70.0); PLATELET COUNT 650 TH/MM3 (150-450); RED BLOOD COUNT 3.11 MIL/MM3 (4.50-5.90); RED CELL DISTRIBUTION WIDTH 13.5 % (11.6-17.2); WHITE BLOOD COUNT 19.4 TH/MM3 (4.0-11.0)
[2016-12-23 07:17] LABS: HEMO FLAGS AUTO DIFF
[2016-12-23 07:51] LABS: POTASSIUM 3.6 MEQ/L (3.5-5.1)
[2016-12-23 08:24] LABS: BANDS 17 % (0-6); EOSINOPHILS 1 % (0-4); NEUTROPHIL # MANUAL DIFF 15.9 TH/MM3 (1.8-7.7); PLATELET ESTIMATE SMEAR HIGH (NORMAL); PLATELET MORPHOLOGY NORMAL (NORMAL); POLYS (SEG NEUTROPHILS) 65 % (16-70); WBC DIFF SAMPLE 100
[2016-12-23 08:25] LABS: SCAN/DIFF FINAL DIFF MANUAL
[2016-12-23] MEDS: LACTOBACILLUS ACIDOPHILUS TAB PO SCH ×3 (09:12→17:10)
[2016-12-23] MEDS: SODIUM CHLORIDE 0.9% FLUSH 10 ML FLUSH IV FLUSH SCH ×2 (09:12→21:17)
[2016-12-23] MEDS: oxyCODONE HCL 20 MG CONTROLLED RELEASE TAB PO SCH ×2 (09:12→21:15)
[2016-12-23] MEDS: NYSTATIN SUSP 500,000 U/5 ML CUP SWISH-SWAL SCH ×4 (09:13→21:00)
[2016-12-23] MEDS: PANTOPRAZOLE SOD 40 MG DELAYED RELEASE TAB PO SCH ×2 (09:13→21:16)
[2016-12-23] MEDS ORDERED: OXYC1TAB63 PO (11:12)
[2016-12-23] MEDS ORDERED: MILKSUS PO (11:12)
[2016-12-23] MEDS ORDERED: NYST1000 SWISH-SWAL (11:12)
[2016-12-23] MEDS ORDERED: ALBUAER3 INH (11:12)
[2016-12-23] MEDS ORDERED: OXYC20TA17 PO (11:12)
[2016-12-23] MEDS ORDERED: METH500T3 PO (11:12)
[2016-12-23] MEDS ORDERED: CYCL1TAB29 PO (11:12)
[2016-12-23] MEDS ORDERED: DILA2TAB2 PO (11:12)
[2016-12-23] MEDS ORDERED: IPRASOL NEB (11:12)
[2016-12-23] MEDS ORDERED: ACET500T3 PO (11:12)
[2016-12-23] MEDS ORDERED: SUCR1S PO (11:12)
[2016-12-23] MEDS ORDERED: PANT40TA3 PO (11:12)
--- NOTE | 2016-12-23 11:23 | HHI.FF ---
Face to Face Verification Diagnosis: (1) Pleural effusion, right (2) Lung cancer Physical Therapy Order: Evaluate and Treat Home Health Nursing Order: Oxygen administration education Wound care and dressing changes Nursing assessment with vital signs Instructions: right chest tube removed 12/22. needs dry dressings daily and monitoring. I have seen patient Dannie Martinez on 12/23/16. My clinical findings support the need for the requested home health care services because: Deconditioned w/ increased weakness I certify that my clinical findings support that this patient is homebound because: Unsafe to leave home unassisted Dao Miller MD December 23, 2016 11:23
[2016-12-23] MEDS ORDERED: OXYGENTANK NAS.CANULA (11:26)
[2016-12-23] MEDS: RESP: ALBUTEROL 2.5 MG/IPRATROPIUM 0.5 MG NEB (PRN) NEB ×2 (13:37→21:20)
[2016-12-23] MEDS ORDERED: fentaNYL CITRATE 250 MCG/5 ML AMP ONE (14:19)
[2016-12-23] MEDS ORDERED: MIDAZOLAM HCL 5 MG/5 ML VIAL ONE (14:19)
--- NOTE | 2016-12-23 14:41 | HHI.PR ---
Addendum to Inpatient Note Additional Information Attempted to see the pt - he is getting his PORT placed Selvin Peres today Pt cont to have intermittent low grade fevers, probably tumor fever However his WBC went up again (also quite frequent with advanced malignancies) - will chk procalcitonine level Pt is OK to be d/c from ID standpoint unless spikes high fever and/or deterioration in his condition dw Jess gN MD December 23, 2016 14:40
[2016-12-23] MEDS ORDERED: LIDOCAINE 1%/EPINEPHrine 1:100,000 SOLN 20 ML VIAL ONE (14:44)
--- NOTE | 2016-12-23 15:19 | PD.RAD ---
Post Procedure Progress Note Pre Procedure Diagnosis: (1) Lung cancer Post Procedure Diagnosis: (1) Lung cancer Procedure Date: December 23, 2016 Supervising Radiologist: Hayes Lu JR Proceduralist/Assist: Carly Artis, RT(R)(), Ruddy Kapoor RT(R) Anesthesia: Conscious Sedation Plan of Activity Patient to Unit: ROPU Patient Condition: Good See PACS Report for procedural detail/treatment Central Venous Access Device Procedure 1 Right Internal Jugular Infusaport Placement single lumen English: 8 Findings: Port in good position and functions well. OK to use Plan F/U with IR or a physician in 10-14 days for a site check Jr. Aly,Hayes Bettencourt MD December 23, 2016 15:19
[2016-12-23] MEDS ORDERED: SODIUM CHLORIDE 0.9% FLUSH 10 ML FLUSH IVF PRN (15:30)
--- NOTE | 2016-12-23 15:44 | RADRPT ---
EXAM DATE/TIME: 12/23/2016 14:54 [facility] COMPARISON: No previous studies available for comparison. INDICATIONS : Patient with a history of lung cancer, needs chemotherapy. Patient has elevated white blood cell coun t as well as low grade fever. I spoke with Dr. Gallegos. Acute infection is not felt the etiology. MEDICAL HISTORY : GERD Lung cancer ADD SURGICAL HISTORY : Left ankle tendon repair Left shoulder surgery ENCOUNTER: Initial ACUITY: 1 month PAIN SCORE: 4/10 LOCATION: Rt. shoulder FLUORO TIME: 0.4 minutes IMAGE SERIES: 1 SEDATION TIME: 30 minutes ACCESS: Right internal jugular vein SEDATION: 1.) 4 mg midazolam (Versed) IV 2.) 200 mcg fentanyl (Sublimaze) IV Prophylactic antibiotics were administered with appropriate pre-procedure timing. Vancomycin within 2 hours of procedure, Ancef (or alternative) within 1 hour of procedure. DEVICE: 1. 8 Wolof single lumen Bard Power Port PROCEDURE : 1. Continuous pulse oximetry and EKG monitoring. 2. Intravenous conscious sedation. 3. Ultrasound guidance for venous access. 4. Fluoroscopic guided implantable central venous port placement. The patient was placed supine. The neck was prepped in sterile fashion. Full sterile technique was u sed, including cap, mask, sterile gloves and gown, and a large sterile sheet. Hand hygiene and 2% ch lorhexidine Betadine was utilized per protocol for cutaneous antisepsis with appropriate dry time for site. The skin and subcutaneous tissues were infiltrated with local anesthetic solution. Under direct ultrasound guidance, central venous access was accomplished in the targeted vessel. The ultrasound images depicting access guidance were stored and saved to PACS for permanent record. A s ubcutaneous pocket was created using blunt dissection. The port was introduced to the pocket. The c atheter tubing was fed through a subcutaneous tunnel to the venotomy site. The catheter tubing was c ut to a suitable length and then was introduced through a valved Peel-Away sheath and positioned with catheter tubing tip at the cavo-atrial junction level. The pocket incision was closed with subcutic ular Vicryl suture. Steri-Strips were applied. The port was flushed and locked with heparin solutio n per protocol. Sterile dressing was applied to the site. The patient tolerated the procedure well. Conscious sedation was performed with the prescribed dosages and duration as above in the presence of an independent trained radiology nurse to assist in the monitoring of the patient. EKG and oximetry remained stable throughout the procedure. The patient tolerated the procedure well and there were no complications. The patient was sent to post anesthesia recovery in stable condition. CONCLUSION: Uncomplicated ultrasound and fluoroscopic guided implanted central venous port catheter placement as described in detail above. An 8 Wolof Power port was placed. Hayes Lu Jr., MD on December 23, 2016 at 15:41 Board Certified Radiologist. This report was verified electronically.
--- NOTE | 2016-12-23 17:43 | PD.ONC.PN ---
Subjective Subjective Remarks Tmax 100.2 overnight. Pt just returned from getting port placed. at bedside. Objective Data Date Time Temp Pulse Resp B/P Pulse Ox O2 Delivery O2 Flow Rate FiO2 12/23/16 17:14 99.6 119 20 115/58 97 12/23/16 16:10 113 20 151/85 96 12/23/16 15:40 125 18 151/85 95 12/23/16 15:25 98.7 125 20 154/89 94 12/23/16 15:25 125 18 154/86 94 12/23/16 13:48 2.00 12/23/16 09:10 Room Air 12/23/16 08:52 98.7 112 20 110/56 93 12/23/16 04:00 98.8 119 18 109/57 90 12/23/16 03:20 100.2 100 18 112/57 98 12/23/16 00:00 100.4 119 18 118/62 93 12/22/16 20:00 99.6 125 18 121/56 94 Result Diagram: 12/23/1615 12/23/16 0615 Laboratory Results Laboratory Tests Test 12/23/16 06:15 White Blood Count 19.4 TH/MM3 Red Blood Count 3.11 MIL/MM3 Hemoglobin 8.7 GM/DL Hematocrit 27.0 % Mean Corpuscular Volume 86.8 FL Mean Corpuscular Hemoglobin 28.0 PG Mean Corpuscular Hemoglobin 32.3 % Concent Red Cell Distribution Width 13.5 % Platelet Count 650 TH/MM3 Mean Platelet Volume 7.1 FL Neutrophils (%) (Auto) 75.5 % Lymphocytes (%) (Auto) 11.4 % Monocytes (%) (Auto) 12.1 % Eosinophils (%) (Auto) 0.7 % Basophils (%) (Auto) 0.3 % Neutrophils # (Auto) 14.6 TH/MM3 Lymphocytes # (Auto) 2.2 TH/MM3 Monocytes # (Auto) 2.3 TH/MM3 Eosinophils # (Auto) 0.1 TH/MM3 Basophils # (Auto) 0.1 TH/MM3 CBC Comment AUTO DIFF Differential Total Cells 100 Counted Neutrophils % (Manual) 65 % Band Neutrophils % 17 % Lymphocytes % 7 % Monocytes % 10 % Eosinophils % 1 % Neutrophils # (Manual) 15.9 TH/MM3 Differential Comment FINAL DIFF MANUAL Platelet Estimate HIGH Platelet Morphology Comment NORMAL Sodium Level 132 MEQ/L Potassium Level 3.6 MEQ/L Chloride Level 94 MEQ/L Carbon Dioxide Level 29.0 MEQ/L Anion Gap 9 MEQ/L Blood Urea Nitrogen 7 MG/DL Creatinine 0.85 MG/DL Estimat Glomerular Filtration 96 ML/MIN Rate Random Glucose 103 MG/DL Calcium Level 8.0 MG/DL Imaging Studies Last 24 hours Impressions Port Line Insertion 12/23/16 0000 Signed Impressions: Service Date/Time: Friday, December 23, 2016 14:54 - CONCLUSION: Uncomplicated ultrasound and fluoroscopic guided implanted central venous port catheter placement as described in detail above. An 8 Spanish Power port was placed. Hayes Lu Jr., MD Administered Medications Medications (Trade) Dose Ordered Sig/Thiago Route PRN Reason Start Time Stop Time Status Last Admin Dose Admin Sodium Chloride (NS Flush) 2 ml UNSCH PRN IV FLUSH FLUSH AFTER USING IV ACCESS 12/04/16 01:00 12/16/16 03:19 Sodium Chloride (NS Flush) 2 ml BID IV FLUSH 12/04/16 09:00 12/23/16 09:12 Amphetamine/ Dextroamphetamine (Adderall) 20 mg DAILY PO 12/04/16 09:00 Hold 12/05/16 09:08 Magnesium Hydroxide (Milk Of Magnesia Liq) 30 ml DAILY PRN PO CONSTIPATION 12/06/16 15:00 12/07/16 07:09 Zolpidem Tartrate (Ambien) 10 mg HS PRN PO INSOMNIA 12/06/16 17:00 12/23/16 00:35 Lactobacillus Acidophilus (Lactinex) 1 tab TID PO 12/10/16 13:00 12/23/16 17:10 Oxycodone/ Acetaminophen (Percocet 5-325 Mg) 1 tab Q4H PRN PO PAIN SCALE 3-10 12/15/16 15:30 12/23/16 06:39 Nystatin (Mycostatin Liq) 5 ml QID SWISH-SWAL 12/16/16 18:00 12/20/16 18:08 Sucralfate (Carafate Liq) 1 gm ACHS PO 12/17/16 16:00 12/23/16 11:11 Pantoprazole Sodium (Protonix) 40 mg Q12HR PO 12/17/16 21:00 12/23/16 09:13 Enoxaparin Sodium (Lovenox Inj) 40 mg Q24H SQ 12/17/16 18:00 Hold 12/17/16 18:34 Acetaminophen (Tylenol) 500 mg Q6HR PRN PO FEVER 12/20/16 17:45 12/23/16 03:24 Hydromorphone HCl (Dilaudid) 2 mg Q6H PRN PO pain 6-10 12/22/16 16:30 12/23/16 11:12 Oxycodone HCl (OxyCONTIN CR) 20 mg Q12HR PO 12/22/16 21:00 12/23/16 09:12 Cyclobenzaprine HCl (Flexeril) 10 mg Q8H PRN PO RIGHT shoulder spasm 12/22/16 18:30 12/23/16 03:24 Methocarbamol (Robaxin) 500 mg TID PRN PO RIGHT SHOULDER SPASM 12/22/16 14:00 12/23/16 06:39 Objective Remarks GENERAL: Thin, pale appearing middle aged male in no distress. SKIN: Warm and dry. Infusaport placed, R chest. Dry dressing covering. HEAD: Normocephalic. EYES: No injection or drainage. NECK: Supple, trachea midline. CARDIOVASCULAR: Regular rate and rhythm without murmurs. RESPIRATORY: Breath sounds equal bilaterally. No accessory muscle use. GASTROINTESTINAL: Abdomen soft, non-tender, nondistended. EXTREMITIES: No edema. MUSCULOSKELETAL: Adequate muscle tone. NEUROLOGICAL: No obvious focal deficit. Awake, alert, and oriented x3. Assessment/Plan Assessment 1: Discussed with pt and his about starting chemotherapy before leaving the hospital. After considering this for quite some time he finally agreed. They do not wish to go back to as they were there prior to diagnosis and did not like the care. He continues to have low grade fevers. We will monitor this. Dr Bustos ordered a sputum sample. He will need injection in the clinic as an outpatient. Attending Statement 1: He is now having fevers of 101, cough, diaphoresis and he looks much worse then yesterday. I believe he has pneumonia. Will draw blood cultures times two and begin zosyn at the higher dose as he has now acquired or reacquired infection while in hospital 2: He is going to soon unless the tumor responds to treatment. I would like to tx with carbo and VP16. I am reluctant to give avastin in case this is a squamous cell cancer as it is a large central lesion and if this is a squamous cell cancer he can have fatal hemorrhage. I have requested PDL 1 and EGFR and ALK for immune therapy and targeted therapy. 3: I suggested that we begin tx as soon as the symptoms of pneumonia have abated. He is angry with [facility] and is not sure that he will receive the best care here or that someone at a tertiary care center would not approach this differently. I strongly suggested that he seek a second opinion immediately as he does not have much time remaining and I do now want to be the treating physician if he does not have taty in either me or the institution as I work at [facility]. I gave the a copy of my consult, all relevant cat scans, MRI , and the path report as this will allow them to communicate with another democrat. I told them I would speak with whomever they wish to see. They need time to think this over. They are overwhelmed, frustrated, tired and coupled with the situation it breeds understandable anger. Situation discussed with Dr.. Jiang. The exam, history, and the medical decision-making described in the above note were completed with the assistance of the mid-level provider. I reviewed and agree with the findings presented. I attest that I had a [id number] encounter with the patient on the same day, and personally performed and documented my assessment and findings in the medical record. Lou Velez December 23, 2016 17:43 Manuel Gallegos MD December 23, 2016 21:09
--- NOTE | 2016-12-23 19:29 | HHI.PR ---
Subjective Remarks Patient seen this morning. Says he is feeling well. Denies any chest pain. Right shoulder pain has resolved. Has been walking around. Eager to go home. Subsequently it is reported to me that patient has been reporting a worsening cough today. Subsequent discussion with nurse reveals temperature of 101.0 will repeat blood cultures. Objective Vital Signs Date Time Temp Pulse Resp B/P Pulse Ox O2 Delivery O2 Flow Rate FiO2 12/23/16 18:57 97.1 87 20 120/83 97 12/23/16 17:14 99.6 119 20 115/58 97 12/23/16 16:10 113 20 151/85 96 12/23/16 15:40 125 18 151/85 95 12/23/16 15:25 98.7 125 20 154/89 94 12/23/16 15:25 125 18 154/86 94 12/23/16 13:48 2.00 12/23/16 09:10 Room Air 12/23/16 08:52 98.7 112 20 110/56 93 12/23/16 04:00 98.8 119 18 109/57 90 12/23/16 03:20 100.2 100 18 112/57 98 12/23/16 00:00 100.4 119 18 118/62 93 12/22/16 20:00 99.6 125 18 121/56 94 I/O 12/22/16 12/22/16 12/22/16 12/23/16 12/23/16 12/23/16 07:00 15:00 23:00 07:00 15:00 23:00 Output Total 0 ml 0 ml Balance 0 ml 0 ml Chest Tube Drainage Total 0 ml Drainage Total 0 ml # Voids 2 4 # Bowel Movements 1 Result Diagram: 12/23/16 0615 12/23/16 0615 Objective Remarks GENERAL: patient lying down in bed. Appears comfortable. Alert and oriented 3. SKIN: Warm and dry. HEAD: Normocephalic. EYES: No scleral icterus. No injection or drainage. NECK: Supple, trachea midline. No JVD. CARDIOVASCULAR: Regular rate and rhythm without murmurs, gallops, or rubs. RESPIRATORY: No accessory muscle use.worsening of decreased breath sounds right lung..chest tube has been removed. No surrounding erythema chest tube site.. GASTROINTESTINAL: Abdomen soft, non-tender, nondistended. MUSCULOSKELETAL: No cyanosis, or edema. BACK: Nontender without obvious deformity. No CVA tenderness. A/P Assessment and Plan ===== 12/23/[address] Bustos. Repeat sputum culture as per infectious disease verbal recommendation today. Pro-calcitonin pending. Lactate pending as well. Repeat chest x-ray. Fevers most likely tumor fever, however Depending on results of chest x-ray, low threshold for adding antibiotics. //Possible Sepsis secondary to Pneumococcal pneumonia S/P Bronchoscopy 12/11 Strep pneumonia antigen positive Legionella urine antigen negative Continue incentive spirometry. Previously on ceftriaxone and azithromycin, infectious disease following, antibiotics stopped. Infectious disease following, chest x-ray shows persistent pleural effusion. Could also be secondary to mass. Status post lung biopsy 12/15/16. =Continues with leukocytosis and low-grade fevers. Could be secondary to malignancy. Continue antibiotics as per infectious disease. -12/23 although fevers, white count are likely secondary to malignancy, fever higher today 101.0, with worsening cough. Immunocompromise. As per discussion with infectious disease, we'll order chest x-ray, sputum culture. Low threshold for adding antibiotics depending upon results. //Recurrent Pleural effusion, CT upgraded size by IR- 12/13- no leaking //Right lung mass now seen in chest CT with contrast - 12/12 //Poorly differentiated lung adenocarcinoma Patient with recurrent pleural effusions status post thoracentesis 2. CT in place, minimal output. Cytology negative on 12/04.. Repeat cytology on 12/12 negative. Cytology on 12/[address] management per Dr. Jiang, Dr. Weinberg ff: plan for VATs tomorrow in am 12/19. status post CT-guided biopsy 12/15/16. Right chest tube in place: sero-sanguinous fluid noted. --12/19. Dr. Bustos has discussed with pathology. Possible malignancy. We' ll consult oncology. -Oncology following. Appreciate assistance. Follow-up pathology, pending. -12/21-Discussed with nursing. Minimal output from right chest tube, however decreased breath sounds in right lung. Repeat chest x-ray to evaluate for pleural effusion. -12/22. Discussed with Dr. Gallegos in oncology. Poorly differentiated adenocarcinoma.. Poor prognosis. -12/23. Fuvuru-i-Woag placed. Status post negative brain for metastasis. Discussed with oncology. Plan for first dose of chemotherapy tomorrow. //Insomnia, improved. //Antibiotic associated Diarrhea with epigastric fullness //history of GERD with dysphagia Temp spike t -max 101.1. ID following, blood cultures and sputum NGTD. Continue Lactinex. C. diff negative. GI following, status post EGD. Gastritis and esophagitis, biopsy negative for Flanagan's esophagus. -Continue PPI. //Shoulder pain Chest x-ray reviewed by me, high riding humeral head indicating possible rotator cuff insufficiency. Unlikely metastatic disease. Continue Flexeril. -12/22. Patient requests increase in pain medication for this pain. Will add OxyContin 20 twice daily, add IV Dilaudid for breakthrough pain. Right-sided chest pain appears to be controlled however. -12/23. Right shoulder pain controlled on current regimen. Continue. //Hypokalemia: -potassium reviewed again, and resolved after replacement. Continue to follow. //GI Prophylaxis: Protonix 40 mg Q12h PO. //DVT prophylaxis: SCDs. Discharge Planning Vfveiv-u-Ejml has been placed, chest tube has been removed. -Patient will stay for first dose of chemotherapy. -also Ruling out pneumonia. -Depending on results of infectious workup, May be discharged tomorrow with close follow-up oncology as outpatient. Dao Miller MD December 23, 2016 19:29
[2016-12-23] MEDS ORDERED: ACETAMINOPHEN 500 MG CPLT PO PRN (20:00)
--- NOTE | 2016-12-23 20:01 | RADRPT ---
EXAM DATE/TIME: 12/23/2016 19:25 [facility] COMPARISON: CHEST SINGLE AP, December 22, 2016, 16:41. INDICATIONS : Cough. MEDICAL HISTORY : None. SURGICAL HISTORY : None. ENCOUNTER: Subsequent ACUITY: 1 month PAIN SCORE: 0/10 LOCATION: Bilateral chest FINDINGS: Compare December 22. There is near-complete opacification right hemithorax, similar to December 22. Infuse-a-Po rt tip in superior vena cava. Left lung is clear. No effusion. No pneumothorax. CONCLUSION: 1. Near-complete opacification of right hemithorax, stable. Finding secondary to right effusion and r ight lung consolidation/mass. Right Oqgtdt-j-Fgms tip in superior vena cava. Jim Figueroa MD on December 23, 2016 at 19:54 Board Certified Radiologist. This report was verified electronically.
--- NOTE | 2016-12-23 20:18 | HHI.PR ---
Subjective Remarks Had CT guided rt lung bx Chest tube removed path NSCLC Seen by Has cough, congestion, not able to expactorate Low grade fever Objective Vital Signs Vital Signs Date Time Temp Pulse Resp B/P Pulse Ox O2 Delivery O2 Flow Rate FiO2 12/23/16 18:57 97.1 87 20 120/83 97 12/23/16 18:40 101.0 12/23/16 17:14 99.6 119 20 115/58 97 12/23/16 16:10 113 20 151/85 96 12/23/16 15:40 125 18 151/85 95 12/23/16 15:25 98.7 125 20 154/89 94 12/23/16 15:25 125 18 154/86 94 12/23/16 13:48 2.00 12/23/16 09:10 Room Air 12/23/16 08:52 98.7 112 20 110/56 93 12/23/16 04:00 98.8 119 18 109/57 90 12/23/16 03:20 100.2 100 18 112/57 98 12/23/16 00:00 100.4 119 18 118/62 93 I/O 12/22/16 12/22/16 12/22/16 12/23/16 12/23/16 12/23/16 07:00 15:00 23:00 07:00 15:00 23:00 Output Total 0 ml 0 ml Balance 0 ml 0 ml Chest Tube Drainage Total 0 ml Drainage Total 0 ml # Voids 2 4 # Bowel Movements 1 Result Diagram: 12/23/16 0615 12/23/16 0615 Objective Remarks GENERAL: Patient is 46 yo lying in bed in NAD SKIN: Warm and dry. HEAD: Normocephalic. EYES: No scleral icterus. No injection or drainage. NECK: Supple, trachea midline. No JVD or lymphadenopathy. CARDIOVASCULAR: Regular rate and rhythm without murmurs, gallops, or rubs. RESPIRATORY: Breath sounds equal bilaterally. Diminished BS on right. GASTROINTESTINAL: Abdomen soft, non-tender, nondistended. MUSCULOSKELETAL: No cyanosis, or edema. BACK: Nontender without obvious deformity. No CVA tenderness. Neuro: Awake and alert A/P Assessment and Plan 1)REsp Insuff 2)Right pleural effusion- Exudative effusion 3))Positive strep pneumonia Ag 4)Tumor mass in the right infrahilar region measuring up to least 7 cm r/p malignancy 5)GERD 6)Leukocytosis 7)Anemia 8. NSCLC PLAN: Continue with oxygen keep sat >92% Bronchodilators( DuoNeb) CXR today-Increasing pleural-parenchymal density throughout the right chest with slight shift of the trachea to the left. Monitor CT drainage- Cytology from December 04 showed no malignant cells, cytology from 12/12 pending.. DW Pt and Chemo in AM Add Mucomyst nebs Acapella Hold abx for now per Konrad Bonilla MD December 23, 2016 20:18
[2016-12-23] MEDS ORDERED: IBUPROFEN 400 MG TAB PO PRN (21:00)
[2016-12-23 21:05] LABS: AUTOMATED NEUTROPHIL # 14.7 TH/MM3 (1.8-7.7); BASOPHIL # 0.1 TH/MM3 (0-0.2); BASOPHIL % 0.3 % (0.0-2.0); EOSINOPHIL % 0.1 % (0.0-4.0); HEMATOCRIT 27.4 % (39.0-51.0); HEMO FLAGS DIFF FINAL; LYMPHOCYTE # 0.7 TH/MM3 (1.0-4.8); MEAN CELL VOLUME 86.1 FL (80.0-100.0); MEAN CORPUSCULAR HEMOGLOBIN 28.9 PG (27.0-34.0); MEAN CORPUSCULAR HGB CONC 33.5 % (32.0-36.0); MONO % 10.1 % (0.0-8.0); NEUT % 85.5 % (16.0-70.0); PLATELET COUNT 762 TH/MM3 (150-450); RED BLOOD COUNT 3.18 MIL/MM3 (4.50-5.90); RED CELL DISTRIBUTION WIDTH 13.5 % (11.6-17.2); WHITE BLOOD COUNT 17.2 TH/MM3 (4.0-11.0)
[2016-12-23] MEDS: RESP: ACETYLCYSTEINE 10% 30 ML NEB NEB SCH (21:20)
[2016-12-23] MEDS: PIPERACIL-TAZO 4.5 GM PREMIX 100 ML IV SCH (22:07)
[2016-12-23] MEDS ORDERED: Vancomycin Consult Pharmacy 1 EA OTHER SCH (23:15)
[2016-12-24] VITALS (7 sets, daily range): BP systolic 116–149; BP diastolic 61–93; PULSE 72–134; RESP 18; TEMP 96.2–98.1; O2SAT 93–95
[2016-12-24] MEDS: CYCLOBENZAPRINE HCL 10 MG TAB PO PRN ×2 (00:48→15:12)
[2016-12-24] MEDS: ZOLPIDEM TARTRATE 10 MG TAB PO PRN (00:48)
[2016-12-24] MEDS: oxyCODONE/ACETAMINOPHEN 5 MG/325 MG TAB PO PRN ×3 (00:49→15:13)
[2016-12-24] MEDS: PIPERACIL-TAZO 4.5 GM PREMIX 100 ML IV SCH ×2 (02:59→08:00)
[2016-12-24] MEDS ORDERED: VANCOMYCIN INJ 1,000 MG in SODIUM CHLOR 0.9% 250 ML INJ 250 ML IV ONE (03:00)
[2016-12-24] MEDS: RESP: ALBUTEROL 2.5 MG/IPRATROPIUM 0.5 MG NEB (PRN) NEB ×2 (03:44→10:19)
[2016-12-24] MEDS: RESP: ACETYLCYSTEINE 10% 30 ML NEB NEB SCH ×3 (03:44→16:17)
[2016-12-24] MEDS: SUCRALFATE 1 GM/10 ML CUP PO SCH ×3 (06:26→15:12)
[2016-12-24] MEDS: HYDROmorphone HCL 2 MG TAB PO PRN (06:30)
[2016-12-24 07:04] LABS: AUTOMATED NEUTROPHIL # 13.1 TH/MM3 (1.8-7.7); BASOPHIL # 0.1 TH/MM3 (0-0.2); BASOPHIL % 0.5 % (0.0-2.0); EOSINOPHIL # 0.2 TH/MM3 (0-0.4); EOSINOPHIL % 0.9 % (0.0-4.0); HEMATOCRIT 24.5 % (39.0-51.0); LYMPH % 8.7 % (9.0-44.0); LYMPHOCYTE # 1.5 TH/MM3 (1.0-4.8); MEAN CELL VOLUME 86.9 FL (80.0-100.0); MEAN CORPUSCULAR HEMOGLOBIN 28.5 PG (27.0-34.0); MEAN CORPUSCULAR HGB CONC 32.8 % (32.0-36.0); MONO % 13.3 % (0.0-8.0); NEUT % 76.6 % (16.0-70.0); PLATELET COUNT 577 TH/MM3 (150-450); RED BLOOD COUNT 2.82 MIL/MM3 (4.50-5.90); RED CELL DISTRIBUTION WIDTH 13.3 % (11.6-17.2); WHITE BLOOD COUNT 17.1 TH/MM3 (4.0-11.0)
[2016-12-24 07:06] LABS: HEMO FLAGS AUTO DIFF
[2016-12-24] MEDS: PANTOPRAZOLE SOD 40 MG DELAYED RELEASE TAB PO SCH (07:58)
[2016-12-24] MEDS: SODIUM CHLORIDE 0.9% FLUSH 10 ML FLUSH IV FLUSH SCH (07:59)
[2016-12-24] MEDS: LACTOBACILLUS ACIDOPHILUS TAB PO SCH ×2 (07:59→12:48)
[2016-12-24] MEDS: oxyCODONE HCL 20 MG CONTROLLED RELEASE TAB PO SCH (07:59)
[2016-12-24 08:00] LABS: BICARBONATE 28.9 MEQ/L (21.0-32.0); MAGNESIUM 2.1 MG/DL (1.5-2.5); POTASSIUM 3.7 MEQ/L (3.5-5.1)
[2016-12-24] MEDS: NYSTATIN SUSP 500,000 U/5 ML CUP SWISH-SWAL SCH ×2 (08:00→12:47)
[2016-12-24 09:08] LABS: BANDS 15 % (0-6); EOSINOPHILS 4 % (0-4); METAMYELOCYTES 2 % (0-1); NEUTROPHIL # MANUAL DIFF 13.5 TH/MM3 (1.8-7.7); POLYS (SEG NEUTROPHILS) 62 % (16-70); WBC DIFF SAMPLE 100
[2016-12-24 09:10] LABS: PLATELET ESTIMATE SMEAR HIGH (NORMAL); PLATELET MORPHOLOGY NORMAL (NORMAL); SCAN/DIFF FINAL DIFF MANUAL
--- NOTE | 2016-12-24 09:42 | RADRPT ---
EXAM DATE/TIME: 12/22/2016 00:00 [facility] COMPARISON: CHEST SINGLE AP, December 23, 2016, 19:25. CHEST TUBE EXCHANGE, RIGHT, December 13, 2016, 12:06. INDICATIONS : Chest tube removal, right lateral. Prior pneumothorax. DEVICE(S): 1.) Vaseline occlusive dressing PROCEDURE : Chest tube removal. Using aseptic technique the previously placed chest tube was easily removed in one piece and Vaseline gauze and sterile dressing was applied. Chest radiograph is to be obtained. Followup chest radiograph was obtained at 1925 hrs. There is no pneumothorax. There is near-complete opacification of the right chest. The Sekmnx-b-Fyyk in good position. CONCLUSION: Uncomplicated chest tube removal. Blake Renteria MD on December 24, 2016 at 9:40 Board Certified Radiologist. This report was verified electronically.
--- NOTE | 2016-12-24 09:47 | PD.ONC.PN ---
Subjective Subjective Remarks feeling much better and temperature down. wants to go home. His already forwarded the records I gave her last night to [facility] and other institutions. Objective Data Date Time Temp Pulse Resp B/P Pulse Ox O2 Delivery O2 Flow Rate FiO2 12/24/16 08:27 96.2 108 18 117/61 93 12/24/16 06:02 Room Air 12/24/16 04:00 97.4 72 18 116/63 93 12/24/16 01:50 Room Air 12/24/16 00:00 98.1 134 18 149/66 94 12/23/16 22:12 101.5 12/23/16 21:20 97 Nasal Cannula 2.00 12/23/16 20:00 101.8 129 18 126/58 97 12/23/16 18:57 97.1 87 20 120/83 97 12/23/16 18:40 101.0 12/23/16 17:14 99.6 119 20 115/58 97 12/23/16 16:10 113 20 151/85 96 12/23/16 15:40 125 18 151/85 95 12/23/16 15:25 98.7 125 20 154/89 94 12/23/16 15:25 125 18 154/86 94 12/23/16 13:48 2.00 12/24/16 12/24/16 12/24/16 06:59 14:59 22:59 Intake Total 930 ml Balance 930 ml Result Diagram: 12/24/16 0637 12/24/16 0637 Laboratory Results Laboratory Tests Test 12/23/16 12/23/16 12/24/16 17:03 20:48 06:37 Procalcitonin 0.06 ng/mL White Blood Count 17.2 TH/MM3 17.1 TH/MM3 Red Blood Count 3.18 MIL/MM3 2.82 MIL/MM3 Hemoglobin 9.2 GM/DL 8.0 GM/DL Hematocrit 27.4 % 24.5 % Mean Corpuscular Volume 86.1 FL 86.9 FL Mean Corpuscular Hemoglobin 28.9 PG 28.5 PG Mean Corpuscular Hemoglobin 33.5 % 32.8 % Concent Red Cell Distribution Width 13.5 % 13.3 % Platelet Count 762 TH/MM3 577 TH/MM3 Mean Platelet Volume 7.0 FL 6.9 FL Neutrophils (%) (Auto) 85.5 % 76.6 % Lymphocytes (%) (Auto) 4.0 % 8.7 % Monocytes (%) (Auto) 10.1 % 13.3 % Eosinophils (%) (Auto) 0.1 % 0.9 % Basophils (%) (Auto) 0.3 % 0.5 % Neutrophils # (Auto) 14.7 TH/MM3 13.1 TH/MM3 Lymphocytes # (Auto) 0.7 TH/MM3 1.5 TH/MM3 Monocytes # (Auto) 1.7 TH/MM3 2.3 TH/MM3 Eosinophils # (Auto) 0.0 TH/MM3 0.2 TH/MM3 Basophils # (Auto) 0.1 TH/MM3 0.1 TH/MM3 CBC Comment DIFF FINAL AUTO DIFF Differential Comment FINAL DIFF MANUAL Differential Total Cells 100 Counted Neutrophils % (Manual) 62 % Band Neutrophils % 15 % Lymphocytes % 8 % Monocytes % 9 % Eosinophils % 4 % Neutrophils # (Manual) 13.5 TH/MM3 Metamyelocytes 2 % Platelet Estimate HIGH Platelet Morphology Comment NORMAL Sodium Level 131 MEQ/L Potassium Level 3.7 MEQ/L Chloride Level 94 MEQ/L Carbon Dioxide Level 28.9 MEQ/L Anion Gap 8 MEQ/L Blood Urea Nitrogen 9 MG/DL Creatinine 0.98 MG/DL Estimat Glomerular Filtration 82 ML/MIN Rate Random Glucose 110 MG/DL Calcium Level 8.1 MG/DL Phosphorus Level 3.8 MG/DL Magnesium Level 2.1 MG/DL Albumin 1.6 GM/DL Culture Results Microbiology Date/Time Procedure Status Source Growth 12/23/16 18:53 Gram Stain - Final Resulted Sputum Expectorated Sputum 12/23/16 18:53 Sputum Culture Resulted Sputum Expectorated Sputum Pending 12/23/16 20:40 Aerobic Blood Culture Received Blood Peripheral Pending 12/23/16 20:40 Anaerobic Blood Culture Received Blood Peripheral Pending 12/23/16 20:48 Aerobic Blood Culture Received Blood Peripheral Pending 12/23/16 20:48 Anaerobic Blood Culture Received Blood Peripheral Pending Administered Medications Medications (Trade) Dose Ordered Sig/Thiago Route PRN Reason Start Time Stop Time Status Last Admin Dose Admin Sodium Chloride (NS Flush) 2 ml UNSCH PRN IV FLUSH FLUSH AFTER USING IV ACCESS 12/04/16 01:00 12/16/16 03:19 Sodium Chloride (NS Flush) 2 ml BID IV FLUSH 4/27/17 09:00 12/24/16 07:59 Amphetamine/ Dextroamphetamine (Adderall) 20 mg DAILY PO 12/04/16 09:00 Hold 12/05/16 09:08 Magnesium Hydroxide (Milk Of Magnesia Liq) 30 ml DAILY PRN PO CONSTIPATION 12/06/16 15:00 12/07/16 07:09 Zolpidem Tartrate (Ambien) 10 mg HS PRN PO INSOMNIA 12/06/16 17:00 12/24/16 00:48 Lactobacillus Acidophilus (Lactinex) 1 tab TID PO 12/10/16 13:00 12/24/16 07:59 Oxycodone/ Acetaminophen (Percocet 5-325 Mg) 1 tab Q4H PRN PO PAIN SCALE 3-10 12/15/16 15:30 12/24/16 04:54 Nystatin (Mycostatin Liq) 5 ml QID SWISH-SWAL 12/16/16 18:00 12/20/16 18:08 Sucralfate (Carafate Liq) 1 gm ACHS PO 12/17/16 16:00 12/24/16 06:26 Pantoprazole Sodium (Protonix) 40 mg Q12HR PO 12/17/16 21:00 12/24/16 07:58 Enoxaparin Sodium (Lovenox Inj) 40 mg Q24H SQ 12/17/16 18:00 Hold 12/17/16 18:34 Hydromorphone HCl (Dilaudid) 2 mg Q6H PRN PO pain 6-10 12/22/16 16:30 12/24/16 06:30 Oxycodone HCl (OxyCONTIN CR) 20 mg Q12HR PO 12/22/16 21:00 12/24/16 07:59 Cyclobenzaprine HCl (Flexeril) 10 mg Q8H PRN PO RIGHT shoulder spasm 12/22/16 18:30 12/24/16 00:48 Methocarbamol (Robaxin) 500 mg TID PRN PO RIGHT SHOULDER SPASM 12/22/16 14:00 12/23/16 06:39 Acetaminophen 500 mg 500 mg Q4HR PRN PO FEVER 12/23/16 20:00 12/23/16 20:00 Piperacillin Sod/ Tazobactam Sod (Zosyn 4.5 Gm Premix) 100 ml @ 200 mls/hr Q6H IV 12/23/16 21:00 12/24/16 08:00 Ibuprofen (Motrin) 400 mg Q8HR PRN PO TEMP GREATER THEN 100.5 12/23/16 21:00 12/23/16 21:15 Objective Remarks GENERAL: gaunt and looks much better then last night when he was coughing and diaphoretic. SKIN: Warm and dry. HEAD: Normocephalic. EYES: No scleral icterus. No injection or drainage. NECK: Supple, trachea midline. No JVD or lymphadenopathy. LYMPHATIC: No adenopathy. CARDIOVASCULAR: Regular rate and rhythm without murmurs. RESPIRATORY: decreased sounds right lung GASTROINTESTINAL: Abdomen soft, non-tender, nondistended. EXTREMITIES: No cyanosis, or edema. MUSCULOSKELETAL: muscle wasting beginning. NEUROLOGICAL: No obvious focal deficit. Awake, alert, and oriented x3. PSYCHIATRIC: anxious and wants to go home and seek a second opinion before considering any treatment. Assessment/Plan Assessment 1: Both Mr. Martinez and his are clear about not wanting to proceed with therapy until they have had a second opinion at a major cancer center and it is not clear that that he will return to [facility] for followup care. I provided them with copies of labs and spoke with Jeancarlos in radiology who will deliver to them in the next 3 hours the CDs for all of the films. 2: I updated Dr. Jiang concerning events and he will see patient today. If the patient continues to do well he can be discharged on bronchodilators and oral antibiotics today but will defer any prescriptions to Dr. Jiang and he has volunteered to take care of this. They now have their records and can seek care anywhere. They understand I will be away next week. At this point I do not have anything else to add and they will need to take the next step. They did not at this point request a follow up apointment and I told them if they begin treatment at a distance they will need a local oncologist which can be myself, someone else in the group or a physician associated with another hospital. Manuel Gallegos MD December 24, 2016 09:47
[2016-12-24 11:52] LABS: IGA SERUM 204 mg/dL (81-463); TISSUE TRANSGLUTAMINASE AB IGG ND U/mL (())
--- NOTE | 2016-12-24 12:34 | HHI.IDPN ---
Subjective Subjective Remarks fever yday and WBC elevation CXR from yday showed complete opacification R hemithorax Pt also had a sense of congestion and inability to cough up the sputum After mucomist he was able to cough up a good amount of sputum and his breathing and congestion dramatically improved No fever today he was also started on zosyn, vanco yday Antibiotics zosyn, vanco Allergies: Coded Allergies: Codeine (Verified Allergy, Severe, HIVES, 12/03/16) Objective . Vital Signs Date Time Temp Pulse Resp B/P Pulse Ox O2 Delivery O2 Flow Rate FiO2 12/24/16 11:39 96.8 126 18 128/68 94 12/24/16 10:24 95 Nasal Cannula 21 12/24/16 08:27 96.2 108 18 117/61 93 12/24/16 06:02 Room Air 12/24/16 04:00 97.4 72 18 116/63 93 12/24/16 01:50 Room Air 12/24/16 00:00 98.1 134 18 149/66 94 12/23/16 22:12 101.5 12/23/16 21:20 97 Nasal Cannula 2.00 12/23/16 20:00 101.8 129 18 126/58 97 12/23/16 18:57 97.1 87 20 120/83 97 12/23/16 18:40 101.0 12/23/16 17:14 99.6 119 20 115/58 97 12/23/16 16:10 113 20 151/85 96 12/23/16 15:40 125 18 151/85 95 12/23/16 15:25 98.7 125 20 154/89 94 12/23/16 15:25 125 18 154/86 94 12/23/16 13:48 2.00 12/23/16 12/23/16 12/24/16 15:00 23:00 07:00 Intake Total 930 ml Balance 930 ml Intake Oral 480 ml IV Total 450 ml # Voids 4 2 # Bowel Movements 1 . Laboratory Tests Test 12/23/16 12/23/16 12/24/16 06:15 20:48 06:37 White Blood Count 19.4 TH/MM3 17.2 TH/MM3 17.1 TH/MM3 Red Blood Count 3.11 MIL/MM3 3.18 MIL/MM3 2.82 MIL/MM3 Hemoglobin 8.7 GM/DL 9.2 GM/DL 8.0 GM/DL Hematocrit 27.0 % 27.4 % 24.5 % Mean Corpuscular Volume 86.8 FL 86.1 FL 86.9 FL Mean Corpuscular Hemoglobin 28.0 PG 28.9 PG 28.5 PG Mean Corpuscular Hemoglobin 32.3 % 33.5 % 32.8 % Concent Red Cell Distribution Width 13.5 % 13.5 % 13.3 % Platelet Count 650 TH/MM3 762 TH/MM3 577 TH/MM3 Mean Platelet Volume 7.1 FL 7.0 FL 6.9 FL Neutrophils (%) (Auto) 75.5 % 85.5 % 76.6 % Lymphocytes (%) (Auto) 11.4 % 4.0 % 8.7 % Monocytes (%) (Auto) 12.1 % 10.1 % 13.3 % Eosinophils (%) (Auto) 0.7 % 0.1 % 0.9 % Basophils (%) (Auto) 0.3 % 0.3 % 0.5 % Neutrophils # (Auto) 14.6 TH/MM3 14.7 TH/MM3 13.1 TH/MM3 Lymphocytes # (Auto) 2.2 TH/MM3 0.7 TH/MM3 1.5 TH/MM3 Monocytes # (Auto) 2.3 TH/MM3 1.7 TH/MM3 2.3 TH/MM3 Eosinophils # (Auto) 0.1 TH/MM3 0.0 TH/MM3 0.2 TH/MM3 Basophils # (Auto) 0.1 TH/MM3 0.1 TH/MM3 0.1 TH/MM3 CBC Comment AUTO DIFF DIFF FINAL AUTO DIFF Differential Total Cells 100 100 Counted Neutrophils % (Manual) 65 % 62 % Band Neutrophils % 17 % 15 % Lymphocytes % 7 % 8 % Monocytes % 10 % 9 % Eosinophils % 1 % 4 % Neutrophils # (Manual) 15.9 TH/MM3 13.5 TH/MM3 Differential Comment FINAL DIFF FINAL DIFF MANUAL MANUAL Platelet Estimate HIGH HIGH Platelet Morphology Comment NORMAL NORMAL Metamyelocytes 2 % Laboratory Tests Test 12/23/16 12/23/16 12/24/16 06:15 17:03 06:37 Sodium Level 132 MEQ/L 131 MEQ/L Potassium Level 3.6 MEQ/L 3.7 MEQ/L Chloride Level 94 MEQ/L 94 MEQ/L Carbon Dioxide Level 29.0 MEQ/L 28.9 MEQ/L Anion Gap 9 MEQ/L 8 MEQ/L Blood Urea Nitrogen 7 MG/DL 9 MG/DL Creatinine 0.85 MG/DL 0.98 MG/DL Estimat Glomerular Filtration 96 ML/MIN 82 ML/MIN Rate Random Glucose 103 MG/DL 110 MG/DL Calcium Level 8.0 MG/DL 8.1 MG/DL Procalcitonin 0.06 ng/mL Phosphorus Level 3.8 MG/DL Magnesium Level 2.1 MG/DL Albumin 1.6 GM/DL Microbiology Date/Time Procedure Status Source Growth 12/23/16 18:53 Gram Stain - Final Resulted Sputum Expectorated Sputum 12/23/16 18:53 Sputum Culture - Preliminary Resulted Sputum Expectorated Sputum MODERATE GROWTH NORMAL RESPIRATORY FL... 12/23/16 20:40 Aerobic Blood Culture - Preliminary Resulted Blood Peripheral NO GROWTH IN 1 DAY 12/23/16 20:40 Anaerobic Blood Culture - Preliminary Resulted Blood Peripheral NO GROWTH IN 1 DAY 12/23/16 20:48 Aerobic Blood Culture - Preliminary Resulted Blood Peripheral NO GROWTH IN 1 DAY 12/23/16 20:48 Anaerobic Blood Culture - Preliminary Resulted Blood Peripheral NO GROWTH IN 1 DAY Imaging Last Impressions Port Line Insertion 12/23/16 0000 Signed Impressions: Service Date/Time: Friday, December 23, 2016 14:54 - CONCLUSION: Uncomplicated ultrasound and fluoroscopic guided implanted central venous port catheter placement as described in detail above. An 8 [employer] port was placed. Hayes Lu Jr., MD Chest X-Ray 12/23/16 0000 Signed Impressions: Service Date/Time: Friday, December 23, 2016 19:25 - CONCLUSION: 1. Near- complete opacification of right hemithorax, stable. Finding secondary to right effusion and right lung consolidation/mass. Right [id number] tip in superior vena cava. Jim Figueroa MD Tunnelled Chest Tube Removal 12/22/16 0000 Signed Impressions: Service Date/Time: Thursday, December 22, 2016 00:00 - CONCLUSION: Uncomplicated chest tube removal. Blake Renteria MD Brain MRI 12/22/16 0000 Signed Impressions: Service Date/Time: Thursday, December 22, 2016 13:56 - CONCLUSION: Normal examination for a patient of this age. No evidence of brain metastatic disease. Ck Spencer MD Abdomen/Pelvis CT 12/22/16 0000 Signed Impressions: Service Date/Time: Thursday, December 22, 2016 18:51 - CONCLUSION: 1. Large right lower lobe mass with pleural nodularity. 2. 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 Rick Agrawal MD Shoulder X-Ray 12/16/16 0000 Signed Impressions: Service Date/Time: Friday, December 16, 2016 16:37 - CONCLUSION: 1. High riding humeral head indicating possible rotator cuff insufficiency. 2. Mild acromioclavicular joint arthrosis. Jett Sherwood MD Lung Biopsy CT 12/15/16 0000 Signed Impressions: Service Date/Time: Thursday, December 15, 2016 11:59 - CONCLUSION: Uncomplicated CT guided biopsy of right lung mass. Rick Agrawal MD Chest Tube Change 12/13/16 1302 Signed Impressions: Service Date/Time: Tuesday, December 13, 2016 12:06 - CONCLUSION: Uncomplicated chest tube exchange as above. Blake Renteria MD Chest CT 12/13/16 0600 Signed Impressions: Service Date/Time: Tuesday, December 13, 2016 08:14 - CONCLUSION: 1. Ill-defined tumor mass in the right infrahilar region measuring up to least 7 cm. 2. Extensive mediastinal adenopathy and right hilar adenopathy. 3. Dense consolidation remains in the right lung base. 4. Mild interval increase in right pleural effusion with loculated components. Ryan Parry MD Chest Tube Insertion 12/08/16 0000 Signed Impressions: Service Date/Time: Thursday, December 08, 2016 14:46 - CONCLUSION: Uncomplicated chest tube placement as above. Rick Agrawal MD Thoracentesis Ultrasound 12/06/16 0000 Signed Impressions: Service Date/Time: Tuesday, December 06, 2016 13:53 - CONCLUSION: Uncomplicated ultrasound guided thoracentesis. Glen Ahn MD Physical Exam CONSTITUTIONAL/GENERAL: This is an adequately nourished patient, in no apparent distress. resting comfortably TUBES/LINES/DRAINS: CT in place SKIN: No jaundice, rashes, or lesions. CARDIOVASCULAR: Regular tachycardia without murmurs, gallops, or rubs. No JVD. Peripheral pulses symmetric. RESPIRATORY/CHEST: Symmetric, unlabored respirations. Breath sounds markedly decreases onthe R + rhocnhi present GASTROINTESTINAL: Abdomen soft, non-tender, nondistended. MUSCULOSKELETAL: Extremities without cyanosis, or edema. + mild to moderate clubbing. Edema, no pitting BLE NEUROLOGICAL: awake alert, non focal Assessment & Plan Remarks Lung Ca, newly diagnosed, stage III or IV - non differentiated adenoCa New acomplete opacification of R heithorax ? mucus plugging vs tumor progression - sputum with no resp adelfo Persisten low grade fever -resolved - procalcitonin low Leukocytosis , m,ild but persistent ? from tumor as well Diarrhea, abx associatedp; c.diff neg - repeat CXR - cont mucomist - Augmentin 875 mg bid x 7 days Discussed Condition With family @ b/s dw Apolinar Garvin,Jess Khan MD December 24, 2016 12:34
[2016-12-24] MEDS ORDERED: VANCOMYCIN INJ 1,250 MG in SODIUM CHLOR 0.9% 250 ML INJ 250 ML IV SCH (13:00)
[2016-12-24] MEDS ORDERED: AMOXICILLIN/CLAVULANATE K 875 MG TAB PO SCH (13:45)
[2016-12-24] MEDS ORDERED: AUGM875T PO (13:47)
--- NOTE | 2016-12-24 13:49 | RADRPT ---
EXAM DATE/TIME: 12/24/2016 12:52 [facility] COMPARISON: CHEST SINGLE AP, December 23, 2016, 19:25. INDICATIONS : Cough. MEDICAL HISTORY : Carcinoma, lung. SURGICAL HISTORY : None. ENCOUNTER: Initial ACUITY: 3 weeks PAIN SCORE: 0/10 LOCATION: Bilateral chest FINDINGS: Again seen is near complete opacification of the right hemithorax. The left lung is clear. Infuse-A -Port is in good position. Heart and pulmonary vascularity are normal. CONCLUSION: Stable chest. Rogelio Renteria MD FACR on December 24, 2016 at 13:38 Board Certified Radiologist. This report was verified electronically.
--- NOTE | 2016-12-24 15:16 | HHI.PR ---
Subjective Remarks Had CT guided rt lung bx Chest tube removed path NSCLC Started Mucomyst, feels much better Ambulates on RA Started Augmentin Objective Vital Signs Vital Signs Date Time Temp Pulse Resp B/P Pulse Ox O2 Delivery O2 Flow Rate FiO2 12/24/16 11:39 96.8 126 18 128/68 94 12/24/16 10:24 95 Nasal Cannula 21 12/24/16 08:27 96.2 108 18 117/61 93 12/24/16 06:02 Room Air 12/24/16 04:00 97.4 72 18 116/63 93 12/24/16 01:50 Room Air 12/24/16 00:00 98.1 134 18 149/66 94 12/23/16 22:12 101.5 12/23/16 21:20 97 Nasal Cannula 2.00 12/23/16 20:00 101.8 129 18 126/58 97 12/23/16 18:57 97.1 87 20 120/83 97 12/23/16 18:40 101.0 12/23/16 17:14 99.6 119 20 115/58 97 12/23/16 16:10 113 20 151/85 96 12/23/16 15:40 125 18 151/85 95 12/23/16 15:25 98.7 125 20 154/89 94 12/23/16 15:25 125 18 154/86 94 I/O 12/23/16 12/23/16 12/23/16 12/24/16 12/24/16 12/24/16 07:00 15:00 23:00 07:00 15:00 23:00 Intake Total 930 ml Balance 930 ml Intake Oral 480 ml IV Total 450 ml # Voids 2 4 2 # Bowel Movements 1 Result Diagram: 12/24/1637 12/24/1637 Objective Remarks GENERAL: Patient is 46 yo lying in bed in NAD SKIN: Warm and dry. HEAD: Normocephalic. EYES: No scleral icterus. No injection or drainage. NECK: Supple, trachea midline. No JVD or lymphadenopathy. CARDIOVASCULAR: Regular rate and rhythm without murmurs, gallops, or rubs. RESPIRATORY: Breath sounds equal bilaterally. Diminished BS on right. GASTROINTESTINAL: Abdomen soft, non-tender, nondistended. MUSCULOSKELETAL: No cyanosis, or edema. BACK: Nontender without obvious deformity. No CVA tenderness. Neuro: Awake and alert A/P Assessment and Plan 1)REsp Insuff 2)Right pleural effusion- Exudative effusion 3))Positive strep pneumonia Ag 4)Tumor mass in the right infrahilar region measuring up to least 7 cm r/p malignancy 5)GERD 6)Leukocytosis 7)Anemia 8. NSCLC PLAN: Continue with oxygen keep sat >92% Bronchodilators( DuoNeb) CXR today-Increasing pleural-parenchymal density throughout the right chest with slight shift of the trachea to the left. Monitor CT drainage- Cytology from December 04 showed no malignant cells, cytology from 12/12 pending.. DW Pt and Discussed pt's condition, rapidly progressing cancer, white out of right lung with mass Needs Chemo BRIGITTE They want 2nd opinion and made appointment at [facility] at 1;30 Mucomyst jose [place] plans for home JEFFY Hunt.,Dr.Duncan Jiang,Konrad Tang MD December 24, 2016 15:16
[2016-12-24] MEDS ORDERED: AMOX875T2 PO (15:19)
[2016-12-24] MEDS ORDERED: ACET10SO3 NEB (15:19)
[2016-12-24 15:53] LABS: ENDOMYSIAL AB TITER ND (<1:5); TISSUE TRANSGLUTAMINASE AB LESS THAN 1 U/mL (())
[2016-12-25] MEDS ORDERED: PHARMACY ORDERED LAB ONE (12:45)
--- NOTE | 2016-12-26 08:17 | HHI.DS ---
Discharge Summary Admission Date Dec 04, 2016 at 01:08 Discharge Date: December 24, 2016 Admitting Diagnosis pneumonia, failure of adequate outpatient treatment (1) Sepsis ICD Code: A41.9 (2) Pleural effusion, right ICD Code: J90 (3) Right lower lobe pneumonia ICD Code: J18.1 (4) Insomnia ICD Code: G47.00 Procedures sp US guided thoracentesis CT placement 12/13. chest tube removal 12/23. Brief History - From Admission This is a 46 year old male patient with a past medical history which includes GERD and ADD. Patient reports he has had trouble breathing x 1 week. This shortness of breath has been associated with cough productive of yellow phlegm and right sided chest pain. Chest pain is worsen by his shortness of breath. The right-sided chest pain radiates to the back pain and patient describes the chest pain as sharp stabbing in nature. Patient was seen at [facility] given azithromycin by mouth and discharged home. Patient report that since that time he has been feeling worse with increasing shortness of breath and increasing generalized muscle aches. Patient feels warm at time of evaluation. Patient denies fevers, chills, N/V/D, changes in weight. Upon arrival to the emergency department patient's temperature 99.0 heart rate of 117 respiratory rate of 20 blood pressure 124/77 with pulse oximetry 95% on room air. Chest x-ray reviewed by myself as well as Dr. Houston and reveals increasing pulmonary infiltrate and effusion in the right lung. CBC/BMP: 12/24/16 0637 12/24/16 0637 Significant Findings Laboratory Tests Test 12/23/16 12/24/16 20:48 06:37 White Blood Count 17.2 TH/MM3 17.1 TH/MM3 (4.0-11.0) (4.0-11.0) Red Blood Count 3.18 MIL/MM3 2.82 MIL/MM3 (4.50-5.90) (4.50-5.90) Hemoglobin 9.2 GM/DL 8.0 GM/DL (13.0-17.0) (13.0-17.0) Hematocrit 27.4 % 24.5 % (39.0-51.0) (39.0-51.0) Platelet Count 762 TH/MM3 577 TH/MM3 (150-450) (150-450) Neutrophils (%) (Auto) 85.5 % 76.6 % (16.0-70.0) (16.0-70.0) Lymphocytes (%) (Auto) 4.0 % 8.7 % (9.0-44.0) (9.0-44.0) Monocytes (%) (Auto) 10.1 % 13.3 % (0.0-8.0) (0.0-8.0) Neutrophils # (Auto) 14.7 TH/MM3 13.1 TH/MM3 (1.8-7.7) (1.8-7.7) Lymphocytes # (Auto) 0.7 TH/MM3 (1.0-4.8) Monocytes # (Auto) 1.7 TH/MM3 2.3 TH/MM3 (0-0.9) (0-0.9) Mean Platelet Volume 6.9 FL (7.0-11.0) Band Neutrophils % 15 % (0-6) Lymphocytes % 8 % (9-44) Monocytes % 9 % (0-8) Neutrophils # (Manual) 13.5 TH/MM3 (1.8-7.7) Metamyelocytes 2 % (0-1) Platelet Estimate HIGH (NORMAL) Sodium Level 131 MEQ/L (136-145) Chloride Level 94 MEQ/L (98-107) Estimat Glomerular Filtration 82 ML/MIN (>89) Rate Random Glucose 110 MG/DL (74-106) Calcium Level 8.1 MG/DL (8.5-10.1) Albumin 1.6 GM/DL (3.4-5.0) Imaging Last Impressions Chest X-Ray 12/24/16 0000 Signed Impressions: Service Date/Time: Saturday, December 24, 2016 12:52 - CONCLUSION: Stable chest. Rogelio Renteria MD FACR Port Line Insertion 12/23/16 0000 Signed Impressions: Service Date/Time: Friday, December 23, 2016 14:54 - CONCLUSION: Uncomplicated ultrasound and fluoroscopic guided implanted central venous port catheter placement as described in detail above. An 8 [employer] port was placed. Hayes Lu Jr., MD Tunnelled Chest Tube Removal 12/22/16 0000 Signed Impressions: Service Date/Time: Thursday, December 22, 2016 00:00 - CONCLUSION: Uncomplicated chest tube removal. Blake Renteria MD Brain MRI 12/22/16 0000 Signed Impressions: Service Date/Time: Thursday, December 22, 2016 13:56 - CONCLUSION: Normal examination for a patient of this age. No evidence of brain metastatic disease. Ck Spencer MD Abdomen/Pelvis CT 12/22/16 0000 Signed Impressions: Service Date/Time: Thursday, December 22, 2016 18:51 - CONCLUSION: 1. Large right lower lobe mass with pleural nodularity. 2. 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 Rick Agrawal MD Shoulder X-Ray 12/16/16 0000 Signed Impressions: Service Date/Time: Friday, December 16, 2016 16:37 - CONCLUSION: 1. High riding humeral head indicating possible rotator cuff insufficiency. 2. Mild acromioclavicular joint arthrosis. Jett Sherwood MD Lung Biopsy CT 12/15/16 0000 Signed Impressions: Service Date/Time: Thursday, December 15, 2016 11:59 - CONCLUSION: Uncomplicated CT guided biopsy of right lung mass. Rick Agrawal MD Chest Tube Change 12/13/16 1302 Signed Impressions: Service Date/Time: Tuesday, December 13, 2016 12:06 - CONCLUSION: Uncomplicated chest tube exchange as above. Blake Renteria MD Chest CT 12/13/16 0600 Signed Impressions: Service Date/Time: Tuesday, December 13, 2016 08:14 - CONCLUSION: 1. Ill-defined tumor mass in the right infrahilar region measuring up to least 7 cm. 2. Extensive mediastinal adenopathy and right hilar adenopathy. 3. Dense consolidation remains in the right lung base. 4. Mild interval increase in right pleural effusion with loculated components. Ryan Parry MD Chest Tube Insertion 12/08/16 0000 Signed Impressions: Service Date/Time: Thursday, December 08, 2016 14:46 - CONCLUSION: Uncomplicated chest tube placement as above. Rick Agrawal MD Thoracentesis Ultrasound 12/06/16 0000 Signed Impressions: Service Date/Time: Tuesday, December 06, 2016 13:53 - CONCLUSION: Uncomplicated ultrasound guided thoracentesis. Glen Ahn MD PE at Discharge GENERAL: Well-nourished, well-developed patient in NAD. SKIN: Warm and dry. No rash. HEAD: Normocephalic. Atraumatic.Pupils equal and round. No scleral icterus. No injection or drainage. No nasal bleeding or discharge. Mucous membranes pink and moist. NECK: Supple. Trachea midline. CARDIOVASCULAR: Regular rate and rhythm. S1, S2 noted. No murmur appreciated. RESPIRATORY: No accessory muscle use. Diminished lung sounds in right base. Right lateral chest tube noted, sero-sanguinous drainage in pleurvac. No air leak noted. GASTROINTESTINAL: Abdomen soft, non-tender, nondistended. Normoactive bowel sounds x4. MUSCULOSKELETAL: No obvious deformities. Extremities without clubbing, cyanosis , or edema. NEUROLOGICAL: Awake and alert. No obvious cranial nerve deficits. Motor grossly within normal limits. 5/5 muscle strength in bilateral upper and lower extremities. Normal speech. PSYCHIATRIC: Appropriate mood and affect; insight and judgment normal. Pt update on day of discharge patient says he is feeling much better. Denies any chest pain or shortness of breath. Right shoulder pain is controlled. I discussed the case with pulmonology. Uncertain if patient has pneumonia. Calcitonin is low. Given the clinical picture however will discharge home on Augmentin. Patient has appointment scheduled with outside oncologist within several days Hospital Course Patient underwent thoracentesis with chest tube placement on 12/13. Cytology negative, however underwent lung biopsy which was positive for poorly differentiated adenocarcinoma. Patient continued with elevated white count, fevers of 101 Fahrenheit. Persistent right lung opacification. Infectious disease and pulmonology following. Antibiotics were discontinued on 12/18. As patient continued to have fevers, antibiotics were added back 12/25, and patient will be discharged on Augmentin 875 mg twice daily as per infectious disease recommendations. Oncology recommended starting chemotherapy as an inpatient. Patient requested second opinion, will follow-up with outside oncologist. Patient has biopsy results. Patient understands that this appears to be a very aggressive cancer, with very poor prognosis and was counseled by oncology as well as pulmonology on the urgency of having this addressed. For problem-based summary from most recent progress note, please see below. ===== 12/23/[address] Bustos. Repeat sputum culture as per infectious disease verbal recommendation today. Pro-calcitonin pending. Lactate pending as well. Repeat chest x-ray. Fevers most likely tumor fever, however Depending on results of chest x-ray, low threshold for adding antibiotics. //Possible Sepsis secondary to Pneumococcal pneumonia S/P Bronchoscopy 12/11 Strep pneumonia antigen positive Legionella urine antigen negative Continue incentive spirometry. Previously on ceftriaxone and azithromycin, infectious disease following, antibiotics stopped. Infectious disease following, chest x-ray shows persistent pleural effusion. Could also be secondary to mass. Status post lung biopsy 12/15/16. =Continues with leukocytosis and low-grade fevers. Could be secondary to malignancy. Continue antibiotics as per infectious disease. -12/23 although fevers, white count are likely secondary to malignancy, fever higher today 101.0, with worsening cough. Immunocompromise. As per discussion with infectious disease, we'll order chest x-ray, sputum culture. Low threshold for adding antibiotics depending upon results. //Recurrent Pleural effusion, CT upgraded size by IR- 12/13- no leaking //Right lung mass now seen in chest CT with contrast - 12/12 //Poorly differentiated lung adenocarcinoma Patient with recurrent pleural effusions status post thoracentesis 2. CT in place, minimal output. Cytology negative on 12/04.. Repeat cytology on 12/12 negative. Cytology on 12/[address] management per Dr. Jiang, Dr. Weinberg ff: plan for VATs tomorrow in am 12/19. status post CT-guided biopsy 12/15/16. Right chest tube in place: sero-sanguinous fluid noted. --12/19. Dr. Bustos has discussed with pathology. Possible malignancy. We' ll consult oncology. -Oncology following. Appreciate assistance. Follow-up pathology, pending. -12/21-Discussed with nursing. Minimal output from right chest tube, however decreased breath sounds in right lung. Repeat chest x-ray to evaluate for pleural effusion. -12/22. Discussed with Dr. Gallegos in oncology. Poorly differentiated adenocarcinoma.. Poor prognosis. -12/23. Qontkv-t-Oosp placed. Status post negative brain for metastasis. Discussed with oncology. Plan for first dose of chemotherapy tomorrow. //Insomnia, improved. //Antibiotic associated Diarrhea with epigastric fullness //history of GERD with dysphagia Temp spike t -max 101.1. ID following, blood cultures and sputum NGTD. Continue Lactinex. C. diff negative. GI following, status post EGD. Gastritis and esophagitis, biopsy negative for Flanagan's esophagus. -Continue PPI. //Shoulder pain Chest x-ray reviewed by me, high riding humeral head indicating possible rotator cuff insufficiency. Unlikely metastatic disease. Continue Flexeril. -12/22. Patient requests increase in pain medication for this pain. Will add OxyContin 20 twice daily, add IV Dilaudid for breakthrough pain. Right-sided chest pain appears to be controlled however. -12/23. Right shoulder pain controlled on current regimen. Continue. //Hypokalemia: -potassium reviewed again, and resolved after replacement. Continue to follow. //GI Prophylaxis: Protonix 40 mg Q12h PO. //DVT prophylaxis: SCDs. Discharge Planning Jhbckm-[id number] has been placed, chest tube has been removed. -Patient will stay for first dose of chemotherapy. -also Ruling out pneumonia. -Depending on results of infectious workup, May be discharged tomorrow with close follow-up oncology as outpatient. Pt Condition on Discharge: Stable Discharge Disposition: Disch w/ Home Health Serv Discharge Time: > 30 minutes Discharge Instructions DIET: Follow Instructions for: As Tolerated, No Restrictions Activities you can perform: Regular-No Restrictions Follow up Referrals: Gastroenterology - 1 Week with Derek Mckee MD Oncology - 3-5 Days with Manuel Gallegos MD PCP Follow-up - 1 Week with Omar Harry MD Pulmonology with Konrad Jiang MD New Medications: Amoxicillin-Clavulanate (Augmentin) 875-125 mg Tab 875 MG PO BID not for use in CrCl <30 ml/min. Infection Days 7 Ref 0 TAB Oxygen tank (Oxygen tank) 1 Ea Tank 2 LITER GERONIMO.CANULA While ambulating Oxygen Concentrator Portable Gaseous 2 L/ min via Nasal Cannula Continuous For 99 months HYPOXEMIA PREVENTION #2 CYLINDER Acetaminophen (Acetaminophen) 500 Mg Tab 500 MG PO Q6HR PRN FEVER Days 30 TAB Acetylcysteine Liq/Neb (Acetylcysteine Liq/Neb) 100 mg/ml Soln 2 ML NEB Q6HR NEB congestion Days 30 ML Amoxicillin-Clavulanate (Amoxicillin-Clavulanate) 875-125 mg Tab 875 MG PO Q12HR possible Pneumonia #14 TAB Cyclobenzaprine (Flexeril) 10 Mg Tab 10 MG PO Q8H PRN RIGHT shoulder spasm Days 30 TAB Hydromorphone (Dilaudid) 2 Mg Tab 2 MG PO Q6H PRN pain 6-10 #28 TAB Ipratropium-Albuterol Neb (Duoneb) 0.5-2.5 Mg/3 Ml Neb 1 AMPULE NEB Q2HR NEB PRN SHORTNESS OF BREATH Days 30 ML Magnesium Hydroxide Liq (Milk of Magnesia Liq) 400 Mg/5 Ml Susp 30 ML PO DAILY PRN CONSTIPATION Days 30 BOTTLE Methocarbamol (Methocarbamol) 500 Mg Tab 500 MG PO TID PRN RIGHT SHOULDER SPASM Days 30 TAB Nystatin Liq (Nystatin Liq) 100,000 unit/ml Susp 5 ML SWISH-SWAL QID esophagitis Days 14 BOTTLE Oxycodone ER (Oxycontin) 20 Mg Tab 20 MG PO Q12HR basal pain control #14 TAB Oxycodone-Acetaminophen (Oxycodone-Acetaminophen) 5-325 mg Tab 1 TAB PO Q4H PRN PAIN SCALE 3-10 #42 TAB Pantoprazole (Pantoprazole) 40 Mg Tab 40 MG PO Q12HR Reflux Days 30 TAB Sucralfate Liq (Sucralfate Liq) 1 Gm/10 Ml Marce 1 GM PO ACHS Reflux Days 14 BOTTLE Continued Medications: Albuterol 8.5 GM Inh (Proair Hfa 8.5 GM Inh) 90 Mcg/Act Aer 2 PUFF INH Q4-6H 108 mcg/actuation PRN COUGH #1 Ref 0 INHALER (This prescription has been renewed) Discontinued Medications: Amphetamine-Dextroamphetamine (Adderall) 20 Mg Tab 20 MG PO DAILY Avoid late evening doses. Space doses at least 4 to 6 hours if more than once/day dosing. Hyperactivity Control #30 Ref 0 TAB Azithromycin (Zithromax Z-Cedrick) 250 Mg Dspk 250 MG PO DIRECTED 500 MG (2 tabs) day 1, then 1 tab days 2-5. Infection #1 Ref 0 DSPK Omeprazole (Prilosec) 20 Mg Cap 20 MG PO DAILY #30 Ref 0 CAP Dao Miller MD December 26, 2016 08:17
== END 2016-12-24 16:27 | disposition home health service (06) | DRG 853 ==
LOC: NEPC 22:39 → NEDA 12-04 01:08 → OBSVTOIN 12-04 01:08 → HOCB 12-04 04:42 → HIMN 12-13 21:13 → N05A 12-16 12:27
PROVIDERS: ADMIT Internal Medicine; ATTEND Internal Medicine
PROC: 0W993ZZ Drainage of Right Pleural Cavity, Percutaneous Approach (ICD-10-PCS; 2016-12-04)
PROC: 0W993ZZ Drainage of Right Pleural Cavity, Percutaneous Approach (ICD-10-PCS; 2016-12-07)
PROC: 0W9930Z Drainage of Right Pleural Cavity with Drainage Device, Percutaneous Approach (ICD-10-PCS; 2016-12-08)
PROC: 0B9F8ZX Drainage of Right Lower Lung Lobe, Via Natural or Artificial Opening Endoscopic, Diagnostic (ICD-10-PCS; principal; 2016-12-11 14:15)
PROC: 0W29X0Z Change Drainage Device in Right Pleural Cavity, External Approach (ICD-10-PCS; 2016-12-13)
PROC: 0BBK3ZX Excision of Right Lung, Percutaneous Approach, Diagnostic (ICD-10-PCS; 2016-12-15)
PROC: 0D738ZZ Dilation of Lower Esophagus, Via Natural or Artificial Opening Endoscopic (ICD-10-PCS; 2016-12-16)
PROC: 0DB38ZX Excision of Lower Esophagus, Via Natural or Artificial Opening Endoscopic, Diagnostic (ICD-10-PCS; 2016-12-16)
PROC: 0DB68ZX Excision of Stomach, Via Natural or Artificial Opening Endoscopic, Diagnostic (ICD-10-PCS; 2016-12-16)
PROC: 0JH63WZ Insertion of Totally Implantable Vascular Access Device into Chest Subcutaneous Tissue and Fascia, Percutaneous Approach (ICD-10-PCS; 2016-12-23)
PROC: 05HM33Z Insertion of Infusion Device into Right Internal Jugular Vein, Percutaneous Approach (ICD-10-PCS; 2016-12-23)
PROC: B543ZZA Ultrasonography of Right Jugular Veins, Guidance (ICD-10-PCS; 2016-12-23)
PROC: B513ZZA Fluoroscopy of Right Jugular Veins, Guidance (ICD-10-PCS; 2016-12-23)
DX: A40.8 Other streptococcal sepsis (principal); J13 Pneumonia due to Streptococcus pneumoniae; J90 Pleural effusion, not elsewhere classified; C77.1 Secondary and unspecified malignant neoplasm of intrathoracic lymph nodes; K52.1 Toxic gastroenteritis and colitis; C34.01 Malignant neoplasm of right main bronchus; C77.2 Secondary and unspecified malignant neoplasm of intra-abdominal lymph nodes; R13.10 Dysphagia, unspecified; I95.9 Hypotension, unspecified; J98.11 Atelectasis; D64.9 Anemia, unspecified; K21.0 Gastro-esophageal reflux disease with esophagitis; R50.81 Fever presenting with conditions classified elsewhere; K29.50 Unspecified chronic gastritis without bleeding; K22.4 Dyskinesia of esophagus; K44.9 Diaphragmatic hernia without obstruction or gangrene; G47.00 Insomnia, unspecified; E87.6 Hypokalemia; T36.95XA Adverse effect of unspecified systemic antibiotic, initial encounter; F41.9 Anxiety disorder, unspecified; F12.90 Cannabis use, unspecified, uncomplicated; F17.210 Nicotine dependence, cigarettes, uncomplicated; F98.8 Other specified behavioral and emotional disorders with onset usually occurring in childhood and adolescence; Z23 Encounter for immunization; Z83.2 Family history of diseases of the blood and blood-forming organs and certain disorders involving the immune mechanism; Z83.79 Family history of other diseases of the digestive system; Z88.5 Allergy status to narcotic agent
CPT/HCPCS: 32405; 32555; 32557; 36561; 36600; 70553; 71010; 71020; 71250; 71260; 73030; 74177; 76937; 77001; 77012; 80048; 80053; 80069; 80202; 82150; 82378; 82550; 82784; 82805; 82945; 83516; 83615; 83735; 83880; 84100; 84145; 84157; 84484; 85007; 85014; 85018; 85025; 85027; 85610; 85730; 86850; 86900; 86901; 87015; 87040; 87070; 87102; 87116; 87205; 87206; 87449; 87493; 87641; 88112; 88305; 88312; 88313; 88341; 88342; 89051; 90732; 93005; 93306; 94150; 94620; 94640; 94664; 94667; 94668; 99152; 99153; 99284; A9579; C1729; C1769; C1788; C1887; C9113; J0171; J0456; J0690; J0696; J1170; J1642; J1650; J1885; J1956; J2060; J2250; J2270; J2405; J2543; J3010; J3370; J7040; J7050; J7608; Q9963; Q9967